=== PATIENT | male | born 1935 | race Caucasian/White ===

== ENCOUNTER → 2016-07-06 | Outpatient (CLI) | payer OTHER, MEDICARE | LOC: MW.CHNEURO 08:00 | CPT/HCPCS: 99215 ==

== ENCOUNTER 2016-07-27 13:07 | Observation (INO) | payer MEDICARE, OTHER ==
--- NOTE | 2016-07-27 13:31 | EDM.PDOC ---
ED HPI GENERAL MEDICAL PROBLEM - General Chief Complaint: Headache Stated Complaint: HAVING A STROKE Time Seen by Provider: 07/27/16 13:29 Source of Information: Reports: Patient History Limitations: Reports: No limitations - History of Present Illness INITIAL COMMENTS - FREE TEXT/NARRATIVE: History of present illness: [81-year-old male presenting with complaints of period of slurring speech, and major headache. is present and indicates patient has had 2 TIAs in the past year and patient was presenting exactly as he was with these other episodes.] Review of systems: As per history of present illness and below otherwise all systems reviewed and negative. Past medical history: As per history of present illness and as reviewed below otherwise noncontributory. Surgical history: As per history of present illness and as reviewed below otherwise noncontributory. Social history: No reported history of drug or alcohol abuse. Family history: As per history of present illness and as reviewed below otherwise noncontributory. Physical exam: HEENT: Atraumatic, normocephalic, pupils reactive, negative for conjunctival pallor or scleral icterus, mucous membranes moist, throat clear, neck supple, nontender, trachea midline. Lungs: Clear to auscultation, breath sounds equal bilaterally, chest nontender. Heart: S1S2, regular, negative for clicks, rubs, or JVD. Abdomen: Soft, nondistended, nontender. Negative for masses or hepatosplenomegaly. Negative for costovertebral tenderness. Pelvis: Stable nontender. Genitourinary: Deferred. Rectal: Deferred. Extremities: Atraumatic, negative for cords or calf pain. Neurovascular unremarkable. Neuro: Awake, alert, oriented. Cranial nerves II through XII unremarkable. Cerebellum unremarkable. Motor and sensory unremarkable throughout. Exam nonfocal. At this juncture patient is without significant deficits indicates that he is presenting at baseline. Patient is still complaining of headache and will be evaluated for same Diagnostics: [EKG,CBC, CMP, troponin, chest x-ray, CT of head] Therapeutics: [] Impression: [TIA] Plan: [Admit for observation and workup to Dr. Bell and Dr. Robert] Definitive disposition and diagnosis as appropriate pending reevaluation and review of above. Frontal Headache Pain Score (Numeric/FACES): 7 - Related Data Allergies Allergy/AdvReac Type Severity Reaction Status Date / Time No Known Allergies Allergy Verified 07/27/16 13:39 Home Meds: Home Meds Dabigatran Etexilate Mesylate [Pradaxa] 150 mg PO BID 12/01/15 [History] Metoprolol Succinate [Toprol XL] 25 mg PO DAILY 12/01/15 [History] Prednisone [IJD: Prednisone] 5 mg PO DAILY 12/01/15 [History] atorvaSTATin [Lipitor] 40 mg PO BEDTIME 12/01/15 [History] Alendronate [Fosamax] 70 mg PO Q7D@0600 06/15/16 [History] Finasteride [Proscar] 5 mg PO DAILY 06/15/16 [History] Lisinopril 10 mg PO DAILY 06/15/16 [History] Tamsulosin [Flomax] 0.4 mg PO PCBREAKFAST 06/15/16 [History] Aspirin 81 mg PO DAILY #30 tab 06/16/16 [Rx] Past Medical History HEENT History: Reports: None Cardiovascular History: Reports: CAD, Hypertension Respiratory History: Reports: None Gastrointestinal History: Reports: None Genitourinary History: Reports: None Musculoskeletal History: Reports: None Neurological History: Reports: None Psychiatric History: Reports: None Endocrine/Metabolic History: Reports: None Hematologic History: Reports: None Immunologic History: Reports: None Oncologic (Cancer) History: Reports: None Dermatologic History: Reports: None - Past Surgical History Cardiovascular Surgical History: Reports: Carotid endarterectomy, Coronary artery bypass, Valve replacement Social & Family History - Family History Family Medical History: Noncontributory HEENT: Reports: None Cardiac: Reports: Afib, High cholesterol, Hypertension Respiratory: Reports: None GI: Reports: None : Reports: None OBGYN: Reports: None Musculoskeletal: Reports: Arthritis, Osteoarthritis, Osteoporosis Neurological: Reports: None Psychiatric: Reports: None Endocrine/Metabolic: Reports: None Hematologic: Reports: None Immunologic: Reports: None Dermatologic: Reports: None - Tobacco Use Smoking Status *Q: Never Smoker Years of Tobacco use: 30 Packs/Tins Daily: 1 Used Tobacco, but Quit: Yes Month Tobacco Last Used: MAY Second Hand Smoke Exposure: No - Caffeine Use Caffeine Use: Reports: Coffee - Alcohol Use Days Per Week of Alcohol Use: 7 Number of Drinks Per Day: 2 Total Drinks Per Week: 14 - Recreational Drug Use Recreational Drug Use: No ED ROS GENERAL - Review of Systems Review Of Systems: See Below (The history of present illness) ED EXAM, GENERAL - Physical Exam Exam: See Below (The history of present illness) Course - Vital Signs Last Recorded V/S: Last Vital Signs Temp 36.6 C 07/27/16 13:14 Pulse 70 07/27/16 14:37 Resp 18 07/27/16 14:37 BP 174/85 H 07/27/16 14:37 Pulse Ox 98 07/27/16 14:37 - Orders/Labs/Meds Orders: Active Orders 24 hr Category Date Time Status Patient Status [ADT] Stat ADT 07/27/16 14:48 Ordered EKG 12 Lead [EKG Documentation Completion] [RC] STAT Care 07/27/16 13:15 Active COMPREHENSIVE METABOLIC PN,CMP [CHEM] Stat Lab 07/27/16 13:53 Received UA W/MICROSCOPIC [URIN] Stat Lab 07/27/16 14:30 Received Labs: Laboratory Tests 07/27/16 07/27/16 Range/Units 13:53 13:53 WBC 10.15 (4.0-11.0) K/uL RBC 4.56 (4.50-5.90) M/uL Hgb 14.9 (13.0-17.0) g/dL Hct 44.2 (38.0-50.0) % MCV 96.9 (80.0-98.0) fL MCH 32.7 H (27.0-32.0) pg MCHC 33.7 (31.0-37.0) g/dL RDW Std Deviation 50.3 (28.0-62.0) fl RDW Coeff of Ryan 14 (11.0-15.0) % Plt Count 215 (150-400) K/uL MPV 10.00 (7.40-12.00) fL Neut % (Auto) 76.5 (48.0-80.0) % Lymph % (Auto) 13.5 L (16.0-40.0) % [place] % (Auto) 9.1 (0.0-15.0) % Eos % (Auto) 0.5 (0.0-7.0) % Baso % (Auto) 0.4 (0.0-1.5) % Neut # (Auto) 7.8 H (1.4-5.7) K/uL Lymph # (Auto) 1.4 (0.6-2.4) K/uL [place] # (Auto) 0.9 H (0.0-0.8) K/uL Eos # (Auto) 0.1 (0.0-0.7) K/uL Baso # (Auto) 0.0 (0.0-0.1) K/uL Nucleated RBC % 0.0 /100WBC Nucleated RBCs # 0 K/uL Troponin I < 0.10 (0.0-0.29) NG/ML Departure - Departure Time of Disposition: 14:50 Disposition: Admitted As Inpatient 67 Condition: good Clinical Impression: TIA (transient ischemic attack) Qualifiers: Transient cerebral ischemia type: unspecified Qualified Code(s): G45.9 - Transient cerebral ischemic attack, unspecified Forms: ED Department Discharge - My Orders Last 24 Hours: My Active Orders 07/27/16 13:15 EKG 12 Lead [EKG Documentation Completion] [RC] STAT 07/27/16 13:53 COMPREHENSIVE METABOLIC PN,CMP [CHEM] Stat 07/27/16 14:30 UA W/MICROSCOPIC [URIN] Stat 07/27/16 14:48 Patient Status [ADT] Stat - Assessment/Plan Last 24 Hours: My Active Orders 07/27/16 13:15 EKG 12 Lead [EKG Documentation Completion] [RC] STAT 07/27/16 13:53 COMPREHENSIVE METABOLIC PN,CMP [CHEM] Stat 07/27/16 14:30 UA W/MICROSCOPIC [URIN] Stat 07/27/16 14:48 Patient Status [ADT] Stat
--- NOTE | 2016-07-27 14:25 | CR ---
EXAMINATION: Portable chest radiograph. HISTORY: Syncope. Comparison: 06/15/2016. FINDINGS: The trachea is midline. The cardiomediastinal silhouette is within normal limits. No pulmonary infil trates, effusions or pneumothorax. There is a left-sided pacemaker. Median sternotomy wires are note d. Chronic interstitial prominence and mild hyperinflation. Osseous structures appear unremarkable. IMPRESSION: Chronic interstitial prominence and hyperinflation without acute cardiopulmonary finding.
--- NOTE | 2016-07-27 14:28 | CT ---
EXAMINATION: Non contrast CT head. Coronal and sagittal reformats. HISTORY: Pain FINDINGS: No evidence of intra or extra axial hemorrhage, mass, midline shift, hydrocephalus or edema. Modera te generalized atrophy. Periventricular and subcortical white matter hypodensities are noted. No hypoattenuation changes in the major vascular territories to suggest acute infarct. No abnormal intracranial calcifications are detected. No evidence of substantial vascular calcifications. Para nasal sinuses and mastoid air cells are well aerated without substantial findings. Pituitary fossa appears unremarkable. The calvarium is intact. No evidence of skull fracture. Advan fermin degenerative changes noted within the temporomandibular joints, right greater than left. IMPRESSION: 1. No acute intracranial findings. 2. Moderate generalized atrophy and small vessel ischemic changes.
[2016-07-27 14:48] LABS: CHLORIDE,CL 106 mmol/L (98-110); SODIUM,NA 140 mmol/L (136-146)
[2016-07-27] MEDS ORDERED: Acetaminophen/HYDROcodone 325-10 MG Tab PO ONE (15:34)
[2016-07-27] MEDS ORDERED: Acetaminophen 325 MG Tab PO PRN (15:45)
[2016-07-27] MEDS ORDERED: Ondansetron 4 MG Tab.DIS PO PRN (15:45)
--- NOTE | 2016-07-27 16:32 | PCM.HP ---
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 Patient presented to the ED with his with complaints of a period of slurring speech, headache and confusion. indicated that patient had 2 TIAs in the past year and was having similarly symptoms as his previous episodes. reports no facial drooping or weakness. He has a baseline ataxia. Patient denies any chest pain or palpitations prior to or after the event. He does remember the episode. His speech returned to normal in approximately 10 minutes. In ED, CXR revealed chronic interstitial prominence and hyperinflation without acute cardiopulmonary findings. CT of the head revealed no acute intracranial findings with moderate generalized atrophy and small vessel ischemic changes. EKG showed no acute ischemic changes. CBC, CMP, UA and Troponin were unremarkable. Patient admitted to observation for Altered mental status vs TIA and placed on telemetry. On previous admission on 06/15/16 he was noted to have left facial droop and left sided weakness. During that admission a Echocardiogram showed: 1. left ventricular ejection fraction by visual estimation is 55%. 2. mild septal left ventricular hypertrophy. 3. there is mild aortic valve sclerosis without stenosis. 4. the mitral valve is normal functioning biprosthetic valve. 5. trace aortic valve regurgitation. 6. mild to moderate tricuspid valve regurgitation. 7. the right ventricular systolic pressure is normal at 33.5 mm Hg Carotid Duplex ultrasound was also preformed during and showed moderate soft and hard plaque noted throughout the carotid arteries bilaterally, however no elevated velocities noted to suggest greater than 50% stenosis. In addition, neurology was consulted and recommendations were to continue his Pradaxa, restart ASA 81 mg, continue his lipitor 40 mg. He has been compliant with these instructions. MRI was not performed secondary to pacemaker. Frontal Headache Pain Score (Numeric/FACES): 7 - Related Data Allergies/Adverse Reactions: Allergies Allergy/AdvReac Type Severity Reaction Status Date / Time No Known Allergies Allergy Verified 07/27/16 13:39 Home Medications: Home Meds Dabigatran Etexilate Mesylate [Pradaxa] 150 mg PO BID 12/01/15 [History] Metoprolol Succinate [Toprol XL] 25 mg PO DAILY 12/01/15 [History] Prednisone [IJD: Prednisone] 5 mg PO DAILY 12/01/15 [History] atorvaSTATin [Lipitor] 40 mg PO BEDTIME 12/01/15 [History] Finasteride [Proscar] 5 mg PO DAILY 06/15/16 [History] Lisinopril 10 mg PO DAILY 06/15/16 [History] Tamsulosin [Flomax] 0.4 mg PO PCBREAKFAST 06/15/16 [History] Aspirin 81 mg PO DAILY #30 tab 06/16/16 [Rx] Alendronate [Fosamax] 70 mg PO ASDIRECTED 07/27/16 [History] Hydrocodone/Acetaminophen [Hydrocodon-Acetaminoph 7.5-300] 7.5 - 200 mg PO DAILY PRN 07/27/16 [History] Past Medical History HEENT History: Reports: None Cardiovascular History: Reports: CAD, Hypertension Respiratory History: Reports: None Gastrointestinal History: Reports: None Genitourinary History: Reports: None Musculoskeletal History: Reports: None Neurological History: Reports: None Psychiatric History: Reports: None Endocrine/Metabolic History: Reports: None Hematologic History: Reports: None Immunologic History: Reports: None Oncologic (Cancer) History: Reports: None Dermatologic History: Reports: None - Past Surgical History Cardiovascular Surgical History: Reports: Carotid endarterectomy, Coronary artery bypass, Valve replacement Social & Family History - Family History Family Medical History: Noncontributory HEENT: Reports: None Cardiac: Reports: Afib, High cholesterol, Hypertension Respiratory: Reports: None GI: Reports: None : Reports: None OBGYN: Reports: None Musculoskeletal: Reports: Arthritis, Osteoarthritis, Osteoporosis Neurological: Reports: None Psychiatric: Reports: None Endocrine/Metabolic: Reports: None Hematologic: Reports: None Immunologic: Reports: None Dermatologic: Reports: None - Tobacco Use Smoking Status *Q: Never Smoker Years of Tobacco use: 30 Packs/Tins Daily: 1 Used Tobacco, but Quit: Yes Month Tobacco Last Used: MAY Second Hand Smoke Exposure: No - Caffeine Use Caffeine Use: Reports: Coffee Caffeine Use Comment: 1 drink/day - Alcohol Use Days Per Week of Alcohol Use: 7 Number of Drinks Per Day: 2 Total Drinks Per Week: 14 - Recreational Drug Use Recreational Drug Use: No H&P Review of Systems - Review of Systems: Review Of Systems: See Below General: Denies: fever, chills, weakness, fatigue HEENT: Denies: dysphasia, hearing changes, sore throat, visual changes Pulmonary: Reports: Shortness of Breath, Cough. Denies: Wheezing, Hemoptysis Cardiovascular: Denies: chest pain, palpitations, edema Gastrointestinal: Denies: Abdominal pain, Black stool, Bloody stool, Nausea, Vomiting Genitourinary: Reports: frequency. Denies: dysuria, burning, pain, hematuria Musculoskeletal: Denies: neck pain, leg pain Skin: Denies: cyanosis Psychiatric: Denies: confusion Neurological: Reports: Headache. Denies: Confusion Hematologic/Lymphatic: Reports: easy bleeding, easy bruising Exam - Exam Exam: See Below - Vital Signs Vital Signs: Last Vital Signs Temp 37.7 C 07/27/16 16:10 Pulse 72 07/27/16 16:10 Resp 18 07/27/16 16:10 BP 197/87 H 07/27/16 16:10 Pulse Ox 97 07/27/16 16:10 Weight: 81.647 kg - Exam Quality Assessment: DVT prophylaxis General: alert, oriented, cooperative HEENT: Conjunctiva clear, EACs clear, EOMI, Hearing intact, Mucosa moist & pink , Nares patent, Normal nasal septum, Posterior pharynx clear, PERRLA Neck: supple, trachea midline, 2 Lungs: Clear to auscultation, Normal respiratory effort, Crackles (bibasilar) Cardiovascular: regular rate, regular rhythm, normal S1, normal S2, systolic murmur Abdomen: normal bowel sounds, soft. No: guarding, rigidity, rebound, tenderness Back Exam: normal inspection. No: CVA tenderness (L), CVA tenderness (R) Extremities: normal inspection, normal pulses. No: calf tenderness, edema Peripheral Pulses: 2+: radial (L), radial (R), posterior tibial (L), posterior tibial (R), dorsalis pedis (L), dorsalis pedis (R) Skin: warm, dry, intact Neurological: cranial nerves intact, strength equal bilateral, normal speech, normal tone, sensation intact, other (ataxia). No: focal deficit Neuro Extensive - Mental Status: alert, oriented x3, normal mood/affect, normal cognition, memory loss-recent events Neuro Extensive - Motor, Sensory, Reflexes: CN II-XII intact, normal gait, normal reflexes, abnormal Romberg Psychiatric: alert, normal affect, normal mood - Patient Data Lab Results last 24 hrs: Laboratory Results - last 24 hr 07/27/16 07/27/16 07/27/16 Range/Units 13:53 13:53 13:53 WBC 10.15 (4.0-11.0) K/uL RBC 4.56 (4.50-5.90) M/uL Hgb 14.9 (13.0-17.0) g/dL Hct 44.2 (38.0-50.0) % MCV 96.9 (80.0-98.0) fL MCH 32.7 H (27.0-32.0) pg MCHC 33.7 (31.0-37.0) g/dL RDW Std Deviation 50.3 (28.0-62.0) fl RDW Coeff of Ryan 14 (11.0-15.0) % Plt Count 215 (150-400) K/uL MPV 10.00 (7.40-12.00) fL Neut % (Auto) 76.5 (48.0-80.0) % Lymph % (Auto) 13.5 L (16.0-40.0) % [place] % (Auto) 9.1 (0.0-15.0) % Eos % (Auto) 0.5 (0.0-7.0) % Baso % (Auto) 0.4 (0.0-1.5) % Neut # (Auto) 7.8 H (1.4-5.7) K/uL Lymph # (Auto) 1.4 (0.6-2.4) K/uL Fisher # (Auto) 0.9 H (0.0-0.8) K/uL Eos # (Auto) 0.1 (0.0-0.7) K/uL Baso # (Auto) 0.0 (0.0-0.1) K/uL Nucleated RBC % 0.0 /100WBC Nucleated RBCs # 0 K/uL Sodium 140 (136-146) mmol/L Potassium 4.0 (3.5-5.1) mmol/L Chloride 106 (98-110) mmol/L Carbon Dioxide 21 (21-31) mmol/L BUN 12 (6.0-23.0) mg/dL Creatinine 0.8 (0.6-1.5) mg/dL Est Cr Clr Drug Dosing TNP Estimated GFR (MDRD) > 60.0 ml/min Glucose 102 (60-110) mg/dL Calcium 9.0 (8.8-10.8) mg/dL Total Bilirubin 1.2 (0.1-1.5) mg/dL AST 21 (5-40) IU/L ALT 19 (8-54) IU/L Alkaline Phosphatase 48 (40-150) Troponin I < 0.10 (0.0-0.29) NG/ML Total Protein 7.5 (6.0-8.0) g/dL Albumin 3.9 (3.4-4.8) g/dL Globulin 3.6 H (2.0-3.5) g/dL Albumin/Globulin Ratio 1.1 L (1.3-2.8) Urine Color Urine Appearance Urine pH (5.0-8.0) Ur Specific [place] (1.001-1.035) Urine Protein (NEGATIVE) mg/dL Urine Glucose (UA) (NEGATIVE) mg/dL Urine Ketones (NEGATIVE) mg/dL Urine Occult Blood (NEGATIVE) Urine Nitrite (NEGATIVE) Urine Bilirubin (NEGATIVE) Urine Urobilinogen (<2.0) EU/dL Ur Leukocyte Esterase (NEGATIVE) Urine RBC (0-2/HPF) Urine WBC (0-5/HPF) Ur Epithelial Cells (NONE-FEW) Amorphous Sediment (NEGATIVE) Urine Bacteria (NEGATIVE) 07/27/16 Range/Units 14:30 WBC (4.0-11.0) K/uL RBC (4.50-5.90) M/uL Hgb (13.0-17.0) g/dL Hct (38.0-50.0) % MCV (80.0-98.0) fL MCH (27.0-32.0) pg MCHC (31.0-37.0) g/dL RDW Std Deviation (28.0-62.0) fl RDW Coeff of Ryan (11.0-15.0) % Plt Count (150-400) K/uL MPV (7.40-12.00) fL Neut % (Auto) (48.0-80.0) % Lymph % (Auto) (16.0-40.0) % Fisher % (Auto) (0.0-15.0) % Eos % (Auto) (0.0-7.0) % Baso % (Auto) (0.0-1.5) % Neut # (Auto) (1.4-5.7) K/uL Lymph # (Auto) (0.6-2.4) K/uL Fisher # (Auto) (0.0-0.8) K/uL Eos # (Auto) (0.0-0.7) K/uL Baso # (Auto) (0.0-0.1) K/uL Nucleated RBC % /100WBC Nucleated RBCs # K/uL Sodium (136-146) mmol/L Potassium (3.5-5.1) mmol/L Chloride (98-110) mmol/L Carbon Dioxide (21-31) mmol/L BUN (6.0-23.0) mg/dL Creatinine (0.6-1.5) mg/dL Est Cr Clr Drug Dosing Estimated GFR (MDRD) ml/min Glucose (60-110) mg/dL Calcium (8.8-10.8) mg/dL Total Bilirubin (0.1-1.5) mg/dL AST (5-40) IU/L ALT (8-54) IU/L Alkaline Phosphatase (40-150) Troponin I (0.0-0.29) NG/ML Total Protein (6.0-8.0) g/dL Albumin (3.4-4.8) g/dL Globulin (2.0-3.5) g/dL Albumin/Globulin Ratio (1.3-2.8) Urine Color YELLOW Urine Appearance CLEAR Urine pH 7.5 (5.0-8.0) Ur Specific [place] 1.015 (1.001-1.035) Urine Protein NEGATIVE (NEGATIVE) mg/dL Urine Glucose (UA) NEGATIVE (NEGATIVE) mg/dL Urine Ketones NEGATIVE (NEGATIVE) mg/dL Urine Occult Blood NEGATIVE (NEGATIVE) Urine Nitrite NEGATIVE (NEGATIVE) Urine Bilirubin NEGATIVE (NEGATIVE) Urine Urobilinogen 2.0 H (<2.0) EU/dL Ur Leukocyte Esterase NEGATIVE (NEGATIVE) Urine RBC 0-2 (0-2/HPF) Urine WBC 0-2 (0-5/HPF) Ur Epithelial Cells RARE (NONE-FEW) Amorphous Sediment LIGHT (NEGATIVE) Urine Bacteria FEW (NEGATIVE) Result Diagrams: 07/27/16 13:53 07/27/16 13:53 *Q Meaningful Use (ADM) - VTE *Q VTE Criteria *Q: - Stroke *Q Stroke Criteria *Q: - AMI *Q AMI Criteria *Q: - Problem List (1) HTN (hypertension) SNOMED Code(s): 66754606 ICD Code: I10 - ESSENTIAL (PRIMARY) HYPERTENSION Status: Chronic Priority : Medium Current Visit: Yes Qualifiers: Hypertension type: essential hypertension Qualified Code(s): I10 - Essential (primary) hypertension (2) CAD (coronary artery disease) SNOMED Code(s): 97657111 ICD Code: I25.10 - ATHSCL HEART DISEASE OF [place] CORONARY ARTERY W/O ANG PCTRS Status: Chronic Priority: Medium Current Visit: Yes Qualifiers: Coronary Disease-Associated Artery/Lesion type: unspecified vessel or lesion type [place] vs. transplanted heart: [place] heart Associated angina: without angina Qualified Code(s): I25.10 - Atherosclerotic heart disease of [place] coronary artery without angina pectoris (3) Altered mental status SNOMED Code(s): 045357420 ICD Code: R41.82 - ALTERED MENTAL STATUS, UNSPECIFIED Status: Resolved Priority: High Current Visit: Yes Qualifiers: Altered mental status type: transient alteration of awareness Qualified Code(s): R40.4 - Transient alteration of awareness (4) TIA (transient ischemic attack) SNOMED Code(s): 739638306, 181962422 ICD Code: G45.9 - TRANSIENT CEREBRAL ISCHEMIC ATTACK, UNSPECIFIED Status: Acute Priority: High Current Visit: Yes Qualifiers: Transient cerebral ischemia type: unspecified Qualified Code(s): G45.9 - Transient cerebral ischemic attack, unspecified Problem List Initiated/Reviewed/Updated: Yes Orders Last 24hrs: Active Orders 24 hr Category Date Time Status Patient Status [ADT] Routine ADT 07/27/16 15:45 Active Patient Status [ADT] Stat ADT 07/27/16 14:48 Active Antiembolic Devices [RC] PER UNIT ROUTINE Care 07/27/16 15:47 Active EKG 12 Lead [EKG Documentation Completion] [RC] STAT Care 07/27/16 13:15 Active Oxygen Therapy [RC] PRN Care 07/27/16 15:45 Active Telemetry Monitoring [Cardiac Monitoring] [RC] . Care 07/27/16 16:06 Ordered DIRECTED Up With Assistance [RC] ASDIRECTED Care 07/27/16 15:45 Active VTE/DVT Education [RC] PER UNIT ROUTINE Care 07/27/16 15:45 Active Vital Signs [RC] Q4H Care 07/27/16 15:45 Active Heart Healthy Diet [DIET] Diet 07/27/16 Dinner Active BASIC METABOLIC PANEL,BMP [CHEM] DAILY Lab 07/28/16 15:45 Ordered BASIC METABOLIC PANEL,BMP [CHEM] DAILY Lab 07/29/16 15:45 Ordered BASIC METABOLIC PANEL,BMP [CHEM] DAILY Lab 07/30/16 15:45 Ordered CBC WITH AUTO DIFF [HEME] DAILY Lab 07/28/16 05:00 Ordered CBC WITH AUTO DIFF [HEME] DAILY Lab 07/29/16 05:00 Ordered CBC WITH AUTO DIFF [HEME] DAILY Lab 07/30/16 05:00 Ordered MAGNESIUM [CHEM] Routine Lab 07/28/16 05:00 Ordered PHOSPHORUS [CHEM] DAILY Lab 07/28/16 05:00 Ordered Acetaminophen [Tylenol] Med 07/27/16 15:45 Active 650 mg PO Q4H PRN Ondansetron [Zofran ODT] Med 07/27/16 15:45 Active 4 mg PO Q4H PRN Sequential Compression Device [OM.PC] Per Unit Routine Oth 07/27/16 15:46 Ordered Resuscitation Status Routine Resus Stat 07/27/16 15:45 Ordered Medication Orders Acetaminophen (Tylenol) 650 mg PO Q4H PRN PRN Reason: Pain (Mild 1-3)/fever Ondansetron HCl (Zofran Odt) 4 mg PO Q4H PRN PRN Reason: nausea, able to take PO Assessment/Plan Comment:: 81 yo male admitted 07/27/16 for TIA with pmh of TIA, A-fib with pacer, 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 TIA: No focal deficits on exam and no slurring of speech. He is on a lipid lower medication, ASA and Pradaxa which will be continued. Previous studies including CT head, Carotid US, and Echocardiogram on 06/16/16 did not reveal any new finding. Secondary to pacer patient cannot have MRI at this facility. I did talk with Dr. Jewell, neurologist who saw the patient during his last admission. She indicated that he currently is on maximal medical therapy at this time. We will watch patient overnight on telemetry to rule out cardiac etiology of symptoms. No signs of ischemia on ECG and troponin was negative. No reported chest pain but some shortness of breath. All labs thus far unremarkable for infection. A-fib with pacer/porcine valve replacement: Rate controlled, on telemetry will monitor. Continue Pradaxa and ASA Htn: Stable cont. home BP meds. Hyperlipidemia: Cont. home meds. VTE: SCD, On Pradaxa and 81 mg ASA Dispo: Tomorrow pending.
[2016-07-27] MEDS ORDERED: hydrALAZINE 20 MG/ML SDV IVPUSH ONE (18:24)
[2016-07-27] MEDS: Lisinopril 10 MG Tab PO SCH (18:47)
[2016-07-27] MEDS: Metoprolol Succinate 25 MG Tab.ER PO SCH (18:48)
[2016-07-27] MEDS ORDERED: atorvaSTATin 40 MG Tab PO SCH (21:00)
[2016-07-28 05:35] LABS: CHLORIDE,CL 108 mmol/L (98-110); SODIUM,NA 139 mmol/L (136-146)
[2016-07-28 08:05] VITALS: BP 147/72
[2016-07-28] MEDS: Lisinopril 10 MG Tab PO SCH (08:54)
[2016-07-28] MEDS: Metoprolol Succinate 25 MG Tab.ER PO SCH (08:55)
[2016-07-28] MEDS ORDERED: Aspirin 81 MG Tab.Chew PO SCH (09:00)
--- NOTE | 2016-07-28 10:34 | PCM.DCSUM1 ---
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 Brief History: Patient presented to the ED with his with complaints of a period of slurring speech, headache and confusion. indicated that patient had 2 TIAs in the past year and was having similarly symptoms as his previous episodes. reported no facial drooping or weakness. He has a baseline ataxia. Patient denied any chest pain or palpitations prior to or after the event. He did remember the episode. His speech returned to normal in approximately 10 minutes - Discharge Data Discharge Date: 07/28/16 Discharge Disposition: Home, Self-Care 01 Condition: Good - Discharge Diagnosis/Problem(s) (1) HTN (hypertension) SNOMED Code(s): 35844339 ICD Code: I10 - ESSENTIAL (PRIMARY) HYPERTENSION Status: Chronic Priority : Medium Current Visit: Yes Qualifiers: Hypertension type: essential hypertension Qualified Code(s): I10 - Essential (primary) hypertension (2) CAD (coronary artery disease) SNOMED Code(s): 28527804 ICD Code: I25.10 - ATHSCL HEART DISEASE OF [place] CORONARY ARTERY W/O ANG PCTRS Status: Chronic Priority: Medium Current Visit: Yes Qualifiers: Coronary Disease-Associated Artery/Lesion type: unspecified vessel or lesion type [place] vs. transplanted heart: [place] heart Associated angina: without angina Qualified Code(s): I25.10 - Atherosclerotic heart disease of [place] coronary artery without angina pectoris (3) Altered mental status SNOMED Code(s): 388739019 ICD Code: R41.82 - ALTERED MENTAL STATUS, UNSPECIFIED Status: Resolved Priority: High Current Visit: Yes Qualifiers: Altered mental status type: transient alteration of awareness Qualified Code(s): R40.4 - Transient alteration of awareness (4) TIA (transient ischemic attack) SNOMED Code(s): 598782762, 948381549 ICD Code: G45.9 - TRANSIENT CEREBRAL ISCHEMIC ATTACK, UNSPECIFIED Status: Acute Priority: High Current Visit: Yes Qualifiers: Transient cerebral ischemia type: unspecified Qualified Code(s): G45.9 - Transient cerebral ischemic attack, unspecified - Patient Summary/Data Hospital Course: In ED, CXR revealed chronic interstitial prominence and hyperinflation without acute cardiopulmonary findings. CT of the head revealed no acute intracranial findings with moderate generalized atrophy and small vessel ischemic changes. EKG showed no acute ischemic changes. CBC, CMP, UA and Troponin were unremarkable. Patient was admitted to observation for Altered mental status vs TIA and placed on telemetry. On previous admission on 06/15/16 he was noted to have left facial droop and left sided weakness. During that admission a Echocardiogram showed: 1. left ventricular ejection fraction by visual estimation is 55%. 2. mild septal left ventricular hypertrophy. 3. there is mild aortic valve sclerosis without stenosis. 4. the mitral valve is normal functioning biprosthetic valve. 5. trace aortic valve regurgitation. 6. mild to moderate tricuspid valve regurgitation. 7. the right ventricular systolic pressure is normal at 33.5 mm Hg Carotid Duplex ultrasound was also preformed during that admission and showed moderate soft and hard plaque noted throughout the carotid arteries bilaterally , however no elevated velocities noted to suggest greater than 50% stenosis. In addition, neurology was consulted and recommendations were to continue his Pradaxa, restart ASA 81 mg, continue his lipitor 40 mg. He and his reported he had been compliant with these instructions. MRI was not performed secondary to pacemaker. - Patient Instructions Diet: Heart Healthy Diet Activity: As Tolerated Driving: Do Not Drive Showering/Bathing: May Shower Notify Provider of: Fever, Increased Pain, Nausea and/or Vomiting Other/Special Instructions: Follow-up with Dr. Rodriguez and Dr. Jewell. Take home medication as prescribed. Return to ED if any new or worsening symptoms. - Discharge Plan Home Medications: Home Meds Dabigatran Etexilate Mesylate [Pradaxa] 150 mg PO BID 12/01/15 [History] Metoprolol Succinate [Toprol XL] 25 mg PO DAILY 12/01/15 [History] Prednisone [IJD: Prednisone] 5 mg PO DAILY 12/01/15 [History] atorvaSTATin [Lipitor] 40 mg PO BEDTIME 12/01/15 [History] Finasteride [Proscar] 5 mg PO DAILY 06/15/16 [History] Lisinopril 10 mg PO DAILY 06/15/16 [History] Tamsulosin [Flomax] 0.4 mg PO PCBREAKFAST 06/15/16 [History] Aspirin 81 mg PO DAILY #30 tab 06/16/16 [Rx] Alendronate [Fosamax] 70 mg PO ASDIRECTED 07/27/16 [History] Hydrocodone/Acetaminophen [Hydrocodon-Acetaminoph 7.5-300] 7.5 - 200 mg PO DAILY PRN 07/27/16 [History] Forms: ED Department Discharge Referrals: Yevgeniy Murguia MD [Physician] - 08/04/16 10:45 am - Discharge Summary/Plan Comment DC Time >30 min.: Yes Discharge Summary/Plan Comment: 81 yo male admitted to observation 07/27/16 for altered mental status/TIA with history of TIA, a-fib with pacer, carotid endarterectomy, 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 Patient presented to the ED with his with complaints of a period of slurring speech, headache and confusion. indicated that patient had 2 TIAs in the past year and was having similarly symptoms as his previous episodes. reported no facial drooping or weakness. He has a baseline ataxia. Patient denied any chest pain or palpitations prior to or after the event. He did remember the episode. His speech returned to normal in approximately 10 minutes. In ED, CXR revealed chronic interstitial prominence and hyperinflation without acute cardiopulmonary findings. CT of the head revealed no acute intracranial findings with moderate generalized atrophy and small vessel ischemic changes. EKG showed no acute ischemic changes. CBC, CMP, UA and Troponin were unremarkable. Patient was admitted to observation for Altered mental status vs TIA and placed on telemetry. On previous admission on 06/15/16 he was noted to have left facial droop and left sided weakness. During that admission a Echocardiogram showed: 1. left ventricular ejection fraction by visual estimation is 55%. 2. mild septal left ventricular hypertrophy. 3. there is mild aortic valve sclerosis without stenosis. 4. the mitral valve is normal functioning biprosthetic valve. 5. trace aortic valve regurgitation. 6. mild to moderate tricuspid valve regurgitation. 7. the right ventricular systolic pressure is normal at 33.5 mm Hg Carotid Duplex ultrasound was also preformed during that admission and showed moderate soft and hard plaque noted throughout the carotid arteries bilaterally , however no elevated velocities noted to suggest greater than 50% stenosis. In addition, neurology was consulted and recommendations were to continue his Pradaxa, restart ASA 81 mg, continue his lipitor 40 mg. He and his reported he had been compliant with these instructions. MRI was not performed secondary to pacemaker. Patient did well during his stay and had no further episodes. Dr. Jewell, neurologist, was called and stated that he is currently on maximal medical therapy. Telemetry overnight showed stable pacer/rate controlled a-flutter without signifcant events. He was discharged in good condition home with follow -up scheduled with Dr. Jewell as well as Dr. Rodriguez, PCP. Both providers were called and informed of his status. He was instructed to take his current home medications as prescribed and retrun to ED if he had new or worsening symptoms. - General Info Date of Service: 07/28/16 Admission Dx/Problem (Free Text: Admission Diagnosis/Problem Admission Diagnosis/Problem TIA, Transient ischemic attack Functional Status: Reports: pain controlled, tolerating diet - Review of Systems General: Reports: No Symptoms HEENT: Denies: dysphasia, headaches Pulmonary: Denies: shortness of breath, pleuritic chest pain, wheezing Cardiovascular: Denies: Chest Pain, Edema Gastrointestinal: Denies: Abdominal pain, Constipation Genitourinary: Denies: dysuria, hematuria Musculoskeletal: Denies: neck pain, leg pain Skin: Denies: cyanosis Neurological: Denies: Confusion, Dizziness, Headache - Patient Data Vitals - Most Recent: Last Vital Signs Temp 36.6 C 07/28/16 08:00 Pulse 70 07/28/16 08:55 Resp 16 07/28/16 08:00 BP 147/72 H 07/28/16 08:55 Pulse Ox 97 07/28/16 08:00 Weight - Most Recent: 81.647 kg I&O - Last 24 hours: Intake & Output 07/27/16 07/28/16 07/28/16 22:59 06:59 14:59 Intake Total 300 Output Total 350 Balance -50 Lab Results - Last 24 hrs: Laboratory Results - last 24 hr 07/28/16 07/28/16 07/28/16 Range/Units 04:30 04:30 04:30 WBC 9.00 (4.0-11.0) K/uL RBC 4.54 (4.50-5.90) M/uL Hgb 14.8 (13.0-17.0) g/dL Hct 44.2 (38.0-50.0) % MCV 97.4 (80.0-98.0) fL MCH 32.6 H (27.0-32.0) pg MCHC 33.5 (31.0-37.0) g/dL RDW Std Deviation 50.4 (28.0-62.0) fl RDW Coeff of Ryan 14 (11.0-15.0) % Plt Count 231 (150-400) K/uL MPV 10.30 (7.40-12.00) fL Neut % (Auto) 67.9 (48.0-80.0) % Lymph % (Auto) 19.4 (16.0-40.0) % [place] % (Auto) 11.3 (0.0-15.0) % Eos % (Auto) 0.8 (0.0-7.0) % Baso % (Auto) 0.6 (0.0-1.5) % Neut # (Auto) 6.1 H (1.4-5.7) K/uL Lymph # (Auto) 1.8 (0.6-2.4) K/uL [place] # (Auto) 1.0 H (0.0-0.8) K/uL Eos # (Auto) 0.1 (0.0-0.7) K/uL Baso # (Auto) 0.1 (0.0-0.1) K/uL Nucleated RBC % 0.0 /100WBC Nucleated RBCs # 0 K/uL Sodium 139 (136-146) mmol/L Potassium 4.3 (3.5-5.1) mmol/L Chloride 108 (98-110) mmol/L Carbon Dioxide 20 L (21-31) mmol/L BUN 13 (6.0-23.0) mg/dL Creatinine 0.8 (0.6-1.5) mg/dL Est Cr Clr Drug Dosing 78.44 mL/min Estimated GFR (MDRD) > 60.0 ml/min Glucose 105 (60-110) mg/dL Calcium 9.0 (8.8-10.8) mg/dL Phosphorus 3.2 (2.4-4.7) mg/dL Magnesium 1.8 (1.5-2.3) mEq/L Med Orders - Current: Current Medications Acetaminophen (Tylenol) 650 mg PO Q4H PRN PRN Reason: Pain (Mild 1-3)/fever Aspirin (Aspirin) 81 mg PO DAILY [facility] Last Admin: 07/28/16 08:54 Dose: 81 mg Atorvastatin Calcium (Lipitor) 40 mg PO BEDTIME [facility] Last Admin: 07/27/16 21:19 Dose: 40 mg Dabigatran (Pradaxa) 150 mg PO BID [facility] Last Admin: 07/28/16 08:54 Dose: 150 mg Lisinopril (Prinivil) 10 mg PO DAILY [facility] Last Admin: 07/28/16 08:54 Dose: 10 mg Metoprolol Succinate (Toprol Xl) 25 mg PO DAILY [facility] Last Admin: 07/28/16 08:55 Dose: 25 mg Ondansetron HCl (Zofran Odt) 4 mg PO Q4H PRN PRN Reason: nausea, able to take PO Discontinued Medications Hydrocodone Bitart/Acetaminophen ([place] 325-10 Mg) 1 tab PO ONETIME ONE Stop: 07/27/16 15:35 Last Admin: 07/27/16 15:43 Dose: 1 tab Hydralazine HCl (Apresoline) 10 mg IVPUSH ONETIME ONE Stop: 07/27/16 18:25 Last Admin: 07/27/16 18:47 Dose: Not Given - Exam Quality Assessment: Reports: DVT prophylaxis General: Reports: alert, oriented, cooperative, no acute distress HEENT: Reports: Pupils equal, Pupils reactive, EOMI, Mucous membr. moist/pink Neck: Reports: supple, trachea midline Lungs: Reports: Clear to auscultation, Normal respiratory effort Cardiovascular: Reports: Regular Rate, Regular Rhythm Abdomen: Reports: bowel sounds present, soft, no tenderness, no distension Back Exam: Reports: normal inspection Extremities: Reports: no edema, normal pulses, no tenderness/swelling, no calf tenderness Skin: Reports: warm, dry, intact Neurological: Reports: no new focal deficit, other (gait ataxic) Psy/Mental Status: Reports: alert, normal affect, normal mood *Q Meaningful Use (DIS) - VTE *Q VTE Criteria *Q: - Stroke *Q Stroke Criteria *Q: - AMI *Q AMI Criteria *Q:
== END 2016-07-28 12:00 | disposition home or self-care (01) ==
LOC: MW.ED 13:07 → MW.MS 14:48
PROVIDERS: ADMIT Family Medicine; ATTEND Family Medicine
DX: I10 Essential (primary) hypertension (principal); I25.10 Atherosclerotic heart disease of native coronary artery without angina pectoris; R40.4 Transient alteration of awareness; G45.9 Transient cerebral ischemic attack, unspecified; Z79.82 Long term (current) use of aspirin; Z79.899 Other long term (current) drug therapy; Z95.1 Presence of aortocoronary bypass graft; Z95.2 Presence of prosthetic heart valve; Z98.890 Other specified postprocedural states; E78.5 Hyperlipidemia, unspecified; N40.0 Benign prostatic hyperplasia without lower urinary tract symptoms
CPT/HCPCS: 36415; 70450; 71010; 80048; 80053; 81001; 83735; 84100; 84484; 85025; 93005; 99285; A9270; G0378; 99284

== ENCOUNTER 2016-11-21 03:45 | Emergency (ER) | payer MEDICARE, OTHER ==
[2016-11-21] MEDS ORDERED: Aspirin 81 MG Tab.Chew PO ONE (03:56)
[2016-11-21] MEDS ORDERED: Sodium Chloride 0.9% 1,000 ML IV SCH (04:00)
--- NOTE | 2016-11-21 04:08 | EDM.PDOC ---
ED HPI GENERAL MEDICAL PROBLEM - General Chief Complaint: Neurological Problem Stated Complaint: SEIZURES Time Seen by Provider: 11/21/16 04:03 Source of Information: Reports: Patient - History of Present Illness INITIAL COMMENTS - FREE TEXT/NARRATIVE: HISTORY AND PHYSICAL: History of present illness: []Patient presents via ambulance as his noticed he was having seizure-like activity during his sleep, he arrives somewhat post- ictal seeming however he is complaining of chest pain he describes as pressure rated 6 out of 10 nonradiating to arm neck or jaw is been present for greater than 30 minutes on initial EKG does have significant ST depression V1 2 and 3 repeat EKG is similar. He has recently seen Dr. Fleming at [facility] in mind that she has artificial valve and pacemaker placement No fever nausea vomiting chills sweats no shortness of breath or diaphoresis Review of systems: As per history of present illness and below otherwise all systems reviewed and negative. Past medical history: As per history of present illness and as reviewed below otherwise noncontributory. Surgical history: As per history of present illness and as reviewed below otherwise noncontributory. Social history: No reported history of drug or alcohol abuse. Family history: As per history of present illness and as reviewed below otherwise noncontributory. Physical exam: HEENT: Atraumatic, normocephalic, pupils reactive, negative for conjunctival pallor or scleral icterus, mucous membranes moist, throat clear, neck supple, nontender, trachea midline. Lungs: Clear to auscultation, breath sounds equal bilaterally, chest nontender. Heart: S1S2, regular, negative for clicks, rubs, or JVD. Abdomen: Soft, nondistended, nontender. Negative for masses or hepatosplenomegaly. Negative for costovertebral tenderness. Pelvis: Stable nontender. Genitourinary: Deferred. Rectal: Deferred. Extremities: Atraumatic, negative for cords or calf pain. Neurovascular unremarkable. Neuro: Awake, alert, oriented. Cranial nerves II through XII unremarkable. Cerebellum unremarkable. Motor and sensory unremarkable throughout. Exam nonfocal. Diagnostics: []CBC CMP and cardiac enzymes a medium UA EKG Chest 1 view Therapeutics: []Normal saline 1 25 mL per hour Aspirin 324 mg chewable Morphine 2 mg IV Nitroglycerin 0.4 sublingual every 53 Heparin 5000 unit bolus and 12 units per kilogram drip Did discuss patient with Dr. Merrick BUITRAGO Dasha transfers arranged prior to lab returning outside of EKG and symptomology Impression: Acute coronary syndrome []Seizure like activity by history Definitive disposition and diagnosis as appropriate pending reevaluation and review of above. - Related Data Allergies Allergy/AdvReac Type Severity Reaction Status Date / Time No Known Allergies Allergy Verified 07/27/16 13:39 Home Meds: Home Meds Dabigatran Etexilate Mesylate [Pradaxa] 150 mg PO BID 12/01/15 [History] Metoprolol Succinate [Toprol XL] 25 mg PO DAILY 12/01/15 [History] Prednisone [IJD: Prednisone] 5 mg PO DAILY 12/01/15 [History] atorvaSTATin [Lipitor] 40 mg PO BEDTIME 12/01/15 [History] Lisinopril 10 mg PO DAILY 06/15/16 [History] Alendronate [Fosamax] 70 mg PO ASDIRECTED 07/27/16 [History] Hydrocodone/Acetaminophen [Hydrocodon-Acetaminoph 7.5-300] 7.5 - 200 mg PO DAILY PRN 07/27/16 [History] Past Medical History HEENT History: Reports: None Cardiovascular History: Reports: CAD, Hypertension Respiratory History: Reports: None Gastrointestinal History: Reports: None Genitourinary History: Reports: None Musculoskeletal History: Reports: None Neurological History: Reports: None Psychiatric History: Reports: None Endocrine/Metabolic History: Reports: None Hematologic History: Reports: None Immunologic History: Reports: None Oncologic (Cancer) History: Reports: None Dermatologic History: Reports: None - Infectious Disease History Infectious Disease History: Reports: Mumps - Past Surgical History Cardiovascular Surgical History: Reports: Carotid Endarterectomy, Coronary Artery Bypass, Valve Replacement Social & Family History - Family History Family Medical History: Noncontributory HEENT: Reports: None Cardiac: Reports: Afib, High Cholesterol, Hypertension Respiratory: Reports: None GI: Reports: None : Reports: None OBGYN: Reports: None Musculoskeletal: Reports: Arthritis, Osteoarthritis, Osteoporosis Neurological: Reports: None Psychiatric: Reports: None Endocrine/Metabolic: Reports: None Hematologic: Reports: None Immunologic: Reports: None Dermatologic: Reports: None - Tobacco Use Smoking Status *Q: Never Smoker Years of Tobacco use: 30 Packs/Tins Daily: 1 Used Tobacco, but Quit: Yes Month Tobacco Last Used: MAY Second Hand Smoke Exposure: No - Caffeine Use Caffeine Use: Reports: Coffee Caffeine Use Comment: 1 drink/day - Alcohol Use Days Per Week of Alcohol Use: 7 Number of Drinks Per Day: 2 Total Drinks Per Week: 14 - Recreational Drug Use Recreational Drug Use: No ED ROS GENERAL - Review of Systems Review Of Systems: ROS reveals no pertinent complaints other than HPI. ED EXAM, GENERAL - Physical Exam Exam: See Below Course - Vital Signs Last Recorded V/S: Last Vital Signs Temp 36.6 C 11/21/16 03:55 Pulse 104 H 11/21/16 03:55 Resp 26 H 11/21/16 03:55 BP 140/73 11/21/16 03:55 Pulse Ox 89 L 11/21/16 03:55 - Orders/Labs/Meds Orders: Active Orders 24 hr Category Date Time Status EKG 12 Lead [EKG Documentation Completion] [RC] STAT Care 11/21/16 04:13 Active EKG Documentation Completion [RC] STAT Care 11/21/16 03:58 Active Chest 1V Frontal [CR] Stat Exams 11/21/16 03:58 Taken CKMB [CHEM] Stat Lab 11/21/16 04:00 Received COMPREHENSIVE METABOLIC PN,CMP [CHEM] Stat Lab 11/21/16 04:00 Received CREATINE KINASE,CK [CHEM] Stat Lab 11/21/16 04:00 Received MAGNESIUM [CHEM] Stat Lab 11/21/16 04:00 Received PROLACTIN [CHEM] Stat Lab 11/21/16 04:00 Received Nitroglycerin [Nitrostat] Med 11/21/16 04:27 Active 0.4 mg SL Q5M PRN Sodium Chloride 0.9% [Normal Saline] 1,000 ml Med 11/21/16 04:00 Active IV STAT Medication Orders Sodium Chloride (Normal Saline) 1,000 mls @ 125 mls/hr IV STAT MARCELINO Last Admin: 11/21/16 04:15 Dose: 125 mls/hr Nitroglycerin (Nitrostat) 0.4 mg SL Q5M PRN PRN Reason: Chest Pain Stop: 11/21/16 04:38 Labs: Laboratory Tests 11/21/16 11/21/16 Range/Units 04:00 04:00 WBC 10.61 (4.0-11.0) K/uL RBC 4.34 L (4.50-5.90) M/uL Hgb 14.6 (13.0-17.0) g/dL Hct 41.6 (38.0-50.0) % MCV 95.9 (80.0-98.0) fL MCH 33.6 H (27.0-32.0) pg MCHC 35.1 (31.0-37.0) g/dL RDW Std Deviation 48.4 (28.0-62.0) fl RDW Coeff of [place] 14 (11.0-15.0) % Plt Count 216 (150-400) K/uL MPV 9.80 (7.40-12.00) fL Add Manual Diff YES Neutrophils % (Manual) 80 (48.0-80.0) % Band Neutrophils % 3 % Lymphocytes % (Manual) 13 L (16.0-40.0) % Monocytes % (Manual) 4 (0.0-15.0) % Nucleated RBC % 0.0 /100WBC Absolute Seg Neuts 8.5 Band Neutrophils # 0.3 Lymphocytes # (Manual) 1.4 Monocytes # (Manual) 0.4 Nucleated RBCs # 0 K/uL Troponin I < 0.10 (0.0-0.29) NG/ML Meds: Medications Generic Name Dose Route Start Last Admin Trade Name Freq PRN Reason Stop Dose Admin Sodium Chloride 1,000 mls @ 125 mls/hr 11/21/16 04:00 11/21/16 04:15 Normal Saline IV 125 mls/hr STAT MARCELINO Administration Nitroglycerin 0.4 mg 11/21/16 04:27 Nitrostat SL 11/21/16 04:38 Q5M PRN Chest Pain Discontinued Medications Generic Name Dose Route Start Last Admin Trade Name Freq PRN Reason Stop Dose Admin Aspirin 324 mg 11/21/16 03:56 11/21/16 04:14 Aspirin PO 11/21/16 03:57 324 mg ONETIME ONE Administration Heparin Sodium (Porcine) 5,000 units 11/21/16 04:12 11/21/16 04:22 Heparin Sodium IVPUSH 11/21/16 04:13 5,000 units ONETIME ONE Administration Morphine Sulfate 2 mg 11/21/16 04:12 11/21/16 04:17 Morphine IV 11/21/16 04:13 2 mg ONETIME ONE Administration Departure - Departure Time of Disposition: 04:31 Disposition: DC/Tfer to Other 70 Condition: Poor Clinical Impression: Acute coronary syndrome, Seizure-like activity - Discharge Information Forms: ED Department Discharge - My Orders Last 24 Hours: My Active Orders 11/21/16 03:58 EKG Documentation Completion [RC] STAT Chest 1V Frontal [CR] Stat 11/21/16 04:00 CKMB [CHEM] Stat COMPREHENSIVE METABOLIC PN,CMP [CHEM] Stat CREATINE KINASE,CK [CHEM] Stat MAGNESIUM [CHEM] Stat PROLACTIN [CHEM] Stat Sodium Chloride 0.9% [Normal Saline] 1,000 ml IV STAT 11/21/16 04:13 EKG 12 Lead [EKG Documentation Completion] [RC] STAT 11/21/16 04:27 Nitroglycerin [Nitrostat] 0.4 mg SL Q5M PRN - Assessment/Plan Last 24 Hours: My Active Orders 11/21/16 03:58 EKG Documentation Completion [RC] STAT Chest 1V Frontal [CR] Stat 11/21/16 04:00 CKMB [CHEM] Stat COMPREHENSIVE METABOLIC PN,CMP [CHEM] Stat CREATINE KINASE,CK [CHEM] Stat MAGNESIUM [CHEM] Stat PROLACTIN [CHEM] Stat Sodium Chloride 0.9% [Normal Saline] 1,000 ml IV STAT 11/21/16 04:13 EKG 12 Lead [EKG Documentation Completion] [RC] STAT 11/21/16 04:27 Nitroglycerin [Nitrostat] 0.4 mg SL Q5M PRN
[2016-11-21] MEDS ORDERED: Morphine 10 MG/ML Syringe IV ONE (04:12)
[2016-11-21] MEDS ORDERED: Heparin Sodium 5,000 Units/ML Vial IVPUSH ONE (04:12)
[2016-11-21] MEDS ORDERED: Heparin Sod,Pork In 0.45% Nacl 25,000 UNIT/500 ML IV.SOLN IV ONE (04:27)
[2016-11-21] MEDS ORDERED: Heparin Sod,Pork In 0.45% Nacl 25,000 UNIT/500 ML IV.SOLN IV SCH (04:30)
[2016-11-21] MEDS: Nitroglycerin 0.4 MG Tab.SL SL PRN ×3 (04:32→04:41)
[2016-11-21 04:34] LABS: CHLORIDE,CL 104 mmol/L (98-110); SODIUM,NA 137 mmol/L (136-146)
[2016-11-21 04:49] VITALS: BP 108/69
--- NOTE | 2016-11-23 12:42 | CR ---
EXAM DATE: 11/21/16 PATIENT'S AGE: 81 Patient: CATHY LIU Facility: [place], [place] Site . Site : [id number] Study: XRay Chest [id number] 4:24:03 AM Ordering Physician: Tim Cordon Final Report: INDICATION: pain, sob TECHNIQUE: Chest 1 view COMPARISON: July 27, 2016 FINDINGS: Cardiovascular and mediastinum: Stable cardiac silhouette. Stable 2 lead ICD. Stable sternotomy changes. Atherosclerotic disease. Mediastinum is within normal limits. Lungs and pleural space: Hyperinflation and scarring throughout both lungs. Obstructive lung disease. Biapical pleural thickening. [place] along the lung apices. No sign of pleural effusion. No pneumothorax. Bones and soft tissues: Degenerative changes. IMPRESSION: No acute cardiopulmonary disease. Dictated by Zack Turk MD @ 11/21/2016 4:29:14 AM Dictated by: Zack Turk MD @ 11/21/2016 04:29:23 (Electronic Signature) Report Signed by Proxy. [facility]
== END 2016-11-21 04:55 | disposition other institution (70) ==
LOC: MW.ED 03:45
DX: I24.9 Acute ischemic heart disease, unspecified (principal); R29.818 Other symptoms and signs involving the nervous system; I10 Essential (primary) hypertension; I25.10 Atherosclerotic heart disease of native coronary artery without angina pectoris; Z79.899 Other long term (current) drug therapy; Z95.2 Presence of prosthetic heart valve; Z95.1 Presence of aortocoronary bypass graft
CPT/HCPCS: 36415; 71010; 80053; 82550; 82553; 83735; 84146; 84484; 85025; 93005; 96361; 96365; 96374; 96375; 99285; A9270; J1644; J2270; J7040

== ENCOUNTER 2017-05-09 08:58 | Observation (INO) | payer MEDICARE, OTHER ==
[2017-05-09] MEDS ORDERED: Sodium Chloride 0.9% 2.5 ML Syringe FLUSH PRN (09:01)
[2017-05-09] MEDS ORDERED: Sodium Chloride 0.9% 10 ML Syringe FLUSH PRN (09:01)
[2017-05-09 09:51] LABS: CHLORIDE,CL 103 mmol/L (98-110); SODIUM,NA 139 mmol/L (136-146)
--- NOTE | 2017-05-09 11:20 | PCM.HP ---
H&P History of Present Illness - General Date of Service: 05/09/17 Admit Problem/Dx: Admission Diagnosis/Problem Admission Diagnosis/Problem Confusion Source of Information: Patient, Family History Limitations: Reports: No Limitations - History of Present Illness Initial Comments - Free Text/Narative: 81-year-old male presenting to emergency department with for chief complaint of altered mental status starting at 0700 this morning with past medical history of TIA, B12 deficiency, A. 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 provides majority the history secondary to patient's somewhat altered mental status. She states that at 7:00 this morning she woke to find her shivering and stating that he was freezing. She also states that he did have somewhat of a blank look on her face. She tried to warm him up with blankets as well as heater and began asking questions and found that he was not aware of the date or that his birthday is tomorrow. She denies any facial drooping, weakness, or visual changes. She has experienced this with him before and he does have a history of TIA so she brought him to emergency room for evaluation. She states that they were in the emergency room approximate 6 months ago for a similar episode at which time they were transfered to [place] and he was found to have a B12 deficiency. He has been taking B12 injections last injection on the second or third of this month. Since he started injections she states that he's been doing very well. On day before admission she did note he was outside working and came in somewhat short of breath. He has had no associated chest pain, palpitations, syncopal episodes, or noticeable new focal neurologic deficits. He has had somewhat decreased appetite over the last 2 days. He does have some pain with urination but denies hematuria. He did get a flu vaccination this year. In the emergency department CT head was negative. CBC, CMP, TSH, and urinalysis was all within normal limits. Patient was somewhat tachycardic at 108 with a blood pressure 130/82 but was saturating 97% on room air. Patient did have a similar episode where he was admitted to this hospital in July 2016. He did have a neurologic examination at that time by Dr. Jewell and was told to continue on his pradaxa, 81 mg aspirin, and Lipitor. Patient will be admitted for observation for altered mental status. - Related Data Allergies/Adverse Reactions: Allergies Allergy/AdvReac Type Severity Reaction Status Date / Time No Known Allergies Allergy Verified 05/09/17 09:24 Home Medications: Home Meds Dabigatran Etexilate Mesylate [Pradaxa] 150 mg PO BID 12/01/15 [History] Metoprolol Succinate [Toprol XL] 25 mg PO DAILY 12/01/15 [History] Prednisone [IJD: Prednisone] 5 mg PO DAILY 12/01/15 [History] atorvaSTATin [Lipitor] 40 mg PO BEDTIME 12/01/15 [History] Lisinopril 10 mg PO DAILY 06/15/16 [History] Alendronate [Fosamax] 70 mg PO ASDIRECTED 07/27/16 [History] Hydrocodone/Acetaminophen [Hydrocodon-Acetaminoph 7.5-300] 7.5 - 200 mg PO DAILY PRN 07/27/16 [History] Aspirin/Calcium Carbonate/Mag [Aspirin Buffered 325 mg Tab] 325 mg PO DAILY [History] Past Medical History HEENT History: Reports: None Cardiovascular History: Reports: CAD, Hypertension Respiratory History: Reports: None Gastrointestinal History: Reports: None Genitourinary History: Reports: None Musculoskeletal History: Reports: None Neurological History: Reports: CVA, TIA Psychiatric History: Reports: None Endocrine/Metabolic History: Reports: None Hematologic History: Reports: None Immunologic History: Reports: None Oncologic (Cancer) History: Reports: None Dermatologic History: Reports: Melanoma Other Dermatologic History: has radiation treatment for cancer. Melanoma to top of head. - Infectious Disease History Infectious Disease History: Reports: Mumps - Past Surgical History Cardiovascular Surgical History: Reports: Carotid Endarterectomy, Coronary Artery Bypass, Valve Replacement, Other (See Below) Other Cardiovascular Surgeries/Procedures: pacemaker and pig valve Social & Family History - Family History Family Medical History: Noncontributory HEENT: Reports: None Cardiac: Reports: Afib, High Cholesterol, Hypertension Respiratory: Reports: None GI: Reports: None : Reports: None OBGYN: Reports: None Musculoskeletal: Reports: Arthritis, Osteoarthritis, Osteoporosis Neurological: Reports: None Psychiatric: Reports: None Endocrine/Metabolic: Reports: None Hematologic: Reports: None Immunologic: Reports: None Dermatologic: Reports: None - Tobacco Use Smoking Status *Q: Never Smoker Years of Tobacco use: 30 Packs/Tins Daily: 1 Used Tobacco, but Quit: Yes Month Tobacco Last Used: May Hand Smoke Exposure: No - Caffeine Use Caffeine Use: Reports: Coffee Caffeine Use Comment: 1 drink/day - Alcohol Use Days Per Week of Alcohol Use: 7 Number of Drinks Per Day: 3 Total Drinks Per Week: 21 - Recreational Drug Use Recreational Drug Use: No H&P Review of Systems - Review of Systems: Review Of Systems: See Below General: Reports: Chills. Denies: Fever, Malaise, Weakness HEENT: Denies: Headaches, Sinus Congestion, Sore Throat Pulmonary: Reports: Shortness of Breath. Denies: Pleuritic Chest Pain, Cough, Sputum Cardiovascular: Denies: Chest Pain, Palpitations, Edema Gastrointestinal: Denies: Abdominal Pain, Black Stool, Bloody Stool, Diarrhea, Nausea, Vomiting Genitourinary: Reports: Dysuria. Denies: Hematuria Musculoskeletal: Denies: Neck Pain, Leg Pain Skin: Denies: Cyanosis Psychiatric: Reports: Confusion Neurological: Reports: Confusion. Denies: Dizziness, Headache, Numbness, Paresthesia, Seizure, Syncope, Trouble Speaking, Difficulty Walking, Change in Speech Hematologic/Lymphatic: Denies: Anemia Exam - Exam Exam: See Below - Vital Signs Vital Signs: Last Vital Signs Temp 99.7 F 05/09/17 08:58 Pulse 108 H 05/09/17 09:07 Resp 18 05/09/17 09:07 BP 138/82 05/09/17 09:07 Pulse Ox 97 05/09/17 09:07 - Exam Quality Assessment: DVT Prophylaxis General: Alert, Cooperative, Other (Disorientated to time) HEENT: Conjunctiva Clear, EACs Clear, EOMI, Hearing Intact, Mucosa Moist & [place] , Nares Patent, Normal Nasal Septum, Posterior Pharynx Clear, PERRLA Neck: Supple, Trachea Midline, 2 Lungs: Clear to Auscultation, Normal Respiratory Effort Cardiovascular: Regular Rate, Irregular Rhythm GI/Abdominal Exam: Normal Bowel Sounds, Soft, Non-Tender, No Organomegaly, No Distention Back Exam: Normal Inspection Extremities: Normal Inspection, Non-Tender, No Pedal Edema, Normal Capillary Refill Peripheral Pulses: 2+: Radial (L), Radial (R), Posterior Tibial (L), Posterior Tibial (R), Dorsalis Pedis (L), Dorsalis Pedis (R) Skin: Warm, Dry, Intact Neurological: Cranial Nerves Intact Neuro Extensive - Mental Status: Alert, Oriented x3, Normal Mood/Affect, Normal Cognition Neuro Extensive - Motor, Sensory, Reflexes: CN II-XII Intact Psychiatric: Alert, Normal Affect, Normal Mood - Patient Data Lab Results Last 24 hrs: Laboratory Results - last 24 hr 05/09/17 05/09/17 05/09/17 Range/Units 09:18 09:18 09:18 WBC 8.96 (4.0-11.0) K/uL RBC 4.63 (4.50-5.90) M/uL Hgb 15.6 (13.0-17.0) g/dL Hct 45.0 (38.0-50.0) % MCV 97.2 (80.0-98.0) fL MCH 33.7 H (27.0-32.0) pg MCHC 34.7 (31.0-37.0) g/dL RDW Std Deviation 50.1 (28.0-62.0) fl RDW Coeff of Ryan 14 (11.0-15.0) % Plt Count 230 (150-400) K/uL MPV 9.70 (7.40-12.00) fL Neut % (Auto) 80.0 (48.0-80.0) % Lymph % (Auto) 12.7 L (16.0-40.0) % [place] % (Auto) 7.0 (0.0-15.0) % Eos % (Auto) 0.1 (0.0-7.0) % Baso % (Auto) 0.2 (0.0-1.5) % Neut # (Auto) 7.2 H (1.4-5.7) K/uL Lymph # (Auto) 1.1 (0.6-2.4) K/uL [place] # (Auto) 0.6 (0.0-0.8) K/uL Eos # (Auto) 0.0 (0.0-0.7) K/uL Baso # (Auto) 0.0 (0.0-0.1) K/uL Nucleated RBC % 0.0 /100WBC Nucleated RBCs # 0 K/uL INR 1.09 (0.86-1.11) APTT 30.9 (18.6-31.3) SEC Sodium 139 (136-146) mmol/L Potassium 4.1 (3.5-5.1) mmol/L Chloride 103 (98-110) mmol/L Carbon Dioxide 24 (21-31) mmol/L BUN 10 (6.0-23.0) mg/dL Creatinine 0.8 (0.6-1.5) mg/dL Est Cr Clr Drug Dosing TNP Estimated GFR (MDRD) > 60.0 ml/min Glucose 106 (60-110) mg/dL Calcium 9.1 (8.8-10.8) mg/dL Total Bilirubin 0.9 (0.1-1.5) mg/dL AST 19 (5-40) IU/L ALT 18 (8-54) IU/L Alkaline Phosphatase 56 (40-150) Troponin I < 0.10 (0.0-0.29) NG/ML Total Protein 7.1 (6.0-8.0) g/dL Albumin 3.7 (3.4-4.8) g/dL Globulin 3.4 (2.0-3.5) g/dL Albumin/Globulin Ratio 1.1 L (1.3-2.8) TSH 3rd Generation 0.85 (0.47-5.0) uIU/mL Urine Color Urine Appearance Urine pH (5.0-8.0) Ur Specific [place] (1.001-1.035) Urine Protein (NEGATIVE) mg/dL Urine Glucose (UA) (NEGATIVE) mg/dL Urine Ketones (NEGATIVE) mg/dL Urine Occult Blood (NEGATIVE) Urine Nitrite (NEGATIVE) Urine Bilirubin (NEGATIVE) Urine Urobilinogen (<2.0) EU/dL Ur Leukocyte Esterase (NEGATIVE) Urine RBC (0-2/HPF) Urine WBC (0-5/HPF) Ur Epithelial Cells (NONE-FEW) Urine Bacteria (NEGATIVE) 05/09/17 Range/Units 09:34 WBC (4.0-11.0) K/uL RBC (4.50-5.90) M/uL Hgb (13.0-17.0) g/dL Hct (38.0-50.0) % MCV (80.0-98.0) fL MCH (27.0-32.0) pg MCHC (31.0-37.0) g/dL RDW Std Deviation (28.0-62.0) fl RDW Coeff of Ryan (11.0-15.0) % Plt Count (150-400) K/uL MPV (7.40-12.00) fL Neut % (Auto) (48.0-80.0) % Lymph % (Auto) (16.0-40.0) % [place] % (Auto) (0.0-15.0) % Eos % (Auto) (0.0-7.0) % Baso % (Auto) (0.0-1.5) % Neut # (Auto) (1.4-5.7) K/uL Lymph # (Auto) (0.6-2.4) K/uL [place] # (Auto) (0.0-0.8) K/uL Eos # (Auto) (0.0-0.7) K/uL Baso # (Auto) (0.0-0.1) K/uL Nucleated RBC % /100WBC Nucleated RBCs # K/uL INR (0.86-1.11) APTT (18.6-31.3) SEC Sodium (136-146) mmol/L Potassium (3.5-5.1) mmol/L Chloride (98-110) mmol/L Carbon Dioxide (21-31) mmol/L BUN (6.0-23.0) mg/dL Creatinine (0.6-1.5) mg/dL Est Cr Clr Drug Dosing Estimated GFR (MDRD) ml/min Glucose (60-110) mg/dL Calcium (8.8-10.8) mg/dL Total Bilirubin (0.1-1.5) mg/dL AST (5-40) IU/L ALT (8-54) IU/L Alkaline Phosphatase (40-150) Troponin I (0.0-0.29) NG/ML Total Protein (6.0-8.0) g/dL Albumin (3.4-4.8) g/dL Globulin (2.0-3.5) g/dL Albumin/Globulin Ratio (1.3-2.8) TSH 3rd Generation (0.47-5.0) uIU/mL Urine Color YELLOW Urine Appearance SLT CLOUDY Urine pH 8.0 (5.0-8.0) Ur Specific [place] 1.015 (1.001-1.035) Urine Protein NEGATIVE (NEGATIVE) mg/dL Urine Glucose (UA) NEGATIVE (NEGATIVE) mg/dL Urine Ketones NEGATIVE (NEGATIVE) mg/dL Urine Occult Blood NEGATIVE (NEGATIVE) Urine Nitrite NEGATIVE (NEGATIVE) Urine Bilirubin NEGATIVE (NEGATIVE) Urine Urobilinogen 0.2 (<2.0) EU/dL Ur Leukocyte Esterase NEGATIVE (NEGATIVE) Urine RBC 0-1 (0-2/HPF) Urine WBC 0-1 (0-5/HPF) Ur Epithelial Cells RARE (NONE-FEW) Urine Bacteria RARE (NEGATIVE) Result Diagrams: 05/09/17 09:18 05/09/17 09:18 *Q Meaningful Use (ADM) - VTE *Q VTE Criteria *Q: - Stroke *Q Stroke Criteria *Q: - AMI *Q AMI Criteria *Q: - Problem List (1) A-fib SNOMED Code(s): 57122523 ICD Code: I48.91 - UNSPECIFIED ATRIAL FIBRILLATION Status: Chronic Priority: Medium Current Visit: Yes Qualifiers: Atrial fibrillation type: chronic Qualified Code(s): I48.2 - Chronic atrial fibrillation (2) B12 deficiency SNOMED Code(s): 534414064 ICD Code: E53.8 - DEFICIENCY OF OTHER SPECIFIED B GROUP VITAMINS Status: Chronic Priority: High Current Visit: Yes (3) History of TIA (transient ischemic attack) SNOMED Code(s): 247736872 ICD Code: Z86.73 - PRSNL HX OF TIA (TIA), AND CEREB INFRC W/O RESID DEFICITS Status: Resolved Priority: High Current Visit: Yes (4) CAD (coronary artery disease) SNOMED Code(s): 58037699 ICD Code: I25.10 - ATHSCL HEART DISEASE OF [place] CORONARY ARTERY W/O ANG PCTRS Status: Chronic Priority: Medium Current Visit: Yes Qualifiers: Coronary Disease-Associated Artery/Lesion type: unspecified vessel or lesion type [place] vs. transplanted heart: [place] heart Associated angina: without angina Qualified Code(s): I25.10 - Atherosclerotic heart disease of [place] coronary artery without angina pectoris (5) HTN (hypertension) SNOMED Code(s): 51967082 ICD Code: I10 - ESSENTIAL (PRIMARY) HYPERTENSION Status: Chronic Priority : Medium Current Visit: Yes Qualifiers: Hypertension type: essential hypertension Qualified Code(s): I10 - Essential (primary) hypertension (6) Altered mental status SNOMED Code(s): 516661207 ICD Code: R41.82 - ALTERED MENTAL STATUS, UNSPECIFIED Status: Acute Priority: High Current Visit: Yes Qualifiers: Altered mental status type: disorientation Qualified Code(s): R41.0 - Disorientation, unspecified Problem List Initiated/Reviewed/Updated: Yes Orders Last 24hrs: Active Orders 24 hr Category Date Time Status Admission Status [Patient Status] [ADT] Stat ADT 05/09/17 11:08 Active Assess Neurological Status [RC] ASDIRECTED Care 05/09/17 09:01 Active Bedrest [RC] ASDIRECTED Care 05/09/17 09:01 Active Blood Glucose Check, Bedside [RC] STAT Care 05/09/17 09:01 Active Cardiac Monitoring [RC] . DIRECTED Care 05/09/17 09:01 Active EKG Documentation Completion [RC] STAT Care 05/09/17 09:01 Active Height and Weight [RC] UPON Care 05/09/17 09:01 Active Initiate Acute Stroke Protocol [RC] STAT Care 05/09/17 09:01 Active NIH Stroke Scale [RC] ASDIRECTED Care 05/09/17 09:01 Active Nursing Bedside Swallow Screen [RC] ASDIRECTED Care 05/09/17 09:01 Active Oxygen Therapy [RC] ASDIRECTED Care 05/09/17 09:01 Active Stroke Education, General [RC] Click to Edit Care 05/09/17 09:01 Active Vital Signs [RC] Q15M Care 05/09/17 09:01 Active Head wo Cont [CT] Stat Exams 05/09/17 09:01 Taken Sodium Chloride 0.9% [Saline Flush] Med 05/09/17 09:01 Active 10 ml FLUSH ASDIRECTED PRN Sodium Chloride 0.9% [Saline Flush] Med 05/09/17 09:01 Active 2.5 ml FLUSH ASDIRECTED PRN Peripheral IV Insertion Adult [OM.PC] Stat Oth 05/09/17 09:01 Ordered Peripheral IV Insertion Adult [OM.PC] Stat Oth 05/09/17 09:01 Ordered Medication Orders Sodium Chloride (Saline Flush) 10 ml FLUSH ASDIRECTED PRN PRN Reason: Keep Vein Open Sodium Chloride (Saline Flush) 2.5 ml FLUSH ASDIRECTED PRN PRN Reason: Keep Vein Open Assessment/Plan Comment:: 81-year-old male admitted 05/09/17 for altered mental status pmh of TIA, B12 deficiency, A. 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 Altered mental Status: Has improved since admission as per . Does have history of TIA. CT neg. Cont home Pradaxa, aspirin and statin. Hx of B12 deficiency and patient may not have been administering his injections correctly. Will get B12 level. We'll do TIA workup including MRI with and without contrast, MRA head and neck, fasting lipids, telemetry, and echocardiogram. Consider Neuro consult tomorrow. Patient was somewhat having chills he did receive his flu vaccination but we will check for influenza as well as chest x-ray for possible pneumonia. No leukocytosis or fever noted in emergency department. B12 deficiency: Discovered in [place] approximately 6 months ago. He has been given himself B12 injections last on the second or third of this month. We will get B12 level today. A. fib with pacer: Currently controlled will monitor on telemetry Hypertension: Currently controlled will continue home medications. Hyperlipidemia: We'll continue home statin as well as get fasting lipids. VTE proph: On Pradaxa and aspirin, SCD Dispo: 1-2 days.
[2017-05-09] MEDS ORDERED: Temazepam 15 MG Cap PO PRN (12:46)
[2017-05-09] MEDS ORDERED: Acetaminophen 325 MG Tab PO PRN (12:46)
[2017-05-09] MEDS ORDERED: Ondansetron 4 MG Tab.DIS PO PRN (12:46)
[2017-05-09] MEDS ORDERED: Acetaminophen/HYDROcodone 325-7.5 MG Tab PO PRN (12:52)
[2017-05-09] MEDS: Levofloxacin/Dextrose 5%-Water 750 MG in Premix Bag 1 BAG IV SCH (17:33)
--- NOTE | 2017-05-09 18:02 | PCM.SN ---
- Free Text/Narrative Note: Troponin neg x2. CXR shows no acute [id number] process. Patient spike a temp so blood cultures were obtained and he was started on Levaquin.
[2017-05-09] MEDS: Metoprolol Succinate 25 MG Tab.ER PO SCH (18:34)
[2017-05-09] MEDS: Lisinopril 10 MG Tab PO SCH (18:34)
[2017-05-09] MEDS: atorvaSTATin 40 MG Tab PO SCH (21:50)
[2017-05-10 05:47] LABS: CHLORIDE,CL 104 mmol/L (98-110); SODIUM,NA 135 mmol/L (136-146)
[2017-05-10] MEDS ORDERED: Magnesium Sulfate/Water 4 GM in Premix Bag 1 BAG IV ONE (08:34)
[2017-05-10] MEDS ORDERED: Lisinopril 10 MG Tab PO SCH (09:00)
[2017-05-10] MEDS ORDERED: Metoprolol Succinate 25 MG Tab.ER PO SCH (09:00)
[2017-05-10] MEDS: Metoprolol Succinate 25 MG Tab.ER PO SCH (09:31)
[2017-05-10] MEDS: Aspirin 325 MG Tab.EC PO SCH (09:31)
[2017-05-10] MEDS: Lisinopril 10 MG Tab PO SCH (10:37)
--- NOTE | 2017-05-10 11:28 | CT ---
EXAM DATE: 05/09/17 PATIENT'S AGE: 81 Patient: CATHY LIU Facility: [facility], [place], [place] : 1935 Study: CT Head STROKE PROTOCOL -05/09/2017 9:08:20 AM Ordering Physician: KSENIA Final Report: Indication: Weakness. Comparison: 07/27/2016. Technique: Axial CT of the head without contrast. Findings: Moderate generalized volume loss. Patchy low-attenuation change within the white matter consistent with chronic small vascular changes. Although coronary infarcts of the right caudate lobe and left basal ganglia. No acute intracranial hemorrhage, acute infarct, mass effect, or fracture. No midline shift. Compensatory mild dilatation of the ventricular system. Tiny calcifications within the sulci of the right parietal lobe may be vascular in etiology. Normal calvarium and skull base. Visualized paranasal sinuses and mastoid air cells are clear. Visualized orbits are unremarkable. Impression: 1. No interval change 2. No acute intracranial abnormality. 3. Stable moderate generalized volume loss. Chronic deep white matter small vessel ischemic changes Please note that all CT scans at this facility use dose modulation, iterative reconstruction, and/or weight-based dosing when appropriate to reduce radiation dose to as low as reasonably achievable. Dictated by Seun Samuels MD @ May 09 2017 9:19AM (Electronic Signature) Report Signed by Proxy. [facility] MEDICAL CENTERJaylen
--- NOTE | 2017-05-10 12:33 | PCM.PN ---
- General Info Date of Service: 05/10/17 Admission Dx/Problem (Free Text): Admission Diagnosis/Problem Admission Diagnosis/Problem Confusion Subjective Update: Feeling better this morning. reports a little confusion still, but much better. Patient wants to go home, but would like PT consult. He denies chest pain or SOB. No lightheadedness or dizziness. Functional Status: Reports: Pain Controlled, Tolerating Diet, Ambulating, Urinating - Review of Systems HEENT: Reports: No Symptoms. Denies: Glasses, Headaches, Sore Throat, Rhinitis Pulmonary: Reports: No Symptoms. Denies: Shortness of Breath Cardiovascular: Reports: No Symptoms. Denies: Chest Pain, Palpitations Gastrointestinal: Reports: No Symptoms. Denies: Abdominal Pain, Diarrhea, Nausea, Vomiting Genitourinary: Reports: No Symptoms. Denies: Dysuria, Frequency, Burning Musculoskeletal: Reports: No Symptoms Skin: Reports: No Symptoms. Denies: Cyanosis Neurological: Reports: Confusion (but much improved per report) Psychiatric: Reports: No Symptoms - Patient Data Vitals - Most Recent: Last Vital Signs Temp 97.4 F 05/10/17 11:48 Pulse 85 05/10/17 11:48 Resp 22 H 05/10/17 11:48 BP 95/54 L 05/10/17 11:48 Pulse Ox 96 05/10/17 11:48 Weight - Most Recent: 74.389 kg I&O - Last 24 Hours: Intake & Output 05/09/17 05/10/17 05/10/17 22:59 06:59 14:59 Intake Total 250 100 Output Total 300 650 Balance -50 -550 Lab Results Last 24 Hours: Laboratory Results - last 24 hr 05/09/17 05/09/17 05/10/17 Range/Units 14:30 19:51 04:35 WBC 8.20 (4.0-11.0) K/uL RBC 4.31 L (4.50-5.90) M/uL Hgb 14.4 (13.0-17.0) g/dL Hct 41.9 (38.0-50.0) % MCV 97.2 (80.0-98.0) fL MCH 33.4 H (27.0-32.0) pg MCHC 34.4 (31.0-37.0) g/dL RDW Std Deviation 49.7 (28.0-62.0) fl RDW Coeff of Ryan 14 (11.0-15.0) % Plt Count 229 (150-400) K/uL MPV 10.20 (7.40-12.00) fL Neut % (Auto) 74.4 (48.0-80.0) % Lymph % (Auto) 13.8 L (16.0-40.0) % [place] % (Auto) 11.5 (0.0-15.0) % Eos % (Auto) 0.1 (0.0-7.0) % Baso % (Auto) 0.2 (0.0-1.5) % Neut # (Auto) 6.1 H (1.4-5.7) K/uL Lymph # (Auto) 1.1 (0.6-2.4) K/uL [place] # (Auto) 0.9 H (0.0-0.8) K/uL Eos # (Auto) 0.0 (0.0-0.7) K/uL Baso # (Auto) 0.0 (0.0-0.1) K/uL Nucleated RBC % 0.0 /100WBC Nucleated RBCs # 0 K/uL Sodium (136-146) mmol/L Potassium (3.5-5.1) mmol/L Chloride (98-110) mmol/L Carbon Dioxide (21-31) mmol/L BUN (6.0-23.0) mg/dL Creatinine (0.6-1.5) mg/dL Est Cr Clr Drug Dosing mL/min Estimated GFR (MDRD) ml/min Glucose (60-110) mg/dL Calcium (8.8-10.8) mg/dL Phosphorus (2.4-4.7) mg/dL Magnesium (1.5-2.3) mEq/L Troponin I 0.22 0.24 (0.0-0.29) NG/ML 05/10/17 Range/Units 04:35 WBC (4.0-11.0) K/uL RBC (4.50-5.90) M/uL Hgb (13.0-17.0) g/dL Hct (38.0-50.0) % MCV (80.0-98.0) fL MCH (27.0-32.0) pg MCHC (31.0-37.0) g/dL RDW Std Deviation (28.0-62.0) fl RDW Coeff of Ryan (11.0-15.0) % Plt Count (150-400) K/uL MPV (7.40-12.00) fL Neut % (Auto) (48.0-80.0) % Lymph % (Auto) (16.0-40.0) % [place] % (Auto) (0.0-15.0) % Eos % (Auto) (0.0-7.0) % Baso % (Auto) (0.0-1.5) % Neut # (Auto) (1.4-5.7) K/uL Lymph # (Auto) (0.6-2.4) K/uL [place] # (Auto) (0.0-0.8) K/uL Eos # (Auto) (0.0-0.7) K/uL Baso # (Auto) (0.0-0.1) K/uL Nucleated RBC % /100WBC Nucleated RBCs # K/uL Sodium 135 L (136-146) mmol/L Potassium 3.9 (3.5-5.1) mmol/L Chloride 104 (98-110) mmol/L Carbon Dioxide 21 (21-31) mmol/L BUN 12 (6.0-23.0) mg/dL Creatinine 0.7 (0.6-1.5) mg/dL Est Cr Clr Drug Dosing 87.08 mL/min Estimated GFR (MDRD) > 60.0 ml/min Glucose 109 (60-110) mg/dL Calcium 9.3 (8.8-10.8) mg/dL Phosphorus 2.9 (2.4-4.7) mg/dL Magnesium 1.3 L (1.5-2.3) mEq/L Troponin I (0.0-0.29) NG/ML Rodrigo Results Last 24 Hours: Microbiology 05/09/17 14:15 Influenza Type A Antigen Screen - Final Nasopharyngeal Swab - Nare, Right NEGATIVE INFLUENZA A VIRUS AG Influenza Type B Antigen Screen - Final NEGATIVE INFLUENZA B VIRUS AG Med Orders - Current: Current Medications Acetaminophen (Tylenol) 650 mg PO Q4H PRN PRN Reason: Pain (Mild 1-3)/fever Hydrocodone Bitart/Acetaminophen ([place] 325-7.5 Mg) 1 tab PO DAILY PRN PRN Reason: Pain Alendronate Sodium (Fosamax) 70 mg PO Q7D@0630 [facility] Aspirin (Ecotrin) 325 mg PO DAILY [facility] Last Admin: 05/10/17 09:31 Dose: 325 mg Atorvastatin Calcium (Lipitor) 40 mg PO BEDTIME [facility] Last Admin: 05/09/17 21:50 Dose: 40 mg Dabigatran (Pradaxa) 150 mg PO BID [facility] Last Admin: 05/10/17 09:32 Dose: 150 mg Levofloxacin/Dextrose 750 mg/ (Premix) 150 mls @ 100 mls/hr IV Q24H [facility] Last Admin: 05/09/17 17:33 Dose: 100 mls/hr Metoprolol Succinate (Toprol Xl) 25 mg PO DAILY [facility] Last Admin: 05/10/17 09:31 Dose: 25 mg Ondansetron HCl (Zofran Odt) 4 mg PO Q4H PRN PRN Reason: nausea, able to take PO Sodium Chloride (Saline Flush) 10 ml FLUSH ASDIRECTED PRN PRN Reason: Keep Vein Open Sodium Chloride (Saline Flush) 2.5 ml FLUSH ASDIRECTED PRN PRN Reason: Keep Vein Open Temazepam (Restoril) 15 mg PO BEDTIME PRN PRN Reason: Sleep Discontinued Medications Magnesium Sulfate 4 gm/ Premix 100 mls @ 50 mls/hr IV ONETIME ONE Stop: 05/10/17 10:33 Last Admin: 05/10/17 09:27 Dose: 50 mls/hr Lisinopril (Prinivil) 10 mg PO DAILY [facility] Lisinopril (Prinivil) 10 mg PO DAILY [facility] Last Admin: 05/10/17 10:37 Dose: Not Given Metoprolol Succinate (Toprol Xl) 25 mg PO DAILY [facility] - Exam General: Alert, Cooperative, No Acute Distress, Other (Content, sitting on edge of bed, asking to be discharged home.). No: Oriented (can not remember date, unless he reviews calendar. ) Neck: Supple Lungs: Clear to Auscultation, Normal Respiratory Effort Cardiovascular: Regular Rate, Regular Rhythm GI/Abdominal Exam: Normal Bowel Sounds, Soft, Non-Tender, No Organomegaly, No Distention, No Abnormal Bruit, No Mass, Pelvis Stable Back Exam: Normal Inspection, Full Range of Motion Extremities: Normal Inspection, Normal Range of Motion, Non-Tender, No Pedal Edema, Normal Capillary Refill Neurological: No New Focal Deficit Psy/Mental Status: Alert, Normal Affect, Normal Mood - Problem List & Annotations (1) A-fib SNOMED Code(s): 23330986 Code(s): I48.91 - UNSPECIFIED ATRIAL FIBRILLATION Status: Chronic Priority: Medium Current Visit: Yes Qualifiers: Atrial fibrillation type: chronic Qualified Code(s): I48.2 - Chronic atrial fibrillation (2) B12 deficiency SNOMED Code(s): 125772621 Code(s): E53.8 - DEFICIENCY OF OTHER SPECIFIED B GROUP VITAMINS Status: Chronic Priority: High Current Visit: Yes (3) CAD (coronary artery disease) SNOMED Code(s): 15416184 Code(s): I25.10 - ATHSCL HEART DISEASE OF [place] CORONARY ARTERY W/O ANG PCTRS Status: Chronic Priority: Medium Current Visit: Yes Qualifiers: Coronary Disease-Associated Artery/Lesion type: unspecified vessel or lesion type [place] vs. transplanted heart: [place] heart Associated angina: without angina Qualified Code(s): I25.10 - Atherosclerotic heart disease of [place] coronary artery without angina pectoris (4) HTN (hypertension) SNOMED Code(s): 34720144 Code(s): I10 - ESSENTIAL (PRIMARY) HYPERTENSION Status: Chronic Priority : Medium Current Visit: Yes Qualifiers: Hypertension type: essential hypertension Qualified Code(s): I10 - Essential (primary) hypertension - Problem List Review Problem List Initiated/Reviewed/Updated: Yes - My Orders Last 24 Hours: My Active Orders 05/10/17 11:13 Consult to Physical Therapy [PT Evaluation and Treatment] [CONS] Routine - Plan Plan:: 81-year-old male admitted 05/09/17 for altered mental status pmh of TIA, B12 deficiency, A. 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 1. Altered mental Status: Continues to improve per . Does have history of TIA. ECHO pending as well as carotid U/S. Continue Pradaxa, aspirin and statin. B12 level WNL, 472. 2. B12 deficiency: Level WNL, 472. Continue home injections. 3. A. fib with pacer: Controlled, continue Metoprolol. Continue Pradaxa and ASA. 4. Hypertension: slightly low, but asymptomatic. Hold Lisinopril for now and monitor. 5. Hyperlipidemia: Stable, continue home statin. Total 292, LDL 165, HDL 57, Triglycerides 101. 6. Febrile: 100.8 temp overnight. BC obtained. Will await for this. Treating with Levaquin. UA and CXR negative. VTE prophylaxis: Continue Pradaxa. Dispo: likely discharge in the morning.
--- NOTE | 2017-05-10 13:42 | CR ---
EXAM DATE: 05/09/17 PATIENT'S AGE: 81 Patient: CATHY LIU Facility: [place], [place] Site . Site : [id number] Study: XRay Chest [id number]/[id number] 1:34:56 PM Ordering Physician: Ray Pimentel Final Report: INDICATION: Shortness of breath. TECHNIQUE: Two-view chest. COMPARISON: Portable chest November 21, 2016. FINDINGS: Sternotomy. Mediastinal clips. Left-sided pacemaker with its lead tips in the right atrium and ventricle. Clear lungs except for minor biapical fibrosis and pleural thickening. Two surgical clips are projected over the low right neck. IMPRESSION: No acute cardiopulmonary process identified. No significant change other than technique. Dictated by Prem Clark MD @ 05/09/2017 1:42:13 PM Dictated by: Prem Clark MD @ 05/09/2017 13:42:20 (Electronic Signature) Report Signed by Proxy. TEX
[2017-05-10] MEDS: Levofloxacin/Dextrose 5%-Water 750 MG in Premix Bag 1 BAG IV SCH (15:47)
--- NOTE | 2017-05-10 16:12 | US ---
EXAMINATION: Carotid US with robin scale and duplex imaging. HISTORY: TIA FINDINGS: Ultrasound examination of bilateral cervical carotid arteries was performed using robin scale and dupl ex imaging. Scattered atheromatous changes are noted within the carotid arteries bilaterally. Anteg rade flow noted within the vertebrals. These are the peak velocities in cm per second (systole), right and left respectively, by a comma: CCA (common carotid artery) - 78, 76 ICA (internal carotid artery) - 81, 89 ECA (External carotid artery) - 154, 220 ICA/CCA systolic ratio Right - 1.1 Left - 1.2 IMPRESSION: Scattered atheromatous changes noted within the carotid arteries bilaterally most prominent within th e bulbs. There is however no significantly elevated velocities to suggest greater than 50% stenosis w ithin the internal carotid arteries.
[2017-05-10] MEDS: atorvaSTATin 40 MG Tab PO SCH (21:50)
[2017-05-11 05:55] LABS: CHLORIDE,CL 103 mmol/L (98-110); SODIUM,NA 137 mmol/L (136-146)
[2017-05-11] MEDS: Metoprolol Succinate 25 MG Tab.ER PO SCH (08:32)
[2017-05-11] MEDS: Aspirin 325 MG Tab.EC PO SCH (08:32)
[2017-05-11] MEDS ORDERED: Donepezil 5 MG Tab PO ONE (10:01)
--- NOTE | 2017-05-11 11:26 | PCM.DCSUM1 ---
Discharge Summary - Hospital Course Brief History: 81-year-old male presenting to emergency department with for chief complaint of altered mental status starting at 0700 this morning with past medical history of TIA, B12 deficiency, A. 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 provides majority the history secondary to patient's somewhat altered mental status. She states that at 7:00 this morning she woke to find her shivering and stating that he was freezing. She also states that he did have somewhat of a blank look on her face. She tried to warm him up with blankets as well as heater and began asking questions and found that he was not aware of the date or that his birthday is tomorrow. She denies any facial drooping, weakness, or visual changes. She has experienced this with him before and he does have a history of TIA so she brought him to emergency room for evaluation. She states that they were in the emergency room approximate 6 months ago for a similar episode at which time they were transfered to [place] and he was found to have a B12 deficiency. He has been taking B12 injections last injection on the second or third of this month. Since he started injections she states that he's been doing very well. On day before admission she did note he was outside working and came in somewhat short of breath. He has had no associated chest pain, palpitations, syncopal episodes , or noticeable new focal neurologic deficits. He has had somewhat decreased appetite over the last 2 days. He does have some pain with urination but denies hematuria. He did get a flu vaccination this year. In the emergency department CT head was negative. CBC, CMP, TSH, and urinalysis was all within normal limits. Patient was somewhat tachycardic at 108 with a blood pressure 130/82 but was saturating 97% on room air. Patient did have a similar episode where he was admitted to this hospital in July 2016. He did have a neurologic examination at that time by Dr. Jewell and was told to continue on his pradaxa, 81 mg aspirin, and Lipitor. Patient will be admitted for observation for altered mental status. - Discharge Data Discharge Date: 05/11/17 Discharge Disposition: Home, Self-Care 01 Condition: Good - Discharge Diagnosis/Problem(s) (1) A-fib SNOMED Code(s): 40852042 ICD Code: I48.91 - UNSPECIFIED ATRIAL FIBRILLATION Status: Chronic Priority: Medium Qualifiers: Atrial fibrillation type: chronic Qualified Code(s): I48.2 - Chronic atrial fibrillation (2) B12 deficiency SNOMED Code(s): 358850167 ICD Code: E53.8 - DEFICIENCY OF OTHER SPECIFIED B GROUP VITAMINS Status: Chronic Priority: High (3) CAD (coronary artery disease) SNOMED Code(s): 92825188 ICD Code: I25.10 - ATHSCL HEART DISEASE OF [place] CORONARY ARTERY W/O ANG PCTRS Status: Chronic Priority: Medium Qualifiers: Coronary Disease-Associated Artery/Lesion type: unspecified vessel or lesion type [place] vs. transplanted heart: [place] heart Associated angina: without angina Qualified Code(s): I25.10 - Atherosclerotic heart disease of [place] coronary artery without angina pectoris (4) HTN (hypertension) SNOMED Code(s): 92378090 ICD Code: I10 - ESSENTIAL (PRIMARY) HYPERTENSION Status: Chronic Priority : Medium Qualifiers: Hypertension type: essential hypertension Qualified Code(s): I10 - Essential (primary) hypertension - Patient Summary/Data Consults: Consultations 05/10/17 11:13 Consult to Physical Therapy [PT Evaluation and Treatment] [CONS] Routine - Patient Instructions Diet: Heart Healthy Diet Activity: As Tolerated, Rest and Relax Today Driving: Do Not Drive Showering/Bathing: May Shower Notify Provider of: Fever, Increased Pain, Swelling and Redness, Drainage, Nausea and/or Vomiting - Discharge Plan Prescriptions/Med Rec: Donepezil [Aricept] 5 mg PO BEDTIME #30 tablet Home Medications: Home Meds Dabigatran Etexilate Mesylate [Pradaxa] 1 tab PO BID 12/01/15 [History] Metoprolol Succinate [Toprol XL] 25 mg PO DAILY 12/01/15 [History] atorvaSTATin [Lipitor] 40 mg PO BEDTIME 12/01/15 [History] Lisinopril 10 mg PO DAILY 06/15/16 [History] Aspirin 325 mg PO DAILY 05/11/17 [History] Cyanocobalamin (Vitamin B-12) [Cyanocobalamin Injection] 1,000 mcg IJ ASDIRECTED 05/11/17 [History] Donepezil [Aricept] 5 mg PO BEDTIME #30 tablet 05/11/17 [Rx] levETIRAcetam [Keppra] 500 mg PO BID 05/11/17 [History] predniSONE [Prednisone] 1 tab PO DAILY 05/11/17 [History] Patient Handouts: Confusion, Donepezil tablets Referrals: [facility] [Outside] Yevgeniy Murguia MD [Primary Care Provider] - 05/19/17 11:45 am - Discharge Summary/Plan Comment DC Time >30 min.: No Discharge Summary/Plan Comment: Discharge Diagnoses: AMS- slow improvement Cognitive Decline Afib [place] B12 deficiency CAD Hx TIA HTN Hyperlipidemia Del was admitted and monitor for suspected TIA. AMS cleared mostly yesterday, but reports some confusion still there but it was better. He continued to deny any chest pain, palpitations, or SOB. No headache or neck pain. He was requesting discharge home. ECHO completed which revealed LV EF 60-65%, normal LV systolic function, mild concentric LVH, and no regional wall abnormalities. Carotid U/S revealed scattered athermatous changes noted with in the carotid arteries bilaterally most prominent in bulbs, no significant elevated velocities to suggest greater than 50% stenosis with the internal carotids. We contnued him on Atorvastatin and ASA daily. He and report they felt his statin was stopped and is not sure he has been taking this. He was encouraged to continue taking his Atorvastatin due to LDL of 165. He is to monitor his diet and continue home medications. Today some AMS has return which may be due to being in unfamiliar places, with the start of possible dementia. reports he has left in his car and has gotten lost driving around town. We will start low dose Aricept 5 mg daily and have PCP monitor. B12 was checked and noted to be 475, WNL. He is to continue monthly injections. His reports 6 months ago he was admitted in [place] for similar symptoms and found to have a deficiency in B12. He improved for approximately 3-4 months and she has since seen another decline the last 1-2 months. I believe this acute worsening in mental status is from delirium from being in the hospital and this will likely resolve further once he is in a familiar environment. BC returned normal , there was slight elevation in temp, 100.8. BC were drawn and Levaquin started. This will not be continued and may have contributed to confusion slightly as well. he is to return to clinic in 1 week to follow up with Dr. Murguia for further management. He is to return to ED or clinic if concerns should arise. - General Info Date of Service: 05/11/17 Admission Dx/Problem (Free Text: Admission Diagnosis/Problem Admission Diagnosis/Problem Confusion Subjective Update: Patient is more alert this morning. Dressed and lying in bed. He denies any pain. No SOB. Hoping to be discharged home today. at bedside. Functional Status: Reports: Pain Controlled - Review of Systems General: Reports: No Symptoms. Denies: Fever, Fatigue, Malaise Pulmonary: Reports: No Symptoms. Denies: Shortness of Breath Cardiovascular: Reports: No Symptoms. Denies: Chest Pain, Palpitations, Dyspnea on Exertion, Orthopnea Gastrointestinal: Reports: No Symptoms. Denies: Abdominal Pain, Nausea, Vomiting Genitourinary: Reports: No Symptoms. Denies: Dysuria, Frequency, Burning Neurological: Reports: Confusion (unsure on date and thinks he is in a hotel.) - Patient Data Vitals - Most Recent: Last Vital Signs Temp 98.6 F 05/11/17 08:00 Pulse 94 05/11/17 08:32 Resp 16 05/11/17 08:00 BP 118/84 05/11/17 08:32 Pulse Ox 96 05/11/17 08:00 Weight - Most Recent: 74.389 kg I&O - Last 24 hours: Intake & Output 05/10/17 05/11/17 05/11/17 22:59 06:59 14:59 Intake Total 450 320 Output Total 600 515 Balance -150 -195 Lab Results - Last 24 hrs: Laboratory Results - last 24 hr 05/11/17 05/11/17 Range/Units 05:29 05:29 WBC 10.59 (4.0-11.0) K/uL RBC 4.56 (4.50-5.90) M/uL Hgb 15.2 (13.0-17.0) g/dL Hct 44.7 (38.0-50.0) % MCV 98.0 (80.0-98.0) fL MCH 33.3 H (27.0-32.0) pg MCHC 34.0 (31.0-37.0) g/dL RDW Std Deviation 49.6 (28.0-62.0) fl RDW Coeff of [place] 14 (11.0-15.0) % Plt Count 243 (150-400) K/uL MPV 9.80 (7.40-12.00) fL Neut % (Auto) 74.4 (48.0-80.0) % Lymph % (Auto) 13.1 L (16.0-40.0) % [place] % (Auto) 11.6 (0.0-15.0) % Eos % (Auto) 0.7 (0.0-7.0) % Baso % (Auto) 0.2 (0.0-1.5) % Neut # (Auto) 7.9 H (1.4-5.7) K/uL Lymph # (Auto) 1.4 (0.6-2.4) K/uL [place] # (Auto) 1.2 H (0.0-0.8) K/uL Eos # (Auto) 0.1 (0.0-0.7) K/uL Baso # (Auto) 0.0 (0.0-0.1) K/uL Nucleated RBC % 0.0 /100WBC Nucleated RBCs # 0 K/uL Sodium 137 (136-146) mmol/L Potassium 3.8 (3.5-5.1) mmol/L Chloride 103 (98-110) mmol/L Carbon Dioxide 21 (21-31) mmol/L BUN 19 (6.0-23.0) mg/dL Creatinine 0.9 (0.6-1.5) mg/dL Est Cr Clr Drug Dosing 67.73 mL/min Estimated GFR (MDRD) > 60.0 ml/min Glucose 122 H (60-110) mg/dL Calcium 8.9 (8.8-10.8) mg/dL Magnesium 1.8 (1.5-2.3) mEq/L JADEN Results - Last 24 hrs: Microbiology 05/09/17 17:09 Aerobic Blood Culture - Preliminary Blood NO GROWTH AFTER 1 DAY Anaerobic Blood Culture - Preliminary NO GROWTH AFTER 1 DAY 05/09/17 17:01 Aerobic Blood Culture - Preliminary Blood NO GROWTH AFTER 1 DAY Anaerobic Blood Culture - Preliminary NO GROWTH AFTER 1 DAY Med Orders - Current: Current Medications Acetaminophen (Tylenol) 650 mg PO Q4H PRN PRN Reason: Pain (Mild 1-3)/fever Hydrocodone Bitart/Acetaminophen ([place] 325-7.5 Mg) 1 tab PO DAILY PRN PRN Reason: Pain Alendronate Sodium (Fosamax) 70 mg PO Q7D@0630 [facility] Aspirin (Ecotrin) 325 mg PO DAILY [facility] Last Admin: 05/11/17 08:32 Dose: 325 mg Atorvastatin Calcium (Lipitor) 40 mg PO BEDTIME [facility] Last Admin: 05/10/17 21:50 Dose: 40 mg Dabigatran (Pradaxa) 150 mg PO BID [facility] Last Admin: 05/11/17 08:32 Dose: 150 mg Levofloxacin/Dextrose 750 mg/ (Premix) 150 mls @ 100 mls/hr IV Q24H [facility] Last Admin: 05/10/17 15:47 Dose: 100 mls/hr Metoprolol Succinate (Toprol Xl) 25 mg PO DAILY [facility] Last Admin: 05/11/17 08:32 Dose: 25 mg Ondansetron HCl (Zofran Odt) 4 mg PO Q4H PRN PRN Reason: nausea, able to take PO Sodium Chloride (Saline Flush) 10 ml FLUSH ASDIRECTED PRN PRN Reason: Keep Vein Open Sodium Chloride (Saline Flush) 2.5 ml FLUSH ASDIRECTED PRN PRN Reason: Keep Vein Open Temazepam (Restoril) 15 mg PO BEDTIME PRN PRN Reason: Sleep Discontinued Medications Donepezil HCl (Aricept) 5 mg PO ONETIME ONE Stop: 05/11/17 10:02 Last Admin: 05/11/17 10:12 Dose: 5 mg Magnesium Sulfate 4 gm/ Premix 100 mls @ 50 mls/hr IV ONETIME ONE Stop: 05/10/17 10:33 Last Admin: 05/10/17 09:27 Dose: 50 mls/hr Lisinopril (Prinivil) 10 mg PO DAILY [facility] Lisinopril (Prinivil) 10 mg PO DAILY [facility] Last Admin: 05/10/17 10:37 Dose: Not Given Metoprolol Succinate (Toprol Xl) 25 mg PO DAILY [facility] - Exam General: Reports: Alert, Cooperative, No Acute Distress. Denies: Oriented Lungs: Reports: Clear to Auscultation, Normal Respiratory Effort Cardiovascular: Reports: Regular Rate, Regular Rhythm GI/Abdominal Exam: Normal Bowel Sounds, Soft, Non-Tender, No Organomegaly, No Distention, No Abnormal Bruit, No Mass, Pelvis Stable Back Exam: Reports: Normal Inspection, Full Range of Motion Skin: Reports: Warm, Dry, Intact Neurological: Reports: Normal Speech, Strength Equal Bilateral, Other (not oriented to place. ) Psy/Mental Status: Reports: Alert, Normal Affect, Normal Mood *Q Meaningful Use (DIS) - VTE *Q VTE Criteria *Q: - Stroke *Q Stroke Criteria *Q: - AMI *Q AMI Criteria *Q:
[2017-05-11 12:19] VITALS: BP 152/74
--- NOTE | 2017-05-11 14:11 | EDM.PDOC ---
ED HPI GENERAL MEDICAL PROBLEM - General Chief Complaint: Neuro Symptoms/Deficits Stated Complaint: ALTERED MENTAL STATUS Time Seen by Provider: 05/09/17 09:36 Source of Information: Reports: Patient, Family History Limitations: Reports: No Limitations - History of Present Illness INITIAL COMMENTS - FREE TEXT/NARRATIVE: Patient usually gets up around 4 or 5 in the morning and this morning slept until 7 AM. When he awoke he complained of severe chills and his noted that he was confused not knowing the date or where he worked. This has happened before and was diagnosed with low B12 and a TIA. Patient complains of mild headache any weakness, numbness or tingling. Patient's glucose was 115 prior to arrival. Patient has a history of skin cancer on his scalp and has received radiation for this. Review of systems: As per history of present illness and below otherwise all systems reviewed and negative. Past medical history: As per history of present illness and as reviewed below otherwise noncontributory. Surgical history: As per history of present illness and as reviewed below otherwise noncontributory. Social history: No reported history of drug or alcohol abuse. Family history: As per history of present illness and as reviewed below otherwise noncontributory. Physical exam: General: Well developed, well nourished in NAD HEENT: Atraumatic, normocephalic, pupils reactive, negative for conjunctival pallor or scleral icterus, mucous membranes moist, throat clear, neck supple, nontender, trachea midline. Lungs: Clear to auscultation, breath sounds equal bilaterally, chest nontender. Heart: S1S2, regular, negative for clicks, rubs, or JVD. Abdomen: Soft, nondistended, nontender. Negative for masses or hepatosplenomegaly. Negative for costovertebral tenderness. Pelvis: Stable nontender. Genitourinary: Deferred. Rectal: Deferred. Extremities: Atraumatic, negative for cords or calf pain. Neurovascular unremarkable. Neuro: Awake, alert, states it's 1984. Cranial nerves II through XII unremarkable. Cerebellum unremarkable. Motor and sensory unremarkable throughout. Exam nonfocal. Diagnostics: []Labs normal and x-ray showing atelectasis Therapeutics: []DuoNeb and Solu-Medrol given Impression: []COPD exacerbation Plan: []Follow-up PMD prednisone taper Treatments GASTROENTEROLOGY MANAGER: Reports: IV/IO, Other (see below) Other Treatments GASTROENTEROLOGY MANAGER: Blood Sugar - 115 - Related Data Allergies Allergy/AdvReac Type Severity Reaction Status Date / Time No Known Allergies Allergy Verified 05/09/17 09:24 Home Meds: Home Meds Dabigatran Etexilate Mesylate [Pradaxa] 1 tab PO BID 12/01/15 [History] Metoprolol Succinate [Toprol XL] 25 mg PO DAILY 12/01/15 [History] atorvaSTATin [Lipitor] 40 mg PO BEDTIME 12/01/15 [History] Lisinopril 10 mg PO DAILY 06/15/16 [History] Aspirin 325 mg PO DAILY 05/11/17 [History] Cyanocobalamin (Vitamin B-12) [Cyanocobalamin Injection] 1,000 mcg IJ ASDIRECTED 05/11/17 [History] Donepezil [Aricept] 5 mg PO BEDTIME #30 tablet 05/11/17 [Rx] levETIRAcetam [Keppra] 500 mg PO BID 05/11/17 [History] predniSONE [Prednisone] 1 tab PO DAILY 05/11/17 [History] Past Medical History HEENT History: Reports: None Cardiovascular History: Reports: CAD, Hypertension Respiratory History: Reports: None Gastrointestinal History: Reports: None Genitourinary History: Reports: None Musculoskeletal History: Reports: None Neurological History: Reports: CVA, TIA Psychiatric History: Reports: None Endocrine/Metabolic History: Reports: None Hematologic History: Reports: None Immunologic History: Reports: None Oncologic (Cancer) History: Reports: None Other Oncologic History: skin cancer on top of head and face Dermatologic History: Reports: Melanoma Other Dermatologic History: has radiation treatment for cancer. Melanoma to top of head. - Infectious Disease History Infectious Disease History: Reports: Mumps - Past Surgical History Cardiovascular Surgical History: Reports: Carotid Endarterectomy, Coronary Artery Bypass, Valve Replacement, Other (See Below) Other Cardiovascular Surgeries/Procedures: pacemaker and pig valve Social & Family History - Family History Family Medical History: Noncontributory HEENT: Reports: None Cardiac: Reports: Afib, High Cholesterol, Hypertension Respiratory: Reports: None GI: Reports: None : Reports: None OBGYN: Reports: None Musculoskeletal: Reports: Arthritis, Osteoarthritis, Osteoporosis Neurological: Reports: None Psychiatric: Reports: None Endocrine/Metabolic: Reports: None Hematologic: Reports: None Immunologic: Reports: None Dermatologic: Reports: None - Tobacco Use Smoking Status *Q: Never Smoker Years of Tobacco use: 30 Packs/Tins Daily: 1 Used Tobacco, but Quit: Yes Month Tobacco Last Used: MAY Second Hand Smoke Exposure: No - Caffeine Use Caffeine Use: Reports: Coffee Caffeine Use Comment: 1 drink/day - Alcohol Use Days Per Week of Alcohol Use: 7 Number of Drinks Per Day: 3 Total Drinks Per Week: 21 Date of Last Drink: 05/08/17 Time of Last Drink: 19:00 - Recreational Drug Use Recreational Drug Use: No Course - Vital Signs Last Recorded V/S: Last Vital Signs Temp 97.9 F 05/11/17 12:00 Pulse 73 05/11/17 12:00 Resp 18 05/11/17 12:00 BP 152/74 H 05/11/17 12:00 Pulse Ox 95 05/11/17 12:00 - Orders/Labs/Meds Labs: Laboratory Tests 05/09/17 05/09/17 05/09/17 Range/Units 09:18 09:18 09:18 WBC 8.96 (4.0-11.0) K/uL RBC 4.63 (4.50-5.90) M/uL Hgb 15.6 (13.0-17.0) g/dL Hct 45.0 (38.0-50.0) % MCV 97.2 (80.0-98.0) fL MCH 33.7 H (27.0-32.0) pg MCHC 34.7 (31.0-37.0) g/dL RDW Std Deviation 50.1 (28.0-62.0) fl RDW Coeff of Ryan 14 (11.0-15.0) % Plt Count 230 (150-400) K/uL MPV 9.70 (7.40-12.00) fL Neut % (Auto) 80.0 (48.0-80.0) % Lymph % (Auto) 12.7 L (16.0-40.0) % [place] % (Auto) 7.0 (0.0-15.0) % Eos % (Auto) 0.1 (0.0-7.0) % Baso % (Auto) 0.2 (0.0-1.5) % Neut # (Auto) 7.2 H (1.4-5.7) K/uL Lymph # (Auto) 1.1 (0.6-2.4) K/uL [place] # (Auto) 0.6 (0.0-0.8) K/uL Eos # (Auto) 0.0 (0.0-0.7) K/uL Baso # (Auto) 0.0 (0.0-0.1) K/uL Nucleated RBC % 0.0 /100WBC Nucleated RBCs # 0 K/uL INR 1.09 (0.86-1.11) APTT 30.9 (18.6-31.3) SEC Sodium 139 (136-146) mmol/L Potassium 4.1 (3.5-5.1) mmol/L Chloride 103 (98-110) mmol/L Carbon Dioxide 24 (21-31) mmol/L BUN 10 (6.0-23.0) mg/dL Creatinine 0.8 (0.6-1.5) mg/dL Est Cr Clr Drug Dosing TNP Estimated GFR (MDRD) > 60.0 ml/min Glucose 106 (60-110) mg/dL Calcium 9.1 (8.8-10.8) mg/dL Total Bilirubin 0.9 (0.1-1.5) mg/dL AST 19 (5-40) IU/L ALT 18 (8-54) IU/L Alkaline Phosphatase 56 (40-150) Troponin I < 0.10 (0.0-0.29) NG/ML Total Protein 7.1 (6.0-8.0) g/dL Albumin 3.7 (3.4-4.8) g/dL Globulin 3.4 (2.0-3.5) g/dL Albumin/Globulin Ratio 1.1 L (1.3-2.8) Triglycerides (10-190) mg/dL Cholesterol (131-240) mg/dL LDL Cholesterol, Calc (60-180) mg/dL VLDL Cholesterol (5-55) mg/dL HDL Cholesterol (40-80) mg/dL Cholesterol/HDL Ratio (3.3-6.0) Vitamin B12 (200-1100) PG/ML TSH 3rd Generation 0.85 (0.47-5.0) uIU/mL Urine Color Urine Appearance Urine pH (5.0-8.0) Ur Specific [place] (1.001-1.035) Urine Protein (NEGATIVE) mg/dL Urine Glucose (UA) (NEGATIVE) mg/dL Urine Ketones (NEGATIVE) mg/dL Urine Occult Blood (NEGATIVE) Urine Nitrite (NEGATIVE) Urine Bilirubin (NEGATIVE) Urine Urobilinogen (<2.0) EU/dL Ur Leukocyte Esterase (NEGATIVE) Urine RBC (0-2/HPF) Urine WBC (0-5/HPF) Ur Epithelial Cells (NONE-FEW) Urine Bacteria (NEGATIVE) 05/09/17 05/09/17 Range/Units 09:18 09:34 WBC (4.0-11.0) K/uL RBC (4.50-5.90) M/uL Hgb (13.0-17.0) g/dL Hct (38.0-50.0) % MCV (80.0-98.0) fL MCH (27.0-32.0) pg MCHC (31.0-37.0) g/dL RDW Std Deviation (28.0-62.0) fl RDW Coeff of [place] (11.0-15.0) % Plt Count (150-400) K/uL MPV (7.40-12.00) fL Neut % (Auto) (48.0-80.0) % Lymph % (Auto) (16.0-40.0) % [place] % (Auto) (0.0-15.0) % Eos % (Auto) (0.0-7.0) % Baso % (Auto) (0.0-1.5) % Neut # (Auto) (1.4-5.7) K/uL Lymph # (Auto) (0.6-2.4) K/uL [place] # (Auto) (0.0-0.8) K/uL Eos # (Auto) (0.0-0.7) K/uL Baso # (Auto) (0.0-0.1) K/uL Nucleated RBC % /100WBC Nucleated RBCs # K/uL INR (0.86-1.11) APTT (18.6-31.3) SEC Sodium (136-146) mmol/L Potassium (3.5-5.1) mmol/L Chloride (98-110) mmol/L Carbon Dioxide (21-31) mmol/L BUN (6.0-23.0) mg/dL Creatinine (0.6-1.5) mg/dL Est Cr Clr Drug Dosing Estimated GFR (MDRD) ml/min Glucose (60-110) mg/dL Calcium (8.8-10.8) mg/dL Total Bilirubin (0.1-1.5) mg/dL AST (5-40) IU/L ALT (8-54) IU/L Alkaline Phosphatase (40-150) Troponin I (0.0-0.29) NG/ML Total Protein (6.0-8.0) g/dL Albumin (3.4-4.8) g/dL Globulin (2.0-3.5) g/dL Albumin/Globulin Ratio (1.3-2.8) Triglycerides 101 (10-190) mg/dL Cholesterol 242 H (131-240) mg/dL LDL Cholesterol, Calc 165 (60-180) mg/dL VLDL Cholesterol 20 (5-55) mg/dL HDL Cholesterol 57 (40-80) mg/dL Cholesterol/HDL Ratio 4.2 (3.3-6.0) Vitamin B12 472 (200-1100) PG/ML TSH 3rd Generation (0.47-5.0) uIU/mL Urine Color YELLOW Urine Appearance SLT CLOUDY Urine pH 8.0 (5.0-8.0) Ur Specific [place] 1.015 (1.001-1.035) Urine Protein NEGATIVE (NEGATIVE) mg/dL Urine Glucose (UA) NEGATIVE (NEGATIVE) mg/dL Urine Ketones NEGATIVE (NEGATIVE) mg/dL Urine Occult Blood NEGATIVE (NEGATIVE) Urine Nitrite NEGATIVE (NEGATIVE) Urine Bilirubin NEGATIVE (NEGATIVE) Urine Urobilinogen 0.2 (<2.0) EU/dL Ur Leukocyte Esterase NEGATIVE (NEGATIVE) Urine RBC 0-1 (0-2/HPF) Urine WBC 0-1 (0-5/HPF) Ur Epithelial Cells RARE (NONE-FEW) Urine Bacteria RARE (NEGATIVE) Meds: Medications Discontinued Medications Generic Name Dose Route Start Last Admin Trade Name Freq PRN Reason Stop Dose Admin Acetaminophen 650 mg 05/09/17 12:46 Tylenol PO Q4H PRN Pain (Mild 1-3)/fever Hydrocodone Bitart/Acetaminophen 1 tab 05/09/17 12:52 [place] 325-7.5 Mg PO DAILY PRN Pain Alendronate Sodium 70 mg 05/16/17 06:30 Fosamax PO Q7D@0630 [facility] Aspirin 325 mg 05/10/17 09:00 05/11/17 08:32 Ecotrin PO 325 mg DAILY [facility] Administration Atorvastatin Calcium 40 mg 05/09/17 21:00 05/10/17 21:50 Lipitor PO 40 mg BEDTIME [facility] Administration Dabigatran 150 mg 05/09/17 21:00 05/11/17 08:32 Pradaxa PO 150 mg BID [facility] Administration Donepezil HCl 5 mg 05/11/17 10:01 05/11/17 10:12 Aricept PO 05/11/17 10:02 5 mg ONETIME ONE Administration Levofloxacin/Dextrose 750 mg/ 150 mls @ 100 mls/hr 05/09/17 16:15 05/10/17 15 :47 Premix IV 100 mls/hr Q24H [facility] Administration Magnesium Sulfate 4 gm/ Premix 100 mls @ 50 mls/hr 05/10/17 08:34 05/10/17 09 :27 IV 05/10/17 10:33 50 mls/hr ONETIME ONE Administration Lisinopril 10 mg 05/10/17 09:00 Prinivil PO DAILY [facility] Lisinopril 10 mg 05/09/17 18:00 05/10/17 10:37 Prinivil PO Not Given DAILY [facility] Metoprolol Succinate 25 mg 05/10/17 09:00 Toprol Xl PO DAILY [facility] Metoprolol Succinate 25 mg 05/09/17 18:01 05/11/17 08:32 Toprol Xl PO 25 mg DAILY [facility] Administration Ondansetron HCl 4 mg 05/09/17 12:46 Zofran Odt PO Q4H PRN nausea, able to take PO Sodium Chloride 10 ml 05/09/17 09:01 Saline Flush FLUSH ASDIRECTED PRN Keep Vein Open Sodium Chloride 2.5 ml 05/09/17 09:01 Saline Flush FLUSH ASDIRECTED PRN Keep Vein Open Temazepam 15 mg 05/09/17 12:46 Restoril PO BEDTIME PRN Sleep Departure - Departure Disposition: Refer to Observation - Discharge Information
--- NOTE | 2017-05-11 14:18 | EDM.PDOC ---
ED HPI GENERAL MEDICAL PROBLEM - General Chief Complaint: Neuro Symptoms/Deficits Stated Complaint: ALTERED MENTAL STATUS Time Seen by Provider: 05/09/17 09:36 Source of Information: Reports: Patient, Family History Limitations: Reports: No Limitations - History of Present Illness INITIAL COMMENTS - FREE TEXT/NARRATIVE: History of present illness: []Patient usually gets up around 4 or 5 in the morning and this morning slept until 7 AM. When he awoke he complained of severe chills and his noted that he was confused not knowing the date or where he worked. This has happened before and was diagnosed with low B12 and a TIA. Patient complains of mild headache any weakness, numbness or tingling. Patient's glucose was 115 prior to arrival. Patient has a history of skin cancer on his scalp and has received radiation for this. Review of systems: As per history of present illness and below otherwise all systems reviewed and negative. Past medical history: As per history of present illness and as reviewed below otherwise noncontributory. Surgical history: As per history of present illness and as reviewed below otherwise noncontributory. Social history: No reported history of drug or alcohol abuse. Family history: As per history of present illness and as reviewed below otherwise noncontributory. Physical exam: General: Well developed, well nourished in NAD HEENT: Atraumatic, normocephalic, pupils reactive, negative for conjunctival pallor or scleral icterus, mucous membranes moist, throat clear, neck supple, nontender, trachea midline. Lungs: Clear to auscultation, breath sounds equal bilaterally, chest nontender. Heart: S1S2, regular, negative for clicks, rubs, or JVD. Abdomen: Soft, nondistended, nontender. Negative for masses or hepatosplenomegaly. Negative for costovertebral tenderness. Pelvis: Stable nontender. Genitourinary: Deferred. Rectal: Deferred. Extremities: Atraumatic, negative for cords or calf pain. Neurovascular unremarkable. Neuro: Awake, alert, disoriented patient since 1983. Cranial nerves II through XII unremarkable. Cerebellum unremarkable. Motor and sensory unremarkable throughout. Exam nonfocal. Diagnostics: []CT, EKG and labs normal Therapeutics: []Patient was given an aspirin Impression: []TIA Plan: []Admit to the hospitalist Definitive disposition and diagnosis as appropriate pending reevaluation and review of above. Treatments APPLICATION SECURITY SPECIALIST: Reports: IV/IO, Other (see below) Other Treatments APPLICATION SECURITY SPECIALIST: Blood Sugar - 115 - Related Data Allergies Allergy/AdvReac Type Severity Reaction Status Date / Time No Known Allergies Allergy Verified 05/09/17 09:24 Home Meds: Home Meds Dabigatran Etexilate Mesylate [Pradaxa] 1 tab PO BID 12/01/15 [History] Metoprolol Succinate [Toprol XL] 25 mg PO DAILY 12/01/15 [History] atorvaSTATin [Lipitor] 40 mg PO BEDTIME 12/01/15 [History] Lisinopril 10 mg PO DAILY 06/15/16 [History] Aspirin 325 mg PO DAILY 05/11/17 [History] Cyanocobalamin (Vitamin B-12) [Cyanocobalamin Injection] 1,000 mcg IJ ASDIRECTED 05/11/17 [History] Donepezil [Aricept] 5 mg PO BEDTIME #30 tablet 05/11/17 [Rx] levETIRAcetam [Keppra] 500 mg PO BID 05/11/17 [History] predniSONE [Prednisone] 1 tab PO DAILY 05/11/17 [History] Past Medical History HEENT History: Reports: None Cardiovascular History: Reports: CAD, Hypertension Respiratory History: Reports: None Gastrointestinal History: Reports: None Genitourinary History: Reports: None Musculoskeletal History: Reports: None Neurological History: Reports: CVA, TIA Psychiatric History: Reports: None Endocrine/Metabolic History: Reports: None Hematologic History: Reports: None Immunologic History: Reports: None Oncologic (Cancer) History: Reports: None Other Oncologic History: skin cancer on top of head and face Dermatologic History: Reports: Melanoma Other Dermatologic History: has radiation treatment for cancer. Melanoma to top of head. - Infectious Disease History Infectious Disease History: Reports: Mumps - Past Surgical History Cardiovascular Surgical History: Reports: Carotid Endarterectomy, Coronary Artery Bypass, Valve Replacement, Other (See Below) Other Cardiovascular Surgeries/Procedures: pacemaker and pig valve Social & Family History - Family History Family Medical History: Noncontributory HEENT: Reports: None Cardiac: Reports: Afib, High Cholesterol, Hypertension Respiratory: Reports: None GI: Reports: None : Reports: None OBGYN: Reports: None Musculoskeletal: Reports: Arthritis, Osteoarthritis, Osteoporosis Neurological: Reports: None Psychiatric: Reports: None Endocrine/Metabolic: Reports: None Hematologic: Reports: None Immunologic: Reports: None Dermatologic: Reports: None - Tobacco Use Smoking Status *Q: Never Smoker Years of Tobacco use: 30 Packs/Tins Daily: 1 Used Tobacco, but Quit: Yes Month Tobacco Last Used: MAY Second Hand Smoke Exposure: No - Caffeine Use Caffeine Use: Reports: Coffee Caffeine Use Comment: 1 drink/day - Alcohol Use Days Per Week of Alcohol Use: 7 Number of Drinks Per Day: 3 Total Drinks Per Week: 21 Date of Last Drink: 05/08/17 Time of Last Drink: 19:00 - Recreational Drug Use Recreational Drug Use: No ED ROS GENERAL - Review of Systems Review Of Systems: See Below (See history of present illness) ED EXAM, NEURO - Physical Exam Exam: See Below (See history of present illness) Course - Vital Signs Last Recorded V/S: Last Vital Signs Temp 97.9 F 05/11/17 12:00 Pulse 73 05/11/17 12:00 Resp 18 05/11/17 12:00 BP 152/74 H 05/11/17 12:00 Pulse Ox 95 05/11/17 12:00 - Orders/Labs/Meds Labs: Laboratory Tests 05/09/17 05/09/17 05/09/17 Range/Units 09:18 09:18 09:18 WBC 8.96 (4.0-11.0) K/uL RBC 4.63 (4.50-5.90) M/uL Hgb 15.6 (13.0-17.0) g/dL Hct 45.0 (38.0-50.0) % MCV 97.2 (80.0-98.0) fL MCH 33.7 H (27.0-32.0) pg MCHC 34.7 (31.0-37.0) g/dL RDW Std Deviation 50.1 (28.0-62.0) fl RDW Coeff of Ryan 14 (11.0-15.0) % Plt Count 230 (150-400) K/uL MPV 9.70 (7.40-12.00) fL Neut % (Auto) 80.0 (48.0-80.0) % Lymph % (Auto) 12.7 L (16.0-40.0) % [place] % (Auto) 7.0 (0.0-15.0) % Eos % (Auto) 0.1 (0.0-7.0) % Baso % (Auto) 0.2 (0.0-1.5) % Neut # (Auto) 7.2 H (1.4-5.7) K/uL Lymph # (Auto) 1.1 (0.6-2.4) K/uL [place] # (Auto) 0.6 (0.0-0.8) K/uL Eos # (Auto) 0.0 (0.0-0.7) K/uL Baso # (Auto) 0.0 (0.0-0.1) K/uL Nucleated RBC % 0.0 /100WBC Nucleated RBCs # 0 K/uL INR 1.09 (0.86-1.11) APTT 30.9 (18.6-31.3) SEC Sodium 139 (136-146) mmol/L Potassium 4.1 (3.5-5.1) mmol/L Chloride 103 (98-110) mmol/L Carbon Dioxide 24 (21-31) mmol/L BUN 10 (6.0-23.0) mg/dL Creatinine 0.8 (0.6-1.5) mg/dL Est Cr Clr Drug Dosing TNP Estimated GFR (MDRD) > 60.0 ml/min Glucose 106 (60-110) mg/dL Calcium 9.1 (8.8-10.8) mg/dL Total Bilirubin 0.9 (0.1-1.5) mg/dL AST 19 (5-40) IU/L ALT 18 (8-54) IU/L Alkaline Phosphatase 56 (40-150) Troponin I < 0.10 (0.0-0.29) NG/ML Total Protein 7.1 (6.0-8.0) g/dL Albumin 3.7 (3.4-4.8) g/dL Globulin 3.4 (2.0-3.5) g/dL Albumin/Globulin Ratio 1.1 L (1.3-2.8) Triglycerides (10-190) mg/dL Cholesterol (131-240) mg/dL LDL Cholesterol, Calc (60-180) mg/dL VLDL Cholesterol (5-55) mg/dL HDL Cholesterol (40-80) mg/dL Cholesterol/HDL Ratio (3.3-6.0) Vitamin B12 (200-1100) PG/ML TSH 3rd Generation 0.85 (0.47-5.0) uIU/mL Urine Color Urine Appearance Urine pH (5.0-8.0) Ur Specific [place] (1.001-1.035) Urine Protein (NEGATIVE) mg/dL Urine Glucose (UA) (NEGATIVE) mg/dL Urine Ketones (NEGATIVE) mg/dL Urine Occult Blood (NEGATIVE) Urine Nitrite (NEGATIVE) Urine Bilirubin (NEGATIVE) Urine Urobilinogen (<2.0) EU/dL Ur Leukocyte Esterase (NEGATIVE) Urine RBC (0-2/HPF) Urine WBC (0-5/HPF) Ur Epithelial Cells (NONE-FEW) Urine Bacteria (NEGATIVE) 05/09/17 05/09/17 Range/Units 09:18 09:34 WBC (4.0-11.0) K/uL RBC (4.50-5.90) M/uL Hgb (13.0-17.0) g/dL Hct (38.0-50.0) % MCV (80.0-98.0) fL MCH (27.0-32.0) pg MCHC (31.0-37.0) g/dL RDW Std Deviation (28.0-62.0) fl RDW Coeff of Ryan (11.0-15.0) % Plt Count (150-400) K/uL MPV (7.40-12.00) fL Neut % (Auto) (48.0-80.0) % Lymph % (Auto) (16.0-40.0) % [place] % (Auto) (0.0-15.0) % Eos % (Auto) (0.0-7.0) % Baso % (Auto) (0.0-1.5) % Neut # (Auto) (1.4-5.7) K/uL Lymph # (Auto) (0.6-2.4) K/uL [place] # (Auto) (0.0-0.8) K/uL Eos # (Auto) (0.0-0.7) K/uL Baso # (Auto) (0.0-0.1) K/uL Nucleated RBC % /100WBC Nucleated RBCs # K/uL INR (0.86-1.11) APTT (18.6-31.3) SEC Sodium (136-146) mmol/L Potassium (3.5-5.1) mmol/L Chloride (98-110) mmol/L Carbon Dioxide (21-31) mmol/L BUN (6.0-23.0) mg/dL Creatinine (0.6-1.5) mg/dL Est Cr Clr Drug Dosing Estimated GFR (MDRD) ml/min Glucose (60-110) mg/dL Calcium (8.8-10.8) mg/dL Total Bilirubin (0.1-1.5) mg/dL AST (5-40) IU/L ALT (8-54) IU/L Alkaline Phosphatase (40-150) Troponin I (0.0-0.29) NG/ML Total Protein (6.0-8.0) g/dL Albumin (3.4-4.8) g/dL Globulin (2.0-3.5) g/dL Albumin/Globulin Ratio (1.3-2.8) Triglycerides 101 (10-190) mg/dL Cholesterol 242 H (131-240) mg/dL LDL Cholesterol, Calc 165 (60-180) mg/dL VLDL Cholesterol 20 (5-55) mg/dL HDL Cholesterol 57 (40-80) mg/dL Cholesterol/HDL Ratio 4.2 (3.3-6.0) Vitamin B12 472 (200-1100) PG/ML TSH 3rd Generation (0.47-5.0) uIU/mL Urine Color YELLOW Urine Appearance SLT CLOUDY Urine pH 8.0 (5.0-8.0) Ur Specific [place] 1.015 (1.001-1.035) Urine Protein NEGATIVE (NEGATIVE) mg/dL Urine Glucose (UA) NEGATIVE (NEGATIVE) mg/dL Urine Ketones NEGATIVE (NEGATIVE) mg/dL Urine Occult Blood NEGATIVE (NEGATIVE) Urine Nitrite NEGATIVE (NEGATIVE) Urine Bilirubin NEGATIVE (NEGATIVE) Urine Urobilinogen 0.2 (<2.0) EU/dL Ur Leukocyte Esterase NEGATIVE (NEGATIVE) Urine RBC 0-1 (0-2/HPF) Urine WBC 0-1 (0-5/HPF) Ur Epithelial Cells RARE (NONE-FEW) Urine Bacteria RARE (NEGATIVE) Meds: Medications Discontinued Medications Generic Name Dose Route Start Last Admin Trade Name Freq PRN Reason Stop Dose Admin Acetaminophen 650 mg 05/09/17 12:46 Tylenol PO Q4H PRN Pain (Mild 1-3)/fever Hydrocodone Bitart/Acetaminophen 1 tab 05/09/17 12:52 [place] 325-7.5 Mg PO DAILY PRN Pain Alendronate Sodium 70 mg 05/16/17 06:30 Fosamax PO Q7D@0630 [facility] Aspirin 325 mg 05/10/17 09:00 05/11/17 08:32 Ecotrin PO 325 mg DAILY [facility] Administration Atorvastatin Calcium 40 mg 05/09/17 21:00 05/10/17 21:50 Lipitor PO 40 mg BEDTIME [facility] Administration Dabigatran 150 mg 05/09/17 21:00 05/11/17 08:32 Pradaxa PO 150 mg BID [facility] Administration Donepezil HCl 5 mg 05/11/17 10:01 05/11/17 10:12 Aricept PO 05/11/17 10:02 5 mg ONETIME ONE Administration Levofloxacin/Dextrose 750 mg/ 150 mls @ 100 mls/hr 05/09/17 16:15 05/10/17 15 :47 Premix IV 100 mls/hr Q24H [facility] Administration Magnesium Sulfate 4 gm/ Premix 100 mls @ 50 mls/hr 05/10/17 08:34 05/10/17 09 :27 IV 05/10/17 10:33 50 mls/hr ONETIME ONE Administration Lisinopril 10 mg 05/10/17 09:00 Prinivil PO DAILY [facility] Lisinopril 10 mg 05/09/17 18:00 05/10/17 10:37 Prinivil PO Not Given DAILY [facility] Metoprolol Succinate 25 mg 05/10/17 09:00 Toprol Xl PO DAILY [facility] Metoprolol Succinate 25 mg 05/09/17 18:01 05/11/17 08:32 Toprol Xl PO 25 mg DAILY [facility] Administration Ondansetron HCl 4 mg 05/09/17 12:46 Zofran Odt PO Q4H PRN nausea, able to take PO Sodium Chloride 10 ml 05/09/17 09:01 Saline Flush FLUSH ASDIRECTED PRN Keep Vein Open Sodium Chloride 2.5 ml 05/09/17 09:01 Saline Flush FLUSH ASDIRECTED PRN Keep Vein Open Temazepam 15 mg 05/09/17 12:46 Restoril PO BEDTIME PRN Sleep Departure - Departure Time of Disposition: 11:55 Disposition: Refer to Observation Condition: Good Clinical Impression: TIA (transient ischemic attack) Qualifiers: Transient cerebral ischemia type: unspecified Qualified Code(s): G45.9 - Transient cerebral ischemic attack, unspecified - Discharge Information
--- NOTE | 2017-05-12 14:24 | ECHO ---
EXAM DATE: 05/09/17 PATIENT'S AGE: 81 The echocardiogram report can be seen in this patient's EMR (Electronic Medical Record) in the Reports section. The report has also been scanned into PACs. [place]
[2017-05-16] MEDS ORDERED: Alendronate 70 MG Tab PO SCH (06:30)
== END 2017-05-11 12:10 | disposition home or self-care (01) ==
LOC: MW.ED 08:58 → MW.MS 11:08
PROVIDERS: ADMIT Family Medicine; ATTEND Family Medicine
DX: R41.0 Disorientation, unspecified (principal); I48.2 Chronic atrial fibrillation; I10 Essential (primary) hypertension; E78.5 Hyperlipidemia, unspecified; E53.8 Deficiency of other specified B group vitamins; I25.10 Atherosclerotic heart disease of native coronary artery without angina pectoris; R41.81 Age-related cognitive decline; Z86.73 Personal history of transient ischemic attack (TIA), and cerebral infarction without residual deficits; Z85.820 Personal history of malignant melanoma of skin; Z92.3 Personal history of irradiation; Z79.01 Long term (current) use of anticoagulants; Z79.82 Long term (current) use of aspirin; Z79.52 Long term (current) use of systemic steroids; Z79.899 Other long term (current) drug therapy; Z95.0 Presence of cardiac pacemaker; Z95.3 Presence of xenogenic heart valve; Z95.1 Presence of aortocoronary bypass graft; Z98.890 Other specified postprocedural states
CPT/HCPCS: 36415; 70450; 71046; 80048; 80053; 80061; 81001; 82607; 83735; 84100; 84443; 84484; 85025; 85610; 85730; 87040; 87804; 93005; 93306; 93880; 96365; 96366; 96367; 97161; 99285; A9270; G0378; J1956; J3475; 99284

== ENCOUNTER 2017-09-25 23:08 | Emergency (ER) | payer MEDICARE, OTHER ==
[2017-09-25] MEDS ORDERED: Diphtheria,Pertussis(Acell),Tetanus Vaccine 0.5 ML Syringe IM ONE (23:26)
--- NOTE | 2017-09-25 23:26 | EDM.PDOC ---
ED HPI GENERAL MEDICAL PROBLEM - General Chief Complaint: Skin Complaint Stated Complaint: LACERATION RT WRIST/FINGER RT HAND Time Seen by Provider: 09/25/17 23:24 Source of Information: Reports: Patient - History of Present Illness INITIAL COMMENTS - FREE TEXT/NARRATIVE: HISTORY AND PHYSICAL: History of present illness: [Patient presents with a fall in his home tonight He tripped exiting the kitchen going to the living room struck his left ribs on a chair, he has skin tears involving his left hand dorsum of the second digit across the proximal phalanx not full-thickness, as well as a skin tear on his left wrist he denies head injury or loss of consciousness Denies fever nausea vomiting diarrhea constipation chest pain shortness breath headache dizziness or palpitation no bowel or urine symptoms ] A shunt admits to drinking 4-5 beers tonight Review of systems: As per history of present illness and below otherwise all systems reviewed and negative. Past medical history: As per history of present illness and as reviewed below otherwise noncontributory. Surgical history: As per history of present illness and as reviewed below otherwise noncontributory. Social history: No reported history of drug or alcohol abuse. Family history: As per history of present illness and as reviewed below otherwise noncontributory. Physical exam: HEENT: Atraumatic, normocephalic, pupils reactive, negative for conjunctival pallor or scleral icterus, mucous membranes moist, throat clear, neck supple, nontender, trachea midline. Lungs: Clear to auscultation, breath sounds equal bilaterally, chest nontender. Heart: S1S2, regular, negative for clicks, rubs, or JVD. Abdomen: Soft, nondistended, nontender. Negative for masses or hepatosplenomegaly. Negative for costovertebral tenderness. Pelvis: Stable nontender. Genitourinary: Deferred. Rectal: Deferred. Extremities: Atraumatic, negative for cords or calf pain. Neurovascular unremarkable. Neuro: Awake, alert, oriented. Cranial nerves II through XII unremarkable. Cerebellum unremarkable. Motor and sensory unremarkable throughout. Exam nonfocal. Diagnostics: CBC, INR Head CT no contrast Cervical spine no contrast Chest 1 view with ribs on left 1 view pelvis ] Therapeutics: Patient and his decline tetanus update today stating he is up-to-date within the last 3 years Wound dressings ] Impression: Multiple skin tears/ abrasions ]-right upper extremity T3 compression fracture-no pain associated Chest wall contusion Definitive disposition and diagnosis as appropriate pending reevaluation and review of above. Left Pain Score (Numeric/FACES): 5 - Related Data Allergies Allergy/AdvReac Type Severity Reaction Status Date / Time No Known Allergies Allergy Verified 09/25/17 23:24 Home Meds: Home Meds Dabigatran Etexilate Mesylate [Pradaxa] 1 tab PO BID 12/01/15 [History] Metoprolol Succinate [Toprol XL] 25 mg PO DAILY 12/01/15 [History] atorvaSTATin [Lipitor] 40 mg PO BEDTIME 12/01/15 [History] Lisinopril 12.5 mg PO DAILY 06/15/16 [History] Aspirin 325 mg PO DAILY 05/11/17 [History] Cyanocobalamin (Vitamin B-12) [Cyanocobalamin Injection] 1,000 mcg IJ ASDIRECTED 05/11/17 [History] Donepezil [Aricept] 5 mg PO BEDTIME #30 tablet 05/11/17 [Rx] levETIRAcetam [Keppra] 500 mg PO BID 05/11/17 [History] predniSONE [Prednisone] 5 mg PO DAILY 05/11/17 [History] Past Medical History HEENT History: Reports: None Cardiovascular History: Reports: CAD, Hypertension Respiratory History: Reports: None Gastrointestinal History: Reports: None Genitourinary History: Reports: None Musculoskeletal History: Reports: None Neurological History: Reports: CVA, TIA Psychiatric History: Reports: None Endocrine/Metabolic History: Reports: None Hematologic History: Reports: None Immunologic History: Reports: None Oncologic (Cancer) History: Reports: None Other Oncologic History: skin cancer on top of head and face Dermatologic History: Reports: Melanoma Other Dermatologic History: has radiation treatment for cancer. Melanoma to top of head. - Infectious Disease History Infectious Disease History: Reports: Mumps - Past Surgical History Cardiovascular Surgical History: Reports: Carotid Endarterectomy, Coronary Artery Bypass, Valve Replacement, Other (See Below) Other Cardiovascular Surgeries/Procedures: pacemaker and pig valve Social & Family History - Family History Family Medical History: Noncontributory HEENT: Reports: None Cardiac: Reports: Afib, High Cholesterol, Hypertension Respiratory: Reports: None GI: Reports: None : Reports: None OBGYN: Reports: None Musculoskeletal: Reports: Arthritis, Osteoarthritis, Osteoporosis Neurological: Reports: None Psychiatric: Reports: None Endocrine/Metabolic: Reports: None Hematologic: Reports: None Immunologic: Reports: None Dermatologic: Reports: None - Caffeine Use Caffeine Use: Reports: Coffee Caffeine Use Comment: 1 drink/day ED ROS GENERAL - Review of Systems Review Of Systems: See Below ED EXAM, SKIN/RASH Exam: See Below Course - Vital Signs Last Recorded V/S: Last Vital Signs Temp 97 F 09/25/17 23:14 Pulse 89 09/25/17 23:14 Resp 18 09/25/17 23:14 BP 114/72 09/25/17 23:14 Pulse Ox 97 09/25/17 23:14 - Orders/Labs/Meds Orders: Active Orders 24 hr Category Date Time Status Vaccines to be Administered [RC] PER UNIT ROUTINE Care 09/25/17 23:26 Active Cervical Spine wo Cont [CT] Stat Exams 09/25/17 23:24 Taken Head wo Cont [CT] Stat Exams 09/25/17 23:24 Taken Pelvis 1V or 2V [CR] Stat Exams 09/25/17 23:23 Taken Ribs 2V w Chest Lt [CR] Stat Exams 09/25/17 23:24 Taken Labs: Laboratory Tests 09/25/17 09/25/17 Range/Units 00:17 00:17 WBC 7.07 (4.0-11.0) K/uL RBC 4.07 L (4.50-5.90) M/uL Hgb 13.5 (13.0-17.0) g/dL Hct 39.3 (38.0-50.0) % MCV 96.6 (80.0-98.0) fL MCH 33.2 H (27.0-32.0) pg MCHC 34.4 (31.0-37.0) g/dL RDW Std Deviation 44.8 (28.0-62.0) fl RDW Coeff of Ryan 13 (11.0-15.0) % Plt Count 226 (150-400) K/uL MPV 9.20 (7.40-12.00) fL Neut % (Auto) 71.0 (48.0-80.0) % Lymph % (Auto) 18.1 (16.0-40.0) % Phillips % (Auto) 9.6 (0.0-15.0) % Eos % (Auto) 1.0 (0.0-7.0) % Baso % (Auto) 0.3 (0.0-1.5) % Neut # (Auto) 5.0 (1.4-5.7) K/uL Lymph # (Auto) 1.3 (0.6-2.4) K/uL Phillips # (Auto) 0.7 (0.0-0.8) K/uL Eos # (Auto) 0.1 (0.0-0.7) K/uL Baso # (Auto) 0.0 (0.0-0.1) K/uL INR 1.59 Meds: Medications Discontinued Medications Generic Name Dose Route Start Last Admin Trade Name Freq PRN Reason Stop Dose Admin Bacitracin 1 dose 09/26/17 00:06 09/26/17 00:16 Bacitracin Oint 1 Gm TOP 09/26/17 00:07 1 dose ONETIME ONE Administration Diphtheria/Tetanus/Acell Pertussis 0.5 ml 09/25/17 23:26 09/25/17 23:34 Adacel IM 09/25/17 23:27 Not Given .ONCE ONE Departure - Departure Time of Disposition: 01:19 Disposition: Home, Self-Care 01 Condition: Good Clinical Impression: Skin tear of hand without complication, Compression fracture of body of thoracic vertebra, Contusion - Discharge Information Referrals: PCP,None [Primary Care Provider] - Forms: ED Department Discharge Additional Instructions: The following information is given to patients seen in the emergency department who are being discharged to home. This information is to outline your options for follow-up care. We provide all patients seen in our emergency department with a follow-up referral. The need for follow-up, as well as the timing and circumstances, are variable depending upon the specifics of your emergency department visit. If you don't have a primary care physician on staff, we will provide you with a referral. We always advise you to contact your personal physician following an emergency department visit to inform them of the circumstance of the visit and for follow-up with them and/or the need for any referrals to a consulting specialist. The emergency department will also refer you to a specialist when appropriate. This referral assures that you have the opportunity for follow-up care with a specialist. All of these measure are taken in an effort to provide you with optimal care, which includes your follow-up. Under all circumstances we always encourage you to contact your private physician who remains a resource for coordinating your care. When calling for follow-up care, please make the office aware that this follow-up is from your recent emergency room visit. If for any reason you are refused follow-up, please contact the [facility] emergency department at and asked to speak to the emergency department charge nurse. - My Orders Last 24 Hours: My Active Orders 09/25/17 23:23 Pelvis 1V or 2V [CR] Stat 09/25/17 23:24 Cervical Spine wo Cont [CT] Stat Head wo Cont [CT] Stat Ribs 2V w Chest Lt [CR] Stat 09/25/17 23:26 Vaccines to be Administered [RC] PER UNIT ROUTINE - Assessment/Plan Last 24 Hours: My Active Orders 09/25/17 23:23 Pelvis 1V or 2V [CR] Stat 09/25/17 23:24 Cervical Spine wo Cont [CT] Stat Head wo Cont [CT] Stat Ribs 2V w Chest Lt [CR] Stat 09/25/17 23:26 Vaccines to be Administered [RC] PER UNIT ROUTINE
[2017-09-26] MEDS ORDERED: Bacitracin Oint 1 GM U/D Packet TOP ONE (00:06)
[2017-09-26 01:46] VITALS: BP 114/74
--- NOTE | 2017-09-28 10:16 | CT ---
EXAM DATE: 09/25/17 PATIENT'S AGE: 82 Patient: CATHY LIU Facility: [place], [place] Site . Site : 1935 Study: CT Spine Cervical [id number]/26/2018 11:46:55 PM Ordering Physician: Doctor Cramer Final Report: HISTORY: Fall today. Patient denies neck pain. Left-sided rib pain. TECHNIQUE: The cervical spine was scanned in the axial plane without IV contrast. Reconstructed bone windows were obtained as well as sagittal and coronal reconstructions. FINDINGS: The prevertebral soft tissues are normal. There is calcification seen within the carotid bulbs. Surgical clips are seen in the right carotid bulb. Thyroid is homogeneous. There is loss of lordosis within the cervical spine. Degenerative changes seen between the and 2 ring the C1 and the dens. There is facet arthropathy throughout the cervical spine. Degenerative changes are also present. There is decrease of the left C3-4 neural foramen, right C4-5 neural foramen, left C5-6 neural foramen and bilateral C6-7 neural foramen. No acute fracture is identified within the cervical spine. No traumatic subluxation. There is a moderate T3 compression fracture lines identified on axial image 212 through the inferior endplate. Question trace retropulsion of the posterior inferior endplate. IMPRESSION: 1. Degenerative changes within the cervical spine. 2. Loss of lordosis within the cervical spine this may be result of muscle spasm versus positioning. 3. Moderate T3 compression fracture with acute fracture lines through the inferior endplate. There may be trace retropulsion of the inferior end plate. 4. No acute fracture or traumatic subluxation within the cervical spine. Dictated by Vanessa Lewis MD @ 09/26/2017 12:43:24 AM Please note that all CT scans at this facility use dose modulation, iterative reconstruction, and/or weight-based dosing when appropriate to reduce radiation dose to as low as reasonably achievable. Dictated by: Vanessa Lewis MD @ 09/26/2017 00:43:35 (Electronic Signature) Report Signed by Proxy. [facility]OSPITALJaylen
--- NOTE | 2017-09-28 10:17 | CT ---
EXAM DATE: 09/25/17 PATIENT'S AGE: 82 Patient: CATHY LIU Facility: [place], [place] Site . Site : 1935 Study: CT Head [id number]/26/2018 11:47:18 PM Ordering Physician: Doctor Cramer Final Report: HISTORY: Fall. TECHNIQUE: The head was scanned in the axial plane at 3 mm intervals without IV contrast. Reconstructed bone windows were obtained as well as sagittal and coronal reconstructions. COMPARISON: 09 May 2017. FINDINGS: The visualized paranasal sinuses and mastoid air cells are well aerated. The calvarium is intact. Calcification is seen within the carotid siphons. Globes and orbital contents are symmetric. The ventricles and sulci are enlarged. Stable lacunar infarct in the right caudate head. Patchy periventricular and subcortical white matter hypodensity is present. Stable tiny foci of calcification most likely vascular are seen within the right parietal sulci. No intra-axial mass, edema or midline shift is identified. No extra-axial fluid collections are seen. Juarez white differentiation is preserved. IMPRESSION: 1. Atrophy. 2. Periventricular and subcortical white matter hypodensity most consistent small vessel ischemic change. Stable lacunar infarct in the right caudate head. 3. No acute intracranial pathology or bleed. Dictated by Vanessa Lewis MD @ 09/26/2017 12:37:35 AM Please note that all CT scans at this facility use dose modulation, iterative reconstruction, and/or weight-based dosing when appropriate to reduce radiation dose to as low as reasonably achievable. Dictated by: Vanessa Lewis MD @ 09/26/2017 00:37:39 (Electronic Signature) Report Signed by Proxy. [facility]
--- NOTE | 2017-09-28 10:18 | CR ---
EXAM DATE: 09/25/17 PATIENT'S AGE: 82 Patient: CATHY LIU Facility: [place], [place] Site . Site : 1935 Study: XRay Pelvis [id number]/27/2018 12:05:32 AM Ordering Physician: Doctor Cramer Final Report: FINDINGS: Fall AP pelvis Findings: Normal anatomic alignment. No acute fractures seen. No dislocation. Vascular calcifications. IMPRESSION: 1. No acute fractures or dislocations. Dictated by Esha Slater MD @ Sep 26 2017 1:10AM (Electronic Signature) Report Signed by Proxy. TEX
--- NOTE | 2017-09-28 10:19 | CR ---
EXAM DATE: 09/25/17 PATIENT'S AGE: 82 Patient: CATHY LIU Facility: [place], [place] Site . Site : 1935 Study: XRay Chest RIBS [id number]/27/2018 12:06:11 AM Ordering Physician: Doctor Cramer Final Report: Fall PA chest oblique views of the left ribs. COMPARISON: Chest x-ray 11/21/2016 Findings: Stable enlarged cardiac silhouette. Median sternotomy. Left cardiac pacer. Biapical pleural thickening. No acute airspace or interstitial process. No pneumothorax. No evidence for left rib fracture. Dictated by Esha Slater MD @ Sep 26 2017 1:12AM (Electronic Signature) Report Signed by Proxy. TEX
== END 2017-09-26 01:40 | disposition home or self-care (01) ==
LOC: MW.ED 23:08
DX: S22.039A Unspecified fracture of third thoracic vertebra, initial encounter for closed fracture (principal); S61.411A Laceration without foreign body of right hand, initial encounter; S61.512A Laceration without foreign body of left wrist, initial encounter; S20.212A Contusion of left front wall of thorax, initial encounter; I10 Essential (primary) hypertension; I25.10 Atherosclerotic heart disease of native coronary artery without angina pectoris; Z79.899 Other long term (current) drug therapy; Z79.82 Long term (current) use of aspirin; W22.8XXA Striking against or struck by other objects, initial encounter; Y92.000 Kitchen of unspecified non-institutional (private) residence as the place of occurrence of the external cause
CPT/HCPCS: 36415; 70450; 70450-26; 71101-26-LT; 71101-LT; 72125; 72125-26; 72170; 72170-26; 85025; 85610; 99284-25

== ENCOUNTER 2018-05-06 08:30 | Observation (INO) | payer MEDICARE, OTHER ==
[2018-05-06] MEDS ORDERED: Sodium Chloride 0.9% 10 ML Syringe FLUSH PRN (08:44)
[2018-05-06] MEDS ORDERED: Sodium Chloride 0.9% 2.5 ML Syringe FLUSH PRN (08:44)
--- NOTE | 2018-05-06 08:51 | EDM.PDOC ---
ED HPI GENERAL MEDICAL PROBLEM - General Stated Complaint: CONFUSION Time Seen by Provider: 05/06/18 08:43 - History of Present Illness INITIAL COMMENTS - FREE TEXT/NARRATIVE: HISTORY AND PHYSICAL: History of present illness: The patient is an 82-year-old male who follows at [facility] with Dr. Murguia and has a history of hypertension coronary artery disease chronic A. fib with TIAs rheumatoid arthritis who is here for waking this morning about 7 AM and noted to be confused. According to the family he had a normal day yesterday without any systemic complaints other than a slight cough which they were not concerned about. He went to sleep and normally wakes up very early about 4 to 4:30 in the morning and he did not do that. The says that he woke up late at 7 AM and he was walking around looking somewhat lost and when she asked him if something was wrong he said that he felt confused and he did not know where he was. The significant other says this is not typical for him but he has had TIAs in the past with this presentation so she brought him here. The patient was ambulatory at home and his speech was not slurred and he did not complain of any weakness in any of his extremities nor did he complain of any headache chest pain neck or back pain. Similar as true here in the ED and he has no complaints of pain including chest pain abdominal pain shortness of breath nausea and he has had no vomiting or diarrhea. He has no extremity pain and no weakness tingling or numbness. He knows his significant other's name and he knows where he is at but he says he is not sure why he is here. He complains of lightheadedness only but he did not pass out or blackout. He is having no trouble swallowing or speaking. He is cooperative and interactive He currently takes pradaxa and a beta grayson for his chronic A. fib. Patient was last admitted here the beginning of March for headache and confusion which was thought to be another TIA. The patient denies tobacco and drug use but says he drinks alcohol every day on a regular basis. The family and the patient denies any recent trauma or falls Review of systems: As per history of present illness and below otherwise all systems reviewed and negative. Past medical history: As per history of present illness and as reviewed below otherwise noncontributory. Surgical history: As per history of present illness and as reviewed below otherwise noncontributory. Social history: No reported history of drug or alcohol abuse. Family history: As per history of present illness and as reviewed below otherwise noncontributory. Physical exam: General: Well-developed well-nourished man who is mildly overweight and nontoxic. He speaking clearly without slurred speech and is cooperative and follows directions well. Vital signs are noted by me." On Questioning by nursing the patient his name but not his age and he did not know why he was here but readily told me his significant other's name. HEENT: Atraumatic, normocephalic, pupils reactive, negative for conjunctival pallor or scleral icterus, mucous membranes moist, throat clear, neck supple, nontender, trachea midline. There is no cervical adenopathy or nuchal rigidity. The patient does have skin changes on his face consistent with his admission of daily alcohol use, telangiectasias Lungs: Clear to auscultation, breath sounds equal bilaterally, chest nontender. Heart: S1S2, regular rate but irregularly irregular rhythm consistent with his A. fib, no overt murmurs are appreciated. There is a pacemaker appreciated in the left upper chest wall Abdomen: Soft, nondistended, nontender. Negative for masses or hepatosplenomegaly. Negative for costovertebral tenderness. Pelvis: Stable nontender. Genitourinary: Deferred. Rectal: Deferred. Extremities: Atraumatic, negative for cords or calf pain. Neurovascular unremarkable. No pedal edema or leg asymmetry and full range of motion without defects or deficits Neuro: Awake, alert, oriented. Cranial nerves II through XII unremarkable. Cerebellum unremarkable. Motor and sensory unremarkable throughout. Exam nonfocal. The patient's speech is intact and he is moving all extremities with good strength 5/5 throughout and dorsi and plantar flexion is intact inclusive of the great toe. [employer] strength is 5/5. Sensation is grossly intact Diagnostics: EKG chest x-ray CT scan of the head CBC CMP TSH troponin INR alcohol level UA Therapeutics: IV O2 monitor aspirin a CT of the head is negative Because the patient awoke with the symptoms in the last normal time is unknown he is not a candidate for TPA. His NIHSS = 2 as he did not know the year and his age. The patient is now feeling less confused and his age and can answer questions more appropriately. His significant other at bedside also agrees that he is much improved and is more at his baseline. I discussed with them the testing results and need for observation and will contact our hospitalist [phone]: The case was discussed with our hospitalist Dr. Thomas who accepts the patient for observation admission Impression: Confusion with history of TIAs and chronic A. fib Definitive disposition and diagnosis as appropriate pending reevaluation and review of above. - Related Data Allergies Allergy/AdvReac Type Severity Reaction Status Date / Time No Known Allergies Allergy Verified 05/06/18 09:15 Home Meds: Home Meds Dabigatran Etexilate Mesylate [Pradaxa] 150 mg PO BID 12/01/15 [History] Metoprolol Succinate [Toprol XL] 25 mg PO DAILY 12/01/15 [History] Aspirin 325 mg PO DAILY 05/11/17 [History] Cyanocobalamin (Vitamin B-12) [Cyanocobalamin Injection] 1,000 mcg IJ ASDIRECTED 05/11/17 [History] levETIRAcetam [Keppra] 500 mg PO BID 05/11/17 [History] predniSONE [Prednisone] 5 mg PO DAILY 05/11/17 [History] atorvaSTATin [Lipitor] 40 mg PO DAILY 05/06/18 [History] Past Medical History HEENT History: Reports: None Cardiovascular History: Reports: CAD, Hypertension Respiratory History: Reports: None Gastrointestinal History: Reports: None Genitourinary History: Reports: None Musculoskeletal History: Reports: None Neurological History: Reports: CVA, TIA Psychiatric History: Reports: None Endocrine/Metabolic History: Reports: None Hematologic History: Reports: None Immunologic History: Reports: None Oncologic (Cancer) History: Reports: None Other Oncologic History: skin cancer on top of head and face Dermatologic History: Reports: Melanoma Other Dermatologic History: has radiation treatment for cancer. Melanoma to top of head. - Infectious Disease History Infectious Disease History: Reports: Mumps - Past Surgical History Cardiovascular Surgical History: Reports: Carotid Endarterectomy, Coronary Artery Bypass, Valve Replacement, Other (See Below) Other Cardiovascular Surgeries/Procedures: pacemaker and pig valve Social & Family History - Family History Family Medical History: Noncontributory HEENT: Reports: None Cardiac: Reports: Afib, High Cholesterol, Hypertension Respiratory: Reports: None GI: Reports: None : Reports: None OBGYN: Reports: None Musculoskeletal: Reports: Arthritis, Osteoarthritis, Osteoporosis Neurological: Reports: None Psychiatric: Reports: None Endocrine/Metabolic: Reports: None Hematologic: Reports: None Immunologic: Reports: None Dermatologic: Reports: None Oncologic: Reports: None - Caffeine Use Caffeine Use: Reports: Coffee Other Caffeine Use: Cup a day Caffeine Use Comment: 1 drink/day ED ROS GENERAL - Review of Systems Review Of Systems: ROS reveals no pertinent complaints other than HPI. ED EXAM, GENERAL - Physical Exam Exam: See Below (see dictation) Course - Vital Signs Last Recorded V/S: Last Vital Signs Temp 36.9 C 05/06/18 08:30 Pulse 79 05/06/18 10:07 Resp 16 05/06/18 10:07 BP 170/94 H 05/06/18 10:07 Pulse Ox 97 05/06/18 10:07 - Orders/Labs/Meds Orders: Active Orders 24 hr Category Date Time Status Blood Glucose Check, Bedside [RC] ONETIME Care 05/06/18 08:44 Active Cardiac Monitoring [RC] . DIRECTED Care 05/06/18 08:44 Active EKG Documentation Completion [RC] STAT Care 05/06/18 08:44 Active Oxygen Therapy, ED [RC] ASDIRECTED Care 05/06/18 08:44 Active Pulse Oximetry [RC] ASDIRECTED Care 05/06/18 08:44 Active Sodium Chloride 0.9% [Saline Flush] Med 05/06/18 08:44 Active 10 ml FLUSH ASDIRECTED PRN Sodium Chloride 0.9% [Saline Flush] Med 05/06/18 08:44 Active 2.5 ml FLUSH ASDIRECTED PRN Saline Lock Insert [OM.PC] Stat Oth 05/06/18 08:44 Ordered Medication Orders Sodium Chloride (Saline Flush) 10 ml FLUSH ASDIRECTED PRN PRN Reason: Keep Vein Open Sodium Chloride (Saline Flush) 2.5 ml FLUSH ASDIRECTED PRN PRN Reason: Keep Vein Open Labs: Laboratory Tests 05/06/18 05/06/18 05/06/18 Range/Units 08:35 08:35 08:35 WBC 7.92 (4.0-11.0) K/uL RBC 4.50 (4.50-5.90) M/uL Hgb 14.8 (13.0-17.0) g/dL Hct 43.6 (38.0-50.0) % MCV 96.9 (80.0-98.0) fL MCH 32.9 H (27.0-32.0) pg MCHC 33.9 (31.0-37.0) g/dL RDW Std Deviation 48.8 (28.0-62.0) fl RDW Coeff of Ryan 14 (11.0-15.0) % Plt Count 215 (150-400) K/uL MPV 10.10 (7.40-12.00) fL Neut % (Auto) 74.5 (48.0-80.0) % Lymph % (Auto) 16.5 (16.0-40.0) % Bingham % (Auto) 6.9 (0.0-15.0) % Eos % (Auto) 1.6 (0.0-7.0) % Baso % (Auto) 0.5 (0.0-1.5) % Neut # (Auto) 5.9 H (1.4-5.7) K/uL Lymph # (Auto) 1.3 (0.6-2.4) K/uL Bingham # (Auto) 0.6 (0.0-0.8) K/uL Eos # (Auto) 0.1 (0.0-0.7) K/uL Baso # (Auto) 0.0 (0.0-0.1) K/uL Nucleated RBC % 0.0 /100WBC Nucleated RBCs # 0 K/uL INR 1.07 Sodium 144 (136-148) mmol/L Potassium 3.6 (3.5-5.1) mmol/L Chloride 108 H (98-107) mmol/L Carbon Dioxide 22.0 (21.0-32.0) mmol/L BUN 8 (7.0-18.0) mg/dL Creatinine 0.8 (0.8-1.3) mg/dL Est Cr Clr Drug Dosing 73.24 mL/min Estimated GFR (MDRD) > 60.0 ml/min Glucose 89 (74-106) mg/dL Calcium 8.7 (8.5-10.1) mg/dL Total Bilirubin 0.6 (0.2-1.0) mg/dL AST 47 H (15-37) IU/L ALT 44 (14-63) IU/L Alkaline Phosphatase 73 (46-116) U/L Troponin I < 0.050 (0.000-0.056) ng/mL Total Protein 7.5 (6.4-8.2) g/dL Albumin 3.4 (3.4-5.0) g/dL Globulin 4.1 H (2.6-4.0) g/dL Albumin/Globulin Ratio 0.8 L (0.9-1.6) TSH 3rd Generation 2.57 (0.36-3.74) uIU/mL Urine Color Urine Appearance Urine pH (5.0-8.0) Ur Specific Hamel (1.001-1.035) Urine Protein (NEGATIVE) mg/dL Urine Glucose (UA) (NEGATIVE) mg/dL Urine Ketones (NEGATIVE) mg/dL Urine Occult Blood (NEGATIVE) Urine Nitrite (NEGATIVE) Urine Bilirubin (NEGATIVE) Urine Urobilinogen (<2.0) EU/dL Ur Leukocyte Esterase (NEGATIVE) Urine RBC (0-2/HPF) Urine WBC (0-5/HPF) Ur Epithelial Cells (NONE-FEW) Urine Bacteria (NEGATIVE) Ethyl Alcohol 22 mg/dL 05/06/18 Range/Units 09:45 WBC (4.0-11.0) K/uL RBC (4.50-5.90) M/uL Hgb (13.0-17.0) g/dL Hct (38.0-50.0) % MCV (80.0-98.0) fL MCH (27.0-32.0) pg MCHC (31.0-37.0) g/dL RDW Std Deviation (28.0-62.0) fl RDW Coeff of Ryan (11.0-15.0) % Plt Count (150-400) K/uL MPV (7.40-12.00) fL Neut % (Auto) (48.0-80.0) % Lymph % (Auto) (16.0-40.0) % Bingham % (Auto) (0.0-15.0) % Eos % (Auto) (0.0-7.0) % Baso % (Auto) (0.0-1.5) % Neut # (Auto) (1.4-5.7) K/uL Lymph # (Auto) (0.6-2.4) K/uL Bingham # (Auto) (0.0-0.8) K/uL Eos # (Auto) (0.0-0.7) K/uL Baso # (Auto) (0.0-0.1) K/uL Nucleated RBC % /100WBC Nucleated RBCs # K/uL INR Sodium (136-148) mmol/L Potassium (3.5-5.1) mmol/L Chloride (98-107) mmol/L Carbon Dioxide (21.0-32.0) mmol/L BUN (7.0-18.0) mg/dL Creatinine (0.8-1.3) mg/dL Est Cr Clr Drug Dosing mL/min Estimated GFR (MDRD) ml/min Glucose (74-106) mg/dL Calcium (8.5-10.1) mg/dL Total Bilirubin (0.2-1.0) mg/dL AST (15-37) IU/L ALT (14-63) IU/L Alkaline Phosphatase (46-116) U/L Troponin I (0.000-0.056) ng/mL Total Protein (6.4-8.2) g/dL Albumin (3.4-5.0) g/dL Globulin (2.6-4.0) g/dL Albumin/Globulin Ratio (0.9-1.6) TSH 3rd Generation (0.36-3.74) uIU/mL Urine Color YELLOW Urine Appearance CLEAR Urine pH 6.0 (5.0-8.0) Ur Specific Hamel 1.025 (1.001-1.035) Urine Protein NEGATIVE (NEGATIVE) mg/dL Urine Glucose (UA) NEGATIVE (NEGATIVE) mg/dL Urine Ketones NEGATIVE (NEGATIVE) mg/dL Urine Occult Blood NEGATIVE (NEGATIVE) Urine Nitrite NEGATIVE (NEGATIVE) Urine Bilirubin NEGATIVE (NEGATIVE) Urine Urobilinogen 0.2 (<2.0) EU/dL Ur Leukocyte Esterase NEGATIVE (NEGATIVE) Urine RBC 0-2 (0-2/HPF) Urine WBC 1-3 (0-5/HPF) Ur Epithelial Cells FEW (NONE-FEW) Urine Bacteria FEW (NEGATIVE) Ethyl Alcohol mg/dL Meds: Medications Generic Name Dose Route Start Last Admin Trade Name Freq PRN Reason Stop Dose Admin Sodium Chloride 10 ml 05/06/18 08:44 Saline Flush FLUSH ASDIRECTED PRN Keep Vein Open Sodium Chloride 2.5 ml 05/06/18 08:44 Saline Flush FLUSH ASDIRECTED PRN Keep Vein Open Discontinued Medications Generic Name Dose Route Start Last Admin Trade Name Clemencia PRN Reason Stop Dose Admin Aspirin 325 mg 05/06/18 09:22 05/06/18 10:08 Aspirin PO 05/06/18 09:23 325 mg ONETIME ONE Administration Departure - Departure Time of Disposition: 10:22 Disposition: Refer to Observation Condition: Good Clinical Impression: Confusion TIA (transient ischemic attack) Qualifiers: Transient cerebral ischemia type: unspecified Qualified Code(s): G45.9 - Transient cerebral ischemic attack, unspecified - Discharge Information Referrals: PCP,Unknown [Primary Care Provider] - - My Orders Last 24 Hours: My Active Orders 05/06/18 08:44 Blood Glucose Check, Bedside [RC] ONETIME Cardiac Monitoring [RC] . DIRECTED EKG Documentation Completion [RC] STAT Oxygen Therapy, ED [RC] ASDIRECTED Pulse Oximetry [RC] ASDIRECTED Sodium Chloride 0.9% [Saline Flush] 10 ml FLUSH ASDIRECTED PRN Sodium Chloride 0.9% [Saline Flush] 2.5 ml FLUSH ASDIRECTED PRN Saline Lock Insert [OM.PC] Stat - Assessment/Plan Last 24 Hours: My Active Orders 05/06/18 08:44 Blood Glucose Check, Bedside [RC] ONETIME Cardiac Monitoring [RC] . DIRECTED EKG Documentation Completion [RC] STAT Oxygen Therapy, ED [RC] ASDIRECTED Pulse Oximetry [RC] ASDIRECTED Sodium Chloride 0.9% [Saline Flush] 10 ml FLUSH ASDIRECTED PRN Sodium Chloride 0.9% [Saline Flush] 2.5 ml FLUSH ASDIRECTED PRN Saline Lock Insert [OM.PC] Stat
--- NOTE | 2018-05-06 09:10 | CR ---
EXAMINATION: Portable chest radiograph. HISTORY: Shortness of breath. COMPARISON: 03/07/2018. FINDINGS: The trachea is midline. The cardiomediastinal silhouette is within normal limits. No pulmonary infiltrates, effusions or pneumothorax. Mild chronic interstitial prominence. There is a left-sided pacemaker. Osseous structures appear unremarkable. Median sternotomy wires are noted. IMPRESSION: No acute cardiopulmonary process.
--- NOTE | 2018-05-06 09:15 | CT ---
EXAMINATION: Non contrast CT head. Coronal and sagittal reformats. HISTORY: Pain Comparison: 03/07/2018. FINDINGS: No evidence of intra or extra axial hemorrhage, mass, midline shift, hydrocephalus or edema. Moderate generalized atrophy. Periventricular and subcortical white matter hypodensities are noted. Tiny lacunar infarct in the right basal ganglia. No hypoattenuation changes in the major vascular territories to suggest acute infarct. No abnormal intracranial calcifications are detected. Mild vascular calcifications noted. Paranasal sinuses and mastoid air cells are well aerated without substantial findings. Orbits and globes are symmetric. Pituitary fossa appears unremarkable. Calvarium is intact. No evidence of skull fracture. IMPRESSION: 1. No acute intracranial findings. 2. Generalized atrophy and small vessel ischemic changes. Above findings were called to ER at 9:13 AM.
[2018-05-06] MEDS ORDERED: Aspirin 325 MG Tab PO ONE (09:22)
[2018-05-06 09:45] LABS: CHLORIDE,CL 108 mmol/L (98-107); SODIUM,NA 144 mmol/L (136-148)
[2018-05-06] MEDS ORDERED: Ondansetron 4 MG Tab.DIS PO PRN (11:00)
[2018-05-06] MEDS ORDERED: Acetaminophen 325 MG Tab PO PRN (11:00)
--- NOTE | 2018-05-06 11:12 | PCM.HP ---
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 She reports he woke up late this morning and when he did he was very confused. He did not know where he was and it was difficult to get him dressed. By the time he arrived to the ED, he was improved and knew where he was. Denies remembering anything from this morning. He reports he does drink alcohol daily, wouldn't state amount, but significant other Shelia, reports " alot". He denies headache, blurred vision, chest pain or SOB. No other focal neurologic deficits. He denies abdominal pain or urinary concerns. No black or bloody BMs. He doesn't smoke any longer and no recreational drug use. In the ED labwork WNL. EKG Afib, rate controlled. He was given ASA in the ED. Head CT obtained, which revealed atrophy and mild small vessel ischemic disease with noted old tiy lacunar infarct in R basal ganglia. CXR negative. He will be admitted observation for possible TIA. PCP, Dr Yevgeniy Murguia. - Related Data Allergies/Adverse Reactions: Allergies Allergy/AdvReac Type Severity Reaction Status Date / Time No Known Allergies Allergy Verified 05/06/18 09:15 Home Medications: Home Meds Dabigatran Etexilate Mesylate [Pradaxa] 150 mg PO BID 12/01/15 [History] Metoprolol Succinate [Toprol XL] 25 mg PO DAILY 12/01/15 [History] Aspirin 325 mg PO DAILY 05/11/17 [History] Cyanocobalamin (Vitamin B-12) [Cyanocobalamin Injection] 1,000 mcg IJ ASDIRECTED 05/11/17 [History] levETIRAcetam [Keppra] 500 mg PO BID 05/11/17 [History] predniSONE [Prednisone] 5 mg PO DAILY 05/11/17 [History] atorvaSTATin [Lipitor] 40 mg PO DAILY 05/06/18 [History] Past Medical History HEENT History: Reports: None Cardiovascular History: Reports: Afib, CAD, Heart Valve Replacement (mitral valve, porcine), Hypertension, Pacemaker Respiratory History: Reports: None Gastrointestinal History: Reports: None. Denies: GERD, GI Bleed Genitourinary History: Reports: BPH. Denies: Chronic Renal Insuffiency Musculoskeletal History: Reports: Other (See Below) (polymyalgia rheumatica) Neurological History: Reports: CVA, TIA Psychiatric History: Reports: Addiction (daily alcohol use) Endocrine/Metabolic History: Reports: None. Denies: Diabetes, Type II, Obesity/ BMI 30+ Hematologic History: Reports: None Immunologic History: Reports: None Oncologic (Cancer) History: Reports: None Other Oncologic History: skin cancer on top of head and face Dermatologic History: Reports: Melanoma Other Dermatologic History: has radiation treatment for cancer. Melanoma to top of head. - Infectious Disease History Infectious Disease History: Reports: Mumps - Past Surgical History Cardiovascular Surgical History: Reports: Carotid Endarterectomy, Coronary Artery Bypass, Valve Replacement, Other (See Below) Other Cardiovascular Surgeries/Procedures: pacemaker and porcine mitral valve Social & Family History - Family History Family Medical History: Noncontributory HEENT: Reports: None Cardiac: Reports: Afib, High Cholesterol, Hypertension Respiratory: Reports: None GI: Reports: None : Reports: None OBGYN: Reports: None Musculoskeletal: Reports: Arthritis, Osteoarthritis, Osteoporosis Neurological: Reports: None Psychiatric: Reports: None Endocrine/Metabolic: Reports: None Hematologic: Reports: None Immunologic: Reports: None Dermatologic: Reports: None Oncologic: Reports: None - Tobacco Use Smoking Status *Q: Former Smoker - Caffeine Use Caffeine Use: Reports: Coffee Other Caffeine Use: Cup a day Caffeine Use Comment: 1 drink/day - Alcohol Use Alcohol Use History: Yes Days Per Week of Alcohol Use: 7 Number of Drinks Per Day: 6 Total Drinks Per Week: 42 Alcohol Use Frequency: Daily - Recreational Drug Use Recreational Drug Use: No - Living Situation & Occupation Living situation: Reports: with Significant Other Occupation: Employed H&P Review of Systems - Review of Systems: Review Of Systems: See Below General: Reports: No Symptoms. Denies: Fever, Chills, Malaise, Weakness HEENT: Reports: No Symptoms. Denies: Headaches, Sinus Congestion, Visual Changes Pulmonary: Reports: No Symptoms. Denies: Shortness of Breath, Wheezing, Cough, Sputum Cardiovascular: Reports: No Symptoms. Denies: Chest Pain, Edema, Lightheadedness, Syncope Gastrointestinal: Reports: No Symptoms. Denies: Abdominal Pain, Black Stool, Bloody Stool, Nausea, Vomiting Genitourinary: Reports: No Symptoms. Denies: Dysuria, Frequency, Burning, Pain Musculoskeletal: Reports: No Symptoms. Denies: Neck Pain Skin: Reports: No Symptoms Psychiatric: Reports: Confusion Neurological: Reports: Confusion, Gait Disturbance (unsteady gait initially this morning per significant other). Denies: Trouble Speaking Hematologic/Lymphatic: Reports: No Symptoms Immunologic: Reports: No Symptoms Exam - Exam Exam: See Below - Vital Signs Vital Signs: Last Vital Signs Temp 98.4 F 05/06/18 08:30 Pulse 79 05/06/18 10:07 Resp 16 05/06/18 10:07 BP 170/94 H 05/06/18 10:07 Pulse Ox 97 05/06/18 10:07 Weight: 71.5 kg - Exam General: Alert, Oriented, Cooperative HEENT: Conjunctiva Clear, Posterior Pharynx Clear, Other (rosacea to nose, roderick red appearance to face) Neck: Supple, Trachea Midline. No: Carotid Bruit Lungs: Clear to Auscultation, Normal Respiratory Effort Cardiovascular: Regular Rate, Irregular Rhythm GI/Abdominal Exam: Normal Bowel Sounds, Soft, Non-Tender, No Organomegaly Back Exam: Normal Inspection, Full Range of Motion Extremities: Normal Inspection, Normal Range of Motion, Non-Tender, No Pedal Edema Neurological: Cranial Nerves Intact Neuro Extensive - Mental Status: Alert, Oriented x3, Normal Mood/Affect, Normal Cognition, Memory Intact Neuro Extensive - Motor, Sensory, Reflexes: CN II-XII Intact, Normal Gait, Normal Reflexes. No: Tongue Deviation (L), Facial Palsy (R), Hemeplagia (R), Hemeplagia (L), Pronator Drift (R), Pronator Drift (L), Abnormal Sensation Psychiatric: Alert, Normal Affect, Normal Mood - Patient Data Lab Results Last 24 hrs: Laboratory Results - last 24 hr 01/08/1905/06/18 05/06/18 Range/Units 08:35 08:35 08:35 WBC 7.92 (4.0-11.0) K/uL RBC 4.50 (4.50-5.90) M/uL Hgb 14.8 (13.0-17.0) g/dL Hct 43.6 (38.0-50.0) % MCV 96.9 (80.0-98.0) fL MCH 32.9 H (27.0-32.0) pg MCHC 33.9 (31.0-37.0) g/dL RDW Std Deviation 48.8 (28.0-62.0) fl RDW Coeff of Ryan 14 (11.0-15.0) % Plt Count 215 (150-400) K/uL MPV 10.10 (7.40-12.00) fL Neut % (Auto) 74.5 (48.0-80.0) % Lymph % (Auto) 16.5 (16.0-40.0) % [place]rell % (Auto) 6.9 (0.0-15.0) % Eos % (Auto) 1.6 (0.0-7.0) % Baso % (Auto) 0.5 (0.0-1.5) % Neut # (Auto) 5.9 H (1.4-5.7) K/uL Lymph # (Auto) 1.3 (0.6-2.4) K/uL [place] # (Auto) 0.6 (0.0-0.8) K/uL Eos # (Auto) 0.1 (0.0-0.7) K/uL Baso # (Auto) 0.0 (0.0-0.1) K/uL Nucleated RBC % 0.0 /100WBC Nucleated RBCs # 0 K/uL INR 1.07 Sodium 144 (136-148) mmol/L Potassium 3.6 (3.5-5.1) mmol/L Chloride 108 H (98-107) mmol/L Carbon Dioxide 22.0 (21.0-32.0) mmol/L BUN 8 (7.0-18.0) mg/dL Creatinine 0.8 (0.8-1.3) mg/dL Est Cr Clr Drug Dosing 73.24 mL/min Estimated GFR (MDRD) > 60.0 ml/min Glucose 89 (74-106) mg/dL Calcium 8.7 (8.5-10.1) mg/dL Total Bilirubin 0.6 (0.2-1.0) mg/dL AST 47 H (15-37) IU/L ALT 44 (14-63) IU/L Alkaline Phosphatase 73 (46-116) U/L Troponin I < 0.050 (0.000-0.056) ng/mL Total Protein 7.5 (6.4-8.2) g/dL Albumin 3.4 (3.4-5.0) g/dL Globulin 4.1 H (2.6-4.0) g/dL Albumin/Globulin Ratio 0.8 L (0.9-1.6) TSH 3rd Generation 2.57 (0.36-3.74) uIU/mL Urine Color Urine Appearance Urine pH (5.0-8.0) Ur Specific [place] (1.001-1.035) Urine Protein (NEGATIVE) mg/dL Urine Glucose (UA) (NEGATIVE) mg/dL Urine Ketones (NEGATIVE) mg/dL Urine Occult Blood (NEGATIVE) Urine Nitrite (NEGATIVE) Urine Bilirubin (NEGATIVE) Urine Urobilinogen (<2.0) EU/dL Ur Leukocyte Esterase (NEGATIVE) Urine RBC (0-2/HPF) Urine WBC (0-5/HPF) Ur Epithelial Cells (NONE-FEW) Urine Bacteria (NEGATIVE) Ethyl Alcohol 22 mg/dL 05/06/18 Range/Units 09:45 WBC (4.0-11.0) K/uL RBC (4.50-5.90) M/uL Hgb (13.0-17.0) g/dL Hct (38.0-50.0) % MCV (80.0-98.0) fL MCH (27.0-32.0) pg MCHC (31.0-37.0) g/dL RDW Std Deviation (28.0-62.0) fl RDW Coeff of Ryan (11.0-15.0) % Plt Count (150-400) K/uL MPV (7.40-12.00) fL Neut % (Auto) (48.0-80.0) % Lymph % (Auto) (16.0-40.0) % [place]rell % (Auto) (0.0-15.0) % Eos % (Auto) (0.0-7.0) % Baso % (Auto) (0.0-1.5) % Neut # (Auto) (1.4-5.7) K/uL Lymph # (Auto) (0.6-2.4) K/uL [place] # (Auto) (0.0-0.8) K/uL Eos # (Auto) (0.0-0.7) K/uL Baso # (Auto) (0.0-0.1) K/uL Nucleated RBC % /100WBC Nucleated RBCs # K/uL INR Sodium (136-148) mmol/L Potassium (3.5-5.1) mmol/L Chloride (98-107) mmol/L Carbon Dioxide (21.0-32.0) mmol/L BUN (7.0-18.0) mg/dL Creatinine (0.8-1.3) mg/dL Est Cr Clr Drug Dosing mL/min Estimated GFR (MDRD) ml/min Glucose (74-106) mg/dL Calcium (8.5-10.1) mg/dL Total Bilirubin (0.2-1.0) mg/dL AST (15-37) IU/L ALT (14-63) IU/L Alkaline Phosphatase (46-116) U/L Troponin I (0.000-0.056) ng/mL Total Protein (6.4-8.2) g/dL Albumin (3.4-5.0) g/dL Globulin (2.6-4.0) g/dL Albumin/Globulin Ratio (0.9-1.6) TSH 3rd Generation (0.36-3.74) uIU/mL Urine Color YELLOW Urine Appearance CLEAR Urine pH 6.0 (5.0-8.0) Ur Specific [place] 1.025 (1.001-1.035) Urine Protein NEGATIVE (NEGATIVE) mg/dL Urine Glucose (UA) NEGATIVE (NEGATIVE) mg/dL Urine Ketones NEGATIVE (NEGATIVE) mg/dL Urine Occult Blood NEGATIVE (NEGATIVE) Urine Nitrite NEGATIVE (NEGATIVE) Urine Bilirubin NEGATIVE (NEGATIVE) Urine Urobilinogen 0.2 (<2.0) EU/dL Ur Leukocyte Esterase NEGATIVE (NEGATIVE) Urine RBC 0-2 (0-2/HPF) Urine WBC 1-3 (0-5/HPF) Ur Epithelial Cells FEW (NONE-FEW) Urine Bacteria FEW (NEGATIVE) Ethyl Alcohol mg/dL Result Diagrams: 05/06/18 08:35 05/06/18 08:35 EKG INTERPRETATION EKG Date: 05/06/18 Rhythm: A-Fib Rate (Beats/Min): 76 *Q Meaningful Use (ADM) - VTE Risk Assess *Q Each Risk Factor Represents 1 Point: None Total Score 1 Point Risk Factors: 0 Each Risk Factor Represents 2 Points: None Total Score 2 Point Risk Factors: 0 Each Risk Factor Represents 3 Points: Age 75 Years or Greater Total Score 3 Point Risk Factors: 3 Each Risk Factor Represents 5 Points: None Total Score 5 Point Risk Factors: 0 Venous Thromboembolism Risk Factor Score *Q: 3 - Problem List (1) Confusion SNOMED Code(s): 659897010 ICD Code: R41.0 - DISORIENTATION, UNSPECIFIED Status: Acute Current Visit : Yes (2) TIA (transient ischemic attack) SNOMED Code(s): 434880586 ICD Code: G45.9 - TRANSIENT CEREBRAL ISCHEMIC ATTACK, UNSPECIFIED Status: Suspected Priority: High Current Visit: Yes Qualifiers: Transient cerebral ischemia type: unspecified Qualified Code(s): G45.9 - Transient cerebral ischemic attack, unspecified (3) Mild cognitive impairment SNOMED Code(s): 851418048 ICD Code: G31.84 - MILD COGNITIVE IMPAIRMENT, SO STATED Status: Suspected Current Visit: Yes (4) Unsteady gait SNOMED Code(s): 216001126, 300437809 ICD Code: R26.81 - UNSTEADINESS ON FEET Status: Acute Current Visit: Yes (5) Alcohol abuse SNOMED Code(s): 35743842 ICD Code: F10.10 - ALCOHOL ABUSE, UNCOMPLICATED Status: Chronic Current Visit: Yes (6) BPH (benign prostatic hyperplasia) SNOMED Code(s): 681344265 ICD Code: N40.0 - BENIGN PROSTATIC HYPERPLASIA WITHOUT LOWER URINRY TRACT SYMP Status: Chronic Current Visit: Yes (7) HTN (hypertension) SNOMED Code(s): 28735608 ICD Code: I10 - ESSENTIAL (PRIMARY) HYPERTENSION Status: Chronic Priority : Medium Current Visit: No Qualifiers: Hypertension type: essential hypertension Qualified Code(s): I10 - Essential (primary) hypertension (8) CAD (coronary artery disease) SNOMED Code(s): 36296877 ICD Code: I25.10 - ATHSCL HEART DISEASE OF [place] CORONARY ARTERY W/O ANG PCTRS Status: Chronic Priority: Medium Current Visit: No Qualifiers: Coronary Disease-Associated Artery/Lesion type: unspecified vessel or lesion type [place] vs. transplanted heart: [place] heart Associated angina: without angina Qualified Code(s): I25.10 - Atherosclerotic heart disease of [place] coronary artery without angina pectoris (9) A-fib SNOMED Code(s): 09600207 ICD Code: I48.91 - UNSPECIFIED ATRIAL FIBRILLATION Status: Chronic Priority: Medium Current Visit: No Qualifiers: Atrial fibrillation type: chronic Qualified Code(s): I48.2 - Chronic atrial fibrillation (10) B12 deficiency SNOMED Code(s): 619193805 ICD Code: E53.8 - DEFICIENCY OF OTHER SPECIFIED B GROUP VITAMINS Status: Chronic Priority: High Current Visit: No (11) PVD (peripheral vascular disease) SNOMED Code(s): 180030082 ICD Code: I73.9 - PERIPHERAL VASCULAR DISEASE, UNSPECIFIED Status: Chronic Current Visit: Yes (12) Carotid stenosis Status: Chronic Current Visit: Yes Qualifiers: Laterality: unspecified laterality Qualified Code(s): I65.29 - Occlusion and stenosis of unspecified carotid artery (13) History of CVA (cerebrovascular accident) SNOMED Code(s): 101820570 ICD Code: Z86.73 - PRSNL HX OF TIA (TIA), AND CEREB INFRC W/O RESID DEFICITS Status: Chronic Current Visit: Yes (14) History of mitral valve replacement with porcine valve SNOMED Code(s): 612638563, 80539110, 709690813, 7836849563100 ICD Code: Z95.3 - PRESENCE OF XENOGENIC HEART VALVE Status: Chronic Current Visit: Yes (15) Pacemaker SNOMED Code(s): 167606891 ICD Code: Z95.0 - PRESENCE OF CARDIAC PACEMAKER Status: Chronic Current Visit: Yes Problem List Initiated/Reviewed/Updated: Yes Orders Last 24hrs: Active Orders 24 hr Category Date Time Status Patient Status [ADT] Stat ADT 05/06/18 10:23 Active Blood Glucose Check, Bedside [RC] ONETIME Care 05/06/18 08:44 Active Cardiac Monitoring [RC] . DIRECTED Care 05/06/18 08:44 Active EKG Documentation Completion [RC] STAT Care 05/06/18 08:44 Active Intake and Output [RC] QSHIFT Care 05/06/18 11:00 Ordered Oxygen Therapy [RC] PRN Care 05/06/18 11:00 Ordered Oxygen Therapy, ED [RC] ASDIRECTED Care 05/06/18 08:44 Active Pulse Oximetry [RC] ASDIRECTED Care 05/06/18 08:44 Active Up With Assistance [RC] ASDIRECTED Care 05/06/18 11:00 Ordered VTE/DVT Education [RC] PER UNIT ROUTINE Care 05/06/18 11:00 Ordered Vital Signs [RC] Q4H Care 05/06/18 11:00 Ordered Heart Healthy Diet [DIET] Diet 05/06/18 Lunch Ordered Acetaminophen [Tylenol] Med 05/06/18 11:00 Ordered 650 mg PO Q4H PRN Aspirin Med 05/07/18 09:00 Ordered 325 mg PO DAILY Dabigatran [Pradaxa] Med 05/06/18 21:00 Ordered 150 mg PO BID Metoprolol Succinate [Toprol XL] Med 05/07/18 09:00 Ordered 25 mg PO DAILY Ondansetron [Zofran ODT] Med 05/06/18 11:00 Ordered 4 mg PO Q4H PRN Sodium Chloride 0.9% [Saline Flush] Med 05/06/18 08:44 Active 10 ml FLUSH ASDIRECTED PRN Sodium Chloride 0.9% [Saline Flush] Med 05/06/18 08:44 Active 2.5 ml FLUSH ASDIRECTED PRN atorvaSTATin [Lipitor] Med 05/06/18 21:00 Ordered 40 mg PO BEDTIME levETIRAcetam [Keppra] Med 05/06/18 21:00 Ordered 500 mg PO BID predniSONE Med 05/07/18 09:00 Ordered 5 mg PO DAILY Saline Lock Insert [OM.PC] Stat Oth 05/06/18 08:44 Ordered Sequential Compression Device [OM.PC] Per Unit Routine Oth 05/06/18 11:00 Ordered Resuscitation Status Routine Resus Stat 05/06/18 11:00 Ordered Medication Orders Acetaminophen (Tylenol) 650 mg PO Q4H PRN PRN Reason: Pain (Mild 1-3)/fever Aspirin (Aspirin) 325 mg PO DAILY MARCELINO Atorvastatin Calcium (Lipitor) 40 mg PO BEDTIME MARCELINO Dabigatran (Pradaxa) 150 mg PO BID [facility] Levetiracetam (Keppra) 500 mg PO BID [facility] Metoprolol Succinate (Toprol Xl) 25 mg PO DAILY [facility] Ondansetron HCl (Zofran Odt) 4 mg PO Q4H PRN PRN Reason: nausea, able to take PO Prednisone (Prednisone) 5 mg PO DAILY [facility] Sodium Chloride (Saline Flush) 10 ml FLUSH ASDIRECTED PRN PRN Reason: Keep Vein Open Sodium Chloride (Saline Flush) 2.5 ml FLUSH ASDIRECTED PRN PRN Reason: Keep Vein Open Assessment/Plan Comment:: This 82 year old male admitted with confusion, possible TIA 1. Confusion: Has since cleared. Del is now alert and oriented x 3. This may be related to possible TIA or it also could be due to chronic alcohol abuse in addition to beginning of mild cognitive impairment. Significant other reports these are happening more and more. Unable to obtain MRI due to pacemaker in place. Will monitor on telemetry and obtain neuro checks. Will evaluate carotid stenosis with US. Continue with ASA and statin. Monitor BP. 2. Alcohol abuse: Place on CIWAA, supplement with Folate and Thiamine. Encouraged cutting down and the best would be sobriety. Will start on Protonix due to alcohol abuse, anticoagulant therapy and daily prednisone use. 3. HTN: Continue Metoprolol 4. Afib: Stable, rate controlled. Continue Pradaxa and Metoprolol. VTE prophylaxis: Pradaxa, continue Dispo: 1 day <Prem Thomas - Last Filed: 05/06/18 13:20> H&P History of Present Illness - General Admit Problem/Dx: Admission Diagnosis/Problem Admission Diagnosis/Problem Confusion I have seen and examined patient independently of Kristan Nolan CNP. I have discussed the case with her. I agree with the assessment and plan of care with this patient. Please orders. Exam - Vital Signs Vital Signs: Last Vital Signs Temp 36.9 C 05/06/18 08:30 Pulse 86 05/06/18 12:48 Resp 16 05/06/18 10:52 BP 172/103 H 05/06/18 12:48 Pulse Ox 96 05/06/18 10:52 - Patient Data Lab Results Last 24 hrs: Laboratory Results - last 24 hr 05/06/18 05/06/18 05/06/18 Range/Units 08:35 08:35 08:35 WBC 7.92 (4.0-11.0) K/uL RBC 4.50 (4.50-5.90) M/uL Hgb 14.8 (13.0-17.0) g/dL Hct 43.6 (38.0-50.0) % MCV 96.9 (80.0-98.0) fL MCH 32.9 H (27.0-32.0) pg MCHC 33.9 (31.0-37.0) g/dL RDW Std Deviation 48.8 (28.0-62.0) fl RDW Coeff of Ryan 14 (11.0-15.0) % Plt Count 215 (150-400) K/uL MPV 10.10 (7.40-12.00) fL Neut % (Auto) 74.5 (48.0-80.0) % Lymph % (Auto) 16.5 (16.0-40.0) % [place] % (Auto) 6.9 (0.0-15.0) % Eos % (Auto) 1.6 (0.0-7.0) % Baso % (Auto) 0.5 (0.0-1.5) % Neut # (Auto) 5.9 H (1.4-5.7) K/uL Lymph # (Auto) 1.3 (0.6-2.4) K/uL [place] # (Auto) 0.6 (0.0-0.8) K/uL Eos # (Auto) 0.1 (0.0-0.7) K/uL Baso # (Auto) 0.0 (0.0-0.1) K/uL Nucleated RBC % 0.0 /100WBC Nucleated RBCs # 0 K/uL INR 1.07 Sodium 144 (136-148) mmol/L Potassium 3.6 (3.5-5.1) mmol/L Chloride 108 H (98-107) mmol/L Carbon Dioxide 22.0 (21.0-32.0) mmol/L BUN 8 (7.0-18.0) mg/dL Creatinine 0.8 (0.8-1.3) mg/dL Est Cr Clr Drug Dosing 73.24 mL/min Estimated GFR (MDRD) > 60.0 ml/min Glucose 89 (74-106) mg/dL Calcium 8.7 (8.5-10.1) mg/dL Total Bilirubin 0.6 (0.2-1.0) mg/dL AST 47 H (15-37) IU/L ALT 44 (14-63) IU/L Alkaline Phosphatase 73 (46-116) U/L Troponin I < 0.050 (0.000-0.056) ng/mL Total Protein 7.5 (6.4-8.2) g/dL Albumin 3.4 (3.4-5.0) g/dL Globulin 4.1 H (2.6-4.0) g/dL Albumin/Globulin Ratio 0.8 L (0.9-1.6) TSH 3rd Generation 2.57 (0.36-3.74) uIU/mL Urine Color Urine Appearance Urine pH (5.0-8.0) Ur Specific [place] (1.001-1.035) Urine Protein (NEGATIVE) mg/dL Urine Glucose (UA) (NEGATIVE) mg/dL Urine Ketones (NEGATIVE) mg/dL Urine Occult Blood (NEGATIVE) Urine Nitrite (NEGATIVE) Urine Bilirubin (NEGATIVE) Urine Urobilinogen (<2.0) EU/dL Ur Leukocyte Esterase (NEGATIVE) Urine RBC (0-2/HPF) Urine WBC (0-5/HPF) Ur Epithelial Cells (NONE-FEW) Urine Bacteria (NEGATIVE) Ethyl Alcohol 22 mg/dL 05/06/18 Range/Units 09:45 WBC (4.0-11.0) K/uL RBC (4.50-5.90) M/uL Hgb (13.0-17.0) g/dL Hct (38.0-50.0) % MCV (80.0-98.0) fL MCH (27.0-32.0) pg MCHC (31.0-37.0) g/dL RDW Std Deviation (28.0-62.0) fl RDW Coeff of [place] (11.0-15.0) % Plt Count (150-400) K/uL MPV (7.40-12.00) fL Neut % (Auto) (48.0-80.0) % Lymph % (Auto) (16.0-40.0) % [place] % (Auto) (0.0-15.0) % Eos % (Auto) (0.0-7.0) % Baso % (Auto) (0.0-1.5) % Neut # (Auto) (1.4-5.7) K/uL Lymph # (Auto) (0.6-2.4) K/uL [place] # (Auto) (0.0-0.8) K/uL Eos # (Auto) (0.0-0.7) K/uL Baso # (Auto) (0.0-0.1) K/uL Nucleated RBC % /100WBC Nucleated RBCs # K/uL INR Sodium (136-148) mmol/L Potassium (3.5-5.1) mmol/L Chloride (98-107) mmol/L Carbon Dioxide (21.0-32.0) mmol/L BUN (7.0-18.0) mg/dL Creatinine (0.8-1.3) mg/dL Est Cr Clr Drug Dosing mL/min Estimated GFR (MDRD) ml/min Glucose (74-106) mg/dL Calcium (8.5-10.1) mg/dL Total Bilirubin (0.2-1.0) mg/dL AST (15-37) IU/L ALT (14-63) IU/L Alkaline Phosphatase (46-116) U/L Troponin I (0.000-0.056) ng/mL Total Protein (6.4-8.2) g/dL Albumin (3.4-5.0) g/dL Globulin (2.6-4.0) g/dL Albumin/Globulin Ratio (0.9-1.6) TSH 3rd Generation (0.36-3.74) uIU/mL Urine Color YELLOW Urine Appearance CLEAR Urine pH 6.0 (5.0-8.0) Ur Specific [place] 1.025 (1.001-1.035) Urine Protein NEGATIVE (NEGATIVE) mg/dL Urine Glucose (UA) NEGATIVE (NEGATIVE) mg/dL Urine Ketones NEGATIVE (NEGATIVE) mg/dL Urine Occult Blood NEGATIVE (NEGATIVE) Urine Nitrite NEGATIVE (NEGATIVE) Urine Bilirubin NEGATIVE (NEGATIVE) Urine Urobilinogen 0.2 (<2.0) EU/dL Ur Leukocyte Esterase NEGATIVE (NEGATIVE) Urine RBC 0-2 (0-2/HPF) Urine WBC 1-3 (0-5/HPF) Ur Epithelial Cells FEW (NONE-FEW) Urine Bacteria FEW (NEGATIVE) Ethyl Alcohol mg/dL Result Diagrams: 05/06/18 08:35 05/06/18 08:35 Orders Last 24hrs: Active Orders 24 hr Category Date Time Status Patient Status [ADT] Stat ADT 05/06/18 10:23 Active Blood Glucose Check, Bedside [RC] ONETIME Care 05/06/18 08:44 Active CIWAA Assessment [RC] Q4H Care 05/06/18 12:48 Active Cardiac Monitoring [RC] . DIRECTED Care 05/06/18 08:44 Active EKG Documentation Completion [RC] STAT Care 05/06/18 08:44 Active Intake and Output [RC] QSHIFT Care 05/06/18 11:00 Active Oxygen Therapy [RC] PRN Care 05/06/18 11:00 Active Oxygen Therapy, ED [RC] ASDIRECTED Care 05/06/18 08:44 Active Pulse Oximetry [RC] ASDIRECTED Care 05/06/18 08:44 Active Up With Assistance [RC] ASDIRECTED Care 05/06/18 11:00 Active VTE/DVT Education [RC] PER UNIT ROUTINE Care 05/06/18 11:00 Active Vital Signs [RC] Q4H Care 05/06/18 11:00 Active Heart Healthy Diet [DIET] Diet 05/06/18 Lunch Active CV Carotid Duplex Comp [US] Routine Exams 05/06/18 11:27 Taken Acetaminophen [Tylenol] Med 05/06/18 11:00 Active 650 mg PO Q4H PRN Aspirin Med 05/07/18 09:00 Active 325 mg PO DAILY Dabigatran [Pradaxa] Med 05/06/18 21:00 Active 150 mg PO BID Folic Acid Med 05/06/18 11:30 Active 1 mg PO DAILY Metoprolol Succinate [Toprol XL] Med 05/07/18 09:00 Active 25 mg PO DAILY Ondansetron [Zofran ODT] Med 05/06/18 11:00 Active 4 mg PO Q4H PRN Pantoprazole [ProTONIX] Med 05/06/18 11:27 Active 40 mg PO ACBREAKFAST Sodium Chloride 0.9% [Saline Flush] Med 05/06/18 08:44 Active 10 ml FLUSH ASDIRECTED PRN Sodium Chloride 0.9% [Saline Flush] Med 05/06/18 08:44 Active 2.5 ml FLUSH ASDIRECTED PRN Thiamine [Vitamin B-1] Med 05/06/18 21:00 Active 100 mg PO BEDTIME atorvaSTATin [Lipitor] Med 05/06/18 21:00 Active 40 mg PO BEDTIME levETIRAcetam [Keppra] Med 05/06/18 21:00 Active 500 mg PO BID predniSONE Med 05/07/18 09:00 Active 5 mg PO DAILY Saline Lock Insert [OM.PC] Stat Oth 05/06/18 08:44 Ordered Sequential Compression Device [OM.PC] Per Unit Routine Oth 05/06/18 11:00 Ordered Resuscitation Status Routine Resus Stat 05/06/18 11:00 Ordered Medication Orders Acetaminophen (Tylenol) 650 mg PO Q4H PRN PRN Reason: Pain (Mild 1-3)/fever Aspirin (Aspirin) 325 mg PO DAILY [facility] Atorvastatin Calcium (Lipitor) 40 mg PO BEDTIME [facility] Dabigatran (Pradaxa) 150 mg PO BID [facility] Folic Acid (Folic Acid) 1 mg PO DAILY [facility] Last Admin: 05/06/18 12:17 Dose: 1 mg Levetiracetam (Keppra) 500 mg PO BID [facility] Metoprolol Succinate (Toprol Xl) 25 mg PO DAILY [facility] Ondansetron HCl (Zofran Odt) 4 mg PO Q4H PRN PRN Reason: nausea, able to take PO Pantoprazole Sodium (Protonix) 40 mg PO ACBREAKFAST [facility] Last Admin: 05/06/18 12:17 Dose: 40 mg Prednisone (Prednisone) 5 mg PO DAILY [facility] Sodium Chloride (Saline Flush) 10 ml FLUSH ASDIRECTED PRN PRN Reason: Keep Vein Open Sodium Chloride (Saline Flush) 2.5 ml FLUSH ASDIRECTED PRN PRN Reason: Keep Vein Open Thiamine HCl (Vitamin B-1) 100 mg PO BEDTIME [facility]
[2018-05-06] MEDS: Folic Acid 1 MG Tab PO SCH (12:17)
[2018-05-06] MEDS: Pantoprazole 40 MG Tab.CR PO SCH (12:17)
[2018-05-06] MEDS ORDERED: Metoprolol Tartrate 25 MG Tab PO ONE (12:39)
--- NOTE | 2018-05-06 13:42 | US ---
EXAMINATION: Carotid US with robin scale and duplex imaging. HISTORY: Confusion, comparison 05/10/2017 FINDINGS: Ultrasound examination of bilateral cervical carotid arteries was performed using robin scale and duplex imaging. Mild scattered atheromatous changes noted within the carotid arteries bilaterally.. ]. Flow noted within the vertebrals. These are the peak velocities in cm per second (systole), right and left respectively, by a comma: CCA (common carotid artery) - 107, 57 ICA (internal carotid artery) - 52, 99 ECA (External carotid artery) - 117, 44 ICA/CCA systolic ratio Right - 0.7 Left - 1.7 IMPRESSION: Scattered atheromatous changes within the carotid arteries without significantly elevated velocities or stenosis on grayscale imaging.
[2018-05-06] MEDS ORDERED: Enalaprilat 1.25 MG/ML SDV IVPUSH PRN (14:15)
[2018-05-06] MEDS: predniSONE 5 MG Tab PO SCH (17:07)
[2018-05-06] MEDS: levETIRAcetam 500 MG Tab PO SCH (17:08)
[2018-05-06] MEDS ORDERED: Thiamine 100 MG Tab PO SCH (21:00)
[2018-05-06] MEDS ORDERED: atorvaSTATin 40 MG Tab PO SCH (21:00)
[2018-05-06] MEDS ORDERED: levETIRAcetam 500 MG Tab PO SCH (21:00)
[2018-05-07 06:34] LABS: CHLORIDE,CL 106 mmol/L (98-107); SODIUM,NA 140 mmol/L (136-148)
[2018-05-07] MEDS: Pantoprazole 40 MG Tab.CR PO SCH (06:38)
[2018-05-07 07:44] VITALS: BP 155/72
[2018-05-07] MEDS ORDERED: Metoprolol Succinate 25 MG Tab.ER PO SCH (09:00)
[2018-05-07] MEDS ORDERED: Aspirin 325 MG Tab.EC PO SCH (09:00)
[2018-05-07] MEDS: levETIRAcetam 500 MG Tab PO SCH (09:48)
[2018-05-07] MEDS: predniSONE 5 MG Tab PO SCH (09:49)
[2018-05-07] MEDS: Folic Acid 1 MG Tab PO SCH (09:49)
--- NOTE | 2018-05-07 09:49 | PCM.DCSUM1 ---
Discharge Summary - Hospital Course HPI Initial Comments: Admitted primarily out of concern for confusion. Diagnosis: Stroke: No - Discharge Data Discharge Date: 05/07/18 Discharge Disposition: Home, Self-Care 01 Condition: Stable - Discharge Diagnosis/Problem(s) (1) Confusion SNOMED Code(s): 154462146 ICD Code: R41.0 - DISORIENTATION, UNSPECIFIED Status: Resolved Priority: High (2) TIA (transient ischemic attack) SNOMED Code(s): 000184489 ICD Code: G45.9 - TRANSIENT CEREBRAL ISCHEMIC ATTACK, UNSPECIFIED Status: Suspected Priority: High Qualifiers: Transient cerebral ischemia type: other Qualified Code(s): G45.8 - Other transient cerebral ischemic attacks and related syndromes (3) Unsteady gait SNOMED Code(s): 223372661, 231116360 ICD Code: R26.81 - UNSTEADINESS ON FEET Status: Chronic Priority: High (4) Alcohol abuse SNOMED Code(s): 21629472 ICD Code: F10.10 - ALCOHOL ABUSE, UNCOMPLICATED Status: Chronic Priority : High (5) Mild cognitive impairment SNOMED Code(s): 595070005 ICD Code: G31.84 - MILD COGNITIVE IMPAIRMENT, SO STATED Status: Chronic Priority: High - Patient Summary/Data Hospital Course: The patient is an 82-year-old gentleman who had been admitted to hospitalization on May 06, 2018 at a concern for confusion. The patient's noted that the patient when he woke up had been more confused and was not sure where he was and turned around and went back to bed. She reported that this was very unusual. The patient has a history of chronic atrial fibrillation , carotid artery stenosis, hypertension and biologic mitral valve replacement. The patient had been on Pradaxa. During hospitalization it was noted by discussing the case with his common-law that he had been drinking heavily. She doesn't know how much. After fluid resuscitation the patient had improved rapidly. His confusion had resolved. The patient also had been placed on thiamine 100 mg by mouth daily and folate 1 mg by mouth daily. The patient also had been previously on Pradaxa and he reported that filling this at his pharmacy would've caused him an extra $400 a month and that the pharmacy had recommended that he change to Eliquis. The patient had been given a prescription for this of 5 mg twice a day. The patient had continued to improve through the short course of hospitalization. The patient's confusion had completely resolved. A head CT scan obtained on May 06, 2018 did not show any signs of acute intracranial findings but was noted to have generalized atrophy and small vessel ischemic changes. Carotid ultrasound did show scattered atheromatous changes within the carotid arteries without significant stenosis. The patient has been recommended to continue with his diet as tolerated. He is also have activity as tolerated. The patient is hemodynamically stable and he is discharged from hospitalization with the recommendations listed above. - Patient Instructions Diet: Heart Healthy Diet Activity: As Tolerated Notify Provider of: Fever, Increased Pain - Discharge Plan *PRESCRIPTION DRUG MONITORING PROGRAM REVIEWED*: No *COPY OF PRESCRIPTION DRUG MONITORING REPORT IN PATIENT ROSA: No Prescriptions/Med Rec: Apixaban [Eliquis] 5 mg PO BID #60 tablet Home Medications: Home Meds Metoprolol Succinate [Toprol XL] 25 mg PO DAILY 12/01/15 [History] Aspirin 325 mg PO DAILY 05/11/17 [History] Cyanocobalamin (Vitamin B-12) [Cyanocobalamin Injection] 1,000 mcg IJ ASDIRECTED 05/11/17 [History] levETIRAcetam [Keppra] 750 mg PO BID 05/11/17 [History] predniSONE [Prednisone] 5 mg PO DAILY 05/11/17 [History] atorvaSTATin [Lipitor] 40 mg PO BEDTIME 05/06/18 [History] Apixaban [Eliquis] 5 mg PO BID #60 tablet 05/07/18 [Rx] levETIRAcetam [Keppra] 750 mg PO BID tablet 05/07/18 [Rx] Oxygen Therapy Mode: Room Air Patient Handouts: What You Need to Know About Alcohol Abuse and Dependence, Adult, Apixaban oral tablets - Discharge Summary/Plan Comment DC Time >30 min.: Yes - General Info Admission Dx/Problem (Free Text: Admission Diagnosis/Problem Admission Diagnosis/Problem Confusion, alcohol usage Functional Status: Reports: Pain Controlled - Review of Systems General: Reports: No Symptoms HEENT: Reports: No Symptoms Pulmonary: Reports: No Symptoms Cardiovascular: Reports: No Symptoms Gastrointestinal: Reports: No Symptoms Genitourinary: Reports: No Symptoms Musculoskeletal: Reports: No Symptoms Skin: Reports: No Symptoms Neurological: Reports: No Symptoms Psychiatric: Reports: No Symptoms - Patient Data Vitals - Most Recent: Last Vital Signs Temp 36.4 C 05/07/18 07:43 Pulse 71 05/07/18 07:43 Resp 16 05/07/18 07:43 BP 155/72 H 05/07/18 07:43 Pulse Ox 94 L 05/07/18 07:43 Weight - Most Recent: 75.886 kg I&O - Last 24 hours: Intake & Output 05/06/18 05/07/18 05/07/18 22:59 06:59 14:59 Intake Total 200 275 Output Total 100 450 Balance 100 -175 Lab Results - Last 24 hrs: Laboratory Results - last 24 hr 05/06/18 05/06/18 05/07/18 Range/Units 08:35 09:45 05:40 WBC 9.22 (4.0-11.0) K/uL RBC 4.29 L (4.50-5.90) M/uL Hgb 14.1 (13.0-17.0) g/dL Hct 41.4 (38.0-50.0) % MCV 96.5 (80.0-98.0) fL MCH 32.9 H (27.0-32.0) pg MCHC 34.1 (31.0-37.0) g/dL RDW Std Deviation 49.7 (28.0-62.0) fl RDW Coeff of Ryan 14 (11.0-15.0) % Plt Count 209 (150-400) K/uL MPV 10.20 (7.40-12.00) fL Neut % (Auto) 73.7 (48.0-80.0) % Lymph % (Auto) 14.5 L (16.0-40.0) % [place] % (Auto) 11.2 (0.0-15.0) % Eos % (Auto) 0.4 (0.0-7.0) % Baso % (Auto) 0.2 (0.0-1.5) % Neut # (Auto) 6.8 H (1.4-5.7) K/uL Lymph # (Auto) 1.3 (0.6-2.4) K/uL [place] # (Auto) 1.0 H (0.0-0.8) K/uL Eos # (Auto) 0.0 (0.0-0.7) K/uL Baso # (Auto) 0.0 (0.0-0.1) K/uL Nucleated RBC % 0.0 /100WBC Nucleated RBCs # 0 K/uL Sodium 144 (136-148) mmol/L Potassium 3.6 (3.5-5.1) mmol/L Chloride 108 H (98-107) mmol/L Carbon Dioxide 22.0 (21.0-32.0) mmol/L BUN 8 (7.0-18.0) mg/dL Creatinine 0.8 (0.8-1.3) mg/dL Est Cr Clr Drug Dosing 73.24 mL/min Estimated GFR (MDRD) > 60.0 ml/min Glucose 89 (74-106) mg/dL Calcium 8.7 (8.5-10.1) mg/dL Phosphorus (2.6-4.7) mg/dL Magnesium (1.8-2.4) mg/dL Total Bilirubin 0.6 (0.2-1.0) mg/dL AST 47 H (15-37) IU/L ALT 44 (14-63) IU/L Alkaline Phosphatase 73 (46-116) U/L Troponin I < 0.050 (0.000-0.056) ng/mL Total Protein 7.5 (6.4-8.2) g/dL Albumin 3.4 (3.4-5.0) g/dL Globulin 4.1 H (2.6-4.0) g/dL Albumin/Globulin Ratio 0.8 L (0.9-1.6) TSH 3rd Generation 2.57 (0.36-3.74) uIU/mL Urine Color YELLOW Urine Appearance CLEAR Urine pH 6.0 (5.0-8.0) Ur Specific [place] 1.025 (1.001-1.035) Urine Protein NEGATIVE (NEGATIVE) mg/dL Urine Glucose (UA) NEGATIVE (NEGATIVE) mg/dL Urine Ketones NEGATIVE (NEGATIVE) mg/dL Urine Occult Blood NEGATIVE (NEGATIVE) Urine Nitrite NEGATIVE (NEGATIVE) Urine Bilirubin NEGATIVE (NEGATIVE) Urine Urobilinogen 0.2 (<2.0) EU/dL Ur Leukocyte Esterase NEGATIVE (NEGATIVE) Urine RBC 0-2 (0-2/HPF) Urine WBC 1-3 (0-5/HPF) Ur Epithelial Cells FEW (NONE-FEW) Urine Bacteria FEW (NEGATIVE) Ethyl Alcohol 22 mg/dL 05/07/18 Range/Units 05:40 WBC (4.0-11.0) K/uL RBC (4.50-5.90) M/uL Hgb (13.0-17.0) g/dL Hct (38.0-50.0) % MCV (80.0-98.0) fL MCH (27.0-32.0) pg MCHC (31.0-37.0) g/dL RDW Std Deviation (28.0-62.0) fl RDW Coeff of [place] (11.0-15.0) % Plt Count (150-400) K/uL MPV (7.40-12.00) fL Neut % (Auto) (48.0-80.0) % Lymph % (Auto) (16.0-40.0) % [place] % (Auto) (0.0-15.0) % Eos % (Auto) (0.0-7.0) % Baso % (Auto) (0.0-1.5) % Neut # (Auto) (1.4-5.7) K/uL Lymph # (Auto) (0.6-2.4) K/uL [place] # (Auto) (0.0-0.8) K/uL Eos # (Auto) (0.0-0.7) K/uL Baso # (Auto) (0.0-0.1) K/uL Nucleated RBC % /100WBC Nucleated RBCs # K/uL Sodium 140 (136-148) mmol/L Potassium 4.1 (3.5-5.1) mmol/L Chloride 106 (98-107) mmol/L Carbon Dioxide 23.4 (21.0-32.0) mmol/L BUN 9 (7.0-18.0) mg/dL Creatinine 0.8 (0.8-1.3) mg/dL Est Cr Clr Drug Dosing 77.13 mL/min Estimated GFR (MDRD) > 60.0 ml/min Glucose 100 (74-106) mg/dL Calcium 8.9 (8.5-10.1) mg/dL Phosphorus 3.0 (2.6-4.7) mg/dL Magnesium 1.8 (1.8-2.4) mg/dL Total Bilirubin 1.5 H (0.2-1.0) mg/dL AST 26 (15-37) IU/L ALT 39 (14-63) IU/L Alkaline Phosphatase 65 (46-116) U/L Troponin I (0.000-0.056) ng/mL Total Protein 7.0 (6.4-8.2) g/dL Albumin 3.2 L (3.4-5.0) g/dL Globulin 3.8 (2.6-4.0) g/dL Albumin/Globulin Ratio 0.8 L (0.9-1.6) TSH 3rd Generation (0.36-3.74) uIU/mL Urine Color Urine Appearance Urine pH (5.0-8.0) Ur Specific [place] (1.001-1.035) Urine Protein (NEGATIVE) mg/dL Urine Glucose (UA) (NEGATIVE) mg/dL Urine Ketones (NEGATIVE) mg/dL Urine Occult Blood (NEGATIVE) Urine Nitrite (NEGATIVE) Urine Bilirubin (NEGATIVE) Urine Urobilinogen (<2.0) EU/dL Ur Leukocyte Esterase (NEGATIVE) Urine RBC (0-2/HPF) Urine WBC (0-5/HPF) Ur Epithelial Cells (NONE-FEW) Urine Bacteria (NEGATIVE) Ethyl Alcohol mg/dL Med Orders - Current: Current Medications Acetaminophen (Tylenol) 650 mg PO Q4H PRN PRN Reason: Pain (Mild 1-3)/fever Last Admin: 05/06/18 13:39 Dose: 650 mg Aspirin (Ecotrin) 325 mg PO DAILY [facility] Atorvastatin Calcium (Lipitor) 40 mg PO BEDTIME [facility] Last Admin: 05/06/18 22:06 Dose: 40 mg Dabigatran (Pradaxa) 150 mg PO BID [facility] Last Admin: 05/06/18 17:08 Dose: 150 mg Enalaprilat (Vasotec Iv) 1.25 mg IVPUSH Q6H PRN PRN Reason: Hypertension Last Admin: 05/06/18 14:27 Dose: 1.25 mg Folic Acid (Folic Acid) 1 mg PO DAILY [facility] Last Admin: 05/06/18 12:17 Dose: 1 mg Levetiracetam (Keppra) 750 mg PO BID [facility] Last Admin: 05/06/18 17:08 Dose: 750 mg Metoprolol Succinate (Toprol Xl) 25 mg PO DAILY [facility] Ondansetron HCl (Zofran Odt) 4 mg PO Q4H PRN PRN Reason: nausea, able to take PO Pantoprazole Sodium (Protonix) 40 mg PO ACBREAKFAST [facility] Last Admin: 05/07/18 06:38 Dose: 40 mg Prednisone (Prednisone) 5 mg PO DAILY [facility] Last Admin: 05/06/18 17:07 Dose: 5 mg Sodium Chloride (Saline Flush) 10 ml FLUSH ASDIRECTED PRN PRN Reason: Keep Vein Open Sodium Chloride (Saline Flush) 2.5 ml FLUSH ASDIRECTED PRN PRN Reason: Keep Vein Open Thiamine HCl (Vitamin B-1) 100 mg PO BEDTIME [facility] Last Admin: 05/06/18 22:05 Dose: 100 mg Discontinued Medications Aspirin (Aspirin) 325 mg PO ONETIME ONE Stop: 05/06/18 09:23 Last Admin: 05/06/18 10:08 Dose: 325 mg Levetiracetam (Keppra) 500 mg PO BID [facility] Metoprolol Tartrate (Lopressor) 25 mg PO ONETIME ONE Stop: 05/06/18 12:40 Last Admin: 05/06/18 12:48 Dose: 25 mg - Exam Quality Assessment: Denies: Supplemental Oxygen General: Reports: Alert, Oriented, Cooperative, No Acute Distress HEENT: Reports: Pupils Equal, Pupils Reactive, EOMI, Mucous Membr. Moist/[place] Neck: Reports: Supple, Trachea Midline Lungs: Reports: Clear to Auscultation, Normal Respiratory Effort Cardiovascular: Reports: Regular Rate, Irregular Rhythm GI/Abdominal Exam: Normal Bowel Sounds, Soft, Non-Tender, No Distention (Male) Exam: Deferred Back Exam: Reports: Normal Inspection, Full Range of Motion Extremities: Normal Inspection, No Pedal Edema Skin: Reports: Warm, Dry, Intact Neurological: Reports: No New Focal Deficit Psy/Mental Status: Reports: Alert, Normal Affect, Normal Mood
== END 2018-05-07 10:40 | disposition home or self-care (01) ==
LOC: MW.ED 08:30 → MW.MS 13:28
PROVIDERS: ADMIT Internal Medicine; ATTEND Internal Medicine
DX: G45.8 Other transient cerebral ischemic attacks and related syndromes (principal); I48.2 Chronic atrial fibrillation; F10.10 Alcohol abuse, uncomplicated; I10 Essential (primary) hypertension; G31.84 Mild cognitive impairment of uncertain or unknown etiology; G45.9 Transient cerebral ischemic attack, unspecified; N40.0 Benign prostatic hyperplasia without lower urinary tract symptoms; I25.10 Atherosclerotic heart disease of native coronary artery without angina pectoris; E53.8 Deficiency of other specified B group vitamins; I73.9 Peripheral vascular disease, unspecified; Z86.73 Personal history of transient ischemic attack (TIA), and cerebral infarction without residual deficits; Z87.891 Personal history of nicotine dependence; Z79.01 Long term (current) use of anticoagulants; Z95.3 Presence of xenogenic heart valve; Z95.0 Presence of cardiac pacemaker
CPT/HCPCS: 36415; 70450; 71045; 80053; 81001; 83735; 84100; 84443; 84484; 85025; 85610; 93005; 93880; 99285; A9270; G0480; 96374; G0378

== ENCOUNTER 2018-08-14 08:15 | Observation (INO) | payer MEDICARE, OTHER ==
--- NOTE | 2018-08-14 08:27 | EDM.PDOC ---
ED HPI GENERAL MEDICAL PROBLEM - General Chief Complaint: Neurological Problem Stated Complaint: STROKE CODE Time Seen by Provider: 08/14/18 08:25 Source of Information: Reports: Patient - History of Present Illness INITIAL COMMENTS - FREE TEXT/NARRATIVE: HISTORY AND PHYSICAL: History of present illness: [With history of TIA/intermittent delirium / confusion presents as such, symptoms began last night or during the night he awoke with symptoms of confusion/delirium He is alert and oriented to person and placee but julio cesar time, and has difficulty with recalling names of spouse and childrenn, home address etc, this is typical of his previous TIA symptoms and generally lasts 1-2 days with resolution per son-in-law No fever nausea vomiting chills sweats no chest pain shortness breath headache dizziness or palpitation no bowel or urine symptoms Review of systems: As per history of present illness and below otherwise all systems reviewed and negative. Past medical history: As per history of present illness and as reviewed below otherwise noncontributory. Surgical history: As per history of present illness and as reviewed below otherwise noncontributory. Social history: No reported history of drug or alcohol abuse. Family history: As per history of present illness and as reviewed below otherwise noncontributory. Physical exam: HEENT: Atraumatic, normocephalic, pupils reactive, negative for conjunctival pallor or scleral icterus, mucous membranes moist, throat clear, neck supple, nontender, trachea midline. Lungs: Clear to auscultation, breath sounds equal bilaterally, chest nontender. Heart: S1S2, regular, negative for clicks, rubs, or JVD. Abdomen: Soft, nondistended, nontender. Negative for masses or hepatosplenomegaly. Negative for costovertebral tenderness. Pelvis: Stable nontender. Genitourinary: Deferred. Rectal: Deferred. Extremities: Atraumatic, negative for cords or calf pain. Neurovascular unremarkable. Neuro: Awake, alert, oriented. Cranial nerves II through XII unremarkable. Cerebellum unremarkable. Motor and sensory unremarkable throughout. Exam nonfocal. Diagnostics: [CBC CMP UA INR alcohol drug screen troponin CPK EKG Chest [address] no contrast] Therapeutics: [] Impression: h/o tia [Confusion Definitive disposition and diagnosis as appropriate pending reevaluation and review of above. - Related Data Allergies Allergy/AdvReac Type Severity Reaction Status Date / Time No Known Allergies Allergy Verified 08/14/18 08:51 Home Meds: Home Meds Metoprolol Succinate [Toprol XL] 1 tab PO DAILY 12/01/15 [History] Cyanocobalamin (Vitamin B-12) [Cyanocobalamin Injection] 1 ml IM ASDIRECTED 01/18 [History] predniSONE [Prednisone] 1 tab PO DAILY 05/11/17 [History] atorvaSTATin [Lipitor] 1 tab PO BEDTIME 05/06/18 [History] Dabigatran [Pradaxa] 1 cap PO BID 08/14/18 [History] levETIRAcetam [Keppra] 1 tab PO BID 08/14/18 [History] Past Medical History HEENT History: Reports: Cataract, Impaired Vision Cardiovascular History: Reports: Afib, CAD, Heart Valve Replacement, Hypertension, Pacemaker Respiratory History: Reports: None Gastrointestinal History: Reports: Chronic Constipation Genitourinary History: Reports: BPH Musculoskeletal History: Reports: Fracture Neurological History: Reports: CVA, TIA Psychiatric History: Reports: Addiction Other Psychiatric History: Alcohol abuse Endocrine/Metabolic History: Reports: None Hematologic History: Reports: Blood Transfusion(s) Immunologic History: Reports: None Oncologic (Cancer) History: Reports: None Other Oncologic History: skin cancer on top of head and face Dermatologic History: Reports: Melanoma Other Dermatologic History: has radiation treatment for cancer. Melanoma to top of head. - Infectious Disease History Infectious Disease History: Reports: Chicken Pox, Measles, Mumps - Past Surgical History HEENT Surgical History: Reports: Cataract Surgery Cardiovascular Surgical History: Reports: Carotid Endarterectomy, Coronary Artery Bypass, Valve Replacement, Other (See Below) Other Cardiovascular Surgeries/Procedures: pacemaker and porcine mitral valve Social & Family History - Family History Family Medical History: Noncontributory HEENT: Reports: None Cardiac: Reports: Afib, High Cholesterol, Hypertension Respiratory: Reports: None GI: Reports: None : Reports: None OBGYN: Reports: None Musculoskeletal: Reports: Arthritis, Osteoarthritis, Osteoporosis Neurological: Reports: None Psychiatric: Reports: None Endocrine/Metabolic: Reports: None Hematologic: Reports: None Immunologic: Reports: None Dermatologic: Reports: None Oncologic: Reports: None - Caffeine Use Caffeine Use: Reports: Coffee, Soda Other Caffeine Use: Cup a day Caffeine Use Comment: 1 drink/day - Living Situation & Occupation Living situation: Reports: with Significant Other Occupation: Employed ED ROS GENERAL - Review of Systems Review Of Systems: See Below ED EXAM, GENERAL - Physical Exam Exam: See Below Course - Vital Signs Last Recorded V/S: Last Vital Signs Temp 99.4 F 08/14/18 08:15 Pulse 99 08/14/18 10:15 Resp 18 08/14/18 10:15 BP 188/96 H 08/14/18 10:15 Pulse Ox 95 08/14/18 10:15 - Orders/Labs/Meds Orders: Active Orders 24 hr Category Date Time Status EKG Documentation Completion [RC] STAT Care 08/14/18 08:24 Active LEVETIRACETAM, S [REF] Stat Lab 08/14/18 08:28 Ordered Labs: Laboratory Tests 08/14/18 08/14/18 08/14/18 Range/Units 08:18 08:18 08:18 WBC 8.06 (4.0-11.0) K/uL RBC 4.52 (4.50-5.90) M/uL Hgb 14.7 (13.0-17.0) g/dL Hct 43.3 (38.0-50.0) % MCV 95.8 (80.0-98.0) fL MCH 32.5 H (27.0-32.0) pg MCHC 33.9 (31.0-37.0) g/dL RDW Std Deviation 50.0 (28.0-62.0) fl RDW Coeff of Ryan 14 (11.0-15.0) % Plt Count 183 (150-400) K/uL MPV 10.10 (7.40-12.00) fL Neut % (Auto) 74.2 (48.0-80.0) % Lymph % (Auto) 16.3 (16.0-40.0) % [place] % (Auto) 8.7 (0.0-15.0) % Eos % (Auto) 0.6 (0.0-7.0) % Baso % (Auto) 0.2 (0.0-1.5) % Neut # (Auto) 6.0 H (1.4-5.7) K/uL Lymph # (Auto) 1.3 (0.6-2.4) K/uL [place] # (Auto) 0.7 (0.0-0.8) K/uL Eos # (Auto) 0.1 (0.0-0.7) K/uL Baso # (Auto) 0.0 (0.0-0.1) K/uL Nucleated RBC % 0.0 /100WBC Nucleated RBCs # 0 K/uL INR 1.05 Sodium 142 (136-148) mmol/L Potassium 4.5 (3.5-5.1) mmol/L Chloride 107 (98-107) mmol/L Carbon Dioxide 25.6 (21.0-32.0) mmol/L BUN 11 (7.0-18.0) mg/dL Creatinine 0.6 L (0.8-1.3) mg/dL Est Cr Clr Drug Dosing 96.40 mL/min Estimated GFR (MDRD) > 60.0 ml/min Glucose 106 (74-106) mg/dL Calcium 8.5 (8.5-10.1) mg/dL Total Bilirubin 0.8 (0.2-1.0) mg/dL AST 101 H (15-37) IU/L ALT 79 H (14-63) IU/L Alkaline Phosphatase 74 (46-116) U/L Creatine Kinase 78 (26-308) U/L Troponin I < 0.050 (0.000-0.056) ng/mL Total Protein 7.1 (6.4-8.2) g/dL Albumin 3.4 (3.4-5.0) g/dL Globulin 3.7 (2.6-4.0) g/dL Albumin/Globulin Ratio 0.9 (0.9-1.6) Urine Color Urine Appearance Urine pH (5.0-8.0) Ur Specific [place] (1.001-1.035) Urine Protein (NEGATIVE) mg/dL Urine Glucose (UA) (NEGATIVE) mg/dL Urine Ketones (NEGATIVE) mg/dL Urine Occult Blood (NEGATIVE) Urine Nitrite (NEGATIVE) Urine Bilirubin (NEGATIVE) Urine Urobilinogen (<2.0) EU/dL Ur Leukocyte Esterase (NEGATIVE) Urine Opiates Screen (NEGATIVE) Ur Oxycodone Screen (NEGATIVE) Urine Methadone Screen (NEGATIVE) Ur Barbiturates Screen (NEGATIVE) Ur Phencyclidine Scrn (NEGATIVE) Ur Amphetamine Screen (NEGATIVE) U Methamphetamines Scrn (NEGATIVE) U Benzodiazepines Scrn (NEGATIVE) U Cocaine Metab Screen (NEGATIVE) U Marijuana (THC) Screen (NEGATIVE) Ethyl Alcohol <3 mg/dL 08/14/18 08/14/18 Range/Units 10:25 10:54 WBC (4.0-11.0) K/uL RBC (4.50-5.90) M/uL Hgb (13.0-17.0) g/dL Hct (38.0-50.0) % MCV (80.0-98.0) fL MCH (27.0-32.0) pg MCHC (31.0-37.0) g/dL RDW Std Deviation (28.0-62.0) fl RDW Coeff of [place] (11.0-15.0) % Plt Count (150-400) K/uL MPV (7.40-12.00) fL Neut % (Auto) (48.0-80.0) % Lymph % (Auto) (16.0-40.0) % [place] % (Auto) (0.0-15.0) % Eos % (Auto) (0.0-7.0) % Baso % (Auto) (0.0-1.5) % Neut # (Auto) (1.4-5.7) K/uL Lymph # (Auto) (0.6-2.4) K/uL [place] # (Auto) (0.0-0.8) K/uL Eos # (Auto) (0.0-0.7) K/uL Baso # (Auto) (0.0-0.1) K/uL Nucleated RBC % /100WBC Nucleated RBCs # K/uL INR Sodium (136-148) mmol/L Potassium (3.5-5.1) mmol/L Chloride (98-107) mmol/L Carbon Dioxide (21.0-32.0) mmol/L BUN (7.0-18.0) mg/dL Creatinine (0.8-1.3) mg/dL Est Cr Clr Drug Dosing mL/min Estimated GFR (MDRD) ml/min Glucose (74-106) mg/dL Calcium (8.5-10.1) mg/dL Total Bilirubin (0.2-1.0) mg/dL AST (15-37) IU/L ALT (14-63) IU/L Alkaline Phosphatase (46-116) U/L Creatine Kinase (26-308) U/L Troponin I (0.000-0.056) ng/mL Total Protein (6.4-8.2) g/dL Albumin (3.4-5.0) g/dL Globulin (2.6-4.0) g/dL Albumin/Globulin Ratio (0.9-1.6) Urine Color YELLOW Urine Appearance CLEAR Urine pH 7.5 (5.0-8.0) Ur Specific [place] 1.015 (1.001-1.035) Urine Protein NEGATIVE (NEGATIVE) mg/dL Urine Glucose (UA) NEGATIVE (NEGATIVE) mg/dL Urine Ketones NEGATIVE (NEGATIVE) mg/dL Urine Occult Blood NEGATIVE (NEGATIVE) Urine Nitrite NEGATIVE (NEGATIVE) Urine Bilirubin NEGATIVE (NEGATIVE) Urine Urobilinogen 0.2 (<2.0) EU/dL Ur Leukocyte Esterase NEGATIVE (NEGATIVE) Urine Opiates Screen NEGATIVE (NEGATIVE) Ur Oxycodone Screen NEGATIVE (NEGATIVE) Urine Methadone Screen NEGATIVE (NEGATIVE) Ur Barbiturates Screen NEGATIVE (NEGATIVE) Ur Phencyclidine Scrn NEGATIVE (NEGATIVE) Ur Amphetamine Screen NEGATIVE (NEGATIVE) U Methamphetamines Scrn NEGATIVE (NEGATIVE) U Benzodiazepines Scrn NEGATIVE (NEGATIVE) U Cocaine Metab Screen NEGATIVE (NEGATIVE) U Marijuana (THC) Screen NEGATIVE (NEGATIVE) Ethyl Alcohol mg/dL Meds: Medications Discontinued Medications Generic Name Dose Route Start Last Admin Trade Name Freq PRN Reason Stop Dose Admin Ondansetron HCl 8 mg 08/14/18 11:14 08/14/18 11:31 Zofran IVPUSH 08/14/18 11:15 8 mg ONETIME ONE Administration Departure - Departure Time of Disposition: 11:52 Disposition: Refer to Observation Condition: Fair Clinical Impression: Confusion, History of TIA (transient ischemic attack) - Discharge Information Referrals: PCP,Unknown [Primary Care Provider] - Forms: ED Department Discharge - My Orders Last 24 Hours: My Active Orders 08/14/18 08:24 EKG Documentation Completion [RC] STAT 08/14/18 08:28 LEVETIRACETAM, S [REF] Stat - Assessment/Plan Last 24 Hours: My Active Orders 08/14/18 08:24 EKG Documentation Completion [RC] STAT 08/14/18 08:28 LEVETIRACETAM, S [REF] Stat
[2018-08-14 08:52] LABS: CHLORIDE,CL 107 mmol/L (98-107); SODIUM,NA 142 mmol/L (136-148)
--- NOTE | 2018-08-14 08:54 | CT ---
INDICATION: Pain. Stroke code. TECHNIQUE: Noncontrast CT images were obtained through the brain. COMPARISON: None. FINDINGS: Prominence of the ventricles and sulci compatible with mild to moderate diffuse cerebral volume loss. No mass effect or midline shift. Patchy hypoattenuation in the supratentorial white matter is nonspecific, though favored to represent sequelae of moderate chronic microvascular ischemic changes. Chronic lacunar infarction in the head of the right caudate nucleus. Atherosclerotic calcifications in the internal carotid and left vertebral arteries. Incidentally noted partially empty sella. Thinning of the ocular lenses. The calvarium is intact. Mild mucosal thickening in the ethmoid air cells. The mastoid air cells are clear. IMPRESSION: 1. No acute intracranial hemorrhage or mass effect. 2. Moderate chronic microvascular ischemic changes with superimposed chronic lacunar infarction in the head of the right caudate nucleus. 3. [id number] diffuse cerebral volume loss. Please note that all CT scans at this facility use dose modulation, iterative reconstruction, and/or weight-based dosing when appropriate to reduce radiation dose to as low as reasonably achievable. Dictated by Shaji Eubanks MD @ Aug 14 2018 8:39AM Signed by Dr. Shaji Eubanks @ Aug 14 2018 8:52AM
--- NOTE | 2018-08-14 09:33 | CR ---
INDICATION: Pain. Stroke code. FINDINGS: A single portable chest x-ray shows median sternotomy changes. Left-sided pacemaker. Mildly enlarged cardiac silhouette. The lungs show minimal left basilar atelectasis. Sharp pleural margins. No pneumothorax. IMPRESSION: Minimal left basilar atelectasis. No other focal pulmonary opacities. Dictated by Sean Slater MD @ 08/14/2018 9:31:01 AM Dictated by: Sean Slater MD @ 08/14/2018 09:31:12 (Electronically Signed)
[2018-08-14] MEDS ORDERED: Ondansetron 4 MG/2 ML SDV IVPUSH ONE (11:14)
[2018-08-14] MEDS ORDERED: Acetaminophen 325 MG Tab PO PRN (12:17)
--- NOTE | 2018-08-14 12:23 | PCM.HP ---
H&P History of Present Illness - General Date of Service: 08/14/18 Admit Problem/Dx: Admission Diagnosis/Problem Admission Diagnosis/Problem Confusion Source of Information: Patient, Old Records History Limitations: Reports: Altered Mental Status - History of Present Illness Initial Comments - Free Text/Narative: The patient is an 83-year-old gentleman who had presented to the emergency department primarily with a chief complaint of others saying he was confused. There was a concern with regards to transient ischemic attack. The patient was here in May 2018 with similar symptoms. The patient is awake and alert. He is confused and he is able to only supply limited information with regards to his history. Onset of Symptoms: Reports: Unknown/Unsure Duration of Symptoms: Reports: Day(s): Location: Reports: Generalized Quality: Reports: Same as Previous Episode Severity: Moderate Improves with: Reports: None Worsens with: Reports: None Associated Symptoms: Reports: Confusion - Related Data Allergies/Adverse Reactions: Allergies Allergy/AdvReac Type Severity Reaction Status Date / Time No Known Allergies Allergy Verified 08/14/18 08:51 Home Medications: Home Meds Metoprolol Succinate [Toprol XL] 1 tab PO DAILY 12/01/15 [History] Cyanocobalamin (Vitamin B-12) [Cyanocobalamin Injection] 1 ml IM ASDIRECTED 01/18 [History] predniSONE [Prednisone] 1 tab PO DAILY 05/11/17 [History] atorvaSTATin [Lipitor] 1 tab PO BEDTIME 05/06/18 [History] Dabigatran [Pradaxa] 1 cap PO BID 08/14/18 [History] levETIRAcetam [Keppra] 1 tab PO BID 08/14/18 [History] Past Medical History HEENT History: Reports: Cataract, Impaired Vision Cardiovascular History: Reports: Afib, CAD, Heart Valve Replacement, Hypertension, Pacemaker Respiratory History: Reports: None Gastrointestinal History: Reports: Chronic Constipation Genitourinary History: Reports: BPH Musculoskeletal History: Reports: Fracture Neurological History: Reports: CVA, TIA Psychiatric History: Reports: Addiction Other Psychiatric History: Alcohol abuse Endocrine/Metabolic History: Reports: None Hematologic History: Reports: Blood Transfusion(s) Immunologic History: Reports: None Oncologic (Cancer) History: Reports: None Other Oncologic History: skin cancer on top of head and face Dermatologic History: Reports: Melanoma Other Dermatologic History: has radiation treatment for cancer. Melanoma to top of head. - Infectious Disease History Infectious Disease History: Reports: Chicken Pox, Measles, Mumps - Past Surgical History HEENT Surgical History: Reports: Cataract Surgery Cardiovascular Surgical History: Reports: Carotid Endarterectomy, Coronary Artery Bypass, Valve Replacement, Other (See Below) Other Cardiovascular Surgeries/Procedures: pacemaker and porcine mitral valve Social & Family History - Family History Family Medical History: Noncontributory HEENT: Reports: None Cardiac: Reports: Afib, High Cholesterol, Hypertension Respiratory: Reports: None GI: Reports: None : Reports: None OBGYN: Reports: None Musculoskeletal: Reports: Arthritis, Osteoarthritis, Osteoporosis Neurological: Reports: None Psychiatric: Reports: None Endocrine/Metabolic: Reports: None Hematologic: Reports: None Immunologic: Reports: None Dermatologic: Reports: None Oncologic: Reports: None - Tobacco Use Smoking Status *Q: Never Smoker - Caffeine Use Caffeine Use: Reports: Coffee, Soda Other Caffeine Use: Cup a day Caffeine Use Comment: 1 drink/day - Recreational Drug Use Recreational Drug Use: No - Living Situation & Occupation Living situation: Reports: with Significant Other Occupation: Employed H&P Review of Systems - Review of Systems: Review Of Systems: See Below General: Reports: No Symptoms HEENT: Reports: No Symptoms Pulmonary: Reports: No Symptoms Cardiovascular: Reports: No Symptoms Gastrointestinal: Reports: No Symptoms Genitourinary: Reports: No Symptoms Musculoskeletal: Reports: No Symptoms Skin: Reports: No Symptoms Psychiatric: Reports: No Symptoms Neurological: Reports: No Symptoms Hematologic/Lymphatic: Reports: No Symptoms Immunologic: Reports: No Symptoms Review of Systems Comment:: Review of systems suspect Exam - Exam Exam: See Below - Vital Signs Vital Signs: Last Vital Signs Temp 37.4 C 08/14/18 08:15 Pulse 99 08/14/18 10:15 Resp 18 08/14/18 10:15 BP 188/96 H 08/14/18 10:15 Pulse Ox 95 08/14/18 10:15 Weight: 71.8 kg - Exam Quality Assessment: Supplemental Oxygen General: Alert, Cooperative, Mild Distress. No: Oriented HEENT: Conjunctiva Clear, EACs Clear, EOMI, PERRLA (Constricted). No: Mucosa Moist & [place] (Try) Neck: Supple, Trachea Midline Lungs: Clear to Auscultation, Normal Respiratory Effort Cardiovascular: Regular Rate, Regular Rhythm, Systolic Murmur (3/6 systolic murmur) GI/Abdominal Exam: Normal Bowel Sounds, Soft, No Distention (Male) Exam: Deferred Rectal (Males) Exam: Deferred Back Exam: Normal Inspection (Kyphosis), Full Range of Motion (Age-related changes) Extremities: Normal Inspection, No Pedal Edema Skin: Warm, Dry, Intact Neurological: Cranial Nerves Intact Neuro Extensive - Mental Status: Alert. No: Oriented x3, Normal Mood/Affect Psychiatric: Alert. No: Normal Affect, Normal Mood - Patient Data Lab Results Last 24 hrs: Laboratory Results - last 24 hr 08/14/18 08/14/18 08/14/18 Range/Units 08:18 08:18 08:18 WBC 8.06 (4.0-11.0) K/uL RBC 4.52 (4.50-5.90) M/uL Hgb 14.7 (13.0-17.0) g/dL Hct 43.3 (38.0-50.0) % MCV 95.8 (80.0-98.0) fL MCH 32.5 H (27.0-32.0) pg MCHC 33.9 (31.0-37.0) g/dL RDW Std Deviation 50.0 (28.0-62.0) fl RDW Coeff of [place] 14 (11.0-15.0) % Plt Count 183 (150-400) K/uL MPV 10.10 (7.40-12.00) fL Neut % (Auto) 74.2 (48.0-80.0) % Lymph % (Auto) 16.3 (16.0-40.0) % [place] % (Auto) 8.7 (0.0-15.0) % Eos % (Auto) 0.6 (0.0-7.0) % Baso % (Auto) 0.2 (0.0-1.5) % Neut # (Auto) 6.0 H (1.4-5.7) K/uL Lymph # (Auto) 1.3 (0.6-2.4) K/uL [place] # (Auto) 0.7 (0.0-0.8) K/uL Eos # (Auto) 0.1 (0.0-0.7) K/uL Baso # (Auto) 0.0 (0.0-0.1) K/uL Nucleated RBC % 0.0 /100WBC Nucleated RBCs # 0 K/uL INR 1.05 Sodium 142 (136-148) mmol/L Potassium 4.5 (3.5-5.1) mmol/L Chloride 107 (98-107) mmol/L Carbon Dioxide 25.6 (21.0-32.0) mmol/L BUN 11 (7.0-18.0) mg/dL Creatinine 0.6 L (0.8-1.3) mg/dL Est Cr Clr Drug Dosing 96.40 mL/min Estimated GFR (MDRD) > 60.0 ml/min Glucose 106 (74-106) mg/dL Calcium 8.5 (8.5-10.1) mg/dL Total Bilirubin 0.8 (0.2-1.0) mg/dL AST 101 H (15-37) IU/L ALT 79 H (14-63) IU/L Alkaline Phosphatase 74 (46-116) U/L Creatine Kinase 78 (26-308) U/L Troponin I < 0.050 (0.000-0.056) ng/mL Total Protein 7.1 (6.4-8.2) g/dL Albumin 3.4 (3.4-5.0) g/dL Globulin 3.7 (2.6-4.0) g/dL Albumin/Globulin Ratio 0.9 (0.9-1.6) Urine Color Urine Appearance Urine pH (5.0-8.0) Ur Specific [place] (1.001-1.035) Urine Protein (NEGATIVE) mg/dL Urine Glucose (UA) (NEGATIVE) mg/dL Urine Ketones (NEGATIVE) mg/dL Urine Occult Blood (NEGATIVE) Urine Nitrite (NEGATIVE) Urine Bilirubin (NEGATIVE) Urine Urobilinogen (<2.0) EU/dL Ur Leukocyte Esterase (NEGATIVE) Urine Opiates Screen (NEGATIVE) Ur Oxycodone Screen (NEGATIVE) Urine Methadone Screen (NEGATIVE) Ur Barbiturates Screen (NEGATIVE) Ur Phencyclidine Scrn (NEGATIVE) Ur Amphetamine Screen (NEGATIVE) U Methamphetamines Scrn (NEGATIVE) U Benzodiazepines Scrn (NEGATIVE) U Cocaine Metab Screen (NEGATIVE) U Marijuana (THC) Screen (NEGATIVE) Ethyl Alcohol <3 mg/dL 08/14/18 08/14/18 Range/Units 10:25 10:54 WBC (4.0-11.0) K/uL RBC (4.50-5.90) M/uL Hgb (13.0-17.0) g/dL Hct (38.0-50.0) % MCV (80.0-98.0) fL MCH (27.0-32.0) pg MCHC (31.0-37.0) g/dL RDW Std Deviation (28.0-62.0) fl RDW Coeff of [place] (11.0-15.0) % Plt Count (150-400) K/uL MPV (7.40-12.00) fL Neut % (Auto) (48.0-80.0) % Lymph % (Auto) (16.0-40.0) % [place] % (Auto) (0.0-15.0) % Eos % (Auto) (0.0-7.0) % Baso % (Auto) (0.0-1.5) % Neut # (Auto) (1.4-5.7) K/uL Lymph # (Auto) (0.6-2.4) K/uL [place] # (Auto) (0.0-0.8) K/uL Eos # (Auto) (0.0-0.7) K/uL Baso # (Auto) (0.0-0.1) K/uL Nucleated RBC % /100WBC Nucleated RBCs # K/uL INR Sodium (136-148) mmol/L Potassium (3.5-5.1) mmol/L Chloride (98-107) mmol/L Carbon Dioxide (21.0-32.0) mmol/L BUN (7.0-18.0) mg/dL Creatinine (0.8-1.3) mg/dL Est Cr Clr Drug Dosing mL/min Estimated GFR (MDRD) ml/min Glucose (74-106) mg/dL Calcium (8.5-10.1) mg/dL Total Bilirubin (0.2-1.0) mg/dL AST (15-37) IU/L ALT (14-63) IU/L Alkaline Phosphatase (46-116) U/L Creatine Kinase (26-308) U/L Troponin I (0.000-0.056) ng/mL Total Protein (6.4-8.2) g/dL Albumin (3.4-5.0) g/dL Globulin (2.6-4.0) g/dL Albumin/Globulin Ratio (0.9-1.6) Urine Color YELLOW Urine Appearance CLEAR Urine pH 7.5 (5.0-8.0) Ur Specific [place] 1.015 (1.001-1.035) Urine Protein NEGATIVE (NEGATIVE) mg/dL Urine Glucose (UA) NEGATIVE (NEGATIVE) mg/dL Urine Ketones NEGATIVE (NEGATIVE) mg/dL Urine Occult Blood NEGATIVE (NEGATIVE) Urine Nitrite NEGATIVE (NEGATIVE) Urine Bilirubin NEGATIVE (NEGATIVE) Urine Urobilinogen 0.2 (<2.0) EU/dL Ur Leukocyte Esterase NEGATIVE (NEGATIVE) Urine Opiates Screen NEGATIVE (NEGATIVE) Ur Oxycodone Screen NEGATIVE (NEGATIVE) Urine Methadone Screen NEGATIVE (NEGATIVE) Ur Barbiturates Screen NEGATIVE (NEGATIVE) Ur Phencyclidine Scrn NEGATIVE (NEGATIVE) Ur Amphetamine Screen NEGATIVE (NEGATIVE) U Methamphetamines Scrn NEGATIVE (NEGATIVE) U Benzodiazepines Scrn NEGATIVE (NEGATIVE) U Cocaine Metab Screen NEGATIVE (NEGATIVE) U Marijuana (THC) Screen NEGATIVE (NEGATIVE) Ethyl Alcohol mg/dL Result Diagrams: 08/14/18 08:18 08/14/18 08:18 *Q Meaningful Use (ADM) - VTE *Q VTE Mechanical Contraindications *Q: At Risk for Falls VTE Pharmacological Contraindications *Q: Risk of Bleeding - Problem List (1) TIA (transient ischemic attack) SNOMED Code(s): 879910296 ICD Code: G45.9 - TRANSIENT CEREBRAL ISCHEMIC ATTACK, UNSPECIFIED Status: Suspected Priority: High Current Visit: Yes Qualifiers: Transient cerebral ischemia type: unspecified Qualified Code(s): G45.9 - Transient cerebral ischemic attack, unspecified (2) HTN (hypertension) SNOMED Code(s): 32540043 ICD Code: I10 - ESSENTIAL (PRIMARY) HYPERTENSION Status: Chronic Priority : High Current Visit: No Qualifiers: Hypertension type: essential hypertension Qualified Code(s): I10 - Essential (primary) hypertension (3) CAD (coronary artery disease) SNOMED Code(s): 63490564 ICD Code: I25.10 - ATHSCL HEART DISEASE OF [place] CORONARY ARTERY W/O ANG PCTRS Status: Chronic Priority: High Current Visit: No Qualifiers: Coronary Disease-Associated Artery/Lesion type: unspecified vessel or lesion type [place] vs. transplanted heart: [place] heart Associated angina: without angina Qualified Code(s): I25.10 - Atherosclerotic heart disease of [place] coronary artery without angina pectoris (4) Muscle weakness SNOMED Code(s): 72648059 ICD Code: M62.81 - MUSCLE WEAKNESS (GENERALIZED) Status: Chronic Priority : High Current Visit: No (5) Pacemaker SNOMED Code(s): 489774793 ICD Code: Z95.0 - PRESENCE OF CARDIAC PACEMAKER Status: Chronic Priority : Medium Current Visit: No Problem List Initiated/Reviewed/Updated: Yes Orders Last 24hrs: Active Orders 24 hr Category Date Time Status Admission Status [Patient Status] [ADT] Stat ADT 08/14/18 11:53 Active EKG Documentation Completion [RC] STAT Care 08/14/18 08:24 Active Oxygen Therapy [RC] PRN Care 08/14/18 12:16 Active Oxygen Therapy [RC] PRN Care 08/14/18 12:17 Active VTE/DVT Education [RC] PER UNIT ROUTINE Care 08/14/18 12:16 Active Vital Signs [RC] Q4H Care 08/14/18 12:16 Active Vital Signs [RC] Q4H Care 08/14/18 12:17 Active OT Evaluation and Treatment [CONS] Routine Cons 08/14/18 12:17 Active PT Evaluation and Treatment [CONS] Routine Cons 08/14/18 12:17 Active Full Liquid Diet [DIET] Diet 08/14/18 Dinner Active CBC WITH AUTO DIFF [HEME] AM Lab 08/15/18 05:11 Ordered COMPREHENSIVE METABOLIC PN,CMP [CHEM] AM Lab 08/15/18 05:11 Ordered LEVETIRACETAM, S [REF] Stat Lab 08/14/18 08:28 Ordered Acetaminophen [Tylenol] Med 08/14/18 12:17 Active 650 mg PO Q4H PRN Dabigatran [Pradaxa] Med 08/14/18 21:00 Ordered DOSE mg PO BID Metoprolol Succinate [Toprol XL] Med 08/15/18 09:00 Active 25 mg PO DAILY Sodium Chloride 0.9% [Normal Saline] 1,000 ml Med 08/14/18 12:30 Active IV ASDIRECTED levETIRAcetam [Keppra] Med 08/14/18 21:00 Active 500 mg PO BID predniSONE Med 08/15/18 09:00 Active 5 mg PO DAILY VTE Mechanical Contraindications [AST] Per Unit Routine Oth 08/14/18 12:17 Ordered VTE Pharmacological Contraindications [AST] Per Unit Oth 08/14/18 12:17 Ordered Routine Resuscitation Status Routine Resus Stat 08/14/18 12:16 Ordered Medication Orders Acetaminophen (Tylenol) 650 mg PO Q4H PRN PRN Reason: Pain (Mild 1-3)/fever Dabigatran (Pradaxa) mg PO BID MARCELINO Sodium Chloride (Normal Saline) 1,000 mls @ 75 mls/hr IV ASDIRECTED MARCELINO Levetiracetam (Keppra) 500 mg PO BID MARCELINO Metoprolol Succinate (Toprol Xl) 25 mg PO DAILY MARCELINO Prednisone (Prednisone) 5 mg PO DAILY MARCELINO Assessment/Plan Comment:: The patient is an 83-year-old gentleman who will be admitted to observation secondary to likely TIA. He has had some confusion as well as continued weakness. It has been reported that the patient does have confusion as a result of TIA symptoms. An MRI/MRA has been ordered for the morning. The patient does not require DVT prophylaxis as he is currently anticoagulated on Pradaxa and distal be continued. PT OT has also been ordered for the patient. He'll be continued on a full liquid diet. I've also ordered the patient had vital signs every 4 hours. The patient will also have his medication for his hypertension adjusted as necessary. The patient also be kept on telemetry due to his coronary artery disease and pacemaker. Patient has been encouraged to ambulate. He'll be reevaluated for possible discharge in 1-2 days. The patient for right now is a full code and will discuss this with family members with regards to his resuscitation status.
[2018-08-14] MEDS: Sodium Chloride 0.9% 1,000 ML IV SCH (13:28)
[2018-08-14] MEDS: levETIRAcetam 500 MG Tab PO SCH (20:29)
[2018-08-15] MEDS: Sodium Chloride 0.9% 1,000 ML IV SCH (03:49)
[2018-08-15 07:14] LABS: CHLORIDE,CL 107 mmol/L (98-107); SODIUM,NA 140 mmol/L (136-148)
--- NOTE | 2018-08-15 08:39 | PCM.DCSUM1 ---
Discharge Summary - Hospital Course HPI Initial Comments: The patient had been admitted secondary to confusion which was similar to TIA in the past. Diagnosis: Stroke: No - Discharge Data Discharge Date: 08/15/18 Discharge Disposition: Home, Self-Care 01 Condition: Fair - Discharge Diagnosis/Problem(s) (1) TIA (transient ischemic attack) SNOMED Code(s): 776776041 ICD Code: G45.9 - TRANSIENT CEREBRAL ISCHEMIC ATTACK, UNSPECIFIED Status: Suspected Priority: High Current Visit: Yes Qualifiers: Transient cerebral ischemia type: unspecified Qualified Code(s): G45.9 - Transient cerebral ischemic attack, unspecified (2) HTN (hypertension) SNOMED Code(s): 27407149 ICD Code: I10 - ESSENTIAL (PRIMARY) HYPERTENSION Status: Chronic Priority : High Current Visit: No Qualifiers: Hypertension type: essential hypertension Qualified Code(s): I10 - Essential (primary) hypertension (3) CAD (coronary artery disease) SNOMED Code(s): 82067002 ICD Code: I25.10 - ATHSCL HEART DISEASE OF [place] CORONARY ARTERY W/O ANG PCTRS Status: Chronic Priority: High Current Visit: No Qualifiers: Coronary Disease-Associated Artery/Lesion type: unspecified vessel or lesion type Elem vs. transplanted heart: [place] heart Associated angina: without angina Qualified Code(s): I25.10 - Atherosclerotic heart disease of [place] coronary artery without angina pectoris (4) Muscle weakness SNOMED Code(s): 57553578 ICD Code: M62.81 - MUSCLE WEAKNESS (GENERALIZED) Status: Chronic Priority : High Current Visit: No (5) Pacemaker SNOMED Code(s): 575991589 ICD Code: Z95.0 - PRESENCE OF CARDIAC PACEMAKER Status: Chronic Priority : Medium Current Visit: No (6) A-fib SNOMED Code(s): 70898067 ICD Code: I48.91 - UNSPECIFIED ATRIAL FIBRILLATION Status: Chronic Priority: Medium Current Visit: No Qualifiers: Atrial fibrillation type: chronic Qualified Code(s): I48.2 - Chronic atrial fibrillation - Patient Summary/Data Consults: Consultations 08/14/18 12:17 OT Evaluation and Treatment [CONS] Routine PT Evaluation and Treatment [CONS] Routine Hospital Course: The patient is an 83-year-old gentleman who presented to the emergency department with a complaint from family members saying that he was confused. The patient had been admitted previously in May for similar symptoms and it was thought that this was secondary to TIA. It's reported that the patient has similar pressures with recurrent TIAs. Initially the patient had presented is confused with markedly decreased short-term memory while in the emergency department. A CT scan was obtained on August 14, 2018 which did not show any acute intracranial hemorrhage or mass effect. 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 He also had mild to moderate diffusion volume loss. The patient had continued to improve so the short course of hospitalization. An MRI was not obtainable secondary to the patient's pacemaker. The patient's sensorium had cleared. He is able to tolerate diet without difficulty. The patient was ambulating. The patient will continue to have activity as tolerated. The patient is also recommended follow-up with his primary care physician. The patient this time is been hemodynamically stable and he is discharged from acute hospitalization with the recommendations above. - Patient Instructions Diet: Heart Healthy Diet Activity: As Tolerated - Discharge Plan *PRESCRIPTION DRUG MONITORING PROGRAM REVIEWED*: No *COPY OF PRESCRIPTION DRUG MONITORING REPORT IN PATIENT ROSA: No Home Medications: Home Meds Metoprolol Succinate [Toprol XL] 1 tab PO DAILY 12/01/15 [History] Cyanocobalamin (Vitamin B-12) [Cyanocobalamin Injection] 1 ml IM ASDIRECTED 01/18 [History] predniSONE [Prednisone] 1 tab PO DAILY 05/11/17 [History] atorvaSTATin [Lipitor] 1 tab PO BEDTIME 05/06/18 [History] Dabigatran [Pradaxa] 1 cap PO BID 08/14/18 [History] levETIRAcetam [Keppra] 1 tab PO BID 08/14/18 [History] Oxygen Therapy Mode: Room Air Patient Handouts: Confusion, Transient Ischemic Attack, [id number] Referrals: [facility] [Outside] Brandy Jewell MD [Physician] - 08/18/18 1:00 pm Yevgeniy Murguia MD [Physician] - 08/30/18 12:30 pm - Discharge Summary/Plan Comment DC Time >30 min.: Yes - General Info Date of Service: 08/15/18 Admission Dx/Problem (Free Text: Admission Diagnosis/Problem Admission Diagnosis/Problem Confusion, TIA symptoms Subjective Update: Doing better, tolerating diet. Functional Status: Reports: Pain Controlled - Review of Systems General: Reports: No Symptoms HEENT: Reports: No Symptoms Pulmonary: Reports: No Symptoms Cardiovascular: Reports: No Symptoms Gastrointestinal: Reports: No Symptoms Genitourinary: Reports: No Symptoms Musculoskeletal: Reports: No Symptoms Skin: Reports: No Symptoms Neurological: Reports: No Symptoms Psychiatric: Reports: No Symptoms - Patient Data Vitals - Most Recent: Last Vital Signs Temp 36.9 C 08/15/18 04:00 Pulse 92 08/15/18 04:00 Resp 18 08/15/18 04:00 BP 135/74 08/15/18 04:00 Pulse Ox 94 L 08/15/18 04:00 Weight - Most Recent: 71.8 kg I&O - Last 24 hours: Intake & Output 08/14/18 08/15/18 08/15/18 22:59 06:59 14:59 Intake Total 300 1786 Output Total 200 505 Balance 100 1281 Lab Results - Last 24 hrs: Laboratory Results - last 24 hr 08/14/18 08/14/18 08/14/18 Range/Units 08:18 08:18 08:18 WBC 8.06 (4.0-11.0) K/uL RBC 4.52 (4.50-5.90) M/uL Hgb 14.7 (13.0-17.0) g/dL Hct 43.3 (38.0-50.0) % MCV 95.8 (80.0-98.0) fL MCH 32.5 H (27.0-32.0) pg MCHC 33.9 (31.0-37.0) g/dL RDW Std Deviation 50.0 (28.0-62.0) fl RDW Coeff of [place] 14 (11.0-15.0) % Plt Count 183 (150-400) K/uL MPV 10.10 (7.40-12.00) fL Neut % (Auto) 74.2 (48.0-80.0) % Lymph % (Auto) 16.3 (16.0-40.0) % [place] % (Auto) 8.7 (0.0-15.0) % Eos % (Auto) 0.6 (0.0-7.0) % Baso % (Auto) 0.2 (0.0-1.5) % Neut # (Auto) 6.0 H (1.4-5.7) K/uL Lymph # (Auto) 1.3 (0.6-2.4) K/uL [place] # (Auto) 0.7 (0.0-0.8) K/uL Eos # (Auto) 0.1 (0.0-0.7) K/uL Baso # (Auto) 0.0 (0.0-0.1) K/uL Nucleated RBC % 0.0 /100WBC Nucleated RBCs # 0 K/uL INR 1.05 Sodium 142 (136-148) mmol/L Potassium 4.5 (3.5-5.1) mmol/L Chloride 107 (98-107) mmol/L Carbon Dioxide 25.6 (21.0-32.0) mmol/L BUN 11 (7.0-18.0) mg/dL Creatinine 0.6 L (0.8-1.3) mg/dL Est Cr Clr Drug Dosing 96.40 mL/min Estimated GFR (MDRD) > 60.0 ml/min Glucose 106 (74-106) mg/dL Calcium 8.5 (8.5-10.1) mg/dL Total Bilirubin 0.8 (0.2-1.0) mg/dL AST 101 H (15-37) IU/L ALT 79 H (14-63) IU/L Alkaline Phosphatase 74 (46-116) U/L Creatine Kinase 78 (26-308) U/L Troponin I < 0.050 (0.000-0.056) ng/mL Total Protein 7.1 (6.4-8.2) g/dL Albumin 3.4 (3.4-5.0) g/dL Globulin 3.7 (2.6-4.0) g/dL Albumin/Globulin Ratio 0.9 (0.9-1.6) Urine Color Urine Appearance Urine pH (5.0-8.0) Ur Specific [place] (1.001-1.035) Urine Protein (NEGATIVE) mg/dL Urine Glucose (UA) (NEGATIVE) mg/dL Urine Ketones (NEGATIVE) mg/dL Urine Occult Blood (NEGATIVE) Urine Nitrite (NEGATIVE) Urine Bilirubin (NEGATIVE) Urine Urobilinogen (<2.0) EU/dL Ur Leukocyte Esterase (NEGATIVE) Urine Opiates Screen (NEGATIVE) Ur Oxycodone Screen (NEGATIVE) Urine Methadone Screen (NEGATIVE) Ur Barbiturates Screen (NEGATIVE) Ur Phencyclidine Scrn (NEGATIVE) Ur Amphetamine Screen (NEGATIVE) U Methamphetamines Scrn (NEGATIVE) U Benzodiazepines Scrn (NEGATIVE) U Cocaine Metab Screen (NEGATIVE) U Marijuana (THC) Screen (NEGATIVE) Ethyl Alcohol <3 mg/dL 08/14/18 08/14/18 08/15/18 Range/Units 10:25 10:54 06:24 WBC 8.03 (4.0-11.0) K/uL RBC 4.19 L (4.50-5.90) M/uL Hgb 13.5 (13.0-17.0) g/dL Hct 39.7 (38.0-50.0) % MCV 94.7 (80.0-98.0) fL MCH 32.2 H (27.0-32.0) pg MCHC 34.0 (31.0-37.0) g/dL RDW Std Deviation 50.1 (28.0-62.0) fl RDW Coeff of [place] 14 (11.0-15.0) % Plt Count 170 (150-400) K/uL MPV 9.90 (7.40-12.00) fL Neut % (Auto) 69.7 (48.0-80.0) % Lymph % (Auto) 17.4 (16.0-40.0) % [place] % (Auto) 11.8 (0.0-15.0) % Eos % (Auto) 0.9 (0.0-7.0) % Baso % (Auto) 0.2 (0.0-1.5) % Neut # (Auto) 5.6 (1.4-5.7) K/uL Lymph # (Auto) 1.4 (0.6-2.4) K/uL [place] # (Auto) 1.0 H (0.0-0.8) K/uL Eos # (Auto) 0.1 (0.0-0.7) K/uL Baso # (Auto) 0.0 (0.0-0.1) K/uL Nucleated RBC % 0.0 /100WBC Nucleated RBCs # 0 K/uL INR Sodium (136-148) mmol/L Potassium (3.5-5.1) mmol/L Chloride (98-107) mmol/L Carbon Dioxide (21.0-32.0) mmol/L BUN (7.0-18.0) mg/dL Creatinine (0.8-1.3) mg/dL Est Cr Clr Drug Dosing mL/min Estimated GFR (MDRD) ml/min Glucose (74-106) mg/dL Calcium (8.5-10.1) mg/dL Total Bilirubin (0.2-1.0) mg/dL AST (15-37) IU/L ALT (14-63) IU/L Alkaline Phosphatase (46-116) U/L Creatine Kinase (26-308) U/L Troponin I (0.000-0.056) ng/mL Total Protein (6.4-8.2) g/dL Albumin (3.4-5.0) g/dL Globulin (2.6-4.0) g/dL Albumin/Globulin Ratio (0.9-1.6) Urine Color YELLOW Urine Appearance CLEAR Urine pH 7.5 (5.0-8.0) Ur Specific [place] 1.015 (1.001-1.035) Urine Protein NEGATIVE (NEGATIVE) mg/dL Urine Glucose (UA) NEGATIVE (NEGATIVE) mg/dL Urine Ketones NEGATIVE (NEGATIVE) mg/dL Urine Occult Blood NEGATIVE (NEGATIVE) Urine Nitrite NEGATIVE (NEGATIVE) Urine Bilirubin NEGATIVE (NEGATIVE) Urine Urobilinogen 0.2 (<2.0) EU/dL Ur Leukocyte Esterase NEGATIVE (NEGATIVE) Urine Opiates Screen NEGATIVE (NEGATIVE) Ur Oxycodone Screen NEGATIVE (NEGATIVE) Urine Methadone Screen NEGATIVE (NEGATIVE) Ur Barbiturates Screen NEGATIVE (NEGATIVE) Ur Phencyclidine Scrn NEGATIVE (NEGATIVE) Ur Amphetamine Screen NEGATIVE (NEGATIVE) U Methamphetamines Scrn NEGATIVE (NEGATIVE) U Benzodiazepines Scrn NEGATIVE (NEGATIVE) U Cocaine Metab Screen NEGATIVE (NEGATIVE) U Marijuana (THC) Screen NEGATIVE (NEGATIVE) Ethyl Alcohol mg/dL 08/15/18 Range/Units 06:24 WBC (4.0-11.0) K/uL RBC (4.50-5.90) M/uL Hgb (13.0-17.0) g/dL Hct (38.0-50.0) % MCV (80.0-98.0) fL MCH (27.0-32.0) pg MCHC (31.0-37.0) g/dL RDW Std Deviation (28.0-62.0) fl RDW Coeff of [place] (11.0-15.0) % Plt Count (150-400) K/uL MPV (7.40-12.00) fL Neut % (Auto) (48.0-80.0) % Lymph % (Auto) (16.0-40.0) % [place] % (Auto) (0.0-15.0) % Eos % (Auto) (0.0-7.0) % Baso % (Auto) (0.0-1.5) % Neut # (Auto) (1.4-5.7) K/uL Lymph # (Auto) (0.6-2.4) K/uL [place] # (Auto) (0.0-0.8) K/uL Eos # (Auto) (0.0-0.7) K/uL Baso # (Auto) (0.0-0.1) K/uL Nucleated RBC % /100WBC Nucleated RBCs # K/uL INR Sodium 140 (136-148) mmol/L Potassium 3.7 (3.5-5.1) mmol/L Chloride 107 (98-107) mmol/L Carbon Dioxide 22.1 (21.0-32.0) mmol/L BUN 11 (7.0-18.0) mg/dL Creatinine 0.8 (0.8-1.3) mg/dL Est Cr Clr Drug Dosing 72.30 mL/min Estimated GFR (MDRD) > 60.0 ml/min Glucose 110 H (74-106) mg/dL Calcium 8.3 L (8.5-10.1) mg/dL Total Bilirubin 1.5 H (0.2-1.0) mg/dL AST 34 (15-37) IU/L ALT 50 (14-63) IU/L Alkaline Phosphatase 54 (46-116) U/L Creatine Kinase (26-308) U/L Troponin I (0.000-0.056) ng/mL Total Protein 6.5 (6.4-8.2) g/dL Albumin 3.2 L (3.4-5.0) g/dL Globulin 3.3 (2.6-4.0) g/dL Albumin/Globulin Ratio 1.0 (0.9-1.6) Urine Color Urine Appearance Urine pH (5.0-8.0) Ur Specific [place] (1.001-1.035) Urine Protein (NEGATIVE) mg/dL Urine Glucose (UA) (NEGATIVE) mg/dL Urine Ketones (NEGATIVE) mg/dL Urine Occult Blood (NEGATIVE) Urine Nitrite (NEGATIVE) Urine Bilirubin (NEGATIVE) Urine Urobilinogen (<2.0) EU/dL Ur Leukocyte Esterase (NEGATIVE) Urine Opiates Screen (NEGATIVE) Ur Oxycodone Screen (NEGATIVE) Urine Methadone Screen (NEGATIVE) Ur Barbiturates Screen (NEGATIVE) Ur Phencyclidine Scrn (NEGATIVE) Ur Amphetamine Screen (NEGATIVE) U Methamphetamines Scrn (NEGATIVE) U Benzodiazepines Scrn (NEGATIVE) U Cocaine Metab Screen (NEGATIVE) U Marijuana (THC) Screen (NEGATIVE) Ethyl Alcohol mg/dL Med Orders - Current: Current Medications Acetaminophen (Tylenol) 650 mg PO Q4H PRN PRN Reason: Pain (Mild 1-3)/fever Dabigatran (Pradaxa) 150 mg PO BID [facility] Last Admin: 08/14/18 20:29 Dose: 150 mg Sodium Chloride (Normal Saline) 1,000 mls @ 75 mls/hr IV ASDIRECTED [facility] Last Admin: 08/15/18 03:49 Dose: 75 mls/hr Levetiracetam (Keppra) 500 mg PO BID [facility] Last Admin: 08/14/18 20:29 Dose: 500 mg Metoprolol Succinate (Toprol Xl) 25 mg PO DAILY [facility] Prednisone (Prednisone) 5 mg PO DAILY [facility] Discontinued Medications Ondansetron HCl (Zofran) 8 mg IVPUSH ONETIME ONE Stop: 08/14/18 11:15 Last Admin: 08/14/18 11:31 Dose: 8 mg - Exam Quality Assessment: Denies: Supplemental Oxygen General: Reports: Alert, Oriented, Cooperative, No Acute Distress HEENT: Reports: Pupils Equal, Pupils Reactive, EOMI, Mucous Membr. Moist/[place] Neck: Reports: Supple, Trachea Midline, No Thyromegaly Lungs: Reports: Clear to Auscultation, Normal Respiratory Effort Cardiovascular: Reports: Regular Rate, Irregular Rhythm, Murmurs GI/Abdominal Exam: Normal Bowel Sounds, Soft, Non-Tender, No Distention (Male) Exam: Deferred Rectal (Males) Exam: Deferred Back Exam: Reports: Normal Inspection, Full Range of Motion Extremities: Normal Inspection, No Pedal Edema Skin: Reports: Warm, Dry, Intact Neurological: Reports: No New Focal Deficit Psy/Mental Status: Reports: Alert, Normal Affect, Normal Mood *Q Meaningful Use (DIS) - VTE *Q VTE Mechanical Contraindications *Q: At Risk for Falls VTE Pharmacological Contraindications *Q: Risk of Bleeding
[2018-08-15] MEDS ORDERED: Metoprolol Succinate 25 MG Tab.ER PO SCH (09:00)
[2018-08-15] MEDS ORDERED: predniSONE 5 MG Tab PO SCH (09:00)
[2018-08-15 09:13] VITALS: BP 119/68
[2018-08-15] MEDS: levETIRAcetam 500 MG Tab PO SCH (09:16)
== END 2018-08-15 11:05 | disposition home or self-care (01) ==
LOC: MW.ED 08:15 → MW.MS 12:00
PROVIDERS: ADMIT Internal Medicine; ATTEND Internal Medicine
DX: G45.9 Transient cerebral ischemic attack, unspecified (principal); I10 Essential (primary) hypertension; I25.10 Atherosclerotic heart disease of native coronary artery without angina pectoris; I48.2 Chronic atrial fibrillation; E78.00 Pure hypercholesterolemia, unspecified; Z95.0 Presence of cardiac pacemaker; Z79.52 Long term (current) use of systemic steroids; Z79.899 Other long term (current) drug therapy
CPT/HCPCS: 36415; 70450; 71045; 80053; 80177; 80305; 81003; 82550; 84484; 85025; 85610; 93005; 96361; 96374; 97161; 99285; A9270; G0378; G0480; J2405; J7040; J7512; 99284

== ENCOUNTER 2018-08-17 18:09 | Emergency (ER) | payer MEDICARE, OTHER ==
[2018-08-17] MEDS ORDERED: Sodium Chloride 0.9% 2.5 ML Syringe FLUSH PRN (18:15)
[2018-08-17] MEDS ORDERED: Sodium Chloride 0.9% 10 ML Syringe FLUSH PRN (18:15)
--- NOTE | 2018-08-17 18:24 | EDM.PDOC ---
ED HPI GENERAL MEDICAL PROBLEM - General Chief Complaint: Abdominal Pain Stated Complaint: PAIN IN ABDOMEN Time Seen by Provider: 08/17/18 18:22 Source of Information: Reports: Patient History Limitations: Reports: No Limitations - History of Present Illness INITIAL COMMENTS - FREE TEXT/NARRATIVE: HISTORY AND PHYSICAL: History of present illness: Patient is an 83-year-old male who presents to the emergency room today with complaints of low abdominal pain. He states he has not had a bowel movement in 5 -6 days. States he feels a lot of pressure to his low abdomen area. He denies any testicular pain, swelling or erythema. States he is able to void per usual. Patient denies any fever, chills, headache, change in vision, syncope or near syncope. Denies any chest pain, back pain, shortness of breath or cough. Denies any nausea, vomiting or dysuria. Has not noted any blood in urine or stool. Patient has been eating and drinking appropriately. Patient has a medical history of chronic atrial fibrillation, coronary artery stenosis, PVD, hypertension, mitral valve replacement, polymyalgia, pacemaker and TIAs. Review of systems: As per history of present illness and below otherwise all systems reviewed and negative. Past medical history: As per history of present illness and as reviewed below otherwise noncontributory. Surgical history: As per history of present illness and as reviewed below otherwise noncontributory. Social history: See social history for further information Family history: As per history of present illness and as reviewed below otherwise noncontributory. Physical exam: General: Well-developed and well-nourished 83-year-old male. Alert and oriented. Nontoxic appearing and in no acute distress. HEENT: Atraumatic, normocephalic, pupils equal and reactive bilaterally, negative for conjunctival pallor or scleral icterus, mucous membranes moist, TMs normal bilaterally, throat clear, neck supple, nontender, trachea midline. No drooling or trismus noted. No meningeal signs. No hot potato voice noted. Lungs: Clear to auscultation, breath sounds equal bilaterally, chest nontender. Heart: S1S2, regular rate and rhythm without overt murmur Abdomen: Semifirm, obese, nondistended, mild tenderness low mid abdomen. Negative for masses or hepatosplenomegaly. Negative for costovertebral tenderness. Pelvis: Stable nontender. Genitourinary: Deferred. Rectal: Deferred. Skin: Intact, warm, dry. No lesions or rashes noted. Extremities: Atraumatic, moves all extremities per self with difficulty or deficits, negative for cords or calf pain. Neurovascular unremarkable. Neuro: Awake, alert, oriented. Cranial nerves II through XII unremarkable. Cerebellum unremarkable. Motor and sensory unremarkable throughout. Exam nonfocal. Notes: Patient was admitted on 08/14/18 for altered mental status, TIA. After his CT scan, patient had a large bowel movement and states his abdominal pain feels improved. Lab work is unremarkable. CT scan shows Diffuse colitis, most severely involving the descending colon and sigmoid, and probable mild terminal ileitis. No evidence of perforation or abscess. Discussed with Dr Cohen, will treat with Cipro and Flagyl. Supportive care measures were reviewed and discussed. Voices understanding and is agreeable to plan of care. Denies any further questions or concerns at this time. Diagnostics: CBC, CMP, UA, CT abdomen and pelvis Therapeutics: IV fluids Prescription: None Impression: Abdominal pain Colitis Plan: 1. Increase your oral fluids. Take antibiotics as directed. 2. You may take Colace and/or MiraLAX to your regimen for bowel management. 3. Follow-up with your primary care provider as we discussed. Return to the ED as needed and as discussed. Definitive disposition and diagnosis as appropriate pending reevaluation and review of above. Lower Abdomen Pain Score (Numeric/FACES): 9 - Related Data Allergies Allergy/AdvReac Type Severity Reaction Status Date / Time No Known Allergies Allergy Verified 08/17/18 18:16 Home Meds: Home Meds Metoprolol Succinate [Toprol XL] 1 tab PO DAILY 12/01/15 [History] Cyanocobalamin (Vitamin B-12) [Cyanocobalamin Injection] 1 ml IM ASDIRECTED 01/18 [History] predniSONE [Prednisone] 1 tab PO DAILY 05/11/17 [History] atorvaSTATin [Lipitor] 1 tab PO BEDTIME 05/06/18 [History] levETIRAcetam [Keppra] 1 tab PO BID 08/14/18 [History] Apixaban [Eliquis] 2.5 mg PO DAILY 08/17/18 [History] Ciprofloxacin HCl [Cipro] 500 mg PO BID 7 Days #14 tablet 08/17/18 [Rx] metroNIDAZOLE [Flagyl] 500 mg PO Q12H 7 Days #14 tab 08/17/18 [Rx] Past Medical History - Past Health History Medical/Surgical History: Denies Medical/Surgical History HEENT History: Reports: Cataract, Impaired Vision Cardiovascular History: Reports: Afib, CAD, Heart Valve Replacement, Hypertension, Pacemaker Respiratory History: Reports: None Gastrointestinal History: Reports: Chronic Constipation Genitourinary History: Reports: BPH Musculoskeletal History: Reports: Fracture Neurological History: Reports: CVA, TIA Psychiatric History: Reports: Addiction Other Psychiatric History: Alcohol abuse Endocrine/Metabolic History: Reports: None Hematologic History: Reports: Blood Transfusion(s) Immunologic History: Reports: None Oncologic (Cancer) History: Reports: None Other Oncologic History: skin cancer on top of head and face Dermatologic History: Reports: Melanoma Other Dermatologic History: has radiation treatment for cancer. Melanoma to top of head. - Infectious Disease History Infectious Disease History: Reports: Chicken Pox, Measles, Mumps - Past Surgical History HEENT Surgical History: Reports: Cataract Surgery Cardiovascular Surgical History: Reports: Carotid Endarterectomy, Coronary Artery Bypass, Valve Replacement, Other (See Below) Other Cardiovascular Surgeries/Procedures: pacemaker and porcine mitral valve Social & Family History - Family History Family Medical History: Noncontributory HEENT: Reports: None Cardiac: Reports: Afib, High Cholesterol, Hypertension Respiratory: Reports: None GI: Reports: None : Reports: None OBGYN: Reports: None Musculoskeletal: Reports: Arthritis, Osteoarthritis, Osteoporosis Neurological: Reports: None Psychiatric: Reports: None Endocrine/Metabolic: Reports: None Hematologic: Reports: None Immunologic: Reports: None Dermatologic: Reports: None Oncologic: Reports: None - Caffeine Use Caffeine Use: Reports: Coffee, Soda Other Caffeine Use: Cup a day Caffeine Use Comment: 1 drink/day - Living Situation & Occupation Living situation: Reports: with Significant Other Occupation: Employed ED ROS GENERAL - Review of Systems Review Of Systems: ROS reveals no pertinent complaints other than HPI. ED EXAM, RENAL/ - Physical Exam Exam: See Below (See dictation) Course - Vital Signs Last Recorded V/S: Last Vital Signs Temp 97.6 F 08/17/18 18:18 Pulse 83 08/17/18 19:20 Resp 18 08/17/18 19:20 BP 178/99 H 08/17/18 20:14 Pulse Ox 97 08/17/18 19:20 - Orders/Labs/Meds Orders: Active Orders 24 hr Category Date Time Status Communication Order [RC] STAT Care 08/17/18 19:22 Active UA RFX JADEN AND CULT IF INDIC [URIN] Stat Lab 08/17/18 18:15 Ordered Ciprofloxacin [Ciprofloxacin HCl] Med 08/17/18 20:39 Once 500 mg PO ONETIME ONE Sodium Chloride 0.9% [Normal Saline] 1,000 ml Med 08/17/18 19:22 Active IV STAT Sodium Chloride 0.9% [Saline Flush] Med 08/17/18 18:15 Active 10 ml FLUSH ASDIRECTED PRN Sodium Chloride 0.9% [Saline Flush] Med 08/17/18 18:15 Active 2.5 ml FLUSH ASDIRECTED PRN metroNIDAZOLE Med 08/17/18 20:39 Once 500 mg PO ONETIME ONE Saline Lock Insert [OM.PC] Stat Oth 08/17/18 18:15 Ordered Medication Orders Sodium Chloride (Normal Saline) 1,000 mls @ 125 mls/hr IV STAT ONE Stop: 08/18/18 03:21 Last Admin: 08/17/18 20:14 Dose: 125 mls/hr Sodium Chloride (Saline Flush) 10 ml FLUSH ASDIRECTED PRN PRN Reason: Keep Vein Open Sodium Chloride (Saline Flush) 2.5 ml FLUSH ASDIRECTED PRN PRN Reason: Keep Vein Open Labs: Laboratory Tests 08/17/18 08/17/18 Range/Units 18:49 18:49 WBC 8.92 (4.0-11.0) K/uL RBC 4.47 L (4.50-5.90) M/uL Hgb 14.6 (13.0-17.0) g/dL Hct 42.8 (38.0-50.0) % MCV 95.7 (80.0-98.0) fL MCH 32.7 H (27.0-32.0) pg MCHC 34.1 (31.0-37.0) g/dL RDW Std Deviation 47.2 (28.0-62.0) fl RDW Coeff of Ryan 14 (11.0-15.0) % Plt Count 201 (150-400) K/uL MPV 9.90 (7.40-12.00) fL Neut % (Auto) 78.1 (48.0-80.0) % Lymph % (Auto) 11.5 L (16.0-40.0) % Richardson % (Auto) 9.2 (0.0-15.0) % Eos % (Auto) 1.0 (0.0-7.0) % Baso % (Auto) 0.2 (0.0-1.5) % Neut # (Auto) 7.0 H (1.4-5.7) K/uL Lymph # (Auto) 1.0 (0.6-2.4) K/uL Richardson # (Auto) 0.8 (0.0-0.8) K/uL Eos # (Auto) 0.1 (0.0-0.7) K/uL Baso # (Auto) 0.0 (0.0-0.1) K/uL Sodium 145 (136-148) mmol/L Potassium 4.6 (3.5-5.1) mmol/L Chloride 108 H (98-107) mmol/L Carbon Dioxide 27.0 (21.0-32.0) mmol/L BUN 15 (7.0-18.0) mg/dL Creatinine 0.8 (0.8-1.3) mg/dL Est Cr Clr Drug Dosing 75.82 mL/min Estimated GFR (MDRD) > 60.0 ml/min Glucose 124 H (74-106) mg/dL Calcium 9.5 (8.5-10.1) mg/dL Total Bilirubin 1.0 (0.2-1.0) mg/dL AST 24 (15-37) IU/L ALT 43 (14-63) IU/L Alkaline Phosphatase 57 (46-116) U/L Total Protein 7.5 (6.4-8.2) g/dL Albumin 3.5 (3.4-5.0) g/dL Globulin 4.0 (2.6-4.0) g/dL Albumin/Globulin Ratio 0.9 (0.9-1.6) Meds: Medications Generic Name Dose Route Start Last Admin Trade Name Freq PRN Reason Stop Dose Admin Sodium Chloride 1,000 mls @ 125 mls/hr 08/17/18 19:22 08/17/18 20:14 Normal Saline IV 08/18/18 03:21 125 mls/hr STAT ONE Administration Sodium Chloride 10 ml 08/17/18 18:15 Saline Flush FLUSH ASDIRECTED PRN Keep Vein Open Sodium Chloride 2.5 ml 08/17/18 18:15 Saline Flush FLUSH ASDIRECTED PRN Keep Vein Open Discontinued Medications Generic Name Dose Route Start Last Admin Trade Name Manishq PRN Reason Stop Dose Admin Iopamidol 100 ml 08/17/18 20:00 08/17/18 20:00 Isovue Multipack-370 (76%) IVPUSH 08/17/18 20:01 100 ml ONETIME ONE Administration Departure - Departure Time of Disposition: 20:23 Disposition: Home, Self-Care 01 Clinical Impression: Colitis Abdominal pain Qualifiers: Abdominal location: lower abdomen, unspecified Qualified Code(s): R10.30 - Lower abdominal pain, unspecified - Discharge Information Prescriptions: Ciprofloxacin HCl [Cipro] 500 mg PO BID 7 Days #14 tablet metroNIDAZOLE [Flagyl] 500 mg PO Q12H 7 Days #14 tab Instructions: Abdominal Pain, Adult Referrals: PCP,None [Primary Care Provider] - Forms: ED Department Discharge Additional Instructions: The following information is given to patients seen in the emergency department who are being discharged to home. This information is to outline your options for follow-up care. We provide all patients seen in our emergency department with a follow-up referral. The need for follow-up, as well as the timing and circumstances, are variable depending upon the specifics of your emergency department visit. If you don't have a primary care physician on staff, we will provide you with a referral. We always advise you to contact your personal physician following an emergency department visit to inform them of the circumstance of the visit and for follow-up with them and/or the need for any referrals to a consulting specialist. The emergency department will also refer you to a specialist when appropriate. This referral assures that you have the opportunity for follow-up care with a specialist. All of these measure are taken in an effort to provide you with optimal care, which includes your follow-up. Under all circumstances we always encourage you to contact your private physician who remains a resource for coordinating your care. When calling for follow-up care, please make the office aware that this follow-up is from your recent emergency room visit. If for any reason you are refused follow-up, please contact the [facility] Emergency Department at and asked to speak to the emergency department charge nurse. [facility] [address] [place] [address] [facility] [address] [place] [id number] 1. Increase your oral fluids. Take antibiotics as directed. 2. You may take Colace and/or MiraLAX to your regimen for bowel management. 3. Follow-up with your primary care provider as we discussed. Return to the ED as needed and as discussed. - My Orders Last 24 Hours: My Active Orders 08/17/18 18:15 UA RFX JADEN AND CULT IF INDIC [URIN] Stat Sodium Chloride 0.9% [Saline Flush] 10 ml FLUSH ASDIRECTED PRN Sodium Chloride 0.9% [Saline Flush] 2.5 ml FLUSH ASDIRECTED PRN Saline Lock Insert [OM.PC] Stat 08/17/18 19:22 Communication Order [RC] STAT Sodium Chloride 0.9% [Normal Saline] 1,000 ml IV STAT 08/17/18 20:39 Ciprofloxacin [Ciprofloxacin HCl] 500 mg PO ONETIME ONE metroNIDAZOLE 500 mg PO ONETIME ONE - Assessment/Plan Last 24 Hours: My Active Orders 08/17/18 18:15 UA RFX JADEN AND CULT IF INDIC [URIN] Stat Sodium Chloride 0.9% [Saline Flush] 10 ml FLUSH ASDIRECTED PRN Sodium Chloride 0.9% [Saline Flush] 2.5 ml FLUSH ASDIRECTED PRN Saline Lock Insert [OM.PC] Stat 08/17/18 19:22 Communication Order [RC] STAT Sodium Chloride 0.9% [Normal Saline] 1,000 ml IV STAT 08/17/18 20:39 Ciprofloxacin [Ciprofloxacin HCl] 500 mg PO ONETIME ONE metroNIDAZOLE 500 mg PO ONETIME ONE
[2018-08-17 19:16] LABS: CHLORIDE,CL 108 mmol/L (98-107); SODIUM,NA 145 mmol/L (136-148)
[2018-08-17] MEDS ORDERED: Sodium Chloride 0.9% 1,000 ML IV ONE (19:22)
[2018-08-17] MEDS ORDERED: Iopamidol 755 MG/ML 500 ML Multipack Bottle IVPUSH ONE (20:00)
--- NOTE | 2018-08-17 20:26 | CT ---
INDICATION: Lower abdominal pain for [address] ABDOMEN AND PELVIS WITH CONTRAST TECHNIQUE: Multidetector CT imaging was performed through the abdomen and pelvis following intravenous contrast administration using 100 mL Isovue 370. Coronal and sagittal reconstructions were generated. COMPARISON: None. FINDINGS: The exam is mildly limited by motion. Lower chest: Mild to moderate bibasilar lung atelectasis and/or fibrosis. Trace bilateral pleural effusions. Cardiac pacemaker. Liver: Within normal limits. Gallbladder and bile ducts: No gallbladder wall thickening or calcified gallstones. No biliary dilation identified. Pancreas: Unremarkable. Spleen: Normal. Adrenals: No nodules or masses. Kidneys, ureters, and urinary bladder: Small bilateral renal cysts. No hydronephrosis. Mild diffuse wall thickening and trabeculation of the urinary bladder. Gastrointestinal tract: Small hiatal hernia. No bowel obstruction. Diffuse wall thickening of the colon, most marked involving the descending colon and sigmoid, with pericolonic fat stranding, consistent with colitis. Probable mild wall thickening of the terminal ileum also noted. No appendicitis. Multiple colon diverticula. Vascular structures: Normal caliber abdominal aorta. [id number] aortoiliac atherosclerotic calcifications. Peritoneum: No free air, abscess, or significant free fluid. Lymph nodes: No pathologically enlarged nodes identified. Reproductive organs: Moderate prostatomegaly. Bones: Spinal degenerative changes. Incidental intramuscular lipoma lateral to the right hip. IMPRESSION: 1. Diffuse colitis, most severely involving the descending colon and sigmoid, and probable mild terminal ileitis. No evidence of perforation or abscess. 2. Multiple nonacute additional findings as detailed above. LUCIANO YEUNG MD [employer] [facility] Dictated by Sushil Yeung MD @ 08/17/2018 8:18:25 PM Dictated by: Sushil Yeung MD @ 08/17/2018 20:24:57 (Electronically Signed)
[2018-08-17] MEDS ORDERED: metroNIDAZOLE 250 MG Tab PO ONE (20:39)
[2018-08-17] MEDS ORDERED: Ciprofloxacin 500 MG Tab PO ONE (20:39)
[2018-08-17 21:01] VITALS: BP 182/85
== END 2018-08-17 21:01 | disposition home or self-care (01) ==
LOC: MW.ED 18:09
DX: K52.9 Noninfective gastroenteritis and colitis, unspecified (principal); I48.91 Unspecified atrial fibrillation; I10 Essential (primary) hypertension; Z95.0 Presence of cardiac pacemaker; Z79.899 Other long term (current) drug therapy; Z95.4 Presence of other heart-valve replacement; Z79.01 Long term (current) use of anticoagulants
CPT/HCPCS: 36415; 74177; 80053; 85025; 96360; 99284; A9270; J7040; Q9967; 99283

== ENCOUNTER 2018-10-13 10:32 | Emergency (ER) | payer MEDICARE, OTHER ==
[2018-10-13 10:45] VITALS: BP 171/89
[2018-10-13] MEDS ORDERED: Bacitracin Oint 1 GM U/D Packet TOP ONE (10:59)
--- NOTE | 2018-10-13 10:59 | EDM.PDOC ---
ED HPI GENERAL MEDICAL PROBLEM - General Chief Complaint: Laceration Stated Complaint: LACERATION ON FOOT Time Seen by Provider: 10/13/18 10:40 Source of Information: Reports: Patient History Limitations: Reports: No Limitations - History of Present Illness INITIAL COMMENTS - FREE TEXT/NARRATIVE: HISTORY AND PHYSICAL: History of present illness: Patient is an 83-year-old male presents to the ED today with concern of a left ankle laceration that occurred when he was walking outside with his . Patient states there was a step up bleeding into a door in his left foot had gotten caught on the step and the door came in on his left ankle. Patient states he did fall forward onto his knees and his elbows but is not having any pain or discomfort. Patient states his only concern today is a laceration on his left ankle. Patient denies hitting his head or losing consciousness. Patient denies feeling dizzy or lightheaded prior to the fall. Patient is on a daily aspirin and a daily blood thinner. Patient states he has recently had a tetanus vaccine. Patient denies fever, chills, chest pain, shortness of breath, or cough. Denies headache, neck stiff ness, change in vision, syncope, or near syncope. Denies nausea, vomiting, abdominal pain, diarrhea, constipation, or dysuria. Has not noted any blood in urine or stool. Patient has been eating and drinking appropriately. Review of systems: As per history of present illness and below otherwise all systems reviewed and negative. Past medical history: As per history of present illness and as reviewed below otherwise noncontributory. Surgical history: As per history of present illness and as reviewed below otherwise noncontributory. Social history: See social history for further information Family history: As per history of present illness and as reviewed below otherwise noncontributory. Physical exam: General: Patient is alert, oriented, and in no acute distress. Patient sitting comfortably on exam table. HEENT: Atraumatic, normocephalic, pupils equal and reactive bilaterally, negative for conjunctival pallor or scleral icterus, mucous membranes moist, TMs normal bilaterally, throat clear, neck supple, nontender, trachea midline. No drooling or trismus noted. No meningeal signs. No hot potato voice noted. Lungs: Clear to auscultation, breath sounds equal bilaterally, chest nontender. Heart: S1S2, regular rate and rhythm without overt murmur Abdomen: Soft, nondistended, nontender. Negative for masses or hepatosplenomegaly. Negative for costovertebral tenderness. Pelvis: Stable nontender. Genitourinary: Deferred. Rectal: Deferred. Skin: Intact, warm, dry. No lesions or rashes noted. Extremities: negative for cords or calf pain. Neurovascular unremarkable. There is a 5-6cm laceration, into the subcutaneous tissue, over the medial malleolus of the left ankle without bleeding. DP/PT intact. cap refill <2 seconds. Neuro: Awake, alert, oriented. Cranial nerves II through XII unremarkable. Cerebellum unremarkable. Motor and sensory unremarkable throughout. Exam nonfocal. Notes: Trauma alert was called upon arrival to the ED. Dr. Nevarez directly involved in patient care. Voices understanding and is agreeable to plan of care. Denies any further questions or concerns at this time. Diagnostics: CBC, CMP, troponin, UA, EKG, left ankle x-ray, chest x-ray one view, pelvic and x-ray Therapeutics: Lidocaine, sutures, bacitracin, pressure dressing Prescription: None Impression: Ankle laceration Plan: 1. Keep the area clean and dry. Continue to monitor for signs of infection as discussed. Sutures to be removed in 7-10 days. 2. Tylenol and/or ibuprofen as directed and as needed for pain management and discomfort. 3. Please follow-up with your primary care provider as discussed. Return to the ED as needed and as discussed. Definitive disposition and diagnosis as appropriate pending reevaluation and review of above. - Related Data Allergies Allergy/AdvReac Type Severity Reaction Status Date / Time No Known Allergies Allergy Verified 08/17/18 18:16 Home Meds: Home Meds Metoprolol Succinate [Toprol XL] 1 tab PO DAILY 12/01/15 [History] Cyanocobalamin (Vitamin B-12) [Cyanocobalamin Injection] 1 ml IM ASDIRECTED 01/18 [History] predniSONE [Prednisone] 1 tab PO DAILY 05/11/17 [History] atorvaSTATin [Lipitor] 1 tab PO BEDTIME 05/06/18 [History] levETIRAcetam [Keppra] 1 tab PO BID 08/14/18 [History] Aspirin 325 mg PO DAILY 10/13/18 [History] Dabigatran Etexilate Mesylate [Pradaxa] 75 mg PO DAILY 10/13/18 [History] Lisinopril 20 mg PO DAILY 10/13/18 [History] Past Medical History - Past Health History Medical/Surgical History: Denies Medical/Surgical History HEENT History: Reports: Cataract, Impaired Vision Cardiovascular History: Reports: Afib, CAD, Heart Valve Replacement, Hypertension, Pacemaker Respiratory History: Reports: None Gastrointestinal History: Reports: Chronic Constipation Genitourinary History: Reports: BPH Musculoskeletal History: Reports: Fracture Neurological History: Reports: CVA, TIA Psychiatric History: Reports: Addiction Other Psychiatric History: Alcohol abuse Endocrine/Metabolic History: Reports: None Hematologic History: Reports: Blood Transfusion(s) Immunologic History: Reports: None Oncologic (Cancer) History: Reports: None Other Oncologic History: skin cancer on top of head and face Dermatologic History: Reports: Melanoma Other Dermatologic History: has radiation treatment for cancer. Melanoma to top of head. - Infectious Disease History Infectious Disease History: Reports: Chicken Pox, Measles, Mumps - Past Surgical History HEENT Surgical History: Reports: Cataract Surgery Cardiovascular Surgical History: Reports: Carotid Endarterectomy, Coronary Artery Bypass, Valve Replacement, Other (See Below) Other Cardiovascular Surgeries/Procedures: pacemaker and porcine mitral valve Social & Family History - Family History Family Medical History: Noncontributory HEENT: Reports: None Cardiac: Reports: Afib, High Cholesterol, Hypertension Respiratory: Reports: None GI: Reports: None : Reports: None OBGYN: Reports: None Musculoskeletal: Reports: Arthritis, Osteoarthritis, Osteoporosis Neurological: Reports: None Psychiatric: Reports: None Endocrine/Metabolic: Reports: None Hematologic: Reports: None Immunologic: Reports: None Dermatologic: Reports: None Oncologic: Reports: None - Tobacco Use Smoking Status *Q: Never Smoker - Caffeine Use Caffeine Use: Reports: Coffee, Soda Other Caffeine Use: Cup a day Caffeine Use Comment: 1 drink/day - Recreational Drug Use Recreational Drug Use: No - Living Situation & Occupation Living situation: Reports: with Significant Other Occupation: Employed ED ROS GENERAL - Review of Systems Review Of Systems: ROS reveals no pertinent complaints other than HPI. ED EXAM, SKIN/RASH Exam: See Below (See dictation) ED SKIN PROCEDURES - Laceration/Wound Repair Left Medial Ankle Lac/Wound length In cm: 6 Appearance: Subcutaneous, Muscle, Irregular, Clean Distal NVT: Neuro & Vascular Intact, No Tendon Injury Anesthetic Type: Local Local Anesthesia - Lidocaine (Xylocaine): 1% Plain Local Anesthetic Volume: Other (10cc) Skin Prep: Chlorhexidine (Hibiciens) Saline Irrigation (cc's): 30 Exploration/Debridement/Repair: Wound Explored, Explored to Base, No Foreign Material Found Closed with: Sutures Suture Size: 4-0 # of Sutures: 16 Suture Type: Silk, Interrupted Drain Placement: No Sterile Dressing Applied: Nurse (pressure dressing) Tetanus Status Addressed: Yes (up to date) Complications: No Course - Vital Signs Last Recorded V/S: Last Vital Signs Temp 35.5 C 10/13/18 10:40 Pulse 74 10/13/18 10:40 Resp 18 10/13/18 10:40 BP 171/89 H 10/13/18 10:40 Pulse Ox 99 10/13/18 10:40 - Orders/Labs/Meds Orders: Active Orders 24 hr Category Date Time Status Admission Status [Patient Status] [ADT] Stat ADT 10/13/18 12:04 Active EKG Documentation Completion [RC] STAT Care 10/13/18 10:52 Active Labs: Laboratory Tests 10/13/18 10/13/18 10/13/18 Range/Units 11:06 11:06 11:34 WBC 8.06 (4.0-11.0) K/uL RBC 4.22 L (4.50-5.90) M/uL Hgb 13.6 (13.0-17.0) g/dL Hct 41.2 (38.0-50.0) % MCV 97.6 (80.0-98.0) fL MCH 32.2 H (27.0-32.0) pg MCHC 33.0 (31.0-37.0) g/dL RDW Std Deviation 52.4 (28.0-62.0) fl RDW Coeff of Ryan 15 (11.0-15.0) % Plt Count 188 (150-400) K/uL MPV 10.00 (7.40-12.00) fL Neut % (Auto) 63.9 (48.0-80.0) % Lymph % (Auto) 24.6 (16.0-40.0) % [place] % (Auto) 9.3 (0.0-15.0) % Eos % (Auto) 2.0 (0.0-7.0) % Baso % (Auto) 0.2 (0.0-1.5) % Neut # (Auto) 5.2 (1.4-5.7) K/uL Lymph # (Auto) 2.0 (0.6-2.4) K/uL [place] # (Auto) 0.8 (0.0-0.8) K/uL Eos # (Auto) 0.2 (0.0-0.7) K/uL Baso # (Auto) 0.0 (0.0-0.1) K/uL Nucleated RBC % 0.0 /100WBC Nucleated RBCs # 0 K/uL Sodium 141 (136-148) mmol/L Potassium 4.6 (3.5-5.1) mmol/L Chloride 107 (98-107) mmol/L Carbon Dioxide 26.9 (21.0-32.0) mmol/L BUN 9 (7.0-18.0) mg/dL Creatinine 0.8 (0.8-1.3) mg/dL Est Cr Clr Drug Dosing 75.82 mL/min Estimated GFR (MDRD) > 60.0 ml/min Glucose 102 (74-106) mg/dL Calcium 8.8 (8.5-10.1) mg/dL Total Bilirubin 0.9 (0.2-1.0) mg/dL AST 18 (15-37) IU/L ALT 23 (14-63) IU/L Alkaline Phosphatase 52 (46-116) U/L Troponin I < 0.050 (0.000-0.056) ng/mL Total Protein 7.0 (6.4-8.2) g/dL Albumin 3.6 (3.4-5.0) g/dL Globulin 3.4 (2.6-4.0) g/dL Albumin/Globulin Ratio 1.1 (0.9-1.6) Urine Color YELLOW Urine Appearance CLEAR Urine pH 6.0 (5.0-8.0) Ur Specific [place] <= 1.005 (1.001-1.035) Urine Protein NEGATIVE (NEGATIVE) mg/dL Urine Glucose (UA) NEGATIVE (NEGATIVE) mg/dL Urine Ketones NEGATIVE (NEGATIVE) mg/dL Urine Occult Blood NEGATIVE (NEGATIVE) Urine Nitrite NEGATIVE (NEGATIVE) Urine Bilirubin NEGATIVE (NEGATIVE) Urine Urobilinogen 0.2 (<2.0) EU/dL Ur Leukocyte Esterase NEGATIVE (NEGATIVE) Meds: Medications Discontinued Medications Generic Name Dose Route Start Last Admin Trade Name Clemencia PRN Reason Stop Dose Admin Bacitracin 1 dose 10/13/18 10:59 10/13/18 11:58 Bacitracin Oint 1 Gm TOP 10/13/18 11:00 1 dose ONETIME ONE Administration Lidocaine HCl 5 ml 10/13/18 10:59 10/13/18 11:58 Xylocaine-Mpf 1% INJECT 10/13/18 11:00 5 ml ONETIME ONE Administration Lidocaine HCl 5 ml 10/13/18 11:29 10/13/18 11:58 Xylocaine-Mpf 1% INJECT 10/13/18 11:30 5 ml ONETIME ONE Administration Departure - Departure Time of Disposition: 12:47 Disposition: Home, Self-Care 01 Clinical Impression: Laceration of ankle Qualifiers: Encounter type: initial encounter Laterality: left Qualified Code(s): S91.012A - Laceration without foreign body, left ankle, initial encounter - Discharge Information Instructions: Laceration Care, Adult, [id number] Referrals: Yevgeniy Murguia MD [Primary Care Provider] - Forms: ED Department Discharge Additional Instructions: The following information is given to patients seen in the emergency department who are being discharged to home. This information is to outline your options for follow-up care. We provide all patients seen in our emergency department with a follow-up referral. The need for follow-up, as well as the timing and circumstances, are variable depending upon the specifics of your emergency department visit. If you don't have a primary care physician on staff, we will provide you with a referral. We always advise you to contact your personal physician following an emergency department visit to inform them of the circumstance of the visit and for follow-up with them and/or the need for any referrals to a consulting specialist. The emergency department will also refer you to a specialist when appropriate. This referral assures that you have the opportunity for follow-up care with a specialist. All of these measure are taken in an effort to provide you with optimal care, which includes your follow-up. Under all circumstances we always encourage you to contact your private physician who remains a resource for coordinating your care. When calling for follow-up care, please make the office aware that this follow-up is from your recent emergency room visit. If for any reason you are refused follow-up, please contact the [facility] Emergency Department at and asked to speak to the emergency department charge nurse. [facility] [address] [place] [address] [facility] [address] [place] [id number] 1. Keep the area clean and dry. Continue to monitor for signs of infection as discussed. Sutures to be removed in 7-10 days. 2. Tylenol and/or ibuprofen as directed and as needed for pain management and discomfort. 3. Please follow-up with your primary care provider as discussed. Return to the ED as needed and as discussed. - My Orders Last 24 Hours: My Active Orders 10/13/18 10:52 EKG Documentation Completion [RC] STAT 10/13/18 12:04 Admission Status [Patient Status] [ADT] Stat - Assessment/Plan Last 24 Hours: My Active Orders 10/13/18 10:52 EKG Documentation Completion [RC] STAT 10/13/18 12:04 Admission Status [Patient Status] [ADT] Stat
[2018-10-13 11:44] LABS: CHLORIDE,CL 107 mmol/L (98-107); SODIUM,NA 141 mmol/L (136-148)
--- NOTE | 2018-10-13 12:14 | CR ---
EXAMINATION: Left ankle HISTORY: Pain COMPARISON: None TECHNIQUE: 3 views FINDINGS/IMPRESSION: There is likely a soft tissue laceration with adjacent edema overlying the medial malleolus. The visualized underlying osseous structures appear intact however osteopenic. No fracture or acute osseous abnormality.
--- NOTE | 2018-10-13 12:16 | CR ---
EXAMINATION: Portable chest radiograph. HISTORY: Fall. Comparison: 08/14/2018, 05/06/2018. FINDINGS: The trachea is midline. The cardiomediastinal silhouette is within normal limits. No pulmonary infiltrates, effusions or pneumothorax. Left-sided pacemaker is noted. Mild left basilar atelectasis. Vague nodular density projecting over the left apex. Median sternotomy wires are noted. Osseous structures appear osteopenic. IMPRESSION: 1. Mild left basal atelectasis. 2. Vague nodular density projecting over the left apex, not significantly changed from prior radiographs however follow-up with a CT may be beneficial.
--- NOTE | 2018-10-13 12:20 | CR ---
EXAMINATION: Pelvis HISTORY: Pain COMPARISON: CT dated 08/17/2018 TECHNIQUE: AP view FINDINGS: There is no acute osseous abnormality, dislocation, or fracture. Bone mineralization appears normal. Mild joint space narrowing within the hips bilaterally with early osteophyte formation. SI joints are symmetric. The iliopectineal and ilioinguinal lines are intact. Mild vascular calcifications. IMPRESSION: Mild degenerative changes within the hips without acute osseous abnormality identified.
== END 2018-10-13 13:33 | disposition home or self-care (01) ==
LOC: MW.ED 10:32
DX: S91.012A Laceration without foreign body, left ankle, initial encounter (principal); I10 Essential (primary) hypertension; I25.10 Atherosclerotic heart disease of native coronary artery without angina pectoris; I48.91 Unspecified atrial fibrillation; Z79.899 Other long term (current) drug therapy; Z86.73 Personal history of transient ischemic attack (TIA), and cerebral infarction without residual deficits; W22.8XXA Striking against or struck by other objects, initial encounter; W19.XXXA Unspecified fall, initial encounter
CPT/HCPCS: 12002; 36415; 71045; 72170; 73610; 80053; 81003; 84484; 85025; 99283; J2001

== ENCOUNTER 2018-10-16 08:20 | Emergency (ER) | payer MEDICARE, OTHER ==
[2018-10-16 08:39] VITALS: BP 124/56
[2018-10-16] MEDS ORDERED: Bacitracin Oint 1 GM U/D Packet TOP ONE (08:45)
--- NOTE | 2018-10-16 08:55 | EDM.PDOC ---
ED HPI GENERAL MEDICAL PROBLEM - General Chief Complaint: Lower Extremity Injury/Pain Stated Complaint: PAIN ON LT ANKLE Time Seen by Provider: 10/16/18 08:37 - History of Present Illness INITIAL COMMENTS - FREE TEXT/NARRATIVE: HISTORY AND PHYSICAL: History of present illness: Patient is a 83-year-old male presents with concern of recent left ankle injury which he sustained a laceration this was sutured x-ray was obtained he returns now with small oozing from the wound no other complaints. Review of systems: As per history of present illness and below otherwise all systems reviewed and negative. Past medical history: As per history of present illness and as reviewed below otherwise noncontributory. Surgical history: As per history of present illness and as reviewed below otherwise noncontributory. Social history: No reported history of drug or alcohol abuse. Family history: As per history of present illness and as reviewed below otherwise noncontributory. Physical exam: HEENT: Atraumatic, normocephalic, pupils reactive, negative for conjunctival pallor or scleral icterus, mucous membranes moist, throat clear, neck supple, nontender, trachea midline. Lungs: Clear to auscultation, breath sounds equal bilaterally, chest nontender. Heart: S1S2, regular, negative for clicks, rubs, or JVD. Abdomen: Soft, nondistended, nontender. Negative for masses or hepatosplenomegaly. Negative for costovertebral tenderness. Pelvis: Stable nontender. Genitourinary: Deferred. Rectal: Deferred. Extremities: Sutures in place at left ankle no active bleeding no evidence of superinfection moderate swelling noted neurovascular exam unremarkable Neuro: Awake, alert, oriented. Cranial nerves II through XII unremarkable. Cerebellum unremarkable. Motor and sensory unremarkable throughout. Exam nonfocal. Diagnostics: None Therapeutics: Dressing change Impression: #1 wound check history of ankle injury with laceration Definitive disposition and diagnosis as appropriate pending reevaluation and review of above. Left Ankle Pain Score (Numeric/FACES): 8 - Related Data Allergies Allergy/AdvReac Type Severity Reaction Status Date / Time No Known Allergies Allergy Verified 10/16/18 08:33 Home Meds: Home Meds Metoprolol Succinate [Toprol XL] 1 tab PO DAILY 12/01/15 [History] Cyanocobalamin (Vitamin B-12) [Cyanocobalamin Injection] 1 ml IM ASDIRECTED 01/18 [History] predniSONE [Prednisone] 1 tab PO DAILY 05/11/17 [History] atorvaSTATin [Lipitor] 1 tab PO BEDTIME 05/06/18 [History] levETIRAcetam [Keppra] 1 tab PO BID 08/14/18 [History] Aspirin 325 mg PO DAILY 10/13/18 [History] Dabigatran Etexilate Mesylate [Pradaxa] 75 mg PO DAILY 10/13/18 [History] Lisinopril 20 mg PO DAILY 10/13/18 [History] Past Medical History - Past Health History Medical/Surgical History: Denies Medical/Surgical History HEENT History: Reports: Cataract, Impaired Vision Cardiovascular History: Reports: Afib, CAD, Heart Valve Replacement, Hypertension, Pacemaker Respiratory History: Reports: None Gastrointestinal History: Reports: Chronic Constipation Genitourinary History: Reports: BPH Musculoskeletal History: Reports: Fracture Neurological History: Reports: CVA, TIA Psychiatric History: Reports: Addiction Other Psychiatric History: Alcohol abuse Endocrine/Metabolic History: Reports: None Hematologic History: Reports: Blood Transfusion(s) Immunologic History: Reports: None Oncologic (Cancer) History: Reports: None Other Oncologic History: skin cancer on top of head and face Dermatologic History: Reports: Melanoma Other Dermatologic History: has radiation treatment for cancer. Melanoma to top of head. - Infectious Disease History Infectious Disease History: Reports: Chicken Pox, Measles, Mumps - Past Surgical History HEENT Surgical History: Reports: Cataract Surgery Cardiovascular Surgical History: Reports: Carotid Endarterectomy, Coronary Artery Bypass, Valve Replacement, Other (See Below) Other Cardiovascular Surgeries/Procedures: pacemaker and porcine mitral valve Social & Family History - Family History Family Medical History: Noncontributory HEENT: Reports: None Cardiac: Reports: Afib, High Cholesterol, Hypertension Respiratory: Reports: None GI: Reports: None : Reports: None OBGYN: Reports: None Musculoskeletal: Reports: Arthritis, Osteoarthritis, Osteoporosis Neurological: Reports: None Psychiatric: Reports: None Endocrine/Metabolic: Reports: None Hematologic: Reports: None Immunologic: Reports: None Dermatologic: Reports: None Oncologic: Reports: None - Tobacco Use Smoking Status *Q: Never Smoker Second Hand Smoke Exposure: No - Caffeine Use Caffeine Use: Reports: Coffee Other Caffeine Use: Cup a day Caffeine Use Comment: 1 drink/day - Alcohol Use Days Per Week of Alcohol Use: 7 Number of Drinks Per Day: 2 Total Drinks Per Week: 14 - Recreational Drug Use Recreational Drug Use: No - Living Situation & Occupation Living situation: Reports: with Significant Other Occupation: Employed Review of Systems - Review of Systems Review Of Systems: ROS reveals no pertinent complaints other than HPI. ED EXAM, GENERAL - Physical Exam Exam: See Below (See dictation) Course - Vital Signs Last Recorded V/S: Last Vital Signs Temp 36.2 C 10/16/18 08:29 Pulse 81 10/16/18 08:29 Resp 18 10/16/18 08:29 BP 124/56 L 10/16/18 08:29 Pulse Ox 96 10/16/18 08:29 - Orders/Labs/Meds Meds: Medications Discontinued Medications Generic Name Dose Route Start Last Admin Trade Name Freq PRN Reason Stop Dose Admin Bacitracin 1 dose 10/16/18 08:45 10/16/18 08:50 Bacitracin Oint 1 Gm TOP 10/16/18 08:46 1 dose ONETIME ONE Administration Departure - Departure Time of Disposition: 08:54 Disposition: Home, Self-Care 01 Condition: Good Clinical Impression: Encounter for wound re-check, Encounter for medical screening examination - Discharge Information Referrals: Yevgeniy Murguia MD [Primary Care Provider] - Additional Instructions: The following information is given to patients seen in the emergency department who are being discharged to home. This information is to outline your options for follow-up care. We provide all patients seen in our emergency department with a follow-up referral. The need for follow-up, as well as the timing and circumstances, are variable depending upon the specifics of your emergency department visit. If you don't have a primary care physician on staff, we will provide you with a referral. We always advise you to contact your personal physician following an emergency department visit to inform them of the circumstance of the visit and for follow-up with them and/or the need for any referrals to a consulting specialist. The emergency department will also refer you to a specialist when appropriate. This referral assures that you have the opportunity for followup care with a specialist. All of these measure are taken in an effort to provide you with optimal care, which includes your followup. Under all circumstances we always encourage you to contact your private physician who remains a resource for coordinating your care. When calling for followup care, please make the office aware that this follow-up is from your recent emergency room visit. If for any reason you are refused follow-up, please contact the [facility] emergency department at and asked to speak to the emergency department charge nurse. Continue dressing changes discuss follow-up with private medical doctor as discussed suture removal 10-14 days
== END 2018-10-16 09:08 | disposition home or self-care (01) ==
LOC: MW.ED 08:20
DX: S91.012D Laceration without foreign body, left ankle, subsequent encounter (principal); I10 Essential (primary) hypertension; I48.91 Unspecified atrial fibrillation; I25.10 Atherosclerotic heart disease of native coronary artery without angina pectoris; C43.4 Malignant melanoma of scalp and neck; Z95.0 Presence of cardiac pacemaker; Z79.899 Other long term (current) drug therapy; Z79.82 Long term (current) use of aspirin; Z86.73 Personal history of transient ischemic attack (TIA), and cerebral infarction without residual deficits; Z98.49 Cataract extraction status, unspecified eye; Z95.1 Presence of aortocoronary bypass graft; X58.XXXD Exposure to other specified factors, subsequent encounter
CPT/HCPCS: 99282

== ENCOUNTER 2018-10-25 09:55 | Emergency (ER) | payer MEDICARE, OTHER ==
[2018-10-25 10:12] VITALS: BP 108/68
--- NOTE | 2018-10-25 10:23 | EDM.PDOC ---
ED HPI GENERAL MEDICAL PROBLEM - General Chief Complaint: Gastrointestinal Problem Stated Complaint: BLACK STOOLS Time Seen by Provider: 10/25/18 10:15 - History of Present Illness INITIAL COMMENTS - FREE TEXT/NARRATIVE: HISTORY AND PHYSICAL: History of present illness: Patient needs 83-year-old white male was seen recently for evaluation of injury to his left ankle and possible infection he has had some small oozing from the wound of the left foot was referred to podiatry input on clindamycin from the prior visit he returns now frustrated due to his inability to secure podiatry follow-up and states he's also had some gastroesophageal reflux and dark stools. No chest pain otherwise shortness of breath nausea vomiting dizziness or other complaints Review of systems: As per history of present illness and below otherwise all systems reviewed and negative. Past medical history: As per history of present illness and as reviewed below otherwise noncontributory. Surgical history: As per history of present illness and as reviewed below otherwise noncontributory. Social history: No reported history of drug or alcohol abuse. Family history: As per history of present illness and as reviewed below otherwise noncontributory. Physical exam: HEENT: Atraumatic, normocephalic, pupils reactive, negative for conjunctival pallor or scleral icterus, mucous membranes moist, throat clear, neck supple, nontender, trachea midline. Lungs: Clear to auscultation, breath sounds equal bilaterally, chest nontender. Heart: S1S2, regular, negative for clicks, rubs, or JVD. Abdomen: Soft, nondistended, nontender. Negative for masses or hepatosplenomegaly. Negative for costovertebral tenderness. Pelvis: Stable nontender. Genitourinary: Deferred. Rectal: Deferred. Extremities: Left foot has sutures in place minimal erythema no bleeding CMS neurovascular exam is unremarkable Neuro: Awake, alert, oriented. Cranial nerves II through XII unremarkable. Cerebellum unremarkable. Motor and sensory unremarkable throughout. Exam nonfocal. Diagnostics: CBC CMP PT/INR stool for Hemoccult Therapeutics: None Impression: # 1 medical screening exam #2 esophagitis #3 wound check Definitive disposition and diagnosis as appropriate pending reevaluation and review of above. Epigastric Pain Score (Numeric/FACES): 4 - Related Data Allergies Allergy/AdvReac Type Severity Reaction Status Date / Time No Known Allergies Allergy Verified 10/25/18 10:12 Home Meds: Home Meds Metoprolol Succinate [Toprol XL] 25 mg PO DAILY 12/01/15 [History] Cyanocobalamin (Vitamin B-12) [Cyanocobalamin Injection] 1 ml IM ASDIRECTED 01/18 [History] predniSONE [Prednisone] 5 mg PO DAILY 05/11/17 [History] atorvaSTATin [Lipitor] 40 mg PO BEDTIME 05/06/18 [History] levETIRAcetam [Keppra] 500 mg PO BID 08/14/18 [History] Aspirin 325 mg PO DAILY 10/13/18 [History] Lisinopril 20 mg PO DAILY 10/13/18 [History] Apixaban [Eliquis] 5 mg PO BID 10/25/18 [History] Past Medical History - Past Health History Medical/Surgical History: Denies Medical/Surgical History HEENT History: Reports: Cataract, Impaired Vision Cardiovascular History: Reports: Afib, CAD, Heart Valve Replacement, Hypertension, Pacemaker Respiratory History: Reports: None Gastrointestinal History: Reports: Chronic Constipation Genitourinary History: Reports: BPH Musculoskeletal History: Reports: Fracture Neurological History: Reports: CVA, TIA Psychiatric History: Reports: Addiction Other Psychiatric History: Alcohol abuse Endocrine/Metabolic History: Reports: None Hematologic History: Reports: Blood Transfusion(s) Immunologic History: Reports: None Oncologic (Cancer) History: Reports: None Other Oncologic History: skin cancer on top of head and face Dermatologic History: Reports: Melanoma Other Dermatologic History: has radiation treatment for cancer. Melanoma to top of head. - Infectious Disease History Infectious Disease History: Reports: Chicken Pox, Measles, Mumps - Past Surgical History HEENT Surgical History: Reports: Cataract Surgery Cardiovascular Surgical History: Reports: Carotid Endarterectomy, Coronary Artery Bypass, Valve Replacement, Other (See Below) Other Cardiovascular Surgeries/Procedures: pacemaker and porcine mitral valve Social & Family History - Family History Family Medical History: Noncontributory HEENT: Reports: None Cardiac: Reports: Afib, High Cholesterol, Hypertension Respiratory: Reports: None GI: Reports: None : Reports: None OBGYN: Reports: None Musculoskeletal: Reports: Arthritis, Osteoarthritis, Osteoporosis Neurological: Reports: None Psychiatric: Reports: None Endocrine/Metabolic: Reports: None Hematologic: Reports: None Immunologic: Reports: None Dermatologic: Reports: None Oncologic: Reports: None - Tobacco Use Smoking Status *Q: Never Smoker - Caffeine Use Caffeine Use: Reports: Coffee Other Caffeine Use: Cup a day Caffeine Use Comment: 1 drink/day - Alcohol Use Days Per Week of Alcohol Use: 7 Number of Drinks Per Day: 2 Total Drinks Per Week: 14 - Recreational Drug Use Recreational Drug Use: No - Living Situation & Occupation Living situation: Reports: with Significant Other Occupation: Employed ED ROS GENERAL - Review of Systems Review Of Systems: ROS reveals no pertinent complaints other than HPI. ED EXAM, GENERAL - Physical Exam Exam: See Below (See dictation) Course - Vital Signs Last Recorded V/S: Last Vital Signs Temp 36.1 C 10/25/18 10:10 Pulse 87 10/25/18 10:10 Resp 18 10/25/18 10:10 BP 108/68 10/25/18 10:10 Pulse Ox 94 L 10/25/18 10:10 - Orders/Labs/Meds Labs: Laboratory Tests 10/25/18 10/25/18 10/25/18 Range/Units 10:34 10:34 10:34 WBC 8.93 (4.0-11.0) K/uL RBC 4.21 L (4.50-5.90) M/uL Hgb 13.6 (13.0-17.0) g/dL Hct 40.6 (38.0-50.0) % MCV 96.4 (80.0-98.0) fL MCH 32.3 H (27.0-32.0) pg MCHC 33.5 (31.0-37.0) g/dL RDW Std Deviation 51.9 (28.0-62.0) fl RDW Coeff of Ryan 15 (11.0-15.0) % Plt Count 265 (150-400) K/uL MPV 9.80 (7.40-12.00) fL Neut % (Auto) 68.9 (48.0-80.0) % Lymph % (Auto) 18.5 (16.0-40.0) % [place] % (Auto) 9.7 (0.0-15.0) % Eos % (Auto) 2.2 (0.0-7.0) % Baso % (Auto) 0.7 (0.0-1.5) % Neut # (Auto) 6.2 H (1.4-5.7) K/uL Lymph # (Auto) 1.7 (0.6-2.4) K/uL [place] # (Auto) 0.9 H (0.0-0.8) K/uL Eos # (Auto) 0.2 (0.0-0.7) K/uL Baso # (Auto) 0.1 (0.0-0.1) K/uL Nucleated RBC % 0.0 /100WBC Nucleated RBCs # 0 K/uL INR 1.07 Sodium 142 (136-148) mmol/L Potassium 4.6 (3.5-5.1) mmol/L Chloride 107 (98-107) mmol/L Carbon Dioxide 25.6 (21.0-32.0) mmol/L BUN 12 (7.0-18.0) mg/dL Creatinine 0.8 (0.8-1.3) mg/dL Est Cr Clr Drug Dosing 75.82 mL/min Estimated GFR (MDRD) > 60.0 ml/min Glucose 98 (74-106) mg/dL Calcium 9.3 (8.5-10.1) mg/dL Total Bilirubin 1.1 H (0.2-1.0) mg/dL AST 17 (15-37) IU/L ALT 16 (14-63) IU/L Alkaline Phosphatase 53 (46-116) U/L Total Protein 7.3 (6.4-8.2) g/dL Albumin 3.5 (3.4-5.0) g/dL Globulin 3.8 (2.6-4.0) g/dL Albumin/Globulin Ratio 0.9 (0.9-1.6) Departure - Departure Time of Disposition: 11:35 Disposition: Home, Self-Care 01 Condition: Good Clinical Impression: Encounter for medical screening examination, Visit for wound check - Discharge Information Referrals: Yevgeniy Murguia MD [Primary Care Provider] - 11/15/18 2:00 pm Forms: ED Department Discharge Additional Instructions: The following information is given to patients seen in the emergency department who are being discharged to home. This information is to outline your options for follow-up care. We provide all patients seen in our emergency department with a follow-up referral. The need for follow-up, as well as the timing and circumstances, are variable depending upon the specifics of your emergency department visit. If you don't have a primary care physician on staff, we will provide you with a referral. We always advise you to contact your personal physician following an emergency department visit to inform them of the circumstance of the visit and for follow-up with them and/or the need for any referrals to a consulting specialist. The emergency department will also refer you to a specialist when appropriate. This referral assures that you have the opportunity for followup care with a specialist. All of these measure are taken in an effort to provide you with optimal care, which includes your followup. Under all circumstances we always encourage you to contact your private physician who remains a resource for coordinating your care. When calling for followup care, please make the office aware that this follow-up is from your recent emergency room visit. If for any reason you are refused follow-up, please contact the [facility] emergency department at and asked to speak to the emergency department charge nurse. Continue current neurovascular schedule appointments with podiatry for medical doctors discussed return as needed as discussed
[2018-10-25 11:23] LABS: CHLORIDE,CL 107 mmol/L (98-107); SODIUM,NA 142 mmol/L (136-148)
== END 2018-10-25 11:45 | disposition home or self-care (01) ==
LOC: MW.ED 09:55
DX: K20.9 Esophagitis, unspecified (principal); S91.012D Laceration without foreign body, left ankle, subsequent encounter; I48.91 Unspecified atrial fibrillation; Z79.01 Long term (current) use of anticoagulants; Z95.4 Presence of other heart-valve replacement; I10 Essential (primary) hypertension; Z79.899 Other long term (current) drug therapy; Z79.82 Long term (current) use of aspirin; Z95.0 Presence of cardiac pacemaker; X58.XXXD Exposure to other specified factors, subsequent encounter
CPT/HCPCS: 36415; 80053; 85025; 85610; 93005; 99283-25

== ENCOUNTER 2018-11-08 13:15 | Observation (INO) | payer MEDICARE, OTHER ==
[2018-11-08] MEDS ORDERED: Sodium Chloride 0.9% 2.5 ML Syringe FLUSH PRN (13:17)
[2018-11-08] MEDS ORDERED: Sodium Chloride 0.9% 10 ML Syringe FLUSH PRN (13:17)
[2018-11-08] MEDS ORDERED: Sodium Chloride 0.9% 10 ML SDV IV PRN (13:17)
--- NOTE | 2018-11-08 13:45 | CT ---
EXAMINATION: Non contrast CT head. Coronal and sagittal reformats. HISTORY: Stroke code FINDINGS: No evidence of intra or extra axial hemorrhage, mass, midline shift, hydrocephalus or edema. Moderate periventricular and subcortical white matter hypodensities. Moderate generalized atrophy. No hypoattenuation changes in the major vascular territories to suggest acute infarct. No abnormal intracranial calcifications are detected. No evidence of substantial vascular calcifications. Advanced degenerative changes within the right TMJ joint and moderately within the left. Paranasal sinuses and mastoid air cells are well aerated without substantial findings. Pituitary fossa appears unremarkable. Orbits and globes are symmetric. Calvarium is intact. No evidence of skull fracture. IMPRESSION: 1. No acute intracranial findings. 2. Moderate generalized atrophy and small vessel ischemic changes.
[2018-11-08 14:12] LABS: CHLORIDE,CL 107 mmol/L (98-107); SODIUM,NA 143 mmol/L (136-148)
--- NOTE | 2018-11-08 14:26 | CR ---
EXAMINATION: Portable chest radiograph. HISTORY: Episodic confusion. Comparison: Radiographs dated 10/13/2018, CT cervical spine dated 09/25/2017. FINDINGS: The trachea is midline. The cardiomediastinal silhouette is within normal limits. Left-sided pacemaker is noted. Again noted is a 2.4 cm nodular opacity projecting over the left apex, mildly increased in comparison to the previous examination. There is a 1.3 cm spiculated nodule within this region on a CT cervical spine dated 09/25/2017. Bullous emphysema within the apices. Mild chronic interstitial prominence. Median sternotomy wires are noted. Osseous structures appear unremarkable. IMPRESSION: 1. No definite acute cardiopulmonary finding. 2. Bullous emphysema. 3. Enlarging left apical nodule worrisome for a malignant process.
--- NOTE | 2018-11-08 14:34 | EDM.PDOC ---
ED HPI GENERAL MEDICAL PROBLEM - General Chief Complaint: Neuro Symptoms/Deficits Stated Complaint: TIA Time Seen by Provider: 11/08/18 13:17 Source of Information: Reports: Patient, Family History Limitations: Reports: No Limitations - History of Present Illness INITIAL COMMENTS - FREE TEXT/NARRATIVE: HISTORY AND PHYSICAL: History of present illness: Patient is an 83-year-old male with a history of a prior TIAs presents to the ED today for confusion. Last known time well was 1 hour prior to arrival to the ED. states that patient had laid down for a nap and when he woke up was confused about he was, who she was, and where he was at. states that she brought him immediately to the ED. states that she has noticed he is continually getting better but is still somewhat confused. states he's had a similar symptoms that happened in the past with prior TIA's. According to patient, he states that he feels a little bit confused still. Patient denies any symptoms at this time. Patient does take daily aspirin full dose and took his dose today. Patient denies fever, chills, chest pain, shortness of breath, or cough. Denies headache, neck stiff ness, change in vision, syncope, or near syncope. Denies nausea, vomiting, abdominal pain, diarrhea, constipation, or dysuria. Has not noted any blood in urine or stool. Patient has been eating and drinking appropriately. Review of systems: As per history of present illness and below otherwise all systems reviewed and negative. Past medical history: As per history of present illness and as reviewed below otherwise noncontributory. Surgical history: As per history of present illness and as reviewed below otherwise noncontributory. Social history: See social history for further information Family history: As per history of present illness and as reviewed below otherwise noncontributory. Physical exam: General: Patient is alert, oriented, and in no acute distress. Patient does express confusion about how he got to the ED and why. Patient sitting comfortably on exam table. HEENT: Atraumatic, normocephalic, pupils equal and reactive bilaterally, negative for conjunctival pallor or scleral icterus, mucous membranes moist, TMs normal bilaterally, throat clear, neck supple, nontender, trachea midline. No drooling or trismus noted. No meningeal signs. No hot potato voice noted. Lungs: Clear to auscultation, breath sounds equal bilaterally, chest nontender. Heart: S1S2, regular rate and rhythm without overt murmur Abdomen: Soft, nondistended, nontender. Negative for masses or hepatosplenomegaly. Negative for costovertebral tenderness. Pelvis: Stable nontender. Genitourinary: Deferred. Rectal: Deferred. Skin: Intact, warm, dry. No lesions or rashes noted. Extremities: Atraumatic, negative for cords or calf pain. Neurovascular unremarkable. Neuro: Awake, alert, oriented. Cranial nerves II through XII unremarkable. Cerebellum unremarkable. Motor and sensory unremarkable throughout. Exam nonfocal. Notes: Stroke code called upon arrival to the ED. Dr. Nevarez verbally involved in patient care. Head CT negative. NIH score 0. GCS 15. Did discuss findings a chest x-ray with patient and the need to have this followed up. Dr. Masterson consult on patient and will admit to observation. Voices understanding and is agreeable to plan of care. Denies any further questions or concerns at this time. Diagnostics: Head CT, CBC, CMP, UA, troponin, bedside glucose, EKG, Therapeutics: Saline lock Impression: TIA Bullous emphysema per CXR Enlarging nodule per CXR Plan: 1. Admit to observation to Dr. Masterson. Definitive disposition and diagnosis as appropriate pending reevaluation and review of above. - Related Data Allergies Allergy/AdvReac Type Severity Reaction Status Date / Time No Known Allergies Allergy Verified 11/08/18 13:44 Home Meds: Home Meds Metoprolol Succinate [Toprol XL] 25 mg PO DAILY 12/01/15 [History] Cyanocobalamin (Vitamin B-12) [Cyanocobalamin Injection] 1 ml IM ASDIRECTED 01/18 [History] predniSONE [Prednisone] 5 mg PO DAILY 05/11/17 [History] atorvaSTATin [Lipitor] 40 mg PO BEDTIME 05/06/18 [History] levETIRAcetam [Keppra] 500 mg PO BID 08/14/18 [History] Aspirin 325 mg PO DAILY 10/13/18 [History] Lisinopril 20 mg PO DAILY 10/13/18 [History] Apixaban [Eliquis] 5 mg PO BID 10/25/18 [History] Past Medical History - Past Health History Medical/Surgical History: Denies Medical/Surgical History HEENT History: Reports: Cataract, Impaired Vision Cardiovascular History: Reports: Afib, CAD, Heart Valve Replacement, Hypertension, Pacemaker Respiratory History: Reports: None Gastrointestinal History: Reports: Chronic Constipation Genitourinary History: Reports: BPH Musculoskeletal History: Reports: Fracture Neurological History: Reports: CVA, TIA Psychiatric History: Reports: Addiction Other Psychiatric History: Alcohol abuse Endocrine/Metabolic History: Reports: None Hematologic History: Reports: Blood Transfusion(s) Immunologic History: Reports: None Oncologic (Cancer) History: Reports: None Other Oncologic History: skin cancer on top of head and face Dermatologic History: Reports: Melanoma Other Dermatologic History: has radiation treatment for cancer. Melanoma to top of head. - Infectious Disease History Infectious Disease History: Reports: Chicken Pox, Measles, Mumps - Past Surgical History HEENT Surgical History: Reports: Cataract Surgery Cardiovascular Surgical History: Reports: Carotid Endarterectomy, Coronary Artery Bypass, Valve Replacement, Other (See Below) Other Cardiovascular Surgeries/Procedures: pacemaker and porcine mitral valve Social & Family History - Family History Family Medical History: Noncontributory HEENT: Reports: None Cardiac: Reports: Afib, High Cholesterol, Hypertension Respiratory: Reports: None GI: Reports: None : Reports: None OBGYN: Reports: None Musculoskeletal: Reports: Arthritis, Osteoarthritis, Osteoporosis Neurological: Reports: None Psychiatric: Reports: None Endocrine/Metabolic: Reports: None Hematologic: Reports: None Immunologic: Reports: None Dermatologic: Reports: None Oncologic: Reports: None - Tobacco Use Smoking Status *Q: Former Smoker Used Tobacco, but Quit: Yes Month/Year Tobacco Last Used: 1993 - Caffeine Use Caffeine Use: Reports: Coffee Other Caffeine Use: Cup a day Caffeine Use Comment: 1 drink/day - Recreational Drug Use Recreational Drug Use: No - Living Situation & Occupation Living situation: Reports: with Significant Other Occupation: Employed ED ROS GENERAL - Review of Systems Review Of Systems: ROS reveals no pertinent complaints other than HPI. ED EXAM, GENERAL - Physical Exam Exam: See Below (See dictation) Course - Vital Signs Last Recorded V/S: Last Vital Signs Temp 36.2 C 11/08/18 13:44 Pulse 80 11/08/18 14:02 Resp 18 11/08/18 14:02 BP 137/72 11/08/18 14:02 Pulse Ox 98 11/08/18 14:02 - Orders/Labs/Meds Orders: Active Orders 24 hr Category Date Time Status Admission Status [Patient Status] [ADT] Stat ADT 11/08/18 14:25 Ordered Assess Neurological Status [RC] ASDIRECTED Care 11/08/18 13:17 Active Bedrest [RC] ASDIRECTED Care 11/08/18 13:17 Active Blood Glucose Check, Bedside [RC] ONETIME Care 11/08/18 13:17 Active Cardiac Monitoring [RC] . DIRECTED Care 11/08/18 13:17 Active EKG Documentation Completion [RC] STAT Care 11/08/18 13:17 Active Height and Weight [RC] UPON Care 11/08/18 13:17 Active Initiate Acute Stroke Protocol [RC] STAT Care 11/08/18 13:17 Active NIH Stroke Scale [RC] ASDIRECTED Care 11/08/18 13:17 Active Nursing Bedside Swallow Screen [RC] ASDIRECTED Care 11/08/18 13:17 Active Oxygen Therapy [RC] ASDIRECTED Care 11/08/18 13:17 Active Vital Signs [RC] Q15M Care 11/08/18 13:17 Active UA RFX JADEN AND CULT IF INDIC [URIN] Stat Lab 11/08/18 14:15 Received Sodium Chloride 0.9% [Normal Saline] Med 11/08/18 13:17 Active 10 ml IV ASDIRECTED PRN Sodium Chloride 0.9% [Saline Flush] Med 11/08/18 13:17 Active 10 ml FLUSH ASDIRECTED PRN Sodium Chloride 0.9% [Saline Flush] Med 11/08/18 13:17 Active 2.5 ml FLUSH ASDIRECTED PRN Peripheral IV Insertion Adult [OM.PC] Stat Oth 11/08/18 13:17 Ordered Medication Orders Sodium Chloride (Saline Flush) 10 ml FLUSH ASDIRECTED PRN PRN Reason: Keep Vein Open Sodium Chloride (Saline Flush) 2.5 ml FLUSH ASDIRECTED PRN PRN Reason: Keep Vein Open Sodium Chloride (Normal Saline) 10 ml IV ASDIRECTED PRN PRN Reason: IV Use Labs: Laboratory Tests 11/08/18 11/08/18 11/08/18 Range/Units 13:34 13:34 13:34 WBC 10.25 (4.0-11.0) K/uL RBC 4.13 L (4.50-5.90) M/uL Hgb 13.2 (13.0-17.0) g/dL Hct 39.9 (38.0-50.0) % MCV 96.6 (80.0-98.0) fL MCH 32.0 (27.0-32.0) pg MCHC 33.1 (31.0-37.0) g/dL RDW Std Deviation 51.4 (28.0-62.0) fl RDW Coeff of Ryan 14 (11.0-15.0) % Plt Count 242 (150-400) K/uL MPV 10.00 (7.40-12.00) fL Neut % (Auto) 80.7 H (48.0-80.0) % Lymph % (Auto) 11.3 L (16.0-40.0) % [place] % (Auto) 6.9 (0.0-15.0) % Eos % (Auto) 0.8 (0.0-7.0) % Baso % (Auto) 0.3 (0.0-1.5) % Neut # (Auto) 8.3 H (1.4-5.7) K/uL Lymph # (Auto) 1.2 (0.6-2.4) K/uL [place] # (Auto) 0.7 (0.0-0.8) K/uL Eos # (Auto) 0.1 (0.0-0.7) K/uL Baso # (Auto) 0.0 (0.0-0.1) K/uL Nucleated RBC % 0.0 /100WBC Nucleated RBCs # 0 K/uL INR 1.09 APTT 25.9 (18.6-31.3) SEC Sodium 143 (136-148) mmol/L Potassium 3.8 (3.5-5.1) mmol/L Chloride 107 (98-107) mmol/L Carbon Dioxide 28.3 (21.0-32.0) mmol/L BUN 11 (7.0-18.0) mg/dL Creatinine 0.8 (0.8-1.3) mg/dL Est Cr Clr Drug Dosing 75.82 mL/min Estimated GFR (MDRD) > 60.0 ml/min Glucose 109 H (74-106) mg/dL Calcium 8.8 (8.5-10.1) mg/dL Total Bilirubin 1.0 (0.2-1.0) mg/dL AST 26 (15-37) IU/L ALT 28 (14-63) IU/L Alkaline Phosphatase 53 (46-116) U/L Troponin I < 0.050 (0.000-0.056) ng/mL Total Protein 7.2 (6.4-8.2) g/dL Albumin 3.5 (3.4-5.0) g/dL Globulin 3.7 (2.6-4.0) g/dL Albumin/Globulin Ratio 0.9 (0.9-1.6) TSH 3rd Generation 3.76 H (0.36-3.74) uIU/mL Meds: Medications Generic Name Dose Route Start Last Admin Trade Name Freq PRN Reason Stop Dose Admin Sodium Chloride 10 ml 11/08/18 13:17 Saline Flush FLUSH ASDIRECTED PRN Keep Vein Open Sodium Chloride 2.5 ml 11/08/18 13:17 Saline Flush FLUSH ASDIRECTED PRN Keep Vein Open Sodium Chloride 10 ml 11/08/18 13:17 Normal Saline IV ASDIRECTED PRN IV Use Departure - Departure Time of Disposition: 14:35 Disposition: Refer to Observation Clinical Impression: TIA (transient ischemic attack), Bullous emphysema, Lung nodule - Discharge Information - My Orders Last 24 Hours: My Active Orders 11/08/18 13:17 Assess Neurological Status [RC] ASDIRECTED Bedrest [RC] ASDIRECTED Blood Glucose Check, Bedside [RC] ONETIME Cardiac Monitoring [RC] . DIRECTED EKG Documentation Completion [RC] STAT Height and Weight [RC] UPON Initiate Acute Stroke Protocol [RC] STAT NIH Stroke Scale [RC] ASDIRECTED Nursing Bedside Swallow Screen [RC] ASDIRECTED Oxygen Therapy [RC] ASDIRECTED Vital Signs [RC] Q15M Sodium Chloride 0.9% [Normal Saline] 10 ml IV ASDIRECTED PRN Sodium Chloride 0.9% [Saline Flush] 10 ml FLUSH ASDIRECTED PRN Sodium Chloride 0.9% [Saline Flush] 2.5 ml FLUSH ASDIRECTED PRN Peripheral IV Insertion Adult [OM.PC] Stat 11/08/18 14:15 UA RFX JADEN AND CULT IF INDIC [URIN] Stat 11/08/18 14:25 Admission Status [Patient Status] [ADT] Stat - Assessment/Plan Last 24 Hours: My Active Orders 11/08/18 13:17 Assess Neurological Status [RC] ASDIRECTED Bedrest [RC] ASDIRECTED Blood Glucose Check, Bedside [RC] ONETIME Cardiac Monitoring [RC] . DIRECTED EKG Documentation Completion [RC] STAT Height and Weight [RC] UPON Initiate Acute Stroke Protocol [RC] STAT NIH Stroke Scale [RC] ASDIRECTED Nursing Bedside Swallow Screen [RC] ASDIRECTED Oxygen Therapy [RC] ASDIRECTED Vital Signs [RC] Q15M Sodium Chloride 0.9% [Normal Saline] 10 ml IV ASDIRECTED PRN Sodium Chloride 0.9% [Saline Flush] 10 ml FLUSH ASDIRECTED PRN Sodium Chloride 0.9% [Saline Flush] 2.5 ml FLUSH ASDIRECTED PRN Peripheral IV Insertion Adult [OM.PC] Stat 11/08/18 14:15 UA RFX JADEN AND CULT IF INDIC [URIN] Stat 11/08/18 14:25 Admission Status [Patient Status] [ADT] Stat
[2018-11-08] MEDS ORDERED: Acetaminophen 325 MG Tab PO PRN (15:53)
[2018-11-08] MEDS ORDERED: Ondansetron 4 MG/2 ML SDV IVPUSH PRN (15:53)
--- NOTE | 2018-11-08 16:00 | PCM.HP ---
H&P History of Present Illness - General Date of Service: 11/08/18 Admit Problem/Dx: Admission Diagnosis/Problem Admission Diagnosis/Problem TIA, Transient ischemic attack Source of Information: Patient, Old Records History Limitations: Reports: No Limitations - History of Present Illness Initial Comments - Free Text/Narative: THis 83 year old male with pmh of chronic afib, pacemaker, porcine mitral valve , carotide artery stenosis, and multiple TIAs presented to the ED today with concerns of confusion from his . She reports he took a nap and when he woke up he was confused, she was concerned so she brought him to the ED. He showed mild confusion in the ED, but then became alert and oriented again. He reports he has been feeling fine up until this event. He denies headaches, fevers, chills, palpitations. No chest pain or SOB. No abdominal pain or urinary concerns. He reports seeing Dr Campbell for a L foot wound that is slowly healing, sees him daily for dressing changes. No smoking or recreational drug use, but reports 1-3 alcoholic beverages daily. In the ED, lab work WNL. CXR negative for aute cardiopulonary concerns. Enlarging spiculated apical nodule noted. Head CT negative, generalized small vessel ischemic disease. He will be monitored overnight for TIA PCP, Dr Murguia. - Related Data Allergies/Adverse Reactions: Allergies Allergy/AdvReac Type Severity Reaction Status Date / Time No Known Allergies Allergy Verified 11/08/18 13:44 Home Medications: Home Meds Metoprolol Succinate [Toprol XL] 25 mg PO DAILY 12/01/15 [History] Cyanocobalamin (Vitamin B-12) [Cyanocobalamin Injection] 1 ml IM ASDIRECTED 01/18 [History] predniSONE [Prednisone] 5 mg PO DAILY 05/11/17 [History] atorvaSTATin [Lipitor] 40 mg PO BEDTIME 05/06/18 [History] levETIRAcetam [Keppra] 500 mg PO BID 08/14/18 [History] Aspirin 325 mg PO DAILY 10/13/18 [History] Lisinopril 20 mg PO DAILY 10/13/18 [History] Apixaban [Eliquis] 5 mg PO BID 10/25/18 [History] Past Medical History - Past Health History Medical/Surgical History: Denies Medical/Surgical History HEENT History: Reports: Cataract, Impaired Vision Cardiovascular History: Reports: Afib, CAD, Heart Valve Replacement, Hypertension, Pacemaker Respiratory History: Reports: None Gastrointestinal History: Reports: Chronic Constipation Genitourinary History: Reports: BPH Musculoskeletal History: Reports: Fracture Neurological History: Reports: CVA, TIA Psychiatric History: Reports: Addiction Other Psychiatric History: Alcohol abuse Endocrine/Metabolic History: Reports: None Hematologic History: Reports: Anticoagulation Therapy, Blood Transfusion(s) Immunologic History: Reports: None Oncologic (Cancer) History: Reports: None Other Oncologic History: skin cancer on top of head and face Dermatologic History: Reports: Melanoma Other Dermatologic History: has radiation treatment for cancer. Melanoma to top of head. - Infectious Disease History Infectious Disease History: Reports: Chicken Pox, Measles, Mumps - Past Surgical History HEENT Surgical History: Reports: Cataract Surgery Cardiovascular Surgical History: Reports: Carotid Endarterectomy, Coronary Artery Bypass, Valve Replacement, Other (See Below) Other Cardiovascular Surgeries/Procedures: pacemaker and porcine mitral valve Social & Family History - Family History Family Medical History: Noncontributory HEENT: Reports: None Cardiac: Reports: Afib, High Cholesterol, Hypertension Respiratory: Reports: None GI: Reports: None : Reports: None OBGYN: Reports: None Musculoskeletal: Reports: Arthritis, Osteoarthritis, Osteoporosis Neurological: Reports: None Psychiatric: Reports: None Endocrine/Metabolic: Reports: None Hematologic: Reports: None Immunologic: Reports: None Dermatologic: Reports: None Oncologic: Reports: None - Tobacco Use Smoking Status *Q: Former Smoker Used Tobacco, but Quit: Yes Month/Year Tobacco Last Used: 1993 - Caffeine Use Caffeine Use: Reports: Coffee Other Caffeine Use: Cup a day Caffeine Use Comment: 1 drink/day - Alcohol Use Alcohol Use History: Yes Days Per Week of Alcohol Use: 7 Number of Drinks Per Day: 3 Total Drinks Per Week: 21 Alcohol Use Frequency: Daily - Recreational Drug Use Recreational Drug Use: No - Living Situation & Occupation Living situation: Reports: with Significant Other Occupation: Employed H&P Review of Systems - Review of Systems: Review Of Systems: See Below General: Reports: No Symptoms. Denies: Fever, Chills, Malaise, Weakness HEENT: Reports: No Symptoms. Denies: Headaches, Sinus Congestion, Sore Throat, Vertigo, Visual Changes Pulmonary: Reports: No Symptoms. Denies: Shortness of Breath Cardiovascular: Reports: No Symptoms. Denies: Chest Pain Gastrointestinal: Reports: No Symptoms. Denies: Abdominal Pain, Black Stool, Bloody Stool, Constipation, Diarrhea, Distension, Nausea Genitourinary: Reports: No Symptoms. Denies: Dysuria, Frequency, Burning Skin: Reports: No Symptoms Psychiatric: Reports: Confusion. Denies: Anxiety, Hallucinations Neurological: Reports: Confusion. Denies: Dizziness, Headache, Numbness, Difficulty Walking, Weakness Exam - Exam Exam: See Below - Vital Signs Vital Signs: Last Vital Signs Temp 96.8 F 11/08/18 15:33 Pulse 81 11/08/18 15:33 Resp 18 11/08/18 15:33 BP 162/90 H 11/08/18 15:33 Pulse Ox 92 L 11/08/18 15:33 Weight: 77.111 kg - Exam General: Alert, Oriented, Cooperative Neck: Supple, Trachea Midline Lungs: Clear to Auscultation, Normal Respiratory Effort Cardiovascular: Regular Rate, Irregular Rhythm GI/Abdominal Exam: Normal Bowel Sounds, Soft, Non-Tender Extremities: Normal Inspection, Normal Range of Motion, Non-Tender, Pedal Edema (L lower extremity, +1 edema) Skin: Wound (L foot, dressing just changed today by Dr Campbell) Neuro Extensive - Mental Status: Alert, Oriented x3 Neuro Extensive - Motor, Sensory, Reflexes: CN II-XII Intact, Normal Gait. No: Tongue Deviation (L), Tongue Deviation (R) Psychiatric: Alert, Normal Affect, Normal Mood - Patient Data Lab Results Last 24 hrs: Laboratory Results - last 24 hr 11/08/18 11/08/18 11/08/18 Range/Units 13:34 13:34 13:34 WBC 10.25 (4.0-11.0) K/uL RBC 4.13 L (4.50-5.90) M/uL Hgb 13.2 (13.0-17.0) g/dL Hct 39.9 (38.0-50.0) % MCV 96.6 (80.0-98.0) fL MCH 32.0 (27.0-32.0) pg MCHC 33.1 (31.0-37.0) g/dL RDW Std Deviation 51.4 (28.0-62.0) fl RDW Coeff of Ryan 14 (11.0-15.0) % Plt Count 242 (150-400) K/uL MPV 10.00 (7.40-12.00) fL Neut % (Auto) 80.7 H (48.0-80.0) % Lymph % (Auto) 11.3 L (16.0-40.0) % Coleman % (Auto) 6.9 (0.0-15.0) % Eos % (Auto) 0.8 (0.0-7.0) % Baso % (Auto) 0.3 (0.0-1.5) % Neut # (Auto) 8.3 H (1.4-5.7) K/uL Lymph # (Auto) 1.2 (0.6-2.4) K/uL Coleman # (Auto) 0.7 (0.0-0.8) K/uL Eos # (Auto) 0.1 (0.0-0.7) K/uL Baso # (Auto) 0.0 (0.0-0.1) K/uL Nucleated RBC % 0.0 /100WBC Nucleated RBCs # 0 K/uL INR 1.09 APTT 25.9 (18.6-31.3) SEC Sodium 143 (136-148) mmol/L Potassium 3.8 (3.5-5.1) mmol/L Chloride 107 (98-107) mmol/L Carbon Dioxide 28.3 (21.0-32.0) mmol/L BUN 11 (7.0-18.0) mg/dL Creatinine 0.8 (0.8-1.3) mg/dL Est Cr Clr Drug Dosing 75.82 mL/min Estimated GFR (MDRD) > 60.0 ml/min Glucose 109 H (74-106) mg/dL Calcium 8.8 (8.5-10.1) mg/dL Total Bilirubin 1.0 (0.2-1.0) mg/dL AST 26 (15-37) IU/L ALT 28 (14-63) IU/L Alkaline Phosphatase 53 (46-116) U/L Troponin I < 0.050 (0.000-0.056) ng/mL Total Protein 7.2 (6.4-8.2) g/dL Albumin 3.5 (3.4-5.0) g/dL Globulin 3.7 (2.6-4.0) g/dL Albumin/Globulin Ratio 0.9 (0.9-1.6) TSH 3rd Generation 3.76 H (0.36-3.74) uIU/mL Urine Color Urine Appearance Urine pH (5.0-8.0) Ur Specific [place] (1.001-1.035) Urine Protein (NEGATIVE) mg/dL Urine Glucose (UA) (NEGATIVE) mg/dL Urine Ketones (NEGATIVE) mg/dL Urine Occult Blood (NEGATIVE) Urine Nitrite (NEGATIVE) Urine Bilirubin (NEGATIVE) Urine Urobilinogen (<2.0) EU/dL Ur Leukocyte Esterase (NEGATIVE) 11/08/18 Range/Units 14:15 WBC (4.0-11.0) K/uL RBC (4.50-5.90) M/uL Hgb (13.0-17.0) g/dL Hct (38.0-50.0) % MCV (80.0-98.0) fL MCH (27.0-32.0) pg MCHC (31.0-37.0) g/dL RDW Std Deviation (28.0-62.0) fl RDW Coeff of Ryan (11.0-15.0) % Plt Count (150-400) K/uL MPV (7.40-12.00) fL Neut % (Auto) (48.0-80.0) % Lymph % (Auto) (16.0-40.0) % Coleman % (Auto) (0.0-15.0) % Eos % (Auto) (0.0-7.0) % Baso % (Auto) (0.0-1.5) % Neut # (Auto) (1.4-5.7) K/uL Lymph # (Auto) (0.6-2.4) K/uL Coleman # (Auto) (0.0-0.8) K/uL Eos # (Auto) (0.0-0.7) K/uL Baso # (Auto) (0.0-0.1) K/uL Nucleated RBC % /100WBC Nucleated RBCs # K/uL INR APTT (18.6-31.3) SEC Sodium (136-148) mmol/L Potassium (3.5-5.1) mmol/L Chloride (98-107) mmol/L Carbon Dioxide (21.0-32.0) mmol/L BUN (7.0-18.0) mg/dL Creatinine (0.8-1.3) mg/dL Est Cr Clr Drug Dosing mL/min Estimated GFR (MDRD) ml/min Glucose (74-106) mg/dL Calcium (8.5-10.1) mg/dL Total Bilirubin (0.2-1.0) mg/dL AST (15-37) IU/L ALT (14-63) IU/L Alkaline Phosphatase (46-116) U/L Troponin I (0.000-0.056) ng/mL Total Protein (6.4-8.2) g/dL Albumin (3.4-5.0) g/dL Globulin (2.6-4.0) g/dL Albumin/Globulin Ratio (0.9-1.6) TSH 3rd Generation (0.36-3.74) uIU/mL Urine Color YELLOW Urine Appearance CLEAR Urine pH 7.0 (5.0-8.0) Ur Specific [place] 1.010 (1.001-1.035) Urine Protein NEGATIVE (NEGATIVE) mg/dL Urine Glucose (UA) NEGATIVE (NEGATIVE) mg/dL Urine Ketones NEGATIVE (NEGATIVE) mg/dL Urine Occult Blood NEGATIVE (NEGATIVE) Urine Nitrite NEGATIVE (NEGATIVE) Urine Bilirubin NEGATIVE (NEGATIVE) Urine Urobilinogen 1.0 (<2.0) EU/dL Ur Leukocyte Esterase NEGATIVE (NEGATIVE) Result Diagrams: 11/08/18 13:34 11/08/18 13:34 - Problem List (1) TIA (transient ischemic attack) SNOMED Code(s): 813922006 ICD Code: G45.9 - TRANSIENT CEREBRAL ISCHEMIC ATTACK, UNSPECIFIED Status: Acute Current Visit: Yes (2) Lung nodule SNOMED Code(s): 458174964 ICD Code: R91.1 - SOLITARY PULMONARY NODULE Status: Acute Current Visit: Yes (3) History of TIA (transient ischemic attack) SNOMED Code(s): 709641457 ICD Code: Z86.73 - PRSNL HX OF TIA (TIA), AND CEREB INFRC W/O RESID DEFICITS Status: Chronic Current Visit: No (4) A-fib SNOMED Code(s): 96317574 ICD Code: I48.91 - UNSPECIFIED ATRIAL FIBRILLATION Status: Chronic Priority: Medium Current Visit: No Qualifiers: Atrial fibrillation type: chronic Qualified Code(s): I48.2 - Chronic atrial fibrillation (5) Alcohol abuse SNOMED Code(s): 94494295 ICD Code: F10.10 - ALCOHOL ABUSE, UNCOMPLICATED Status: Chronic Priority : High Current Visit: No (6) BPH (benign prostatic hyperplasia) SNOMED Code(s): 789205949 ICD Code: N40.0 - BENIGN PROSTATIC HYPERPLASIA WITHOUT LOWER URINRY TRACT SYMP Status: Chronic Current Visit: No (7) CAD (coronary artery disease) SNOMED Code(s): 98285000 ICD Code: I25.10 - ATHSCL HEART DISEASE OF [place] CORONARY ARTERY W/O ANG PCTRS Status: Chronic Priority: High Current Visit: No Qualifiers: Coronary Disease-Associated Artery/Lesion type: unspecified vessel or lesion type [place] vs. transplanted heart: [place] heart Associated angina: without angina Qualified Code(s): I25.10 - Atherosclerotic heart disease of [place] coronary artery without angina pectoris (8) Carotid stenosis Status: Chronic Current Visit: No Qualifiers: Laterality: unspecified laterality Qualified Code(s): I65.29 - Occlusion and stenosis of unspecified carotid artery (9) HTN (hypertension) SNOMED Code(s): 74852887 ICD Code: I10 - ESSENTIAL (PRIMARY) HYPERTENSION Status: Chronic Priority : High Current Visit: No Qualifiers: Hypertension type: essential hypertension Qualified Code(s): I10 - Essential (primary) hypertension (10) History of CVA (cerebrovascular accident) SNOMED Code(s): 809147191 ICD Code: Z86.73 - PRSNL HX OF TIA (TIA), AND CEREB INFRC W/O RESID DEFICITS Status: Chronic Current Visit: No (11) History of mitral valve replacement with porcine valve SNOMED Code(s): 65236199475801 ICD Code: Z95.3 - PRESENCE OF XENOGENIC HEART VALVE Status: Chronic Current Visit: No (12) Mild cognitive impairment SNOMED Code(s): 939669013 ICD Code: G31.84 - MILD COGNITIVE IMPAIRMENT, SO STATED Status: Chronic Priority: High Current Visit: No (13) PVD (peripheral vascular disease) SNOMED Code(s): 541723209 ICD Code: I73.9 - PERIPHERAL VASCULAR DISEASE, UNSPECIFIED Status: Chronic Current Visit: No (14) Pacemaker SNOMED Code(s): 833368784 ICD Code: Z95.0 - PRESENCE OF CARDIAC PACEMAKER Status: Chronic Priority : Medium Current Visit: No Problem List Initiated/Reviewed/Updated: Yes Orders Last 24hrs: Active Orders 24 hr Category Date Time Status Admission Status [Patient Status] [ADT] Stat ADT 11/08/18 14:25 Active Assess Neurological Status [RC] ASDIRECTED Care 11/08/18 13:17 Active Bedrest [RC] ASDIRECTED Care 11/08/18 13:17 Active Cardiac Monitoring [RC] . DIRECTED Care 11/08/18 13:17 Active Height and Weight [RC] UPON Care 11/08/18 13:17 Active Initiate Acute Stroke Protocol [RC] STAT Care 11/08/18 13:17 Active Intake and Output [RC] QSHIFT Care 11/08/18 15:53 Ordered NIH Stroke Scale [RC] ASDIRECTED Care 11/08/18 13:17 Active Neuro Check [RC] Q4H Care 11/08/18 15:54 Ordered Oxygen Therapy [RC] PRN Care 11/08/18 15:53 Ordered Telemetry Monitoring [Cardiac Monitoring] [RC] . Care 11/08/18 15:52 Ordered DIRECTED Up With Assistance [RC] ASDIRECTED Care 11/08/18 15:53 Ordered VTE/DVT Education [RC] PER UNIT ROUTINE Care 11/08/18 15:53 Ordered Vital Signs [RC] Q15M Care 11/08/18 13:17 Active Vital Signs [RC] Q4H Care 11/08/18 15:53 Ordered Heart Healthy Diet [DIET] Diet 11/08/18 Lunch Ordered Acetaminophen [Tylenol] Med 11/08/18 15:53 Ordered 650 mg PO Q4H PRN Ondansetron [Zofran] Med 11/08/18 15:53 Ordered 4 mg IVPUSH Q4H PRN Sodium Chloride 0.9% [Normal Saline] Med 11/08/18 13:17 Active 10 ml IV ASDIRECTED PRN Sodium Chloride 0.9% [Saline Flush] Med 11/08/18 13:17 Active 10 ml FLUSH ASDIRECTED PRN Sodium Chloride 0.9% [Saline Flush] Med 11/08/18 13:17 Active 2.5 ml FLUSH ASDIRECTED PRN Peripheral IV Insertion Adult [OM.PC] Stat Oth 11/08/18 13:17 Ordered Resuscitation Status Routine Resus Stat 11/08/18 15:53 Ordered Medication Orders Sodium Chloride (Saline Flush) 10 ml FLUSH ASDIRECTED PRN PRN Reason: Keep Vein Open Sodium Chloride (Saline Flush) 2.5 ml FLUSH ASDIRECTED PRN PRN Reason: Keep Vein Open Sodium Chloride (Normal Saline) 10 ml IV ASDIRECTED PRN PRN Reason: IV Use Assessment/Plan Comment:: This 83 year old male admitted with suspected TIA 1. TIA: Back to baseline now. Unable to obtain MRI imaging due to pacemaker. Will monitor with Neuro checks. Monitor on telemetry. Recent carotid US 05/2018, reveals scattered atheromatous disease without increased velocities. Continue ASA and statin 2. HTN: Stable. Continue home medications. Continue Lisinopril 3. CAD: Continue ASA and statin 4. Afib: Continue Eliquis and metoprolol VTE prophylaxis: Eliquis Dispo: 1 day
[2018-11-08] MEDS: Apixaban 5 MG Tab PO SCH (20:16)
[2018-11-08] MEDS: levETIRAcetam 500 MG Tab PO SCH (20:17)
[2018-11-08] MEDS ORDERED: atorvaSTATin 40 MG Tab PO SCH (21:00)
[2018-11-09] MEDS ORDERED: Metoprolol Succinate 25 MG Tab.ER PO SCH (09:00)
[2018-11-09] MEDS ORDERED: Aspirin 325 MG Tab PO SCH (09:00)
[2018-11-09] MEDS ORDERED: Cholecalciferol (Vitamin D3) 25 MCG Tab PO SCH (09:00)
[2018-11-09] MEDS ORDERED: predniSONE 5 MG Tab PO SCH (09:00)
[2018-11-09] MEDS ORDERED: Beta-Carotene (Vitamin A) w/Vitamin C & E plus Minerals Tab PO SCH (09:00)
[2018-11-09] MEDS: Apixaban 5 MG Tab PO SCH (09:03)
[2018-11-09] MEDS: levETIRAcetam 500 MG Tab PO SCH (09:05)
--- NOTE | 2018-11-09 10:32 | PCM.DCSUM1 ---
Discharge Summary - Hospital Course Brief History: THis 83 year old male with pmh of chronic afib, pacemaker, porcine mitral valve, carotide artery stenosis, and multiple TIAs presented to the ED today with concerns of confusion from his . She reports he took a nap and when he woke up he was confused, she was concerned so she brought him to the ED. He showed mild confusion in the ED, but then became alert and oriented again. He reports he has been feeling fine up until this event. He denies headaches, fevers, chills, palpitations. No chest pain or SOB. No abdominal pain or urinary concerns. He reports seeing Dr Campbell for a L foot wound that is slowly healing, sees him daily for dressing changes. No smoking or recreational drug use, but reports 1-3 alcoholic beverages daily. In the ED , lab work WNL. CXR negative for aute cardiopulonary concerns. Enlarging spiculated apical nodule noted. Head CT negative, generalized small vessel ischemic disease. He will be monitored overnight for TIA. PCP, Dr Murguia. Diagnosis: Stroke: No - Discharge Data Discharge Date: 11/09/18 Discharge Disposition: Home, Self-Care 01 Condition: Good - Discharge Diagnosis/Problem(s) (1) TIA (transient ischemic attack) SNOMED Code(s): 349648149 ICD Code: G45.9 - TRANSIENT CEREBRAL ISCHEMIC ATTACK, UNSPECIFIED Status: Acute Current Visit: Yes (2) Lung nodule SNOMED Code(s): 505866953 ICD Code: R91.1 - SOLITARY PULMONARY NODULE Status: Acute Current Visit: Yes (3) History of TIA (transient ischemic attack) SNOMED Code(s): 345678705 ICD Code: Z86.73 - PRSNL HX OF TIA (TIA), AND CEREB INFRC W/O RESID DEFICITS Status: Chronic Current Visit: No (4) A-fib SNOMED Code(s): 59809686 ICD Code: I48.91 - UNSPECIFIED ATRIAL FIBRILLATION Status: Chronic Priority: Medium Current Visit: No Qualifiers: Atrial fibrillation type: chronic Qualified Code(s): I48.2 - Chronic atrial fibrillation (5) Alcohol abuse SNOMED Code(s): 33822708 ICD Code: F10.10 - ALCOHOL ABUSE, UNCOMPLICATED Status: Chronic Priority : High Current Visit: No (6) BPH (benign prostatic hyperplasia) SNOMED Code(s): 375108260 ICD Code: N40.0 - BENIGN PROSTATIC HYPERPLASIA WITHOUT LOWER URINRY TRACT SYMP Status: Chronic Current Visit: No (7) CAD (coronary artery disease) SNOMED Code(s): 10282680 ICD Code: I25.10 - ATHSCL HEART DISEASE OF [place] CORONARY ARTERY W/O ANG PCTRS Status: Chronic Priority: High Current Visit: No Qualifiers: Coronary Disease-Associated Artery/Lesion type: unspecified vessel or lesion type [place] vs. transplanted heart: [place] heart Associated angina: without angina Qualified Code(s): I25.10 - Atherosclerotic heart disease of [place] coronary artery without angina pectoris (8) Carotid stenosis Status: Chronic Current Visit: No Qualifiers: Laterality: unspecified laterality Qualified Code(s): I65.29 - Occlusion and stenosis of unspecified carotid artery (9) HTN (hypertension) SNOMED Code(s): 25764752 ICD Code: I10 - ESSENTIAL (PRIMARY) HYPERTENSION Status: Chronic Priority : High Current Visit: No Qualifiers: Hypertension type: essential hypertension Qualified Code(s): I10 - Essential (primary) hypertension (10) History of CVA (cerebrovascular accident) SNOMED Code(s): 366276542 ICD Code: Z86.73 - PRSNL HX OF TIA (TIA), AND CEREB INFRC W/O RESID DEFICITS Status: Chronic Current Visit: No (11) History of mitral valve replacement with porcine valve SNOMED Code(s): 27581623764250 ICD Code: Z95.3 - PRESENCE OF XENOGENIC HEART VALVE Status: Chronic Current Visit: No (12) Mild cognitive impairment SNOMED Code(s): 184132033 ICD Code: G31.84 - MILD COGNITIVE IMPAIRMENT, SO STATED Status: Chronic Priority: High Current Visit: No (13) PVD (peripheral vascular disease) SNOMED Code(s): 120715620 ICD Code: I73.9 - PERIPHERAL VASCULAR DISEASE, UNSPECIFIED Status: Chronic Current Visit: No (14) Pacemaker SNOMED Code(s): 484909655 ICD Code: Z95.0 - PRESENCE OF CARDIAC PACEMAKER Status: Chronic Priority : Medium Current Visit: No - Patient Instructions Diet: Heart Healthy Diet Activity: As Tolerated Driving: Do Not Drive Showering/Bathing: May Shower Notify Provider of: Fever, Increased Pain, Swelling and Redness, Drainage, Nausea and/or Vomiting - Discharge Plan Home Medications: Home Meds Metoprolol Succinate [Toprol XL] 25 mg PO DAILY 12/01/15 [History] predniSONE [Prednisone] 5 mg PO DAILY 05/11/17 [History] atorvaSTATin [Lipitor] 40 mg PO BEDTIME 05/06/18 [History] levETIRAcetam [Keppra] 750 mg PO BID 08/14/18 [History] Aspirin 325 mg PO DAILY 10/13/18 [History] Apixaban [Eliquis] 5 mg PO BID 10/25/18 [History] Cholecalciferol (Vitamin D3) [Vitamin D3] 1,000 unit PO DAILY 11/08/18 [History] Vit A/Vit C/Vit E/Zinc/Copper [Preservision Areds Softgel] 2 each PO DAILY 11/08 [History] Patient Handouts: Transient Ischemic Attack, [id number] Referrals: [facility] [Outside] Yevgeniy Murguia MD [Physician] - 11/15/18 2:00 pm (Dexa Scan scheduled on at 1:00 pm) Brent Campbell DPM [Physician] - 11/09/18 4:30 pm - Discharge Summary/Plan Comment DC Time >30 min.: No Discharge Summary/Plan Comment: Admitting diagnoses: Confusion Suspected TIA Discharge Diagnoses: Suspected TIA vs mild cognitive impairment Other PMH: HTN CAD Carotid stenosis Anticoagulation Pacemaker Afib Jay Jay was admitted for confusion with suspected TIA. When he was admitted he was near baseline without confusion. reports he has some confusion upon waking up more and more recently. MRI unable to be obtained due to pacemaker in place. Most recent carotid US 05/2018, reveals scattered atheromatous disease without increased velocities. We discussed the possibility of TIA or due to him just waking up and possible mild cognitive impairment. He continues to drink daily and I again encouraged him to stop as that does not help confusion. He and verbalized understanding. Jay Jay is alert and oriented today. He will be discharged home to continue home medications, ASA, Statin and Metoprolol. CXR findings of enlarged spiculated nodule in left apical lung. Patient and notified of this and will recommend CT of chest as outpatient to further evaluate. Discharge home today. Follow up with PCP next week. Return to ED or clinic if concerns should arise. - General Info Date of Service: 11/09/18 Admission Dx/Problem (Free Text: Admission Diagnosis/Problem Admission Diagnosis/Problem Suspected TIA, Transient ischemic attack, confusion Subjective Update: Alert and oriented today. No complaints of pain. No confusion. No chest pain. Requesting discharge home. Functional Status: Reports: Pain Controlled, Tolerating Diet, Ambulating, Urinating - Review of Systems General: Reports: No Symptoms. Denies: Weakness, Fatigue HEENT: Reports: No Symptoms. Denies: Headaches, Sore Throat, Visual Changes Pulmonary: Reports: No Symptoms. Denies: Shortness of Breath, Cough, Sputum Cardiovascular: Reports: No Symptoms. Denies: Chest Pain, Orthopnea, Edema Gastrointestinal: Reports: No Symptoms. Denies: Abdominal Pain, Nausea, Vomiting Musculoskeletal: Reports: No Symptoms Skin: Reports: No Symptoms Neurological: Reports: No Symptoms. Denies: Confusion, Numbness, Paresthesia, Weakness, Change in Speech Psychiatric: Reports: No Symptoms. Denies: Confusion - Patient Data Vitals - Most Recent: Last Vital Signs Temp 97.5 F 11/09/18 08:46 Pulse 93 11/09/18 09:03 Resp 16 11/09/18 08:46 BP 107/60 11/09/18 09:03 Pulse Ox 96 11/09/18 08:46 Weight - Most Recent: 77.111 kg I&O - Last 24 hours: Intake & Output 11/08/18 11/09/18 11/09/18 22:59 06:59 14:59 Intake Total 200 200 480 Output Total 300 700 Balance -100 -500 480 Lab Results - Last 24 hrs: Laboratory Results - last 24 hr 11/08/18 11/08/18 11/08/18 Range/Units 13:34 13:34 13:34 WBC 10.25 (4.0-11.0) K/uL RBC 4.13 L (4.50-5.90) M/uL Hgb 13.2 (13.0-17.0) g/dL Hct 39.9 (38.0-50.0) % MCV 96.6 (80.0-98.0) fL MCH 32.0 (27.0-32.0) pg MCHC 33.1 (31.0-37.0) g/dL RDW Std Deviation 51.4 (28.0-62.0) fl RDW Coeff of Ryan 14 (11.0-15.0) % Plt Count 242 (150-400) K/uL MPV 10.00 (7.40-12.00) fL Neut % (Auto) 80.7 H (48.0-80.0) % Lymph % (Auto) 11.3 L (16.0-40.0) % Caroline % (Auto) 6.9 (0.0-15.0) % Eos % (Auto) 0.8 (0.0-7.0) % Baso % (Auto) 0.3 (0.0-1.5) % Neut # (Auto) 8.3 H (1.4-5.7) K/uL Lymph # (Auto) 1.2 (0.6-2.4) K/uL Caroline # (Auto) 0.7 (0.0-0.8) K/uL Eos # (Auto) 0.1 (0.0-0.7) K/uL Baso # (Auto) 0.0 (0.0-0.1) K/uL Nucleated RBC % 0.0 /100WBC Nucleated RBCs # 0 K/uL INR 1.09 APTT 25.9 (18.6-31.3) SEC Sodium 143 (136-148) mmol/L Potassium 3.8 (3.5-5.1) mmol/L Chloride 107 (98-107) mmol/L Carbon Dioxide 28.3 (21.0-32.0) mmol/L BUN 11 (7.0-18.0) mg/dL Creatinine 0.8 (0.8-1.3) mg/dL Est Cr Clr Drug Dosing 75.82 mL/min Estimated GFR (MDRD) > 60.0 ml/min Glucose 109 H (74-106) mg/dL Calcium 8.8 (8.5-10.1) mg/dL Total Bilirubin 1.0 (0.2-1.0) mg/dL AST 26 (15-37) IU/L ALT 28 (14-63) IU/L Alkaline Phosphatase 53 (46-116) U/L Troponin I < 0.050 (0.000-0.056) ng/mL Total Protein 7.2 (6.4-8.2) g/dL Albumin 3.5 (3.4-5.0) g/dL Globulin 3.7 (2.6-4.0) g/dL Albumin/Globulin Ratio 0.9 (0.9-1.6) TSH 3rd Generation 3.76 H (0.36-3.74) uIU/mL Urine Color Urine Appearance Urine pH (5.0-8.0) Ur Specific [place] (1.001-1.035) Urine Protein (NEGATIVE) mg/dL Urine Glucose (UA) (NEGATIVE) mg/dL Urine Ketones (NEGATIVE) mg/dL Urine Occult Blood (NEGATIVE) Urine Nitrite (NEGATIVE) Urine Bilirubin (NEGATIVE) Urine Urobilinogen (<2.0) EU/dL Ur Leukocyte Esterase (NEGATIVE) 11/08/18 Range/Units 14:15 WBC (4.0-11.0) K/uL RBC (4.50-5.90) M/uL Hgb (13.0-17.0) g/dL Hct (38.0-50.0) % MCV (80.0-98.0) fL MCH (27.0-32.0) pg MCHC (31.0-37.0) g/dL RDW Std Deviation (28.0-62.0) fl RDW Coeff of Ryan (11.0-15.0) % Plt Count (150-400) K/uL MPV (7.40-12.00) fL Neut % (Auto) (48.0-80.0) % Lymph % (Auto) (16.0-40.0) % Caroline % (Auto) (0.0-15.0) % Eos % (Auto) (0.0-7.0) % Baso % (Auto) (0.0-1.5) % Neut # (Auto) (1.4-5.7) K/uL Lymph # (Auto) (0.6-2.4) K/uL [place] # (Auto) (0.0-0.8) K/uL Eos # (Auto) (0.0-0.7) K/uL Baso # (Auto) (0.0-0.1) K/uL Nucleated RBC % /100WBC Nucleated RBCs # K/uL INR APTT (18.6-31.3) SEC Sodium (136-148) mmol/L Potassium (3.5-5.1) mmol/L Chloride (98-107) mmol/L Carbon Dioxide (21.0-32.0) mmol/L BUN (7.0-18.0) mg/dL Creatinine (0.8-1.3) mg/dL Est Cr Clr Drug Dosing mL/min Estimated GFR (MDRD) ml/min Glucose (74-106) mg/dL Calcium (8.5-10.1) mg/dL Total Bilirubin (0.2-1.0) mg/dL AST (15-37) IU/L ALT (14-63) IU/L Alkaline Phosphatase (46-116) U/L Troponin I (0.000-0.056) ng/mL Total Protein (6.4-8.2) g/dL Albumin (3.4-5.0) g/dL Globulin (2.6-4.0) g/dL Albumin/Globulin Ratio (0.9-1.6) TSH 3rd Generation (0.36-3.74) uIU/mL Urine Color YELLOW Urine Appearance CLEAR Urine pH 7.0 (5.0-8.0) Ur Specific [place] 1.010 (1.001-1.035) Urine Protein NEGATIVE (NEGATIVE) mg/dL Urine Glucose (UA) NEGATIVE (NEGATIVE) mg/dL Urine Ketones NEGATIVE (NEGATIVE) mg/dL Urine Occult Blood NEGATIVE (NEGATIVE) Urine Nitrite NEGATIVE (NEGATIVE) Urine Bilirubin NEGATIVE (NEGATIVE) Urine Urobilinogen 1.0 (<2.0) EU/dL Ur Leukocyte Esterase NEGATIVE (NEGATIVE) Med Orders - Current: Current Medications Acetaminophen (Tylenol) 650 mg PO Q4H PRN PRN Reason: Pain Apixaban (Eliquis) 5 mg PO BID [facility] Last Admin: 11/09/18 09:03 Dose: 5 mg Aspirin (Aspirin) 325 mg PO DAILY [facility] Last Admin: 11/09/18 09:03 Dose: 325 mg Atorvastatin Calcium (Lipitor) 40 mg PO BEDTIME [facility] Last Admin: 11/08/18 20:16 Dose: 40 mg Cholecalciferol (Vitamin D3) 25 mcg PO DAILY [facility] Last Admin: 11/09/18 09:03 Dose: 25 mcg Levetiracetam (Keppra) 750 mg PO BID [facility] Last Admin: 11/09/18 09:05 Dose: 750 mg Metoprolol Succinate (Toprol Xl) 25 mg PO DAILY [facility] Last Admin: 11/09/18 09:03 Dose: 25 mg Multivitamins/Minerals (Prosight) 2 tab PO DAILY [facility] Last Admin: 11/09/18 09:05 Dose: 2 tab Ondansetron HCl (Zofran) 4 mg IVPUSH Q4H PRN PRN Reason: Nausea Prednisone (Prednisone) 5 mg PO DAILY [facility] Last Admin: 11/09/18 09:04 Dose: 5 mg Sodium Chloride (Saline Flush) 10 ml FLUSH ASDIRECTED PRN PRN Reason: Keep Vein Open Sodium Chloride (Saline Flush) 2.5 ml FLUSH ASDIRECTED PRN PRN Reason: Keep Vein Open Sodium Chloride (Normal Saline) 10 ml IV ASDIRECTED PRN PRN Reason: IV Use - Exam General: Reports: Alert, Oriented, Cooperative, No Acute Distress Lungs: Reports: Clear to Auscultation, Normal Respiratory Effort Cardiovascular: Reports: Regular Rate, Regular Rhythm GI/Abdominal Exam: Normal Bowel Sounds, Soft, Non-Tender Extremities: Normal Inspection, Normal Range of Motion, Non-Tender, No Pedal Edema Wound/Incisions: Reports: Healing Well, Dressing Dry and Intact (to L foot.) Neurological: Reports: No New Focal Deficit Psy/Mental Status: Reports: Alert, Normal Affect, Normal Mood
[2018-11-09 16:04] VITALS: BP 102/55
== END 2018-11-09 11:05 | disposition home or self-care (01) ==
LOC: MW.ED 13:15 → MW.MS 14:25 → UNDOADMOB 14:55
PROVIDERS: ADMIT Internal Medicine; ATTEND Internal Medicine
DX: G45.9 Transient cerebral ischemic attack, unspecified (principal); G31.84 Mild cognitive impairment of uncertain or unknown etiology; I48.2 Chronic atrial fibrillation; R91.1 Solitary pulmonary nodule; F10.10 Alcohol abuse, uncomplicated; N40.0 Benign prostatic hyperplasia without lower urinary tract symptoms; I25.10 Atherosclerotic heart disease of native coronary artery without angina pectoris; I10 Essential (primary) hypertension; I73.9 Peripheral vascular disease, unspecified; Z86.73 Personal history of transient ischemic attack (TIA), and cerebral infarction without residual deficits; Z95.0 Presence of cardiac pacemaker; Z79.82 Long term (current) use of aspirin; Z79.899 Other long term (current) drug therapy; Z95.3 Presence of xenogenic heart valve; Z87.891 Personal history of nicotine dependence
CPT/HCPCS: 36415; 70450; 70450-26; 71045; 71045-26; 80053; 81003; 84443; 84484; 85025; 85610; 85730; 93005; 99284; 99285-25; A9270-GY; G0378; J7512

== ENCOUNTER 2019-02-04 08:08 | Observation (INO) | payer MEDICARE, OTHER ==
[2019-02-04] MEDS ORDERED: Sodium Chloride 0.9% 10 ML Syringe FLUSH PRN (08:13)
[2019-02-04] MEDS ORDERED: Sodium Chloride 0.9% 10 ML SDV IV PRN (08:13)
[2019-02-04] MEDS ORDERED: Sodium Chloride 0.9% 2.5 ML Syringe FLUSH PRN (08:13)
--- NOTE | 2019-02-04 08:38 | CT ---
INDICATION: Confusion. TECHNIQUE: Noncontrast axial images. Sagittal and coronal reconstructions. COMPARISON: 11/08/2018. FINDINGS: There is no abnormal intracranial mass effect or midline shift. No intracranial hemorrhage. Diffuse cerebral atrophy is again noted. Periventricular white matter changes are redemonstrated, consistent with chronic small vessel disease. Remote lacunar infarct is again noted in the right basal ganglia. No appreciable new areas of abnormal attenuation seen within the brain. No acute osseous abnormality. The visualized portions of the paranasal sinuses and mastoids are clear. IMPRESSION: 1. No CT evidence of an acute intracranial abnormality. 2. Other findings as described above. Results were called to Dr. Nevarez at 8:30 a.m. on 02/04/2019. Dictated by Levon Herrera MD @ 02/04/2019 8:35:34 AM Please note that all CT scans at this facility use dose modulation, iterative reconstruction, and/or weight-based dosing when appropriate to reduce radiation dose to as low as reasonably achievable. Dictated by: Levon Herrera MD @ 02/04/2019 08:35:47 (Electronically Signed)
--- NOTE | 2019-02-04 08:40 | EDM.PDOC ---
ED HPI GENERAL MEDICAL PROBLEM - General Chief Complaint: Neuro Symptoms/Deficits Stated Complaint: POSSIBLE STROKE Time Seen by Provider: 02/04/19 08:14 Source of Information: Reports: Family History Limitations: Reports: No Limitations - History of Present Illness INITIAL COMMENTS - FREE TEXT/NARRATIVE: History of present illness: []Patient was brought in by his after she found him sleeping in later than usual this morning. She will come up and he said "hi" and then slept for another half hour. Patient around 7:30 this morning got up to use the bathroom and his went in to make the bed so he would go back to sleep. She found him to be confused and have no memory of the previous night when their daughter came for dinner for her birthday. She also noted his speech was slightly slurred. On arrival here he was ambulatory with clear speech with no complaints but was confused itch is abnormal for him. Patient did not know the date but did recognize and know his 's name. Review of systems: As per history of present illness and below otherwise all systems reviewed and negative. Past medical history: As per history of present illness and as reviewed below otherwise noncontributory. Surgical history: As per history of present illness and as reviewed below otherwise noncontributory. Social history: No reported history of drug or alcohol abuse. Family history: As per history of present illness and as reviewed below otherwise noncontributory. Physical exam: General: Well developed, well nourished in NAD HEENT: Atraumatic, normocephalic, pupils reactive, negative for conjunctival pallor or scleral icterus, mucous membranes moist, throat clear, neck supple, nontender, trachea midline. Lungs: Clear to auscultation, breath sounds equal bilaterally, chest nontender. Heart: S1S2, regular, negative for clicks, rubs, or JVD. Abdomen: NABS, Soft, nondistended, nontender. Negative for masses or hepatosplenomegaly. Negative for costovertebral tenderness. Pelvis: Stable nontender. Genitourinary: Deferred. Rectal: Deferred. Extremities: Atraumatic, negative for cords or calf pain. Neurovascular unremarkable. Neuro: Awake, alert, confused Cranial nerves II through XII unremarkable. Cerebellum unremarkable. Motor and sensory unremarkable throughout. Exam nonfocal. Skin:warm and dry NIH =2 Diagnostics: CT head negative, EKG, CBC, chemistry, troponin, TSH Therapeutics: None ED Course: Stable Impression: TIA Prescriptions: None Plan: Mid for observation Definitive disposition and diagnosis as appropriate pending reevaluation and review of above. - Related Data Allergies Allergy/AdvReac Type Severity Reaction Status Date / Time No Known Allergies Allergy Verified 02/04/19 10:37 Home Meds: Home Meds Metoprolol Succinate [Toprol XL] 25 mg PO DAILY 12/01/15 [History] predniSONE [Prednisone] 5 mg PO DAILY 05/11/17 [History] atorvaSTATin [Lipitor] 40 mg PO BEDTIME 05/06/18 [History] levETIRAcetam [Keppra] 750 mg PO BID 08/14/18 [History] Aspirin 325 mg PO DAILY 10/13/18 [History] Apixaban [Eliquis] 5 mg PO BID 10/25/18 [History] Cholecalciferol (Vitamin D3) [Vitamin D3] 1,000 unit PO DAILY 11/08/18 [History] Past Medical History - Past Health History Medical/Surgical History: Denies Medical/Surgical History HEENT History: Reports: Cataract, Impaired Vision Cardiovascular History: Reports: Afib, CAD, Heart Valve Replacement, Hypertension, Pacemaker Respiratory History: Reports: None Gastrointestinal History: Reports: Chronic Constipation Genitourinary History: Reports: BPH Musculoskeletal History: Reports: Fracture Neurological History: Reports: CVA, TIA Psychiatric History: Reports: Addiction Other Psychiatric History: Alcohol abuse Endocrine/Metabolic History: Reports: None Hematologic History: Reports: Anticoagulation Therapy, Blood Transfusion(s) Immunologic History: Reports: None Oncologic (Cancer) History: Reports: None Other Oncologic History: skin cancer on top of head and face Dermatologic History: Reports: Melanoma Other Dermatologic History: has radiation treatment for cancer. Melanoma to top of head. - Infectious Disease History Infectious Disease History: Reports: Chicken Pox, Measles, Mumps - Past Surgical History HEENT Surgical History: Reports: Cataract Surgery Cardiovascular Surgical History: Reports: Carotid Endarterectomy, Coronary Artery Bypass, Valve Replacement, Other (See Below) Other Cardiovascular Surgeries/Procedures: pacemaker and porcine mitral valve Respiratory Surgical History: Reports: None GI Surgical History: Reports: None Male Surgical History: Reports: None Endocrine Surgical History: Reports: None Neurological Surgical History: Reports: None Musculoskeletal Surgical History: Reports: None Social & Family History - Family History Family Medical History: Noncontributory HEENT: Reports: None Cardiac: Reports: Afib, High Cholesterol, Hypertension Respiratory: Reports: None GI: Reports: None : Reports: None OBGYN: Reports: None Musculoskeletal: Reports: Arthritis, Osteoarthritis, Osteoporosis Neurological: Reports: None Psychiatric: Reports: None Endocrine/Metabolic: Reports: None Hematologic: Reports: None Immunologic: Reports: None Dermatologic: Reports: None Oncologic: Reports: None - Tobacco Use Smoking Status *Q: Former Smoker Used Tobacco, but Quit: Yes Month/Year Tobacco Last Used: 20 years - Caffeine Use Caffeine Use: Reports: None Other Caffeine Use: Cup a day Caffeine Use Comment: 1 drink/day - Recreational Drug Use Recreational Drug Use: No - Living Situation & Occupation Living situation: Reports: with Significant Other Occupation: Employed ED ROS GENERAL - Review of Systems Review Of Systems: See Below ED EXAM, NEURO - Physical Exam Exam: See Below Course - Vital Signs Last Recorded V/S: Last Vital Signs Temp 97.1 F 02/04/19 10:10 Pulse 89 02/04/19 10:10 Resp 16 02/04/19 10:10 BP 132/96 H 02/04/19 10:10 Pulse Ox 100 02/04/19 10:10 - Orders/Labs/Meds Orders: Active Orders 24 hr Category Date Time Status Bedrest [RC] ASDIRECTED Care 02/04/19 08:13 Active Cardiac Monitoring [RC] . DIRECTED Care 02/04/19 08:13 Active Height and Weight [RC] UPON Care 02/04/19 08:13 Active Initiate Acute Stroke Protocol [RC] STAT Care 02/04/19 08:13 Active NIH Stroke Scale [RC] ASDIRECTED Care 02/04/19 08:13 Active Nursing Bedside Swallow Screen [RC] ASDIRECTED Care 02/04/19 08:13 Active Oxygen Therapy [RC] ASDIRECTED Care 02/04/19 08:13 Active Stroke Education, General [RC] Click to Edit Care 02/04/19 08:13 Active Vital Signs [RC] Q15M Care 02/04/19 08:13 Active Sodium Chloride 0.9% [Normal Saline] Med 02/04/19 08:13 Active 10 ml IV ASDIRECTED PRN Sodium Chloride 0.9% [Saline Flush] Med 02/04/19 08:13 Active 10 ml FLUSH ASDIRECTED PRN Sodium Chloride 0.9% [Saline Flush] Med 02/04/19 08:13 Active 2.5 ml FLUSH ASDIRECTED PRN Peripheral IV Insertion Adult [OM.PC] Stat Oth 02/04/19 08:13 Ordered Peripheral IV Insertion Adult [OM.PC] Stat Ot 02/04/19 08:13 Ordered Medication Orders Apixaban (Eliquis) 5 mg PO BID MARCELINO Atorvastatin Calcium (Lipitor) 40 mg PO BEDTIME MARCELINO Folic Acid (Folic Acid) 1 mg SUBCUT DAILY MARCELINO Last Admin: 02/04/19 12:31 Dose: 1 mg Thiamine HCl 100 mg/ Sodium (Chloride) 101 mls @ 202 mls/hr IV DAILY [facility] Levetiracetam (Keppra) 750 mg PO BID [facility] Metoprolol Succinate (Toprol Xl) 25 mg PO DAILY [facility] Prednisone (Prednisone) 5 mg PO DAILY MARCELINO Sodium Chloride (Saline Flush) 10 ml FLUSH ASDIRECTED PRN PRN Reason: Keep Vein Open Sodium Chloride (Saline Flush) 2.5 ml FLUSH ASDIRECTED PRN PRN Reason: Keep Vein Open Sodium Chloride (Normal Saline) 10 ml IV ASDIRECTED PRN PRN Reason: IV Use Labs: Laboratory Tests 02/04/19 02/04/19 02/04/19 Range/Units 08:30 08:30 08:30 WBC 8.73 (4.0-11.0) K/uL RBC 4.45 L (4.50-5.90) M/uL Hgb 14.1 (13.0-17.0) g/dL Hct 42.3 (38.0-50.0) % MCV 95.1 (80.0-98.0) fL MCH 31.7 (27.0-32.0) pg MCHC 33.3 (31.0-37.0) g/dL RDW Std Deviation 50.4 (28.0-62.0) fl RDW Coeff of Ryan 14 (11.0-15.0) % Plt Count 191 (150-400) K/uL MPV 10.00 (7.40-12.00) fL Neut % (Auto) 77.7 (48.0-80.0) % Lymph % (Auto) 13.9 L (16.0-40.0) % [place] % (Auto) 6.6 (0.0-15.0) % Eos % (Auto) 1.5 (0.0-7.0) % Baso % (Auto) 0.3 (0.0-1.5) % Neut # (Auto) 6.8 H (1.4-5.7) K/uL Lymph # (Auto) 1.2 (0.6-2.4) K/uL [place] # (Auto) 0.6 (0.0-0.8) K/uL Eos # (Auto) 0.1 (0.0-0.7) K/uL Baso # (Auto) 0.0 (0.0-0.1) K/uL Nucleated RBC % 0.0 /100WBC Nucleated RBCs # 0 K/uL INR 1.06 APTT 22.9 (18.6-31.3) SEC Sodium 141 (136-148) mmol/L Potassium 3.7 (3.5-5.1) mmol/L Chloride 106 (98-107) mmol/L Carbon Dioxide 24.2 (21.0-32.0) mmol/L BUN 10 (7.0-18.0) mg/dL Creatinine 0.7 L (0.8-1.3) mg/dL Est Cr Clr Drug Dosing TNP Estimated GFR (MDRD) > 60.0 ml/min Glucose 99 (74-106) mg/dL Calcium 8.6 (8.5-10.1) mg/dL Total Bilirubin 0.7 (0.2-1.0) mg/dL AST 28 (15-37) IU/L ALT 25 (14-63) IU/L Alkaline Phosphatase 59 (46-116) U/L Troponin I < 0.050 (0.000-0.056) ng/mL Total Protein 7.4 (6.4-8.2) g/dL Albumin 3.5 (3.4-5.0) g/dL Globulin 3.9 (2.6-4.0) g/dL Albumin/Globulin Ratio 0.9 (0.9-1.6) TSH 3rd Generation 3.17 (0.36-3.74) uIU/mL Meds: Medications Generic Name Dose Route Start Last Admin Trade Name Freq PRN Reason Stop Dose Admin Apixaban 5 mg 02/04/19 21:00 Eliquis PO BID [facility] Atorvastatin Calcium 40 mg 02/04/19 21:00 Lipitor PO BEDTIME MARCELINO Folic Acid 1 mg 02/04/19 11:45 02/04/19 12:31 Folic Acid SUBCUT 1 mg DAILY [facility] Administration Thiamine HCl 100 mg/ Sodium 101 mls @ 202 mls/hr 02/04/19 13:00 Chloride IV DAILY [facility] Levetiracetam 750 mg 02/04/19 21:00 Keppra PO BID [facility] Metoprolol Succinate 25 mg 02/05/19 09:00 Toprol Xl PO DAILY MARCELINO Prednisone 5 mg 02/05/19 09:00 Prednisone PO DAILY MARCELINO Sodium Chloride 10 ml 02/04/19 08:13 Saline Flush FLUSH ASDIRECTED PRN Keep Vein Open Sodium Chloride 2.5 ml 02/04/19 08:13 Saline Flush FLUSH ASDIRECTED PRN Keep Vein Open Sodium Chloride 10 ml 02/04/19 08:13 Normal Saline IV ASDIRECTED PRN IV Use Departure - Departure Time of Disposition: 09:30 Disposition: Refer to Observation Condition: Good Clinical Impression: TIA (transient ischemic attack) - Discharge Information *PRESCRIPTION DRUG MONITORING PROGRAM REVIEWED*: Not Applicable *COPY OF PRESCRIPTION DRUG MONITORING REPORT IN PATIENT ROSA: Not Applicable - My Orders Last 24 Hours: My Active Orders 02/04/19 08:13 Bedrest [RC] ASDIRECTED Cardiac Monitoring [RC] . DIRECTED Height and Weight [RC] UPON Initiate Acute Stroke Protocol [RC] STAT NIH Stroke Scale [RC] ASDIRECTED Nursing Bedside Swallow Screen [RC] ASDIRECTED Oxygen Therapy [RC] ASDIRECTED Stroke Education, General [RC] Click to Edit Vital Signs [RC] Q15M Sodium Chloride 0.9% [Normal Saline] 10 ml IV ASDIRECTED PRN Sodium Chloride 0.9% [Saline Flush] 10 ml FLUSH ASDIRECTED PRN Sodium Chloride 0.9% [Saline Flush] 2.5 ml FLUSH ASDIRECTED PRN Peripheral IV Insertion Adult [OM.PC] Stat Peripheral IV Insertion Adult [OM.PC] Stat - Assessment/Plan Last 24 Hours: My Active Orders 02/04/19 08:13 Bedrest [RC] ASDIRECTED Cardiac Monitoring [RC] . DIRECTED Height and Weight [RC] UPON Initiate Acute Stroke Protocol [RC] STAT NIH Stroke Scale [RC] ASDIRECTED Nursing Bedside Swallow Screen [RC] ASDIRECTED Oxygen Therapy [RC] ASDIRECTED Stroke Education, General [RC] Click to Edit Vital Signs [RC] Q15M Sodium Chloride 0.9% [Normal Saline] 10 ml IV ASDIRECTED PRN Sodium Chloride 0.9% [Saline Flush] 10 ml FLUSH ASDIRECTED PRN Sodium Chloride 0.9% [Saline Flush] 2.5 ml FLUSH ASDIRECTED PRN Peripheral IV Insertion Adult [OM.PC] Stat Peripheral IV Insertion Adult [OM.PC] Stat
[2019-02-04 09:09] LABS: BLOOD UREA NITROGEN,BUN 10 mg/dL (7.0-18.0); CARBON DIOXIDE,CO2 24.2 mmol/L (21.0-32.0); CHLORIDE,CL 106 mmol/L (98-107); GLUCOSE RANDOM 99 mg/dL (74-106); POTASSIUM,K 3.7 mmol/L (3.5-5.1); SODIUM,NA 141 mmol/L (136-148)
--- NOTE | 2019-02-04 11:46 | PCM.HP.2 ---
H&P History of Present Illness - General Date of Service: 02/04/19 Admit Problem/Dx: Admission Diagnosis/Problem Admission Diagnosis/Problem TIA, Transient ischemic attack - History of Present Illness Initial Comments - Free Text/Narative: 83 year old male with pmh of chronic afib, pacemaker, porcine mitral valve, carotid artery stenosis, with multiple admissions this year for brief episodes of confusion and TIAs. Patient was brought to the ED after her noted him to be confused when he woke up. He did not remember celebrating her daughters birthday. CT scan of the Head was negative. His confusion appeared to be improving but on the medical floor during nursing intake questions patient's mental status acutely changed and was no longer answering questions appropriately. - Related Data Allergies/Adverse Reactions: Allergies Allergy/AdvReac Type Severity Reaction Status Date / Time No Known Allergies Allergy Verified 02/04/19 10:37 Home Medications: Home Meds Metoprolol Succinate [Toprol XL] 25 mg PO DAILY 12/01/15 [History] predniSONE [Prednisone] 5 mg PO DAILY 05/11/17 [History] atorvaSTATin [Lipitor] 40 mg PO BEDTIME 05/06/18 [History] levETIRAcetam [Keppra] 750 mg PO BID 08/14/18 [History] Aspirin 325 mg PO DAILY 10/13/18 [History] Apixaban [Eliquis] 5 mg PO BID 10/25/18 [History] Cholecalciferol (Vitamin D3) [Vitamin D3] 1,000 unit PO DAILY 11/08/18 [History] Past Medical History - Past Health History Medical/Surgical History: Denies Medical/Surgical History HEENT History: Reports: Cataract, Impaired Vision Cardiovascular History: Reports: Afib, CAD, Heart Valve Replacement, Hypertension, Pacemaker Respiratory History: Reports: None Gastrointestinal History: Reports: Chronic Constipation Genitourinary History: Reports: BPH Musculoskeletal History: Reports: Fracture Neurological History: Reports: CVA, TIA Psychiatric History: Reports: Addiction Other Psychiatric History: Alcohol abuse Endocrine/Metabolic History: Reports: None Hematologic History: Reports: Anticoagulation Therapy, Blood Transfusion(s) Immunologic History: Reports: None Oncologic (Cancer) History: Reports: None Other Oncologic History: skin cancer on top of head and face Dermatologic History: Reports: Melanoma Other Dermatologic History: has radiation treatment for cancer. Melanoma to top of head. - Infectious Disease History Infectious Disease History: Reports: Chicken Pox, Measles, Mumps - Past Surgical History HEENT Surgical History: Reports: Cataract Surgery Cardiovascular Surgical History: Reports: Carotid Endarterectomy, Coronary Artery Bypass, Valve Replacement, Other (See Below) Other Cardiovascular Surgeries/Procedures: pacemaker and porcine mitral valve Respiratory Surgical History: Reports: None GI Surgical History: Reports: None Male Surgical History: Reports: None Endocrine Surgical History: Reports: None Neurological Surgical History: Reports: None Musculoskeletal Surgical History: Reports: None Social & Family History - Family History Family Medical History: Noncontributory HEENT: Reports: None Cardiac: Reports: Afib, High Cholesterol, Hypertension Respiratory: Reports: None GI: Reports: None : Reports: None OBGYN: Reports: None Musculoskeletal: Reports: Arthritis, Osteoarthritis, Osteoporosis Neurological: Reports: None Psychiatric: Reports: None Endocrine/Metabolic: Reports: None Hematologic: Reports: None Immunologic: Reports: None Dermatologic: Reports: None Oncologic: Reports: None - Tobacco Use Smoking Status *Q: Former Smoker Used Tobacco, but Quit: Yes Month/Year Tobacco Last Used: 20 years - Caffeine Use Caffeine Use: Reports: None Other Caffeine Use: Cup a day Caffeine Use Comment: 1 drink/day - Recreational Drug Use Recreational Drug Use: No - Living Situation & Occupation Living situation: Reports: with Significant Other Occupation: Employed H&P Review of Systems - Review of Systems: Review Of Systems: ROS reveals no pertinent complaints other than HPI. Exam - Exam Exam: See Below - Vital Signs Vital Signs: Last Vital Signs Temp 36.2 C 02/04/19 10:10 Pulse 89 02/04/19 10:10 Resp 16 02/04/19 10:10 BP 132/96 H 02/04/19 10:10 Pulse Ox 100 02/04/19 10:10 - Exam General: No: Oriented, Mild Distress HEENT: Mucosa Moist & [place] Neck: Supple Lungs: Clear to Auscultation, Normal Respiratory Effort Cardiovascular: Regular Rate, Regular Rhythm GI/Abdominal Exam: Normal Bowel Sounds, Soft, Non-Tender Extremities: Non-Tender, No Pedal Edema Neurological: Cranial Nerves Intact, Reflexes Equal Bilateral, Strength Equal Bilateral, Normal Speech, Normal Tone, Sensation Intact. No: Focal Deficit - Patient Data Lab Results Last 24 hrs: Laboratory Results - last 24 hr 02/04/19 02/04/19 02/04/19 Range/Units 08:30 08:30 08:30 WBC 8.73 (4.0-11.0) K/uL RBC 4.45 L (4.50-5.90) M/uL Hgb 14.1 (13.0-17.0) g/dL Hct 42.3 (38.0-50.0) % MCV 95.1 (80.0-98.0) fL MCH 31.7 (27.0-32.0) pg MCHC 33.3 (31.0-37.0) g/dL RDW Std Deviation 50.4 (28.0-62.0) fl RDW Coeff of Ryan 14 (11.0-15.0) % Plt Count 191 (150-400) K/uL MPV 10.00 (7.40-12.00) fL Neut % (Auto) 77.7 (48.0-80.0) % Lymph % (Auto) 13.9 L (16.0-40.0) % [place] % (Auto) 6.6 (0.0-15.0) % Eos % (Auto) 1.5 (0.0-7.0) % Baso % (Auto) 0.3 (0.0-1.5) % Neut # (Auto) 6.8 H (1.4-5.7) K/uL Lymph # (Auto) 1.2 (0.6-2.4) K/uL [place] # (Auto) 0.6 (0.0-0.8) K/uL Eos # (Auto) 0.1 (0.0-0.7) K/uL Baso # (Auto) 0.0 (0.0-0.1) K/uL Nucleated RBC % 0.0 /100WBC Nucleated RBCs # 0 K/uL INR 1.06 APTT 22.9 (18.6-31.3) SEC Sodium 141 (136-148) mmol/L Potassium 3.7 (3.5-5.1) mmol/L Chloride 106 (98-107) mmol/L Carbon Dioxide 24.2 (21.0-32.0) mmol/L BUN 10 (7.0-18.0) mg/dL Creatinine 0.7 L (0.8-1.3) mg/dL Est Cr Clr Drug Dosing TNP Estimated GFR (MDRD) > 60.0 ml/min Glucose 99 (74-106) mg/dL Calcium 8.6 (8.5-10.1) mg/dL Total Bilirubin 0.7 (0.2-1.0) mg/dL AST 28 (15-37) IU/L ALT 25 (14-63) IU/L Alkaline Phosphatase 59 (46-116) U/L Troponin I < 0.050 (0.000-0.056) ng/mL Total Protein 7.4 (6.4-8.2) g/dL Albumin 3.5 (3.4-5.0) g/dL Globulin 3.9 (2.6-4.0) g/dL Albumin/Globulin Ratio 0.9 (0.9-1.6) TSH 3rd Generation 3.17 (0.36-3.74) uIU/mL Result Diagrams: 02/04/19 08:30 02/04/19 08:30 Problem List Initiated/Reviewed/Updated: Yes Orders Last 24hrs: Active Orders 24 hr Category Date Time Status Patient Status [ADT] Stat ADT 02/04/19 09:10 Active Bedrest [RC] ASDIRECTED Care 02/04/19 08:13 Active Cardiac Monitoring [RC] . DIRECTED Care 02/04/19 08:13 Active Height and Weight [RC] UPON Care 02/04/19 08:13 Active Initiate Acute Stroke Protocol [RC] STAT Care 02/04/19 08:13 Active NIH Stroke Scale [RC] ASDIRECTED Care 02/04/19 08:13 Active Nursing Bedside Swallow Screen [RC] ASDIRECTED Care 02/04/19 08:13 Active Oxygen Therapy [RC] ASDIRECTED Care 02/04/19 08:13 Active Stroke Education, General [RC] Click to Edit Care 02/04/19 08:13 Active Vital Signs [RC] Q15M Care 02/04/19 08:13 Active Head w Cont [CT] Routine Exams 02/04/19 11:37 Ordered UA RFX JADEN AND CULT IF INDIC [URIN] Routine Lab 02/04/19 11:28 Ordered Apixaban [Eliquis] Med 02/04/19 21:00 Ordered 5 mg PO BID Metoprolol Succinate [Toprol XL] Med 02/05/19 09:00 Ordered 25 mg PO DAILY Sodium Chloride 0.9% [Normal Saline] Med 02/04/19 08:13 Active 10 ml IV ASDIRECTED PRN Sodium Chloride 0.9% [Saline Flush] Med 02/04/19 08:13 Active 10 ml FLUSH ASDIRECTED PRN Sodium Chloride 0.9% [Saline Flush] Med 02/04/19 08:13 Active 2.5 ml FLUSH ASDIRECTED PRN atorvaSTATin [Lipitor] Med 02/04/19 21:00 Ordered 40 mg PO BEDTIME levETIRAcetam [Keppra] Med 02/04/19 21:00 Ordered 750 mg PO BID predniSONE Med 02/05/19 09:00 Ordered 5 mg PO DAILY Peripheral IV Insertion Adult [OM.PC] Stat Oth 02/04/19 08:13 Ordered Peripheral IV Insertion Adult [OM.PC] Stat Oth 02/04/19 08:13 Ordered Medication Orders Apixaban (Eliquis) 5 mg PO BID MARCELINO Atorvastatin Calcium (Lipitor) 40 mg PO BEDTIME MARCELINO Levetiracetam (Keppra) 750 mg PO BID MARCELINO Metoprolol Succinate (Toprol Xl) 25 mg PO DAILY MARCELINO Sodium Chloride (Saline Flush) 10 ml FLUSH ASDIRECTED PRN PRN Reason: Keep Vein Open Sodium Chloride (Saline Flush) 2.5 ml FLUSH ASDIRECTED PRN PRN Reason: Keep Vein Open Sodium Chloride (Normal Saline) 10 ml IV ASDIRECTED PRN PRN Reason: IV Use Assessment/Plan Comment:: 83 yo male who presents with confusion. He has had mutliple admmisions for this and they are usually breif episodes. We will continue to watch. Differential diagnosis includes TIA, delirium or metabolic encephalopathy. UA has been ordered.
--- NOTE | 2019-02-04 12:30 | CT ---
INDICATION: Increased confusion. TECHNIQUE: CT of the head without contrast. Coronal and sagittal reformats are included. COMPARISON: CT head from 02/04/2019. FINDINGS: No acute intracranial hemorrhage or extra-axial collection. No evidence of acute cortical infarction. No mass effect or midline shift. Chronic appearing lacunar infarcts within the right caudate, putamen, thalamus as well as the left subinsular white matter. Mild generalized cerebral/cerebellar parenchymal volume loss. Ventricles normal in size and contour given the degree of volume loss. Patchy moderate regions of decreased attenuation within the periventricular and subcortical white matter of both cerebral hemispheres most likely reflects chronic microvascular ischemic disease and age related change in this patient. Vascular calcifications within the carotid siphons and intradural vertebral arteries. Several small subarachnoid calcifications along the right parietal convexity, also seen on the exam from October of 2018 and may reflect atheromatous microemboli or dystrophic changes. Orbital contents are normal. Paranasal sinuses are well aerated. Mastoid air cells are clear. Lucent lesion within the right occipital calvarium likely reflects a large arachnoid granulation. Bilateral TMJ arthropathy. Scalp and other imaged soft tissue structures are normal. IMPRESSION: 1. No acute intracranial hemorrhage or acute cortical infarct. 2. Several right parietal subarachnoid microcalcifications are re-demonstrated, which could reflect atheromatous microemboli or dystrophic change. If there is suspicion for acute infarction, consider MRI for further evaluation. 3. Stable chronic lacunar infarcts within the right sided basal ganglia and thalamus as well as the left subinsular white matter. Stable moderate chronic small vessel ischemic changes within the supratentorial white matter. 4. Mild generalized parenchymal volume loss. Please note that all CT scans at this facility use dose modulation, iterative reconstruction, and/or weight-based dosing when appropriate to reduce radiation dose to as low as reasonably achievable. Dictated by Malick Guerra MD @ Feb 04 2019 12:16PM Signed by Dr. Malick Guerra @ Feb 04 2019 12:28PM
[2019-02-04] MEDS: Folic Acid 50 MG/10 ML MDV SUBCUT SCH (12:31)
[2019-02-04] MEDS: Thiamine 100 MG in Sodium Chloride 0.9% 100 ML IV SCH (13:39)
[2019-02-04] MEDS: Apixaban 5 MG Tab PO SCH (20:09)
[2019-02-04] MEDS: levETIRAcetam 500 MG Tab PO SCH (20:10)
[2019-02-04] MEDS ORDERED: atorvaSTATin 40 MG Tab PO SCH (21:00)
[2019-02-04] MEDS ORDERED: Magnesium Sulfate/Water 2 GM in Premix Bag 1 BAG IV ONE (21:32)
[2019-02-05 06:23] LABS: BLOOD UREA NITROGEN,BUN 9 mg/dL (7.0-18.0); CARBON DIOXIDE,CO2 23.4 mmol/L (21.0-32.0); CHLORIDE,CL 102 mmol/L (98-107); GLUCOSE RANDOM 98 mg/dL (74-106); POTASSIUM,K 3.4 mmol/L (3.5-5.1); SODIUM,NA 136 mmol/L (136-148)
[2019-02-05 07:29] VITALS: BP 151/70
[2019-02-05] MEDS: Folic Acid 50 MG/10 ML MDV SUBCUT SCH (08:22)
[2019-02-05] MEDS: Apixaban 5 MG Tab PO SCH (08:22)
[2019-02-05] MEDS: levETIRAcetam 500 MG Tab PO SCH (08:22)
[2019-02-05] MEDS: Thiamine 100 MG in Sodium Chloride 0.9% 100 ML IV SCH (08:23)
[2019-02-05 08:24] VITALS: PULSE 80
[2019-02-05] MEDS ORDERED: predniSONE 5 MG Tab PO SCH (09:00)
[2019-02-05] MEDS ORDERED: Metoprolol Succinate 25 MG Tab.ER PO SCH (09:00)
--- NOTE | 2019-02-05 11:21 | PCM.DCSUM1 ---
Discharge Summary - Hospital Course HPI Initial Comments: Admitted secondary to confusion. Diagnosis: Stroke: No - Discharge Data Discharge Date: 02/05/19 Discharge Disposition: Home, Self-Care 01 Condition: Fair - Referral to Home Health Primary Care Physician: PCP None Skilled Need: Hospice care - Discharge Diagnosis/Problem(s) (1) Abdominal pain SNOMED Code(s): 70146456 ICD Code: R10.9 - UNSPECIFIED ABDOMINAL PAIN Status: Acute Qualifiers: Abdominal location: lower abdomen, unspecified Qualified Code(s): R10.30 - Lower abdominal pain, unspecified (2) Liver cancer, primary, with metastasis from liver to other site SNOMED Code(s): 67498908, 761528450 ICD Code: C22.8 - MALIGNANT NEOPLASM OF LIVER, PRIMARY, UNSPECIFIED TO TYPE Status: Chronic Priority: High (3) History of TIA (transient ischemic attack) SNOMED Code(s): 477919495 ICD Code: Z86.73 - PRSNL HX OF TIA (TIA), AND CEREB INFRC W/O RESID DEFICITS Status: Chronic - Patient Summary/Data Hospital Course: The patient is a chronically ill 83-year-old gentleman who had been admitted February 04, 2019 out of concern for tracheal ischemic attack along with confusion. The patient had been brought into the ER by his after reportedly was very confused when he woke up. The patient does have a history of chronic atrial fibrillation, pacemaker, carotid artery stenosis and multiple admissions. Also recently he had been diagnosed with metastatic cancer to his liver and lung and he has declined any further chemotherapy or radiation. The patient had a CT scan of his head which was found to be negative and it should be noted that the patient cannot have an MRI secondary to pacemaker placement. The patient was fluid hydrated. He continued to improve through the short course of hospitalization. By day of discharge the patient's sensorium had cleared significantly and he advised physician about his cancer and is planned to not take any chemotherapy or radiation therapy. The patient had been advised of the concept of hospice and hospice care had been arranged for the patient to follow in contact patient at home. The patient has been doing well otherwise and he feels like he can go home. He is to have his regular diet as tolerated. He is also to have activity as tolerated. The patient has been discharged from acute hospitalization with a recommendation to follow up with home hospice. - Patient Instructions Diet: Heart Healthy Diet Activity: As Tolerated Notify Provider of: Increased Pain, Swelling and Redness - Discharge Plan *PRESCRIPTION DRUG MONITORING PROGRAM REVIEWED*: Not Applicable *COPY OF PRESCRIPTION DRUG MONITORING REPORT IN PATIENT ROSA: Not Applicable Home Medications: Home Meds Metoprolol Succinate [Toprol XL] 25 mg PO DAILY 12/01/15 [History] predniSONE [Prednisone] 5 mg PO DAILY 05/11/17 [History] atorvaSTATin [Lipitor] 40 mg PO BEDTIME 05/06/18 [History] levETIRAcetam [Keppra] 750 mg PO BID 08/14/18 [History] Apixaban [Eliquis] 5 mg PO BID 10/25/18 [History] Cholecalciferol (Vitamin D3) [Vitamin D3] 1,000 unit PO DAILY 11/08/18 [History] Oxygen Therapy Mode: Room Air Patient Handouts: Transient Ischemic Attack, [id number] Referrals: Yevgeniy Murguia MD [Physician] - (Please call the clinic on Wednesday for appointment, we are unable to do due to today is weekend) - Discharge Summary/Plan Comment DC Time >30 min.: Yes - General Info Date of Service: 02/05/19 Admission Dx/Problem (Free Text: Admission Diagnosis/Problem Admission Diagnosis/Problem TIA, Transient ischemic attack, acute confusional state, lung cancer primary with liver metastases, patient does not want treatment. Subjective Update: The patient is doing well and he feels like he can go home safely. Functional Status: Reports: Pain Controlled - Review of Systems General: Reports: No Symptoms HEENT: Reports: No Symptoms Pulmonary: Reports: No Symptoms Cardiovascular: Reports: No Symptoms Gastrointestinal: Reports: No Symptoms Genitourinary: Reports: No Symptoms Musculoskeletal: Reports: No Symptoms Skin: Reports: No Symptoms Neurological: Reports: No Symptoms Psychiatric: Reports: No Symptoms - Patient Data Vitals - Most Recent: Last Vital Signs Temp 36.1 C 02/05/19 07:28 Pulse 80 02/05/19 08:21 Resp 18 02/05/19 07:28 BP 151/70 H 02/05/19 08:21 Pulse Ox 96 02/05/19 08:39 Weight - Most Recent: 74.026 kg I&O - Last 24 hours: Intake & Output 02/04/19 02/05/19 02/05/19 22:59 06:59 14:59 Intake Total 60 550 Output Total 775 600 Balance -715 -50 Lab Results - Last 24 hrs: Laboratory Results - last 24 hr 02/04/19 02/04/19 02/04/19 Range/Units 08:30 12:20 12:28 WBC (4.0-11.0) K/uL RBC (4.50-5.90) M/uL Hgb (13.0-17.0) g/dL Hct (38.0-50.0) % MCV (80.0-98.0) fL MCH (27.0-32.0) pg MCHC (31.0-37.0) g/dL RDW Std Deviation (28.0-62.0) fl RDW Coeff of Ryan (11.0-15.0) % Plt Count (150-400) K/uL MPV (7.40-12.00) fL Neut % (Auto) (48.0-80.0) % Lymph % (Auto) (16.0-40.0) % [place] % (Auto) (0.0-15.0) % Eos % (Auto) (0.0-7.0) % Baso % (Auto) (0.0-1.5) % Neut # (Auto) (1.4-5.7) K/uL Lymph # (Auto) (0.6-2.4) K/uL [place] # (Auto) (0.0-0.8) K/uL Eos # (Auto) (0.0-0.7) K/uL Baso # (Auto) (0.0-0.1) K/uL Nucleated RBC % /100WBC Nucleated RBCs # K/uL Sodium (136-148) mmol/L Potassium (3.5-5.1) mmol/L Chloride (98-107) mmol/L Carbon Dioxide (21.0-32.0) mmol/L BUN (7.0-18.0) mg/dL Creatinine (0.8-1.3) mg/dL Est Cr Clr Drug Dosing mL/min Estimated GFR (MDRD) ml/min Glucose (74-106) mg/dL POC Glucose 91 (60-110) mg/dL Calcium (8.5-10.1) mg/dL Magnesium 1.7 L (1.8-2.4) mg/dL Urine Color YELLOW Urine Appearance CLEAR Urine pH 8.5 H (5.0-8.0) Ur Specific [place] 1.015 (1.001-1.035) Urine Protein NEGATIVE (NEGATIVE) mg/dL Urine Glucose (UA) NEGATIVE (NEGATIVE) mg/dL Urine Ketones NEGATIVE (NEGATIVE) mg/dL Urine Occult Blood NEGATIVE (NEGATIVE) Urine Nitrite NEGATIVE (NEGATIVE) Urine Bilirubin NEGATIVE (NEGATIVE) Urine Urobilinogen 0.2 (<2.0) EU/dL Ur Leukocyte Esterase NEGATIVE (NEGATIVE) 02/05/19 02/05/19 Range/Units 05:15 05:15 WBC 9.54 (4.0-11.0) K/uL RBC 4.40 L (4.50-5.90) M/uL Hgb 14.0 (13.0-17.0) g/dL Hct 41.5 (38.0-50.0) % MCV 94.3 (80.0-98.0) fL MCH 31.8 (27.0-32.0) pg MCHC 33.7 (31.0-37.0) g/dL RDW Std Deviation 48.8 (28.0-62.0) fl RDW Coeff of Ryan 14 (11.0-15.0) % Plt Count 193 (150-400) K/uL MPV 10.30 (7.40-12.00) fL Neut % (Auto) 75.0 (48.0-80.0) % Lymph % (Auto) 12.6 L (16.0-40.0) % [place] % (Auto) 11.7 (0.0-15.0) % Eos % (Auto) 0.4 (0.0-7.0) % Baso % (Auto) 0.3 (0.0-1.5) % Neut # (Auto) 7.2 H (1.4-5.7) K/uL Lymph # (Auto) 1.2 (0.6-2.4) K/uL [place] # (Auto) 1.1 H (0.0-0.8) K/uL Eos # (Auto) 0.0 (0.0-0.7) K/uL Baso # (Auto) 0.0 (0.0-0.1) K/uL Nucleated RBC % 0.0 /100WBC Nucleated RBCs # 0 K/uL Sodium 136 (136-148) mmol/L Potassium 3.4 L (3.5-5.1) mmol/L Chloride 102 (98-107) mmol/L Carbon Dioxide 23.4 (21.0-32.0) mmol/L BUN 9 (7.0-18.0) mg/dL Creatinine 0.7 L (0.8-1.3) mg/dL Est Cr Clr Drug Dosing 85.19 mL/min Estimated GFR (MDRD) > 60.0 ml/min Glucose 98 (74-106) mg/dL POC Glucose (60-110) mg/dL Calcium 8.3 L (8.5-10.1) mg/dL Magnesium 2.2 (1.8-2.4) mg/dL Urine Color Urine Appearance Urine pH (5.0-8.0) Ur Specific [place] (1.001-1.035) Urine Protein (NEGATIVE) mg/dL Urine Glucose (UA) (NEGATIVE) mg/dL Urine Ketones (NEGATIVE) mg/dL Urine Occult Blood (NEGATIVE) Urine Nitrite (NEGATIVE) Urine Bilirubin (NEGATIVE) Urine Urobilinogen (<2.0) EU/dL Ur Leukocyte Esterase (NEGATIVE) Med Orders - Current: Current Medications Apixaban (Eliquis) 5 mg PO BID [facility] Last Admin: 02/05/19 08:22 Dose: 5 mg Atorvastatin Calcium (Lipitor) 40 mg PO BEDTIME [facility] Last Admin: 02/04/19 20:10 Dose: 40 mg Folic Acid (Folic Acid) 1 mg SUBCUT DAILY [facility] Last Admin: 02/05/19 08:22 Dose: 1 mg Thiamine HCl 100 mg/ Sodium (Chloride) 101 mls @ 202 mls/hr IV DAILY [facility] Last Admin: 02/05/19 08:23 Dose: 202 mls/hr Levetiracetam (Keppra) 750 mg PO BID [facility] Last Admin: 02/05/19 08:22 Dose: 750 mg Metoprolol Succinate (Toprol Xl) 25 mg PO DAILY [facility] Last Admin: 02/05/19 08:21 Dose: 25 mg Prednisone (Prednisone) 5 mg PO DAILY [facility] Last Admin: 02/05/19 08:22 Dose: 5 mg Sodium Chloride (Saline Flush) 10 ml FLUSH ASDIRECTED PRN PRN Reason: Keep Vein Open Sodium Chloride (Saline Flush) 2.5 ml FLUSH ASDIRECTED PRN PRN Reason: Keep Vein Open Sodium Chloride (Normal Saline) 10 ml IV ASDIRECTED PRN PRN Reason: IV Use Discontinued Medications Magnesium Sulfate 2 gm/ Premix 50 mls @ 50 mls/hr IV ONETIME ONE Stop: 02/04/19 22:31 Last Admin: 02/04/19 21:57 Dose: 50 mls/hr - Exam Quality Assessment: Denies: Supplemental Oxygen General: Reports: Alert, Oriented, Cooperative, No Acute Distress HEENT: Reports: Pupils Equal, Pupils Reactive, EOMI, Mucous Membr. Moist/[place] Neck: Reports: Supple, Trachea Midline Lungs: Reports: Clear to Auscultation, Normal Respiratory Effort Cardiovascular: Reports: Regular Rate, Regular Rhythm GI/Abdominal Exam: Normal Bowel Sounds, Soft, No Distention Back Exam: Reports: Normal Inspection, Full Range of Motion Extremities: Normal Inspection, No Pedal Edema Skin: Reports: Warm, Dry Neurological: Reports: No New Focal Deficit Psy/Mental Status: Reports: Alert, Normal Affect, Normal Mood
== END 2019-02-05 12:30 | disposition home or self-care (01) ==
LOC: MW.ED 08:08 → MW.MS 09:10
PROVIDERS: ADMIT Internal Medicine; ATTEND Internal Medicine
DX: R41.0 Disorientation, unspecified (principal); C34.90 Malignant neoplasm of unspecified part of unspecified bronchus or lung; C78.7 Secondary malignant neoplasm of liver and intrahepatic bile duct; R10.30 Lower abdominal pain, unspecified; I25.10 Atherosclerotic heart disease of native coronary artery without angina pectoris; I10 Essential (primary) hypertension; Z86.73 Personal history of transient ischemic attack (TIA), and cerebral infarction without residual deficits; Z79.899 Other long term (current) drug therapy; Z79.52 Long term (current) use of systemic steroids; Z79.01 Long term (current) use of anticoagulants; Z79.82 Long term (current) use of aspirin; Z87.891 Personal history of nicotine dependence
CPT/HCPCS: 36415; 70450; 80048; 80053; 81003; 82962; 83735; 84443; 84484; 85025; 85610; 85730; 93005; 99285; A9270; J3411; J3475; J7030; J7512; 96365; 96372; 96375; 96376; 99284; G0378

== ENCOUNTER 2019-02-06 11:44 | Emergency (ER) | payer MEDICARE, OTHER | END 2019-02-06 12:20 | disposition left against medical advice (07) | LOC: MW.ED 11:44 | DX: Z53.21 Procedure and treatment not carried out due to patient leaving prior to being seen by health care provider (principal) ==

== ENCOUNTER 2019-05-22 15:32 | Observation (INO) | payer MEDICARE, OTHER ==
--- NOTE | 2019-05-22 16:07 | CT ---
INDICATION: STROKE CODE - PT STATES NOT FEELING WELL/NORMAL CT HEAD WITHOUT CONTRAST TECHNIQUE: Multiple axial CT images were performed through the head without intravenous contrast administration. COMPARISON: 04/03/[address] FINDINGS: No acute intracranial hemorrhage is identified. No extra-axial collections are evident and there is no mass effect or midline shift. There is unchanged mild diffuse age-related brain atrophy. Ventricular size and configuration are within normal limits for the patient`s age. Juarez-white differentiation is within normal limits. There is stable patchy hypodensity in the periventricular white matter, a nonspecific finding which most likely reflects chronic small vessel ischemic change. Chronic lacunar infarcts are again seen in the right basal ganglia. Intracranial atherosclerotic vascular calcifications are noted. Osseous structures are within normal limits and no fractures are seen. Included portions of the paranasal sinuses and mastoid air cells are normally aerated. IMPRESSION: 1. No acute intracranial abnormality identified. 2. Mild age-related brain atrophy, white matter hypodensity consistent with chronic small vessel ischemic change, chronic right basal ganglia lacunar infarcts, and intracranial atherosclerotic vascular calcifications. Results called to David PHELAN at 4 p.m. on 05/22/2019. LUCIANO YEUNG MD [facility] Dictated by Sushil Yeung MD @ 05/22/2019 4:04:57 PM Dictated by: Sushil Yeung MD @ 05/22/2019 16:06:01 (Electronically Signed)
[2019-05-22 16:28] LABS: BLOOD UREA NITROGEN,BUN 12 mg/dL (7.0-18.0); CARBON DIOXIDE,CO2 27.6 mmol/L (21.0-32.0); CHLORIDE,CL 108 mmol/L (98-107); GLUCOSE RANDOM 108 mg/dL (74-106); POTASSIUM,K 4.5 mmol/L (3.5-5.1); SODIUM,NA 144 mmol/L (136-148)
--- NOTE | 2019-05-22 17:17 | EDM.PDOC ---
ED HPI GENERAL MEDICAL PROBLEM - General Chief Complaint: Neuro Symptoms/Deficits Stated Complaint: STROKE CODE Time Seen by Provider: 05/22/19 17:12 Source of Information: Reports: Patient, Family History Limitations: Reports: No Limitations - History of Present Illness INITIAL COMMENTS - FREE TEXT/NARRATIVE: Patient is a 84-year-old male with a past medical history of lung cancer with metastasis to the liver as well as numerous TIAs. Patient became acutely confused around 1 to 1:30 PM this afternoon. Patient did not know where he was or what the date was or who the president was. Patient was present with significant other, Shelia, when the symptom started. Patient did not exhibit any evidence of weakness but these symptoms persisted so she called 911. Patient is confused and unable to provide much history. I also spoke with the patient's son Hakan, who is the patient's power of manager economic (Phone number: [phone]). Patient's son states that these are similar to prior episodes and generally he has confusion which lasts for about 24 hours and resolve spontaneously. Patient has no lasting effects from these prior episodes. Review of systems unable to be obtained secondary to patient's mental status. I have reviewed the triage vital signs Const: Well nourished, well developed, appears stated age Eyes: PERRL, no conjunctival injection HENT: NCAT, Neck supple without meningismus CV: RRR, Warm, well-perfused extremities RESP: CTAB, Unlabored respiratory effort GI: soft, non-tender, non-distended, no masses MSK: No gross deformities appreciated Skin: Warm, dry. No rashes Neuro: Alert but only oriented to self, office machine mechanic II-XII grossly intact. Sensation and motor function of extremities intact. Follows commands appropriately. [id number] normal. Psych: Appropriate mood and affect Assessment and plan: Patient 84-year-old male with past history of cancer as well as numerous TIAs. Presenting with strokelike symptoms. CT scan of the brain was within normal limits and did not demonstrate any evidence of acute intracranial hemorrhage. The patient's symptoms did not improve while in the emergency department however while the patient was within the window for TPA he is not eligible due to his cancer history. Patient's fingerstick and other lab work were unremarkable. Given the patient's confusion and uncertain etiology of these episodes, the patient will be placed in observation under the hospitalist service for further evaluation and monitoring. The patient's son Hakan, agrees with this plan and wishes to be updated with any further news. - Related Data Allergies Allergy/AdvReac Type Severity Reaction Status Date / Time No Known Allergies Allergy Verified 05/22/19 15:34 Home Meds: Home Meds Metoprolol Succinate [Toprol XL] 25 mg PO DAILY 12/01/15 [History] predniSONE [Prednisone] 5 mg PO DAILY 05/11/17 [History] atorvaSTATin [Lipitor] 40 mg PO BEDTIME 05/06/18 [History] levETIRAcetam [Keppra] 750 mg PO BID 08/14/18 [History] Apixaban [Eliquis] 5 mg PO BID 10/25/18 [History] Cholecalciferol (Vitamin D3) [Vitamin D3] 1,000 unit PO DAILY 11/08/18 [History] Past Medical History - Past Health History Medical/Surgical History: Denies Medical/Surgical History HEENT History: Reports: Cataract, Impaired Vision Cardiovascular History: Reports: Afib, CAD, Heart Valve Replacement, Hypertension, Pacemaker Respiratory History: Reports: None Gastrointestinal History: Reports: Chronic Constipation Genitourinary History: Reports: BPH Musculoskeletal History: Reports: Fracture Neurological History: Reports: CVA, TIA Psychiatric History: Reports: Addiction Other Psychiatric History: Alcohol abuse Endocrine/Metabolic History: Reports: None Hematologic History: Reports: Anticoagulation Therapy, Blood Transfusion(s) Immunologic History: Reports: None Oncologic (Cancer) History: Reports: None Other Oncologic History: skin cancer on top of head and face Dermatologic History: Reports: Melanoma Other Dermatologic History: has radiation treatment for cancer. Melanoma to top of head. - Infectious Disease History Infectious Disease History: Reports: None - Past Surgical History HEENT Surgical History: Reports: Cataract Surgery Cardiovascular Surgical History: Reports: Carotid Endarterectomy, Coronary Artery Bypass, Valve Replacement, Other (See Below) Other Cardiovascular Surgeries/Procedures: pacemaker and porcine mitral valve Respiratory Surgical History: Reports: None GI Surgical History: Reports: None Male Surgical History: Reports: None Endocrine Surgical History: Reports: None Neurological Surgical History: Reports: None Musculoskeletal Surgical History: Reports: None Social & Family History - Family History Family Medical History: Noncontributory HEENT: Reports: None Cardiac: Reports: Afib, High Cholesterol, Hypertension Respiratory: Reports: None GI: Reports: None : Reports: None OBGYN: Reports: None Musculoskeletal: Reports: Arthritis, Osteoarthritis, Osteoporosis Neurological: Reports: None Psychiatric: Reports: None Endocrine/Metabolic: Reports: None Hematologic: Reports: None Immunologic: Reports: None Dermatologic: Reports: None Oncologic: Reports: None - Tobacco Use Smoking Status *Q: Unknown Ever Smoked - Caffeine Use Caffeine Use: Reports: None Other Caffeine Use: Cup a day Caffeine Use Comment: 1 drink/day - Recreational Drug Use Recreational Drug Use: No - Living Situation & Occupation Living situation: Reports: with Significant Other Occupation: Employed ED ROS GENERAL - Review of Systems Review Of Systems: See Below ED EXAM, NEURO - Physical Exam Exam: See Below Course - Vital Signs Last Recorded V/S: Last Vital Signs Temp 36.6 C 05/22/19 15:48 Pulse 95 05/22/19 15:48 Resp 17 05/22/19 15:48 BP 172/88 H 05/22/19 15:48 Pulse Ox 95 05/22/19 15:48 - Orders/Labs/Meds Orders: Active Orders 24 hr Category Date Time Status Admission Status [Patient Status] [ADT] Stat ADT 05/22/19 17:09 Active Labs: Laboratory Tests 05/22/19 05/22/19 05/22/19 Range/Units 15:47 15:47 15:47 WBC 8.44 (4.0-11.0) K/uL RBC 4.26 L (4.50-5.90) M/uL Hgb 14.0 (13.0-17.0) g/dL Hct 41.4 (38.0-50.0) % MCV 97.2 (80.0-98.0) fL MCH 32.9 H (27.0-32.0) pg MCHC 33.8 (31.0-37.0) g/dL RDW Std Deviation 53.5 (28.0-62.0) fl RDW Coeff of Ryan 15 (11.0-15.0) % Plt Count 187 (150-400) K/uL MPV 10.00 (7.40-12.00) fL Neut % (Auto) 78.3 (48.0-80.0) % Lymph % (Auto) 12.3 L (16.0-40.0) % [place] % (Auto) 9.0 (0.0-15.0) % Eos % (Auto) 0.2 (0.0-7.0) % Baso % (Auto) 0.2 (0.0-1.5) % Neut # (Auto) 6.6 H (1.4-5.7) K/uL Lymph # (Auto) 1.0 (0.6-2.4) K/uL [place] # (Auto) 0.8 (0.0-0.8) K/uL Eos # (Auto) 0.0 (0.0-0.7) K/uL Baso # (Auto) 0.0 (0.0-0.1) K/uL Nucleated RBC % 0.0 /100WBC Nucleated RBCs # 0 K/uL INR 1.07 Sodium 144 (136-148) mmol/L Potassium 4.5 (3.5-5.1) mmol/L Chloride 108 H (98-107) mmol/L Carbon Dioxide 27.6 (21.0-32.0) mmol/L BUN 12 (7.0-18.0) mg/dL Creatinine 0.8 (0.8-1.3) mg/dL Est Cr Clr Drug Dosing 65.09 mL/min Estimated GFR (MDRD) > 60.0 ml/min Glucose 108 H (74-106) mg/dL Calcium 9.1 (8.5-10.1) mg/dL Total Bilirubin 0.8 (0.2-1.0) mg/dL AST 66 H (15-37) IU/L ALT 56 (14-63) IU/L Alkaline Phosphatase 62 (46-116) U/L Total Protein 7.1 (6.4-8.2) g/dL Albumin 3.4 (3.4-5.0) g/dL Globulin 3.7 (2.6-4.0) g/dL Albumin/Globulin Ratio 0.9 (0.9-1.6) Departure - Departure Time of Disposition: 17:16 Disposition: Refer to Observation Clinical Impression: TIA (transient ischemic attack) Altered mental status Qualifiers: Altered mental status type: disorientation Qualified Code(s): R41.0 - Disorientation, unspecified - Discharge Information Referrals: Yevgeniy Murguia MD [Primary Care Provider] - Sepsis Event Note - Evaluation Sepsis Screening Result: No Definite Risk - Focused Exam Vital Signs: Vital Signs Temp Pulse Resp BP Pulse Ox 05/22/19 15:48 36.6 C 95 17 172/88 H 95 Date Exam was Performed: 05/22/19 Time Exam was Performed: 17:12 - My Orders Last 24 Hours: My Active Orders 05/22/19 17:09 Admission Status [Patient Status] [ADT] Stat - Assessment/Plan Last 24 Hours: My Active Orders 05/22/19 17:09 Admission Status [Patient Status] [ADT] Stat
[2019-05-22] MEDS ORDERED: LORazepam 2 MG/ML SDV IVPUSH PRN (17:56)
[2019-05-22] MEDS ORDERED: LORazepam 1 MG Tab PO PRN (17:57)
--- NOTE | 2019-05-22 18:05 | PCM.HP.2 ---
H&P History of Present Illness - General Date of Service: 05/22/19 Admit Problem/Dx: Admission Diagnosis/Problem Admission Diagnosis/Problem Stroke-like symptoms - History of Present Illness Initial Comments - Free Text/Narative: The patient is a 84 year old male with past medical history of lung/liver cancer , CAD, Afib, pacemaker, seizure and numerous TIAs who presented today with confusion and slurred speech. His girlfriend stated taht he got up and was normal until about 1 pm. He then became confused, didn't know where he was, and had slurred speech. They state that he gets a TIA about every 3 months and symptoms resolve on their own within 24 hours. Used to follow with Dr. Jewell but stopped. Last echo was May 2017 with EF of 60-65%, no wall motion abn. Last US carotids was May 2018 without any significant stenosis. Denies fever/chills, chest pain, shortness of breath, abdominal pain, nausea/ vomiting, constipation/diarrhea, headache, vision changes, facial droop, weakness, or trouble ambulating. Not undergoing treatment for his cancer. Drinks 5-6 glasses of hard liquor daily, denies hx of withdrawal symptoms. Last seizure he thinks was in Jan 2019. Denies seizure today, no LOC, no bowel/ bladder incontinence. In the ER, workup did not show a leukocytosis, anemia, electrolyte imbalance, AST was elevated at 66. Head CT did not show any acute events. EKG showed Afib, rate controlled with pacing. PCP- Dr. Murguia - Related Data Allergies/Adverse Reactions: Allergies Allergy/AdvReac Type Severity Reaction Status Date / Time No Known Allergies Allergy Verified 05/22/19 15:34 Home Medications: Home Meds Metoprolol Succinate [Toprol XL] 25 mg PO DAILY 12/01/15 [History] predniSONE [Prednisone] 5 mg PO DAILY 05/11/17 [History] atorvaSTATin [Lipitor] 40 mg PO BEDTIME 05/06/18 [History] levETIRAcetam [Keppra] 750 mg PO BID 08/14/18 [History] Apixaban [Eliquis] 5 mg PO BID 10/25/18 [History] Cholecalciferol (Vitamin D3) [Vitamin D3] 1,000 unit PO DAILY 11/08/18 [History] Past Medical History - Past Health History Medical/Surgical History: Denies Medical/Surgical History HEENT History: Reports: Cataract, Impaired Vision Cardiovascular History: Reports: Afib, CAD, Heart Valve Replacement, Hypertension, Pacemaker Respiratory History: Reports: None Gastrointestinal History: Reports: Chronic Constipation Genitourinary History: Reports: BPH Musculoskeletal History: Reports: Fracture Neurological History: Reports: CVA, TIA Psychiatric History: Reports: Addiction Other Psychiatric History: Alcohol abuse Endocrine/Metabolic History: Reports: None Hematologic History: Reports: Anticoagulation Therapy, Blood Transfusion(s) Immunologic History: Reports: None Oncologic (Cancer) History: Reports: None Other Oncologic History: skin cancer on top of head and face Dermatologic History: Reports: Melanoma Other Dermatologic History: has radiation treatment for cancer. Melanoma to top of head. - Infectious Disease History Infectious Disease History: Reports: None - Past Surgical History HEENT Surgical History: Reports: Cataract Surgery Cardiovascular Surgical History: Reports: Carotid Endarterectomy, Coronary Artery Bypass, Valve Replacement, Other (See Below) Other Cardiovascular Surgeries/Procedures: pacemaker and porcine mitral valve Respiratory Surgical History: Reports: None GI Surgical History: Reports: None Male Surgical History: Reports: None Endocrine Surgical History: Reports: None Neurological Surgical History: Reports: None Musculoskeletal Surgical History: Reports: None Social & Family History - Family History Family Medical History: Noncontributory HEENT: Reports: None Cardiac: Reports: Afib, High Cholesterol, Hypertension Respiratory: Reports: None GI: Reports: None : Reports: None OBGYN: Reports: None Musculoskeletal: Reports: Arthritis, Osteoarthritis, Osteoporosis Neurological: Reports: None Psychiatric: Reports: None Endocrine/Metabolic: Reports: None Hematologic: Reports: None Immunologic: Reports: None Dermatologic: Reports: None Oncologic: Reports: None - Tobacco Use Smoking Status *Q: Unknown Ever Smoked - Caffeine Use Caffeine Use: Reports: None Other Caffeine Use: Cup a day Caffeine Use Comment: 1 drink/day - Recreational Drug Use Recreational Drug Use: No - Living Situation & Occupation Living situation: Reports: with Significant Other Occupation: Employed H&P Review of Systems - Review of Systems: Review Of Systems: See Below General: Reports: No Symptoms HEENT: Reports: No Symptoms Pulmonary: Reports: No Symptoms Cardiovascular: Reports: No Symptoms Gastrointestinal: Reports: No Symptoms Genitourinary: Reports: No Symptoms Musculoskeletal: Reports: No Symptoms Skin: Reports: No Symptoms Psychiatric: Reports: No Symptoms, Confusion Neurological: Reports: Confusion, Trouble Speaking. Denies: Weakness Hematologic/Lymphatic: Reports: No Symptoms Immunologic: Reports: No Symptoms Exam - Exam Exam: See Below - Vital Signs Vital Signs: Last Vital Signs Temp 98.9 F 05/22/19 17: Pulse 84 05/22/19 17:29 Resp 17 05/22/19 17: BP 169/97 H 05/22/19 17: Pulse Ox 99 05/22/19 17:29 Weight: 65.771 kg - Exam General: Alert, Oriented, Cooperative HEENT: Conjunctiva Clear, EOMI, Mucosa Moist & [place], Posterior Pharynx Clear, Pupils Equal, Pupils Reactive Neck: Supple, Trachea Midline Lungs: Clear to Auscultation, Normal Respiratory Effort Cardiovascular: Regular Rate, Irregular Rhythm GI/Abdominal Exam: Normal Bowel Sounds, Soft, Non-Tender, No Distention Extremities: No Pedal Edema Skin: Warm, Dry, Intact Neurological: Cranial Nerves Intact, Strength Equal Bilateral Neuro Extensive - Motor, Sensory, Reflexes: CN II-XII Intact, Normal Reflexes. No: Tongue Deviation (L), Tongue Deviation (R), Dysarthria, Facial palsy (L), Facial Palsy (R), Abnormal Finger to Nose Psychiatric: Alert, Normal Affect, Normal Mood - Patient Data Lab Results Last 24 hrs: Laboratory Results - last 24 hr 05/22/19 05/22/19 05/22/19 Range/Units 15:47 15:47 15:47 WBC 8.44 (4.0-11.0) K/uL RBC 4.26 L (4.50-5.90) M/uL Hgb 14.0 (13.0-17.0) g/dL Hct 41.4 (38.0-50.0) % MCV 97.2 (80.0-98.0) fL MCH 32.9 H (27.0-32.0) pg MCHC 33.8 (31.0-37.0) g/dL RDW Std Deviation 53.5 (28.0-62.0) fl RDW Coeff of Ryan 15 (11.0-15.0) % Plt Count 187 (150-400) K/uL MPV 10.00 (7.40-12.00) fL Neut % (Auto) 78.3 (48.0-80.0) % Lymph % (Auto) 12.3 L (16.0-40.0) % [place] % (Auto) 9.0 (0.0-15.0) % Eos % (Auto) 0.2 (0.0-7.0) % Baso % (Auto) 0.2 (0.0-1.5) % Neut # (Auto) 6.6 H (1.4-5.7) K/uL Lymph # (Auto) 1.0 (0.6-2.4) K/uL [place] # (Auto) 0.8 (0.0-0.8) K/uL Eos # (Auto) 0.0 (0.0-0.7) K/uL Baso # (Auto) 0.0 (0.0-0.1) K/uL Nucleated RBC % 0.0 /100WBC Nucleated RBCs # 0 K/uL INR 1.07 Sodium 144 (136-148) mmol/L Potassium 4.5 (3.5-5.1) mmol/L Chloride 108 H (98-107) mmol/L Carbon Dioxide 27.6 (21.0-32.0) mmol/L BUN 12 (7.0-18.0) mg/dL Creatinine 0.8 (0.8-1.3) mg/dL Est Cr Clr Drug Dosing 65.09 mL/min Estimated GFR (MDRD) > 60.0 ml/min Glucose 108 H (74-106) mg/dL Calcium 9.1 (8.5-10.1) mg/dL Total Bilirubin 0.8 (0.2-1.0) mg/dL AST 66 H (15-37) IU/L ALT 56 (14-63) IU/L Alkaline Phosphatase 62 (46-116) U/L Total Protein 7.1 (6.4-8.2) g/dL Albumin 3.4 (3.4-5.0) g/dL Globulin 3.7 (2.6-4.0) g/dL Albumin/Globulin Ratio 0.9 (0.9-1.6) Result Diagrams: 05/22/19 15:47 05/22/19 15:47 Sepsis Event Note - Evaluation Sepsis Screening Result: No Definite Risk - Focused Exam Vital Signs: Vital Signs Temp Pulse Resp BP Pulse Ox 05/22/19 17:29 98.9 F 84 17 169/97 H 99 05/22/19 16:45 96 16 160/95 H 99 05/22/19 15:59 87 17 145/88 H 99 05/22/19 15:48 97.9 F 95 17 172/88 H 95 Date Exam was Performed: 05/22/19 Time Exam was Performed: 17:59 Problem List Initiated/Reviewed/Updated: Yes Orders Last 24hrs: Active Orders 24 hr Category Date Time Status Admission Status [Patient Status] [ADT] Stat ADT 05/22/19 17:09 Active CIWAA Assessment [RC] ASDIRECTED Care 05/22/19 17:56 Ordered Cardiac Monitoring [RC] . DIRECTED Care 05/22/19 17:52 Ordered Intake and Output [RC] ASDIRECTED Care 05/22/19 17:52 Ordered NIH Stroke Scale [RC] ASDIRECTED Care 05/22/19 17:52 Ordered Vital Signs [RC] PER UNIT ROUTINE Care 05/22/19 17:52 Ordered Heart Healthy Diet [DIET] Diet 05/23/19 Breakfast Ordered Ang Head wo Cont [MR] Stat Exams 05/22/19 17:55 Ordered Brain w wo Cont [MR] Routine Exams 05/22/19 17:52 Ordered Echo Comp wo Cont [US] Stat Exams 05/22/19 17:56 Ordered MRA Neck Without Contrast [Ang Neck wo Cont] [MR] Stat Exams 05/22/19 17:55 Ordered CBC WITH AUTO DIFF [HEME] AM Lab 05/23/19 05:11 Ordered COMPREHENSIVE METABOLIC PN,CMP [CHEM] AM Lab 05/23/19 05:11 Ordered GLYCOSYLATED HEMOGLOBIN,HGBA1C [CHEM] AM Lab 05/23/19 05:11 Ordered LIPID PANEL [CHEM] AM Lab 05/24/19 05:11 Ordered Folic Acid Med 05/22/19 21:00 Ordered 1 mg PO BEDTIME LORazepam [Ativan] Med 05/22/19 17:56 Ordered See Protocol IVPUSH Q4H PRN LORazepam [Ativan] Med 05/22/19 17:57 Ordered See Protocol PO Q4H PRN Thiamine [Vitamin B-1] Med 05/22/19 21:00 Ordered 100 mg PO BEDTIME Resuscitation Status Routine Resus Stat 05/22/19 17:52 Ordered Medication Orders Folic Acid (Folic Acid) 1 mg PO BEDTIME MARCELINO Lorazepam (Ativan) 0 mg IVPUSH Q4H PRN; Protocol PRN Reason: Withdrawal Symptoms Lorazepam (Ativan) 0 mg PO Q4H PRN; Protocol PRN Reason: Withdrawal Symptoms Thiamine HCl (Vitamin B-1) 100 mg PO BEDTIME MARCELINO Assessment/Plan Comment:: 1. Admit for observation 2. Code status- DNR/DNI 3. Vitals per routine 4. I/Os per routine 5. Diet- heart healthy 6. DVT prophylaxis- on Eliquis 7. Slurred speech and confusion- resolved, likely TIA- Patient seems to have a TIA every 3 months and hasn't had a full work up in years. Will get MRI brain, MRA head/neck, and echo. Will monitor on telemetry. In the AM with get lipid panel and Ha1c with labs. No need for PT/OT at this time as he has no weakness and is ambulating without difficulty. 8. Chronic conditions- HTN, CAD, hyperlipidemia, seizure- continue home meds, monitor on telemetry 9. Hx of alcohol use- CIWA/Ativan protocol. Start on thiamine and folic acid.
[2019-05-22] MEDS: Apixaban 5 MG Tab PO SCH (20:34)
[2019-05-22] MEDS: levETIRAcetam 500 MG Tab PO SCH (20:34)
[2019-05-22] MEDS ORDERED: atorvaSTATin 40 MG Tab PO SCH (21:00)
[2019-05-22] MEDS ORDERED: Folic Acid 1 MG Tab PO SCH (21:00)
[2019-05-22] MEDS ORDERED: Thiamine 100 MG Tab PO SCH (21:00)
[2019-05-23 05:24] LABS: HEMOGLOBIN A1C 5.6 % (4.5-6.2)
[2019-05-23 05:37] LABS: BLOOD UREA NITROGEN,BUN 13 mg/dL (7.0-18.0); CARBON DIOXIDE,CO2 24.2 mmol/L (21.0-32.0); CHLORIDE,CL 105 mmol/L (98-107); GLUCOSE RANDOM 106 mg/dL (74-106); POTASSIUM,K 3.7 mmol/L (3.5-5.1); SODIUM,NA 140 mmol/L (136-148)
[2019-05-23] MEDS ORDERED: Metoprolol Succinate 25 MG Tab.ER PO SCH (09:00)
[2019-05-23] MEDS ORDERED: Cholecalciferol (Vitamin D3) 25 MCG Tab PO SCH (09:00)
[2019-05-23] MEDS ORDERED: predniSONE 5 MG Tab PO SCH (09:00)
[2019-05-23] MEDS: levETIRAcetam 500 MG Tab PO SCH (09:51)
[2019-05-23] MEDS: Apixaban 5 MG Tab PO SCH (09:52)
[2019-05-23] MEDS ORDERED: Iopamidol 755 MG/ML 200 ML Multipack Bottle IVPUSH ONE (10:26)
--- NOTE | 2019-05-23 11:00 | CT ---
CT angiogram of neck Technique: Multiple axial sections through the neck were obtained. Intravenous contrast was utilized. Study obtained during the arterial phase. Findings: Atherosclerotic calcification is seen within the aorta and within the branch vessels. Common carotid arteries show no focal stenosis. Internal carotid arteries appear patent without focal stenosis. Atherosclerotic change is noted within the carotid siphon. Visualized anterior cerebral arteries and posterior cerebral arteries show no focal stenosis. Both vertebral arteries are patent. No focal stenosis is seen. Atherosclerotic calcification is noted within the proximal vertebral vessels. There is a patent basilar artery. Posterior cerebral arteries that are seen also appear to be patent. Impression: 1. Atherosclerotic calcification within the neck vessels. 2. No hemodynamic significant stenosis is seen. Diagnostic code #2 This report was dictated in [place] Standard Time
--- NOTE | 2019-05-23 11:00 | CT ---
MR angiogram of brain Technique: Multiple axial sections through the brain were obtained. Intravenous contrast was utilized. Study obtained during the arterial phase as a CT angiogram protocol. Multiple MIP images were obtained. Findings: Distal vertebral arteries are patent into the basilar artery. Posterior cerebral arteries are patent. Internal carotid arteries shows atherosclerotic change within the carotid siphon but are otherwise patent. There is normal flow into the middle cerebral arteries and anterior cerebral arteries. No focal stenosis is appreciated. No discrete aneurysm is appreciated. Impression: 1. Atherosclerotic change within the carotid siphon. 2. No definite stenosis or occlusion is seen within the anterior, middle or posterior cerebral arteries. Diagnostic code #2 This report was dictated in [place] Standard Time
--- NOTE | 2019-05-23 11:00 | US ---
Carotid ultrasound: Duplex and color flow imaging was obtained of the carotid arteries. No previous carotid imaging. Scattered hard plaque noted within both carotid bulbs and within the proximal internal carotid arteries on both sides. Right side: CCA has a peak systolic velocity of 0.80 m/sec. ICA has a peak systolic velocity of 0.69 m/sec and peak end-diastolic velocity of 0.14 m/sec. ECA has a peak systolic velocity of 1.44 m/sec. Vertebral artery has a peak systolic velocity of 0.78 m/sec. ICA/CCA ratio is 1.12. Left side: CCA has a peak systolic velocity of 0.73 m/sec. ICA has a peak systolic velocity of 1.01 m/sec and peak end-diastolic velocity of 0.26 m/sec. ECA has a peak systolic velocity of 2.31 m/sec. Vertebral artery has a peak systolic velocity of 0.91 m/sec. ICA/CCA ratio is 1.65. Impression: 1. Scattered plaque. 2. High resistant waveforms within the left common carotid artery and within both vertebral arteries with normal velocity measurements. Difficult to exclude distal intracranial stenosis. MR angiogram would be helpful to further evaluate. 3. Velocity measurements within both internal carotid arteries correspond to stenosis in the range of 1-49%. 4. Elevated velocity measurement within the left external carotid artery corresponding to stenosis greater than 50%. Diagnostic code #3 This report was dictated in [place] Standard Time
[2019-05-23 12:21] VITALS: BP 147/63; PULSE 70
--- NOTE | 2019-05-23 12:29 | PCM.DCSUM1 ---
Discharge Summary - Hospital Course Brief History: The patient is a 84 year old male with past medical history of lung/liver cancer, CAD, Afib, pacemaker, seizure and numerous TIAs who presented today with confusion and slurred speech. His girlfriend stated taht he got up and was normal until about 1 pm. He then became confused, didn't know where he was, and had slurred speech. They state that he gets a TIA about every 3 months and symptoms resolve on their own within 24 hours. Used to follow with Dr. Jewell but stopped. Last echo was May 2017 with EF of 60-65% , no wall motion abn. Last US carotids was May 2018 without any significant stenosis. Denies fever/chills, chest pain, shortness of breath, abdominal pain , nausea/vomiting, constipation/diarrhea, headache, vision changes, facial droop , weakness, or trouble ambulating. Not undergoing treatment for his cancer. Drinks 5-6 glasses of hard liquor daily, denies hx of withdrawal symptoms. Last seizure he thinks was in Jan 2019. Denies seizure today, no LOC, no bowel/ bladder incontinence. In the ER, workup did not show a leukocytosis, anemia, electrolyte imbalance, AST was elevated at 66. Head CT did not show any acute events. EKG showed Afib, rate controlled with pacing. PCP- Dr. Murguia Diagnosis: Stroke: No - Discharge Data Discharge Date: 05/23/19 Discharge Disposition: Home, Self-Care 01 Condition: Good - Referral to Home Health Primary Care Physician: Yevgeniy Murguia MD - Patient Instructions Diet: Heart Healthy Diet Activity: As Tolerated, No Strenuous Activities Driving: Do Not Drive Notify Provider of: Fever, Increased Pain, Swelling and Redness, Drainage, Nausea and/or Vomiting - Discharge Plan *PRESCRIPTION DRUG MONITORING PROGRAM REVIEWED*: Not Applicable *COPY OF PRESCRIPTION DRUG MONITORING REPORT IN PATIENT ROSA: Not Applicable Home Medications: Home Meds Metoprolol Succinate [Toprol XL] 25 mg PO DAILY 12/01/15 [History] predniSONE [Prednisone] 5 mg PO DAILY 05/11/17 [History] atorvaSTATin [Lipitor] 40 mg PO BEDTIME 05/06/18 [History] levETIRAcetam [Keppra] 750 mg PO BID 08/14/18 [History] Apixaban [Eliquis] 5 mg PO BID 10/25/18 [History] Cholecalciferol (Vitamin D3) [Vitamin D3] 1,000 unit PO DAILY 11/08/18 [History] Aspirin [Halfprin] 81 mg PO DAILY 05/22/19 [History] Vit C/Vit E AC/Lut/Copper/Zinc [Preservision Lutein Softgel] 1 cap PO DAILY [History] predniSONE [Prednisone] 0.5 tab PO QPM 05/22/19 [History] Folic Acid 1 mg PO BEDTIME tablet 05/23/19 [Rx] Thiamine [Vitamin B-1] 100 mg PO BEDTIME tablet 05/23/19 [Rx] Oxygen Therapy Mode: Room Air Patient Handouts: Transient Ischemic Attack, [id number] Referrals: Yevgeniy Murguia MD [Primary Care Provider] - 06/07/19 12:45 pm - Discharge Summary/Plan Comment DC Time >30 min.: No Discharge Summary/Plan Comment: Admitting Diagnoses: TIA Discharge Diagnoses: TIA Other PMH: Dyslipidemia CAD Afib Seizure disorder Lung/liver cancer Del was admitted with concerns of confusion, which resolved by the time he was admitted. Head CT in ED showed no acute CVA, unable to obtain MRI due to pacemaker in place. ECHO obtained and is pending. Carotid US obtained as well as Neck and Head CTA, which showed some carotid atherosclerosis, but flow was maintained,cerebral blood flow maintained as well. He was eager to be discharged today, which is appropriate. He will be discharged home today, continue all home medications including Eliquis and statin. He has follow up this week for pacemaker check and next week with Dr Samuels for PET scan and oncology appointments. He is to return to ED or clinic if concerns should arise. Also, encouraged to refrain from alcohol use. - Patient Data Vitals - Most Recent: Last Vital Signs Temp 96.6 F 05/23/19 12:00 Pulse 70 05/23/19 12:00 Resp 20 05/23/19 12:00 BP 147/63 H 05/23/19 12:00 Pulse Ox 98 05/23/19 12:00 Weight - Most Recent: 65.771 kg I&O - Last 24 hours: Intake & Output 05/22/19 05/23/19 05/23/19 22:59 06:59 14:59 Intake Total 650 Output Total 150 Balance 500 Lab Results - Last 24 hrs: Laboratory Results - last 24 hr 05/22/19 05/22/19 05/22/19 Range/Units 15:47 15:47 15:47 WBC 8.44 (4.0-11.0) K/uL RBC 4.26 L (4.50-5.90) M/uL Hgb 14.0 (13.0-17.0) g/dL Hct 41.4 (38.0-50.0) % MCV 97.2 (80.0-98.0) fL MCH 32.9 H (27.0-32.0) pg MCHC 33.8 (31.0-37.0) g/dL RDW Std Deviation 53.5 (28.0-62.0) fl RDW Coeff of Ryan 15 (11.0-15.0) % Plt Count 187 (150-400) K/uL MPV 10.00 (7.40-12.00) fL Neut % (Auto) 78.3 (48.0-80.0) % Lymph % (Auto) 12.3 L (16.0-40.0) % [place] % (Auto) 9.0 (0.0-15.0) % Eos % (Auto) 0.2 (0.0-7.0) % Baso % (Auto) 0.2 (0.0-1.5) % Neut # (Auto) 6.6 H (1.4-5.7) K/uL Lymph # (Auto) 1.0 (0.6-2.4) K/uL [place] # (Auto) 0.8 (0.0-0.8) K/uL Eos # (Auto) 0.0 (0.0-0.7) K/uL Baso # (Auto) 0.0 (0.0-0.1) K/uL Nucleated RBC % 0.0 /100WBC Nucleated RBCs # 0 K/uL INR 1.07 Sodium 144 (136-148) mmol/L Potassium 4.5 (3.5-5.1) mmol/L Chloride 108 H (98-107) mmol/L Carbon Dioxide 27.6 (21.0-32.0) mmol/L BUN 12 (7.0-18.0) mg/dL Creatinine 0.8 (0.8-1.3) mg/dL Est Cr Clr Drug Dosing 65.09 mL/min Estimated GFR (MDRD) > 60.0 ml/min Glucose 108 H (74-106) mg/dL Hemoglobin A1c (4.5-6.2) % Calcium 9.1 (8.5-10.1) mg/dL Total Bilirubin 0.8 (0.2-1.0) mg/dL AST 66 H (15-37) IU/L ALT 56 (14-63) IU/L Alkaline Phosphatase 62 (46-116) U/L Total Protein 7.1 (6.4-8.2) g/dL Albumin 3.4 (3.4-5.0) g/dL Globulin 3.7 (2.6-4.0) g/dL Albumin/Globulin Ratio 0.9 (0.9-1.6) Triglycerides (0-200) mg/dL Cholesterol (50-200) mg/dL LDL Cholesterol, Calc (60-180) mg/dL VLDL Cholesterol (5-55) mg/dL HDL Cholesterol (40-60) mg/dL Cholesterol/HDL Ratio (3.3-6.0) 05/23/19 05/23/19 05/23/19 Range/Units 04:56 04:56 04:56 WBC 10.15 (4.0-11.0) K/uL RBC 4.16 L (4.50-5.90) M/uL Hgb 13.4 (13.0-17.0) g/dL Hct 40.2 (38.0-50.0) % MCV 96.6 (80.0-98.0) fL MCH 32.2 H (27.0-32.0) pg MCHC 33.3 (31.0-37.0) g/dL RDW Std Deviation 52.8 (28.0-62.0) fl RDW Coeff of [place] 15 (11.0-15.0) % Plt Count 181 (150-400) K/uL MPV 10.00 (7.40-12.00) fL Neut % (Auto) 71.2 (48.0-80.0) % Lymph % (Auto) 19.5 (16.0-40.0) % [place] % (Auto) 8.2 (0.0-15.0) % Eos % (Auto) 0.7 (0.0-7.0) % Baso % (Auto) 0.4 (0.0-1.5) % Neut # (Auto) 7.2 H (1.4-5.7) K/uL Lymph # (Auto) 2.0 (0.6-2.4) K/uL [place] # (Auto) 0.8 (0.0-0.8) K/uL Eos # (Auto) 0.1 (0.0-0.7) K/uL Baso # (Auto) 0.0 (0.0-0.1) K/uL Nucleated RBC % 0.0 /100WBC Nucleated RBCs # 0 K/uL INR Sodium 140 (136-148) mmol/L Potassium 3.7 (3.5-5.1) mmol/L Chloride 105 (98-107) mmol/L Carbon Dioxide 24.2 (21.0-32.0) mmol/L BUN 13 (7.0-18.0) mg/dL Creatinine 0.8 (0.8-1.3) mg/dL Est Cr Clr Drug Dosing 65.09 mL/min Estimated GFR (MDRD) > 60.0 ml/min Glucose 106 (74-106) mg/dL Hemoglobin A1c 5.6 (4.5-6.2) % Calcium 9.1 (8.5-10.1) mg/dL Total Bilirubin 1.1 H (0.2-1.0) mg/dL AST 39 H (15-37) IU/L ALT 55 (14-63) IU/L Alkaline Phosphatase 64 (46-116) U/L Total Protein 7.2 (6.4-8.2) g/dL Albumin 3.6 (3.4-5.0) g/dL Globulin 3.6 (2.6-4.0) g/dL Albumin/Globulin Ratio 1.0 (0.9-1.6) Triglycerides (0-200) mg/dL Cholesterol (50-200) mg/dL LDL Cholesterol, Calc (60-180) mg/dL VLDL Cholesterol (5-55) mg/dL HDL Cholesterol (40-60) mg/dL Cholesterol/HDL Ratio (3.3-6.0) 05/23/19 Range/Units 04:56 WBC (4.0-11.0) K/uL RBC (4.50-5.90) M/uL Hgb (13.0-17.0) g/dL Hct (38.0-50.0) % MCV (80.0-98.0) fL MCH (27.0-32.0) pg MCHC (31.0-37.0) g/dL RDW Std Deviation (28.0-62.0) fl RDW Coeff of Ryan (11.0-15.0) % Plt Count (150-400) K/uL MPV (7.40-12.00) fL Neut % (Auto) (48.0-80.0) % Lymph % (Auto) (16.0-40.0) % [place] % (Auto) (0.0-15.0) % Eos % (Auto) (0.0-7.0) % Baso % (Auto) (0.0-1.5) % Neut # (Auto) (1.4-5.7) K/uL Lymph # (Auto) (0.6-2.4) K/uL [place] # (Auto) (0.0-0.8) K/uL Eos # (Auto) (0.0-0.7) K/uL Baso # (Auto) (0.0-0.1) K/uL Nucleated RBC % /100WBC Nucleated RBCs # K/uL INR Sodium (136-148) mmol/L Potassium (3.5-5.1) mmol/L Chloride (98-107) mmol/L Carbon Dioxide (21.0-32.0) mmol/L BUN (7.0-18.0) mg/dL Creatinine (0.8-1.3) mg/dL Est Cr Clr Drug Dosing mL/min Estimated GFR (MDRD) ml/min Glucose (74-106) mg/dL Hemoglobin A1c (4.5-6.2) % Calcium (8.5-10.1) mg/dL Total Bilirubin (0.2-1.0) mg/dL AST (15-37) IU/L ALT (14-63) IU/L Alkaline Phosphatase (46-116) U/L Total Protein (6.4-8.2) g/dL Albumin (3.4-5.0) g/dL Globulin (2.6-4.0) g/dL Albumin/Globulin Ratio (0.9-1.6) Triglycerides 71 (0-200) mg/dL Cholesterol 141 (50-200) mg/dL LDL Cholesterol, Calc 62 (60-180) mg/dL VLDL Cholesterol 14 (5-55) mg/dL HDL Cholesterol 65 H (40-60) mg/dL Cholesterol/HDL Ratio 2.2 L (3.3-6.0) Med Orders - Current: Current Medications Apixaban (Eliquis) 5 mg PO BID [facility] Last Admin: 05/23/19 09:52 Dose: 5 mg Atorvastatin Calcium (Lipitor) 40 mg PO BEDTIME [facility] Last Admin: 05/22/19 20:34 Dose: 40 mg Cholecalciferol (Vitamin D3) 25 mcg PO DAILY [facility] Last Admin: 05/23/19 09:52 Dose: 25 mcg Folic Acid (Folic Acid) 1 mg PO BEDTIME [facility] Last Admin: 05/22/19 20:34 Dose: 1 mg Levetiracetam (Keppra) 750 mg PO BID [facility] Last Admin: 05/23/19 09:51 Dose: 750 mg Lorazepam (Ativan) 0 mg IVPUSH Q4H PRN; Protocol PRN Reason: Withdrawal Symptoms Lorazepam (Ativan) 0 mg PO Q4H PRN; Protocol PRN Reason: Withdrawal Symptoms Metoprolol Succinate (Toprol Xl) 25 mg PO DAILY [facility] Last Admin: 05/23/19 09:53 Dose: 25 mg Prednisone (Prednisone) 5 mg PO DAILY [facility] Last Admin: 05/23/19 09:52 Dose: 5 mg Thiamine HCl (Vitamin B-1) 100 mg PO BEDTIME [facility] Last Admin: 05/22/19 20:34 Dose: 100 mg Discontinued Medications Iopamidol (Isovue Multipack-370 (76%)) 100 ml IVPUSH ONETIME ONE Stop: 05/23/19 10:27 Last Admin: 05/23/19 10:27 Dose: 100 ml
--- NOTE | 2019-05-24 14:09 | ECHO ---
EXAM DATE: 05/22/19 PATIENT'S AGE: 84 The echocardiogram report can be seen in this patient's EMR (Electronic Medical Record) in the Reports section. The report has also been scanned into PACs. [place]
== END 2019-05-23 13:30 | disposition home or self-care (01) ==
LOC: MW.ED 15:32 → MW.MS 17:17
PROVIDERS: ADMIT Internal Medicine; ATTEND Internal Medicine
DX: G45.9 Transient cerebral ischemic attack, unspecified (principal); I10 Essential (primary) hypertension; E78.00 Pure hypercholesterolemia, unspecified; E78.5 Hyperlipidemia, unspecified; I25.10 Atherosclerotic heart disease of native coronary artery without angina pectoris; I48.91 Unspecified atrial fibrillation; G40.909 Epilepsy, unspecified, not intractable, without status epilepticus; C34.90 Malignant neoplasm of unspecified part of unspecified bronchus or lung; C22.8 Malignant neoplasm of liver, primary, unspecified as to type; M19.90 Unspecified osteoarthritis, unspecified site; M81.0 Age-related osteoporosis without current pathological fracture; Z79.01 Long term (current) use of anticoagulants; Z79.899 Other long term (current) drug therapy; Z86.73 Personal history of transient ischemic attack (TIA), and cerebral infarction without residual deficits; Z95.0 Presence of cardiac pacemaker; Z95.1 Presence of aortocoronary bypass graft
CPT/HCPCS: 36415; 70450; 70496; 70498; 80053; 80061; 83036; 85025; 85610; 93005; 93306; 93880; 99285; A9270; J7512; Q9967; G0378

== ENCOUNTER 2020-05-04 12:42 | Emergency (ER) | payer MEDICARE, OTHER ==
[2020-05-04] MEDS ORDERED: Sodium Chloride 0.9% 10 ML Syringe FLUSH PRN (12:48)
[2020-05-04] MEDS ORDERED: Sodium Chloride 0.9% 2.5 ML Syringe FLUSH PRN (12:48)
--- NOTE | 2020-05-04 12:52 | EDM.PDOC ---
ED HPI GENERAL MEDICAL PROBLEM - General Stated Complaint: FELL, HURT BACK Time Seen by Provider: 05/04/20 12:47 - History of Present Illness INITIAL COMMENTS - FREE TEXT/NARRATIVE: 84-year-old male who was on Eliquis prior charting reports Coumadin but the patient states that is incorrect. He had a mechanical slip and fall on the ice he landed on his left side he is presenting with left hip pain. The patient states that he had a slip and fall outside he got up and initially did not feel too bad beyond some mild pain in his right elbow where he had a small skin tear. He states that his dressed that after he went back and sat in a recliner. However when he tried to stand up he had significant left hip and side pain. He did not strike his head he did not lose consciousness he denies any midline neck or back pain he denies any other extremity pain. Pain is minimal at this time the pain in the left hip worsens with attempted ambulation. Though he is able to ambulate with a cane. No radiation or other associated symptoms. He had no lightheadedness dizziness shortness of breath or chest pain either before or after the fall. Left back/right elbow Pain Score (Numeric/FACES): 8 - Related Data Allergies Allergy/AdvReac Type Severity Reaction Status Date / Time No Known Allergies Allergy Verified 05/04/20 13:08 Home Meds: Home Meds Metoprolol Succinate [Toprol XL] 25 mg PO DAILY 12/01/15 [History] predniSONE [Prednisone] 5 mg PO DAILY 05/11/17 [History] atorvaSTATin [Lipitor] 40 mg PO BEDTIME 05/06/18 [History] levETIRAcetam [Keppra] 750 mg PO BID 08/14/18 [History] Apixaban [Eliquis] 5 mg PO BID 10/25/18 [History] Cholecalciferol (Vitamin D3) [Vitamin D3] 1,000 unit PO DAILY 11/08/18 [History] Aspirin [Halfprin] 81 mg PO DAILY 05/22/19 [History] Vit C/Vit E AC/Lut/Copper/Zinc [Preservision Lutein Softgel] 1 cap PO DAILY 05/22/19 [History] Past Medical History - Past Health History Medical/Surgical History: Denies Medical/Surgical History HEENT History: Reports: Cataract, Impaired Vision Cardiovascular History: Reports: Afib, CAD, Heart Valve Replacement, Hypertension, Pacemaker Respiratory History: Reports: None Gastrointestinal History: Reports: Chronic Constipation Genitourinary History: Reports: BPH Musculoskeletal History: Reports: Fracture Neurological History: Reports: CVA, TIA Psychiatric History: Reports: Addiction Other Psychiatric History: Alcohol abuse Endocrine/Metabolic History: Reports: None Hematologic History: Reports: Anticoagulation Therapy, Blood Transfusion(s) Immunologic History: Reports: None Oncologic (Cancer) History: Reports: None Other Oncologic History: skin cancer on top of head and face Dermatologic History: Reports: Melanoma Other Dermatologic History: has radiation treatment for cancer. Melanoma to top of head. - Infectious Disease History Infectious Disease History: Reports: None - Past Surgical History HEENT Surgical History: Reports: Cataract Surgery Cardiovascular Surgical History: Reports: Carotid Endarterectomy, Coronary Artery Bypass, Valve Replacement, Other (See Below) Other Cardiovascular Surgeries/Procedures: pacemaker and porcine mitral valve Respiratory Surgical History: Reports: None GI Surgical History: Reports: None Male Surgical History: Reports: None Endocrine Surgical History: Reports: None Neurological Surgical History: Reports: None Musculoskeletal Surgical History: Reports: None Social & Family History - Family History Family Medical History: No Pertinent Family History HEENT: Reports: None Cardiac: Reports: Afib, High Cholesterol, Hypertension Respiratory: Reports: None GI: Reports: None : Reports: None OBGYN: Reports: None Musculoskeletal: Reports: Arthritis, Osteoarthritis, Osteoporosis Neurological: Reports: None Psychiatric: Reports: None Endocrine/Metabolic: Reports: None Hematologic: Reports: None Immunologic: Reports: None Dermatologic: Reports: None Oncologic: Reports: None - Caffeine Use Caffeine Use: Reports: None Other Caffeine Use: Cup a day Caffeine Use Comment: 1 drink/day - Living Situation & Occupation Living situation: Reports: with Significant Other Occupation: Employed ED ROS GENERAL - Review of Systems Review Of Systems: See Below Free Text/Narrative/Comment: General: No fever. Skin: No rash. Eyes: No vision problems. ENT: No sore throat. Neck: No neck stiffness. Respiratory: No shortness of breath. Cardiac: No chest pain. Gastrointestinal: No nausea, vomiting or abdominal pain. Urinary: No dysuria. Musculoskeletal: Per HPI. Neurologic: No headache. ED EXAM, GENERAL - Physical Exam Exam: See Below Free Text/Narrative:: General Appearance: No acute distress, appears comfortable Skin: Right elbow skin tear no underlying bony tenderness no swelling no limitation in range of motion HEENT: Normocephalic/atraumatic, sclera anicteric, mucous membranes moist Neck: Normal range of motion, no midline tenderness Chest and Lungs: Bilateral breath sounds, clear to auscultation Cardiovascular: Regular rate and rhythm, no murmur Abdomen: Soft, left lower quadrant tenderness without rebound or guarding Back: Normal, no flank ecchymosis no midline tenderness or step-off Musculoskeletal: Left lateral hip tenderness with some diminished range of motion bilateral ankles knees bilateral upper extremities without focal tenderness swelling deformity or significant limitation in range of motion. Neurologic: Awake, alert, no obvious deficits, moving all extremities Psychiatric: Appropriate, cooperative Course - Vital Signs Last Recorded V/S: Last Vital Signs Temp 97.3 F 05/04/20 12:42 Pulse 90 05/04/20 13:41 Resp 16 05/04/20 13:41 BP 160/87 H 05/04/20 13:41 Pulse Ox 97 05/04/20 13:41 - Orders/Labs/Meds Orders: Active Orders 24 hr Category Date Time Status Sodium Chloride 0.9% [Saline Flush] Med 05/04/20 12:48 Active 10 ml FLUSH ASDIRECTED PRN Sodium Chloride 0.9% [Saline Flush] Med 05/04/20 12:48 Active 2.5 ml FLUSH ASDIRECTED PRN Saline Lock Insert [OM.PC] Stat Oth 05/04/20 12:48 Ordered Medication Orders Sodium Chloride (Saline Flush) 10 ml FLUSH ASDIRECTED PRN PRN Reason: Keep Vein Open Last Admin: 05/04/20 13:15 Dose: 10 ml Documented by: TJ Sodium Chloride (Saline Flush) 2.5 ml FLUSH ASDIRECTED PRN PRN Reason: Keep Vein Open Last Admin: 05/04/20 13:14 Dose: 2.5 ml Documented by: TJ Labs: Laboratory Tests 05/04/20 05/04/20 05/04/20 Range/Units 12:54 12:54 12:54 WBC 10.58 (4.0-11.0) K/uL RBC 4.41 L (4.50-5.90) M/uL Hgb 14.6 (13.0-17.0) g/dL Hct 44.2 (38.0-50.0) % MCV 100.2 H (80.0-98.0) fL MCH 33.1 H (27.0-32.0) pg MCHC 33.0 (31.0-37.0) g/dL RDW Std Deviation 50.6 (28.0-62.0) fl RDW Coeff of Ryan 14 (11.0-15.0) % Plt Count 187 (150-400) K/uL MPV 9.80 (7.40-12.00) fL Neut % (Auto) 85.0 H (48.0-80.0) % Lymph % (Auto) 9.1 L (16.0-40.0) % [place] % (Auto) 5.5 (0.0-15.0) % Eos % (Auto) 0.2 (0.0-7.0) % Baso % (Auto) 0.2 (0.0-1.5) % Neut # (Auto) 9.0 H (1.4-5.7) K/uL Lymph # (Auto) 1.0 (0.6-2.4) K/uL [place] # (Auto) 0.6 (0.0-0.8) K/uL Eos # (Auto) 0.0 (0.0-0.7) K/uL Baso # (Auto) 0.0 (0.0-0.1) K/uL Nucleated RBC % 0.0 /100WBC Nucleated RBCs # 0 K/uL INR 1.17 Sodium 140 (136-148) mmol/L Potassium 3.6 (3.5-5.1) mmol/L Chloride 104 (98-107) mmol/L Carbon Dioxide 24.1 (21.0-32.0) mmol/L BUN 10 (7.0-18.0) mg/dL Creatinine 1.0 (0.8-1.3) mg/dL Est Cr Clr Drug Dosing 54.15 mL/min Estimated GFR (MDRD) > 60.0 ml/min Glucose 106 (74-106) mg/dL Calcium 9.1 (8.5-10.1) mg/dL Total Bilirubin 0.8 (0.2-1.0) mg/dL AST 33 (15-37) IU/L ALT 38 (14-63) IU/L Alkaline Phosphatase 70 (46-116) U/L Total Protein 7.8 (6.4-8.2) g/dL Albumin 3.8 (3.4-5.0) g/dL Globulin 4.0 (2.6-4.0) g/dL Albumin/Globulin Ratio 0.9 (0.9-1.6) Meds: Medications Generic Name Dose Route Start Last Admin Trade Name Freq PRN Reason Stop Dose Admin Sodium Chloride 10 ml 05/04/20 12:48 05/04/20 13:15 Saline Flush FLUSH 10 ml ASDIRECTED PRN Administration Keep Vein Open Sodium Chloride 2.5 ml 05/04/20 12:48 05/04/20 13:14 Saline Flush FLUSH 2.5 ml ASDIRECTED PRN Administration Keep Vein Open Discontinued Medications Generic Name Dose Route Start Last Admin Trade Name Freq PRN Reason Stop Dose Admin Iopamidol 100 ml 05/04/20 13:30 05/04/20 13:30 Isovue Multipack-370 (76%) IVPUSH 05/04/20 13:31 100 ml ONETIME ONE Administration Departure - Departure Time of Disposition: 14:39 Disposition: Home, Self-Care 01 Condition: Good Clinical Impression: Skin tear of elbow without complication, Contusion of left hip region - Discharge Information *PRESCRIPTION DRUG MONITORING PROGRAM REVIEWED*: Not Applicable *COPY OF PRESCRIPTION DRUG MONITORING REPORT IN PATIENT ROSA: Not Applicable Instructions: Skin Tear, [id number] Referrals: Yevgeniy Murguia MD [Primary Care Provider] - 1 Week Additional Instructions: Your skin tear will take several days to heal. Please be sure to keep it covered and change the dressing at least once a day or anytime it gets soiled. Please use a walker for the next few days and be extra careful every step. You can take Tylenol as you need to for any pain problems. Please follow-up with your primary care doctor. If your symptoms worsen or you have any other new symptoms or concern you please follow-up with your doctor or return to the ER. The following information is given to patients seen in the emergency department who are being discharged to home. This information is to outline your options for follow-up care. We provide all patients seen in our emergency department with a follow-up referral. The need for follow-up, as well as the timing and circumstances, are variable depending upon the specifics of your emergency department visit. If you don't have a primary care physician on staff, we will provide you with a referral. We always advise you to contact your personal physician following an emergency department visit to inform them of the circumstance of the visit and for follow-up with them and/or the need for any referrals to a consulting specialist. The emergency department will also refer you to a specialist when appropriate. This referral assures that you have the opportunity for follow-up care with a specialist. All of these measure are taken in an effort to provide you with optimal care, which includes your follow-up. Under all circumstances we always encourage you to contact your private physician who remains a resource for coordinating your care. When calling for follow-up care, please make the office aware that this follow-up is from your recent emergency room visit. If for any reason you are refused follow-up, please contact the [facility] Emergency Department at and asked to speak to the emergency department charge nurse. Sepsis Event Note (ED) - Focused Exam Vital Signs: Vital Signs Temp Pulse Resp BP Pulse Ox 05/04/20 13:41 90 16 160/87 H 97 05/04/20 13:11 88 16 170/83 H 95 05/04/20 12:42 97.3 F 93 17 158/129 H 98 - My Orders Last 24 Hours: My Active Orders 05/04/20 12:48 Sodium Chloride 0.9% [Saline Flush] 10 ml FLUSH ASDIRECTED PRN Sodium Chloride 0.9% [Saline Flush] 2.5 ml FLUSH ASDIRECTED PRN Saline Lock Insert [OM.PC] Stat - Assessment/Plan Last 24 Hours: My Active Orders 05/04/20 12:48 Sodium Chloride 0.9% [Saline Flush] 10 ml FLUSH ASDIRECTED PRN Sodium Chloride 0.9% [Saline Flush] 2.5 ml FLUSH ASDIRECTED PRN Saline Lock Insert [OM.PC] Stat Assessment:: 84-year-old male who was called as a trauma alert on presentation. He did not strike his head or lose consciousness. I believe you can clinically clear the head spine bilateral upper extremities in the bilateral lower extremities with t he exception of the left hip. Given his lower abdominal tenderness and his blood thinner CT abdomen pelvis with contrast ordered patient also has left hip films ordered. He has no history of head trauma with this he has no headache or neurologic complaints. He has no findings that suggest a nonmechanical fall. Patient's imaging is without acute traumatic finding. Patient states that he feels "pretty good." The right elbow skin tear has been redressed. We discussed the use of a walker for the next few days and being especially careful about his stability. He expresses understanding. Patient to follow-up with his primary care doctor.
[2020-05-04] MEDS ORDERED: Iopamidol 755 MG/ML 500 ML Multipack Bottle IVPUSH ONE (13:30)
[2020-05-04 13:33] LABS: BLOOD UREA NITROGEN,BUN 10 mg/dL (7.0-18.0); CARBON DIOXIDE,CO2 24.1 mmol/L (21.0-32.0); CHLORIDE,CL 104 mmol/L (98-107); GLUCOSE RANDOM 106 mg/dL (74-106); POTASSIUM,K 3.6 mmol/L (3.5-5.1); SODIUM,NA 140 mmol/L (136-148)
--- NOTE | 2020-05-04 13:55 | CR ---
TECHNIQUE: Left hip radiographs, 2 views with AP pelvis. INDICATION: Fall. COMPARISON: Same date pelvic CT. FINDINGS: No dislocation or displaced fracture. Residual contrast opacification of the urinary bladder and right greater than left ureters, from earlier same day CT. Contrast opacification partially obscures evaluation of the sacrum. Moderate bilateral hip arthrosis, right greater than left. Pubic symphysis and SI joints are intact. Spondylosis of the imaged inferior lumbar spine. IMPRESSION: No dislocation or displaced fracture. Dictated by Liang Haynes MD @ 05/04/2020 1:54:21 PM Dictated by: Liang Haynes MD @ 05/04/2020 13:54:27 (Electronically Signed)
--- NOTE | 2020-05-04 14:16 | CT ---
TECHNIQUE: CT abdomen and pelvis with intravenous contrast, 100 mL of Isovue-370. Coronal and sagittal formats. INDICATION: Fall. Abdominal pain. COMPARISON: CT 08/17/2018. FINDINGS: Imaged lower chest demonstrates heavy coronary artery calcifications, partially imaged post sternotomy changes, mild cardiomegaly, as well as mild paraseptal emphysema. - The liver demonstrates a heterogeneous mixed attenuation lesion involving the anterior pericholecystic region measuring 2.7 x 2.4 cm (series 201, image 52), newly apparent from prior. Portal and hepatic veins patent. No biliary dilatation. The gallbladder, pancreas, spleen, and adrenals are unremarkable. - Symmetric renal enhancement. Small left renal cyst as well as subcentimeter hypoattenuating renal lesions bilaterally, too small to accurately characterize. No hydronephrosis bilaterally. Small calculi layering dependently within the bladder, measuring up to 5 mm on the right (series 201, image 126). Mild prostatomegaly. - Colonic diverticulosis without wall thickening or inflammatory changes. Small bowel appears normal in caliber and enhancement. Normal appendix. Small hiatal hernia. - No free air, free fluid, or lymphadenopathy. Normal caliber abdominal aorta with severe atherosclerotic calcification. - Redemonstrated right gluteal intramuscular lipoma, measuring up to 8 cm in size laterally adjacent to the right hip. - Multiple chronic left rib deformities. No acute fracture. Mild deformity of the T10 superior and inferior endplates, unchanged from prior inferiorly, though the superior endplate is excluded from the field of view on prior. IMPRESSION: 1. No CT evidence of acute traumatic injury. 2. Heterogeneous 2.7 cm lesion in the pericholecystic liver is newly apparent from CT 08/17/2018, but reportedly corresponds with a hypermetabolic metastasis as characterized on PET-CT report from 11/14/2019, although these images are not available for review at this time. Dictated by Liang Haynes MD @ 05/04/2020 2:14:15 PM Please note that all CT scans at this facility use dose modulation, iterative reconstruction, and/or weight-based dosing when appropriate to reduce radiation dose to as low as reasonably achievable. Dictated by: Liang Haynes MD @ 05/04/2020 14:14:28 (Electronically Signed)
[2020-05-04 19:03] VITALS: BP 175/86; PULSE 92
== END 2020-05-04 15:12 | disposition home or self-care (01) ==
LOC: MW.ED 12:42
DX: S51.011A Laceration without foreign body of right elbow, initial encounter (principal); S70.02XA Contusion of left hip, initial encounter; I48.91 Unspecified atrial fibrillation; I25.10 Atherosclerotic heart disease of native coronary artery without angina pectoris; I10 Essential (primary) hypertension; Z79.82 Long term (current) use of aspirin; Z79.01 Long term (current) use of anticoagulants; Z86.73 Personal history of transient ischemic attack (TIA), and cerebral infarction without residual deficits; Z79.899 Other long term (current) drug therapy; W00.0XXA Fall on same level due to ice and snow, initial encounter
CPT/HCPCS: 36415; 73502; 74177; 80053; 85025; 85610; 99284; Q9967

== ENCOUNTER 2020-12-07 07:07 | Emergency (ER) | payer MEDICARE, OTHER ==
--- NOTE | 2020-12-07 07:10 | EDM.PDOC ---
ED HPI GENERAL MEDICAL PROBLEM - General Stated Complaint: PT FELL AND CUT HIS LEFT HAND Time Seen by Provider: 12/07/20 07:09 - History of Present Illness INITIAL COMMENTS - FREE TEXT/NARRATIVE: History of present illness: [] The patient fell from standing. He did not hit his head. He only injured his left upper extremity. He has is hematoma in the proximal left humerus area and a abrasion and skin tear in the left elbow and a skin tear on the hypothenar eminence of the left hand. Patient has no other significant evidence of trauma no neurologic complaint. He did not hit his head and his neck does not hurt. C-spine cleared on initial exam by Nexus criteria. Trauma alert canceled. Review of systems: As per history of present illness and below otherwise all systems reviewed and negative. Past medical history: As per history of present illness and as reviewed below otherwise noncontributory. Surgical history: As per history of present illness and as reviewed below otherwise noncontributory. Social history: No reported history of drug or alcohol abuse. Family history: As per history of present illness and as reviewed below otherwise noncontributory. Physical exam: Constitutional - well developed, well-nourished and in no acute distress HEENT - normocephalic, no evidence of trauma - external nose and mouth normal - no mass in neck and no JVD - mucosae moist EYES - full EOM, PERRL, no icterus - no evidence of inflammation, injection, or drainage Respiratory - no respiratory distress, equal bilateral expansion, lungs clear to auscultation and no abnormal lung sounds Cardiovascular - Regular Rhythm with S1 and S2 appreciated and no murmur, gallop or rub. GI - abdomen soft without distension or organomegaly - normal bowel sounds - no guard or rebound Musculoskeletal slight muscular tenderness in the triceps area of the left upper extremity. Otherwise no gross deformity of long bones or joints - no tenderness, swelling or edema Neurologic - Alert and oriented times four - CN II-XII grossly intact - motor sensory and coordination symmetrically normal Psychiatric - appropriate mood and affect with normal thought content Hematologic - No petechiae or purpura - mucosa appropriate color and sclera not pale - normal nail bed color and refill Integument -hematoma and skin tear in the left elbow with skin tear at the hypothenar eminence that is full-thickness. No rash or evidence of trauma - normal turgor Diagnostics: [] Therapeutics: [] Impression: [] Plan: [] Definitive disposition and diagnosis as appropriate pending reevaluation and review of above. - Related Data Allergies Allergy/AdvReac Type Severity Reaction Status Date / Time No Known Allergies Allergy Verified 05/04/20 13:08 Home Meds: Home Meds Metoprolol Succinate [Toprol XL] 25 mg PO DAILY 12/01/15 [History] predniSONE [Prednisone] 5 mg PO DAILY 05/11/17 [History] atorvaSTATin [Lipitor] 40 mg PO BEDTIME 05/06/18 [History] levETIRAcetam [Keppra] 750 mg PO BID 08/14/18 [History] Apixaban [Eliquis] 5 mg PO BID 10/25/18 [History] Cholecalciferol (Vitamin D3) [Vitamin D3] 1,000 unit PO DAILY 11/08/18 [History] Aspirin [Halfprin] 81 mg PO DAILY 05/22/19 [History] Vit C/Vit E AC/Lut/Copper/Zinc [Preservision Lutein Softgel] 1 cap PO DAILY 05/22/19 [History] Past Medical History - Past Health History Medical/Surgical History: Denies Medical/Surgical History HEENT History: Reports: Cataract, Impaired Vision Cardiovascular History: Reports: Afib, CAD, Heart Valve Replacement, Hypertension, Pacemaker Respiratory History: Reports: None Gastrointestinal History: Reports: Chronic Constipation Genitourinary History: Reports: BPH Musculoskeletal History: Reports: Fracture Neurological History: Reports: CVA, TIA Psychiatric History: Reports: Addiction Other Psychiatric History: Alcohol abuse Endocrine/Metabolic History: Reports: None Hematologic History: Reports: Anticoagulation Therapy, Blood Transfusion(s) Immunologic History: Reports: None Oncologic (Cancer) History: Reports: None Other Oncologic History: skin cancer on top of head and face Dermatologic History: Reports: Melanoma Other Dermatologic History: has radiation treatment for cancer. Melanoma to top of head. - Infectious Disease History Infectious Disease History: Reports: None - Past Surgical History HEENT Surgical History: Reports: Cataract Surgery Cardiovascular Surgical History: Reports: Carotid Endarterectomy, Coronary Artery Bypass, Valve Replacement, Other (See Below) Other Cardiovascular Surgeries/Procedures: pacemaker and porcine mitral valve Respiratory Surgical History: Reports: None GI Surgical History: Reports: None Male Surgical History: Reports: None Endocrine Surgical History: Reports: None Neurological Surgical History: Reports: None Musculoskeletal Surgical History: Reports: None Social & Family History - Family History Family Medical History: No Pertinent Family History HEENT: Reports: None Cardiac: Reports: Afib, High Cholesterol, Hypertension Respiratory: Reports: None GI: Reports: None : Reports: None OBGYN: Reports: None Musculoskeletal: Reports: Arthritis, Osteoarthritis, Osteoporosis Neurological: Reports: None Psychiatric: Reports: None Endocrine/Metabolic: Reports: None Hematologic: Reports: None Immunologic: Reports: None Dermatologic: Reports: None Oncologic: Reports: None - Caffeine Use Caffeine Use: Reports: None Other Caffeine Use: Cup a day Caffeine Use Comment: 1 drink/day - Living Situation & Occupation Living situation: Reports: with Significant Other Occupation: Employed ED ROS GENERAL - Review of Systems Review Of Systems: Comprehensive ROS is negative, except as noted in HPI. ED EXAM, GENERAL - Physical Exam Exam: See Below Free Text/Narrative:: My physical exam is in the [facility] ED GENERAL MEDICAL PROCEDURES - Laceration/Wound Repair Left Hand Lac/wound length in cm: 1.3 Appearance: Subcutaneous Distal NVT: No Tendon Injury Anesthetic Type: Other (No anesthesia) Saline irrigation (cc's): 150 Exploration/Debridement/Repair: Wound Explored Progress/Comments: Area was cleansed and the skin teased back to cover as much as possible of the skin avulsion over the hyperthenar eminence. A nonadherent dressing was applied. Departure - Departure Time of Disposition: 07:25 Disposition: Home, Self-Care 01 Condition: Good Clinical Impression: Skin tear of elbow without complication, Contusion of left upper arm, initial encounter, Contusion - Discharge Information Additional Instructions: By Telfa or Adaptic and when you wash the wound daily reapply an nonadherent dressing and then gauze. [facility] - Primary Care [address] [place] [id number] [address] [address] The following information is given to patients seen in the emergency department who are being discharged to home. This information is to outline your options for follow-up care. We provide all patients seen in our emergency department with a follow-up referral. The need for follow-up, as well as the timing and circumstances, are variable depending upon the specifics of your emergency department visit. If you don't have a primary care physician on staff, we will provide you with a referral. We always advise you to contact your personal physician following an emergency department visit to inform them of the circumstance of the visit and for follow-up with them and/or the need for any referrals to a consulting specialist. The emergency department will also refer you to a specialist when appropriate. This referral assures that you have the opportunity for follow-up care with a specialist. All of these measure are taken in an effort to provide you with optimal care, which includes your follow-up. Under all circumstances we always encourage you to contact your private physician who remains a resource for coordinating your care. When calling for follow-up care, please make the office aware that this follow-up is from your recent emergency room visit. If for any reason you are refused follow-up, please contact the [facility] Emergency Department at and asked to speak to the emergency department charge nurse.
[2020-12-07 08:52] VITALS: BP 119/73; PULSE 97
== END 2020-12-07 08:16 | disposition home or self-care (01) ==
LOC: MW.ED 07:07
DX: S51.012A Laceration without foreign body of left elbow, initial encounter (principal); S40.022A Contusion of left upper arm, initial encounter; I48.91 Unspecified atrial fibrillation; I25.10 Atherosclerotic heart disease of native coronary artery without angina pectoris; I10 Essential (primary) hypertension; Z95.0 Presence of cardiac pacemaker; Z86.73 Personal history of transient ischemic attack (TIA), and cerebral infarction without residual deficits; Z79.899 Other long term (current) drug therapy; W26.8XXA Contact with other sharp object(s), not elsewhere classified, initial encounter
CPT/HCPCS: 99282

== ENCOUNTER 2020-12-18 10:06 | Emergency (ER) | payer MEDICARE, OTHER ==
--- NOTE | 2020-12-18 10:48 | EDM.PDOC ---
ED HPI GENERAL MEDICAL PROBLEM - General Chief Complaint: Upper Extremity Injury/Pain Stated Complaint: LEFT ARM BRUISED AND PAINFUL Time Seen by Provider: 12/18/20 10:14 Source of Information: Reports: Patient History Limitations: Reports: No Limitations - History of Present Illness INITIAL COMMENTS - FREE TEXT/NARRATIVE: HISTORY AND PHYSICAL: History of present illness: Patient is an 85-year-old male who presents emergency room today with concern of left forearm and left arm pain that occurred after a fall that he was seen and evaluated for on 12/07/2020 in the emergency room. Patient denies any new fall or injury and states that he fell from standing height and was seen in the emergency room after he sustained an abrasion to his arm and had an arm injury. Patient states he did not receive any x-rays of his arm and was sent home. Patient states he has continued to have pain of his arm worse when he applies pressure to the elbow but states it otherwise does not bother him too much and he was concerned of a possible fracture. Patient denies any other symptoms or any new symptoms from prior evaluation on 12/07/2020. Patient denies fever, chills, chest pain, shortness of breath, or cough. Denies headache, neck stiff ness, change in vision, syncope, or near syncope. Denies nausea, vomiting, abdominal pain, diarrhea, constipation, or dysuria. Has not noted any blood in urine or stool. Patient has been eating and drinking appropriately. Review of systems: As per history of present illness and below otherwise all systems reviewed and negative. Past medical history: As per history of present illness and as reviewed below otherwise noncontributory. Surgical history: As per history of present illness and as reviewed below otherwise noncontributory. Social history: See social history for further information Family history: As per history of present illness and as reviewed below otherwise noncontributory. Physical exam: General: Patient is alert, oriented, and in no acute distress. Patient sitting comfortably on exam table. Vitals stable and reviewed by me. HEENT: Atraumatic, normocephalic, pupils equal and reactive bilaterally, negative for conjunctival pallor or scleral icterus, mucous membranes moist, TMs normal bilaterally, throat clear, neck supple, nontender, trachea midline. No drooling or trismus noted. No meningeal signs. No hot potato voice noted. Lungs: Clear to auscultation, breath sounds equal bilaterally, chest nontender. Heart: S1S2, regular rate and rhythm without overt murmur Abdomen: Soft, nondistended, nontender. Negative for masses or hepatosplenomegaly. Negative for costovertebral tenderness. Pelvis: Stable nontender. Genitourinary: Deferred. Rectal: Deferred. Skin: Intact, warm, dry. No lesions or rashes noted. Extremities: Eccymosis noted to left dorsal forearm with healing skin abrasion of the left elbow. Patient does have full range of motion of the complete left upper extremity but does have pain with palpation of the left elbow, distal humerus. Radial pulses grossly intact of the left upper extremity with capillary refill less than 2 seconds. Intact sensation to light and deep touch of the complete left upper extremity. Otherwise, atraumatic, negative for cords or calf pain. Neurovascular unremarkable. Neuro: Awake, alert, oriented. Cranial nerves II through XII unremarkable. Cerebellum unremarkable. Motor and sensory unremarkable throughout. Exam nonfocal. Notes: Upon chart review, patient was seen and evaluated on 12/07/2020 after sustaining a fall and abrasion of his left elbow. At that time, the abrasion was addressed and patient was discharged home. Patient did not receive any x-ray imaging on that date. Will obtain humerus and forearm x-ray of left upper extremity today. Sinus symptoms are prompt return to the ED thoroughly discussed with patient. Discussed importance for follow-up with a primary care provider. Voices understanding and is agreeable to plan of care. Denies any further questions or concerns at this time. Diagnostics: Left humerus and forearm x-ray Therapeutics: I did offer a shoulder immobilizer but patient declines. Prescription: None Impression: Left arm injury, subsequent encounter Plan: 1. You can take Tylenol as directed for pain and discomfort. 2. Follow-up with a primary care provider as discussed. Return to the ED as needed and as discussed. Definitive disposition and diagnosis as appropriate pending reevaluation and review of above. Left Upper Arm Pain Score (Numeric/FACES): 7 - Related Data Allergies Allergy/AdvReac Type Severity Reaction Status Date / Time No Known Allergies Allergy Verified 12/18/20 10:42 Home Meds: Home Meds Metoprolol Succinate [Toprol XL] 25 mg PO DAILY 12/01/15 [History] predniSONE [Prednisone] 5 mg PO DAILY 05/11/17 [History] atorvaSTATin [Lipitor] 40 mg PO BEDTIME 05/06/18 [History] levETIRAcetam [Keppra] 750 mg PO BID 08/14/18 [History] Apixaban [Eliquis] 5 mg PO BID 10/25/18 [History] Cholecalciferol (Vitamin D3) [Vitamin D3] 1,000 unit PO DAILY 11/08/18 [History] Aspirin [Halfprin] 81 mg PO DAILY 05/22/19 [History] Vit C/Vit E AC/Lut/Copper/Zinc [Preservision Lutein Softgel] 1 cap PO DAILY 05/22/19 [History] Acetaminophen [8 Hour Pain Relief] 650 mg PO Q6HR PRN 12/07/20 [History] Past Medical History - Past Health History Medical/Surgical History: Denies Medical/Surgical History HEENT History: Reports: Cataract, Impaired Vision Cardiovascular History: Reports: Afib, CAD, Heart Valve Replacement, Hypertension, NH, Pacemaker Respiratory History: Reports: None Gastrointestinal History: Reports: Chronic Constipation Genitourinary History: Reports: BPH Musculoskeletal History: Reports: Fracture Neurological History: Reports: CVA, TIA Psychiatric History: Reports: Addiction Other Psychiatric History: Alcohol abuse Endocrine/Metabolic History: Reports: None Hematologic History: Reports: Anticoagulation Therapy, Blood Transfusion(s) Immunologic History: Reports: None Oncologic (Cancer) History: Reports: Liver, Lung Other Oncologic History: skin cancer on top of head and face Dermatologic History: Reports: Melanoma Other Dermatologic History: has radiation treatment for cancer. Melanoma to top of head. - Infectious Disease History Infectious Disease History: Reports: Chicken Pox - Past Surgical History Head Surgeries/Procedures: Reports: None HEENT Surgical History: Reports: Cataract Surgery Cardiovascular Surgical History: Reports: Carotid Endarterectomy, Coronary Artery Bypass, Valve Replacement, Other (See Below) Other Cardiovascular Surgeries/Procedures: pacemaker and porcine mitral valve Respiratory Surgical History: Reports: None GI Surgical History: Reports: None Male Surgical History: Reports: None Endocrine Surgical History: Reports: None Neurological Surgical History: Reports: None Musculoskeletal Surgical History: Reports: None Social & Family History - Family History Family Medical History: No Pertinent Family History HEENT: Reports: None Cardiac: Reports: Afib, High Cholesterol, Hypertension Respiratory: Reports: None GI: Reports: None : Reports: None OBGYN: Reports: None Musculoskeletal: Reports: Arthritis, Osteoarthritis, Osteoporosis Neurological: Reports: None Psychiatric: Reports: None Endocrine/Metabolic: Reports: None Hematologic: Reports: None Immunologic: Reports: None Dermatologic: Reports: None Oncologic: Reports: None - Caffeine Use Caffeine Use: Reports: Coffee Other Caffeine Use: Cup a day Caffeine Use Comment: 1 drink/day - Living Situation & Occupation Living situation: Reports: with Significant Other Occupation: Employed Review of Systems - Review of Systems Review Of Systems: Comprehensive ROS is negative, except as noted in HPI. ED EXAM, GENERAL - Physical Exam Exam: See Below (see dictation) Course - Vital Signs Last Recorded V/S: Last Vital Signs Temp 96.8 F L 12/18/20 10:42 Pulse 93 12/18/20 10:42 Resp 16 12/18/20 10:42 BP Pulse Ox 98 12/18/20 10:42 Departure - Departure Time of Disposition: 11:49 Disposition: Home, Self-Care 01 Clinical Impression: Arm injury Qualifiers: Encounter type: subsequent encounter Laterality: left Qualified Code(s): S49.92XD - Unspecified injury of left shoulder and upper arm, subsequent encounter - Discharge Information Referrals: Yevgeniy Murguia MD [Primary Care Provider] - Forms: ED Department Discharge Additional Instructions: The following information is given to patients seen in the emergency department who are being discharged to home. This information is to outline your options for follow-up care. We provide all patients seen in our emergency department with a follow-up referral. The need for follow-up, as well as the timing and circumstances, are variable depending upon the specifics of your emergency department visit. If you don't have a primary care physician on staff, we will provide you with a referral. We always advise you to contact your personal physician following an emergency department visit to inform them of the circumstance of the visit and for follow-up with them and/or the need for any referrals to a consulting specialist. The emergency department will also refer you to a specialist when appropriate. This referral assures that you have the opportunity for follow-up care with a specialist. All of these measure are taken in an effort to provide you with optimal care, which includes your follow-up. Under all circumstances we always encourage you to contact your private physician who remains a resource for coordinating your care. When calling for follow-up care, please make the office aware that this follow-up is from your recent emergency room visit. If for any reason you are refused follow-up, please contact the [facility] at and asked to speak to the emergency department charge nurse. [facility] [address], [place] [address] [facility] [address] [place] [id number] 1. You can take Tylenol as directed for pain and discomfort. 2. Follow-up with a primary care provider as discussed. Return to the ED as needed and as discussed. Sepsis Event Note (ED) - Evaluation Sepsis Screening Result: No Definite Risk - Focused Exam Vital Signs: Vital Signs Temp Pulse Resp Pulse Ox 12/18/20 10:42 96.8 F L 93 16 98
--- NOTE | 2020-12-18 11:44 | CR ---
INDICATION: Trauma; pain left forearm. TECHNIQUE: Two-view study left forearm. FINDINGS: No evidence of acute fracture or dislocation. No bone or soft tissue abnormalities. IMPRESSION: Negative radiographic examination of the left forearm. Dictated by Ce Granger MD @ 12/18/2020 11:43:[address] Ce Granger @ Dec 18 2020 11:43AM
--- NOTE | 2020-12-18 11:46 | CR ---
INDICATION: Trauma; pain left arm. Technique: Two-view study left humerus. FINDINGS: No evidence of acute fracture or dislocation. No bone or soft tissue abnormalities. IMPRESSION: Negative radiographic examination of the left humerus. Dictated by Ce Granger MD @ 12/18/2020 11:45:[address] Ce Granger @ Dec 18 2020 11:45AM
[2020-12-18 11:58] VITALS: BP 137/72; PULSE 94
== END 2020-12-18 11:59 | disposition home or self-care (01) ==
LOC: MW.ED 10:06
DX: S50.12XA Contusion of left forearm, initial encounter (principal); S50.312A Abrasion of left elbow, initial encounter; I48.91 Unspecified atrial fibrillation; E78.00 Pure hypercholesterolemia, unspecified; I10 Essential (primary) hypertension; I25.2 Old myocardial infarction; Z95.0 Presence of cardiac pacemaker; Z86.73 Personal history of transient ischemic attack (TIA), and cerebral infarction without residual deficits; Z79.82 Long term (current) use of aspirin; Z79.01 Long term (current) use of anticoagulants; W17.89XA Other fall from one level to another, initial encounter
CPT/HCPCS: 73060-26-LT; 73060-LT; 73090-26-LT; 73090-LT; 99283-25

== ENCOUNTER 2021-02-26 14:39 | Emergency (ER) | payer MEDICARE, OTHER ==
[2021-02-26] MEDS ORDERED: Sodium Chloride 0.9% 10 ML Syringe FLUSH PRN (15:15)
[2021-02-26] MEDS ORDERED: Sodium Chloride 0.9% 2.5 ML Syringe FLUSH PRN (15:15)
--- NOTE | 2021-02-26 15:31 | EDM.PDOC ---
ED HPI GENERAL MEDICAL PROBLEM - General Chief Complaint: Cardiovascular Problem Stated Complaint: SOB Time Seen by Provider: 02/26/21 15:14 Source of Information: Reports: Patient History Limitations: Reports: No Limitations, Other (poor historian) - History of Present Illness INITIAL COMMENTS - FREE TEXT/NARRATIVE: HISTORY AND PHYSICAL: History of present illness: Patient is an 85-year-old male who presents emergency room today with concern of shortness of breath starting last night in the middle of the night. Patient states that he woke up with feeling like he cannot take deep breaths and. Patient states that his shortness of breath is not so bad at rest but is having a hard time walking from one room to the next without needing to stop and sit down. Patient does have an extensive cardiac history including atrial fibrillation on anticoagulation Eliquis, coronary artery disease, aortic valve replacement status post pacemaker, hypertension, and lung failure/lung cancer, last received chemo 6 months ago. Patient states that he is not having any pain or discomfort associated with it. Patient denies any other resuscitative symptoms. Patient denies fever, chills, chest pain, or cough. Denies headache, neck stiff ness, change in vision, syncope, or near syncope. Denies nausea, vomiting, abdominal pain, diarrhea, constipation, or dysuria. Has not noted any blood in urine or stool. Patient has been eating and drinking appropriately. Review of systems: As per history of present illness and below otherwise all systems reviewed and negative. Past medical history: As per history of present illness and as reviewed below otherwise noncontributory. Surgical history: As per history of present illness and as reviewed below otherwise noncontributory. Social history: See social history for further information Family history: As per history of present illness and as reviewed below otherwise noncontributory. Physical exam: General: Patient is alert, oriented, and in no acute distress. Patient laying comfortably on exam table. Vitals stable and reviewed by me. HEENT: Atraumatic, normocephalic, pupils equal and reactive bilaterally, negative for conjunctival pallor or scleral icterus, mucous membranes moist, throat clear, neck supple, nontender, trachea midline. No drooling or trismus noted. No meningeal signs. No hot potato voice noted. Lungs: Clear to auscultation, breath sounds equal bilaterally, chest nontender. Heart: S1S2, regular rate and rhythm with a high-pitched systolic murmur best heard over the left upper sternal border consistent with mechanical valve Abdomen: Soft, nondistended, nontender. Negative for masses or hepatosplenomegaly. Negative for costovertebral tenderness. Pelvis: Stable nontender. Genitourinary: Deferred. Rectal: Deferred. Skin: Intact, warm, dry. No lesions or rashes noted. Extremities: Atraumatic, negative for cords or calf pain. Neurovascular unremarkable. Neuro: Awake, alert, oriented. Cranial nerves II through XII unremarkable. Cerebellum unremarkable. Motor and sensory unremarkable throughout. Exam nonfocal. Notes: Patient is an 85-year-old male, with a significant past medical history for atrial fibrillation on Eliquis, coronary artery disease, aortic valve replacement with pacemaker, hypertension, liver and lung cancer, who presents emergency room today with concern of exertional dyspnea starting last night. Upon arrival to the ED, patient is vitally stable and well-appearing on exam. Exam is otherwise unremarkable. Will obtain cardiac evaluation See Dr. Gonzalez dictation for specific EKG interpretation. Otherwise, atrial fibrillation with a rate of 82 without STEMI. CBC does show a mild decrease in red blood cell count of 1.25. Otherwise mild derangements of CBC unremarkable. CMP does show a mild elevation of glucose at 144 and mild elevation of total bilirubin at 1.1 in isolation. Initial troponin negative. Otherwise mild derangements of CMP unremarkable. COVID-19 negative. Repeat troponin negative. Angiography of chest shows new soft tissue nodule along the medial right lung pleura with a significant interval increase in size of bilateral large pleural effusions. These findings are suspicious for recurrent or metastatic lung cancer. No pulmonary embolism. Upon reevaluation of patient, he remains vitally stable and comfortable throughout stay in ED. He is approximately 95% on room air and breathing comfortably. I did try to get a hold of patient's primary oncologist, Dr. Cortez at [facility], however, I was informed that he is out until the end of April. I then called [facility] and spoke to the on-call oncologist, Dr. Quiroz, as patient also does follow with Dr Samuels from [facility] oncology department. I did thoroughly discussed the patient's case with Dr. Quiroz. Dr. Quiroz did further explain that at this time, patient is on palliative treatment for his cancer and has a terminal diagnosis. He states that it does appear as if the cancer is progressing and becoming more advanced. He states however, at this time, getting a bilateral thoracentesis would be for therapeutic reasons and feels that patient should have this done by interventional radiology preferably closer to [place] due to traveling after holding Eliquis. I then called and spoke to Dr. Vargas, interventional radiology at [facility] in [place] and thoroughly discussed patient's case. He is excepting of performing this procedure for patient. He would like patient to hold tomorrow's dose of Eliquis and to either be seen tomorrow afternoon or Wednesday to get the procedure done. If patient is to get this done on Wednesday, also hold Wednesday's dose. In order to get this scheduled, I was informed by 1 call that our nursing staff has to call in the m orning at 8 AM when the radiology scheduling department opens up to get this set up for patient. I did discuss this with nursing staff. I also thoroughly discussed all of this with patient and voices understanding and is agreeable to plan of care. Denies any further questions or concerns at this time. Strict return precautions thoroughly discussed with patient. Discussed importance for follow-up with interventional radiologist and his oncologist/primary care provider. Diagnostics: EKG, CBC, CMP, Trop, COVID, Ang Chest Therapeutics: None Prescription: Outpatient bilateral thoracentesis Impression: Bilateral large pleural effusion with dyspnea Anticoagulation status Lung cancer, advanced Plan: 1. Dr. Vargas, interventional radiology, will see you tomorrow afternoon in order to drain the pleural effusions as discussed at [facility] in [place], [place]. 2. Do not take Eliquis tomorrow as discussed. Dr. Vargas will confirm when to restart this medication. 3. If you do not hear about an appointment time, call [facility] or back to our ER for further appointment time. 4. Follow-up with your primary care provider, the interventional radiologist tomorrow as discussed, and your oncologist as discussed. Return to the ED as needed and as discussed. Definitive disposition and diagnosis as appropriate pending reevaluation and review of above. - Related Data Allergies Allergy/AdvReac Type Severity Reaction Status Date / Time No Known Allergies Allergy Verified 12/18/20 10:42 Home Meds: Home Meds Metoprolol Succinate [Toprol XL] 25 mg PO DAILY 12/01/15 [History] atorvaSTATin [Lipitor] 40 mg PO BEDTIME 05/06/18 [History] levETIRAcetam [Keppra] 750 mg PO BID 08/14/18 [History] Apixaban [Eliquis] 5 mg PO BID 10/25/18 [History] Aspirin [Halfprin] 81 mg PO DAILY 05/22/19 [History] Vit C/Vit E AC/Lut/Copper/Zinc [Preservision Lutein Softgel] 1 cap PO DAILY 05/22/19 [History] Acetaminophen [8 Hour Pain Relief] 650 mg PO Q6HR PRN 12/07/20 [History] Past Medical History - Past Health History Medical/Surgical History: Denies Medical/Surgical History HEENT History: Reports: Cataract, Impaired Vision Cardiovascular History: Reports: Afib, CAD, Heart Valve Replacement, Hypertensi on, [place], Pacemaker Respiratory History: Reports: None Gastrointestinal History: Reports: Chronic Constipation Genitourinary History: Reports: BPH Musculoskeletal History: Reports: Fracture Neurological History: Reports: CVA, TIA Psychiatric History: Reports: Addiction Other Psychiatric History: Alcohol abuse Endocrine/Metabolic History: Reports: None Hematologic History: Reports: Anticoagulation Therapy, Blood Transfusion(s) Immunologic History: Reports: None Oncologic (Cancer) History: Reports: Liver, Lung Other Oncologic History: skin cancer on top of head and face Dermatologic History: Reports: Melanoma Other Dermatologic History: has radiation treatment for cancer. Melanoma to top of head. - Infectious Disease History Infectious Disease History: Reports: Chicken Pox - Past Surgical History Head Surgeries/Procedures: Reports: None HEENT Surgical History: Reports: Cataract Surgery Cardiovascular Surgical History: Reports: Carotid Endarterectomy, Coronary Artery Bypass, Valve Replacement, Other (See Below) Other Cardiovascular Surgeries/Procedures: pacemaker and porcine mitral valve Respiratory Surgical History: Reports: None GI Surgical History: Reports: None Male Surgical History: Reports: None Endocrine Surgical History: Reports: None Neurological Surgical History: Reports: None Musculoskeletal Surgical History: Reports: None Social & Family History - Family History Family Medical History: No Pertinent Family History HEENT: Reports: None Cardiac: Reports: Afib, High Cholesterol, Hypertension Respiratory: Reports: None GI: Reports: None : Reports: None OBGYN: Reports: None Musculoskeletal: Reports: Arthritis, Osteoarthritis, Osteoporosis Neurological: Reports: None Psychiatric: Reports: None Endocrine/Metabolic: Reports: None Hematologic: Reports: None Immunologic: Reports: None Dermatologic: Reports: None Oncologic: Reports: None - Tobacco Use Tobacco Use Status *Q: Former Tobacco User Years of Tobacco use: 30 Used Tobacco, but Quit: Yes Month/Year Tobacco Last Used: 30 - Caffeine Use Caffeine Use: Reports: None Other Caffeine Use: Cup a day Caffeine Use Comment: 1 drink/day - Recreational Drug Use Recreational Drug Use: No - Living Situation & Occupation Living situation: Reports: with Significant Other Occupation: Employed ED ROS GENERAL - Review of Systems Review Of Systems: Comprehensive ROS is negative, except as noted in HPI. ED EXAM, GENERAL - Physical Exam Exam: See Below (see dictation) Course - Vital Signs Last Recorded V/S: Last Vital Signs Temp 95.4 F L 02/26/21 14:58 Pulse 81 02/26/21 20:34 Resp 17 02/26/21 20:34 BP 127/72 02/26/21 20:34 Pulse Ox 94 L 02/26/21 20:34 - Orders/Labs/Meds Orders: Active Orders 24 hr Category Date Time Status Saline Lock Insert [OM.PC] Stat Oth 02/26/21 15:15 Ordered Labs: Laboratory Tests 02/26/21 02/26/21 02/26/21 Range/Units 15:30 15:30 15:39 WBC 7.64 (4.0-11.0) K/uL RBC 4.25 L (4.50-5.90) M/uL Hgb 14.3 (13.0-17.0) g/dL Hct 42.2 (38.0-50.0) % MCV 99.3 H (80.0-98.0) fL MCH 33.6 H (27.0-32.0) pg MCHC 33.9 (31.0-37.0) g/dL RDW Std Deviation 53.0 (28.0-62.0) fl RDW Coeff of Ryan 15 (11.0-15.0) % Plt Count 197 (150-400) K/uL MPV 10.20 (7.40-12.00) fL Neut % (Auto) 84.7 H (48.0-80.0) % Lymph % (Auto) 8.4 L (16.0-40.0) % [place] % (Auto) 6.4 (0.0-15.0) % Eos % (Auto) 0.1 (0.0-7.0) % Baso % (Auto) 0.4 (0.0-1.5) % Neut # (Auto) 6.5 H (1.4-5.7) K/uL Lymph # (Auto) 0.6 (0.6-2.4) K/uL [place] # (Auto) 0.5 (0.0-0.8) K/uL Eos # (Auto) 0.0 (0.0-0.7) K/uL Baso # (Auto) 0.0 (0.0-0.1) K/uL Nucleated RBC % 0.0 /100WBC Nucleated RBCs # 0 K/uL Sodium 142 (136-148) mmol/L Potassium 3.9 (3.5-5.1) mmol/L Chloride 105 (98-107) mmol/L Carbon Dioxide 23.8 (21.0-32.0) mmol/L BUN 11 (7.0-18.0) mg/dL Creatinine 1.0 (0.8-1.3) mg/dL Est Cr Clr Drug Dosing 56.45 mL/min Estimated GFR (MDRD) > 60.0 ml/min Glucose 144 H (74-106) mg/dL Calcium 9.1 (8.5-10.1) mg/dL Total Bilirubin 1.1 H (0.2-1.0) mg/dL AST 26 (15-37) IU/L ALT 31 (14-63) IU/L Alkaline Phosphatase 73 (46-116) U/L Troponin I < 0.050 (0.000-0.056) ng/mL Total Protein 7.0 (6.4-8.2) g/dL Albumin 2.9 L (3.4-5.0) g/dL Globulin 4.1 H (2.6-4.0) g/dL Albumin/Globulin Ratio 0.7 L (0.9-1.6) Lipase 142 (73-393) U/L SARS-CoV-2 RNA (KARYN) NEGATIVE (NEGATIVE) 02/26/21 Range/Units 19:46 WBC (4.0-11.0) K/uL RBC (4.50-5.90) M/uL Hgb (13.0-17.0) g/dL Hct (38.0-50.0) % MCV (80.0-98.0) fL MCH (27.0-32.0) pg MCHC (31.0-37.0) g/dL RDW Std Deviation (28.0-62.0) fl RDW Coeff of Ryan (11.0-15.0) % Plt Count (150-400) K/uL MPV (7.40-12.00) fL Neut % (Auto) (48.0-80.0) % Lymph % (Auto) (16.0-40.0) % [place] % (Auto) (0.0-15.0) % Eos % (Auto) (0.0-7.0) % Baso % (Auto) (0.0-1.5) % Neut # (Auto) (1.4-5.7) K/uL Lymph # (Auto) (0.6-2.4) K/uL [place] # (Auto) (0.0-0.8) K/uL Eos # (Auto) (0.0-0.7) K/uL Baso # (Auto) (0.0-0.1) K/uL Nucleated RBC % /100WBC Nucleated RBCs # K/uL Sodium (136-148) mmol/L Potassium (3.5-5.1) mmol/L Chloride (98-107) mmol/L Carbon Dioxide (21.0-32.0) mmol/L BUN (7.0-18.0) mg/dL Creatinine (0.8-1.3) mg/dL Est Cr Clr Drug Dosing mL/min Estimated GFR (MDRD) ml/min Glucose (74-106) mg/dL Calcium (8.5-10.1) mg/dL Total Bilirubin (0.2-1.0) mg/dL AST (15-37) IU/L ALT (14-63) IU/L Alkaline Phosphatase (46-116) U/L Troponin I < 0.050 (0.000-0.056) ng/mL Total Protein (6.4-8.2) g/dL Albumin (3.4-5.0) g/dL Globulin (2.6-4.0) g/dL Albumin/Globulin Ratio (0.9-1.6) Lipase (73-393) U/L SARS-CoV-2 RNA (KARYN) (NEGATIVE) Meds: Medications Discontinued Medications Generic Name Dose Route Start Last Admin Trade Name Clemencia PRN Reason Stop Dose Admin Iopamidol 100 ml 02/26/21 17:35 02/26/21 17:36 Iopamidol 755 Mg/Ml 500 Ml Multipack Bottle IVPUSH 02/26/21 17:36 100 ml ONETIME STA Administration Sodium Chloride 2.5 ml 02/26/21 15:15 02/26/21 15:30 Sodium Chloride 0.9% 2.5 Ml Syringe FLUSH 2.5 ml ASDIRECTED PRN Administration Keep Vein Open Sodium Chloride 10 ml 02/26/21 15:15 02/26/21 15:30 Sodium Chloride 0.9% 10 Ml Syringe FLUSH 10 ml ASDIRECTED PRN Administration Keep Vein Open Departure - Departure Time of Disposition: 20:16 Disposition: Home, Self-Care 01 Clinical Impression: Bilateral pleural effusion, Chronic anticoagulation, Lung cancer Instructions: Pleural Effusion Referrals: PCP,None [Primary Care Provider] - Forms: ED Department Discharge Additional Instructions: The following information is given to patients seen in the emergency department who are being discharged to home. This information is to outline your options for follow-up care. We provide all patients seen in our emergency department with a follow-up referral. The need for follow-up, as well as the timing and circumstances, are variable depending upon the specifics of your emergency department visit. If you don't have a primary care physician on staff, we will provide you with a referral. We always advise you to contact your personal physician following an emergency department visit to inform them of the circumstance of the visit and for follow-up with them and/or the need for any referrals to a consulting specialist. The emergency department will also refer you to a specialist when appropriate. This referral assures that you have the opportunity for follow-up care with a specialist. All of these measure are taken in an effort to provide you with optimal care, which includes your follow-up. Under all circumstances we always encourage you to contact your private physician who remains a resource for coordinating your care. When calling for follow-up care, please make the office aware that this follow-up is from your recent emergency room visit. If for any reason you are refused follow-up, please contact the [facility] Emergency Department at and asked to speak to the emergency department charge nurse. Eliu Vargas DO, Interventional Radiology [address] [facility] [address] Vargas, interventional radiology, will see you tomorrow afternoon in order to drain the pleural effusions as discussed at [facility] in [place], [place]. 2. Do not take Eliquis tomorrow as discussed. Dr. Vargas will confirm when to restart this medication. 3. If you do not hear about an appointment time, call [facility] or back to our ER for further appointment time. 4. Follow-up with your primary care provider, the interventional radiologist tomorrow as discussed, and your oncologist as discussed. Return to the ED as needed and as discussed. Sepsis Event Note (ED) - Evaluation Sepsis Screening Result: No Definite Risk - Focused Exam Vital Signs: Vital Signs Temp Pulse Resp BP Pulse Ox 02/26/21 20:34 81 17 127/72 94 L 02/26/21 19:30 78 18 131/74 95 02/26/21 14:58 95.4 F L 80 15 138/66 94 L - My Orders Last 24 Hours: My Active Orders 02/26/21 15:15 Saline Lock Insert [OM.PC] Stat - Assessment/Plan Last 24 Hours: My Active Orders 02/26/21 15:15 Saline Lock Insert [OM.PC] Stat
[2021-02-26 16:29] LABS: BLOOD UREA NITROGEN,BUN 11 mg/dL (7.0-18.0); CARBON DIOXIDE,CO2 23.8 mmol/L (21.0-32.0); CHLORIDE,CL 105 mmol/L (98-107); GLUCOSE RANDOM 144 mg/dL (74-106); LIPASE 142 U/L (73-393); POTASSIUM,K 3.9 mmol/L (3.5-5.1); SODIUM,NA 142 mmol/L (136-148)
[2021-02-26] MEDS ORDERED: Iopamidol 755 MG/ML 500 ML Multipack Bottle IVPUSH STA (17:35)
--- NOTE | 2021-02-26 17:58 | CT ---
INDICATION: Shortness of breath. Lung cancer. TECHNIQUE: CT chest PE was acquired with 100 cc Isovue 370 IV contrast. COMPARISON: PET-CT November 19, 2020. FINDINGS: Heart and vasculature: Contrast opacification of the pulmonary arterial tree is adequate. No sign of pulmonary embolism. Cardiomegaly present. Great vessels normal in caliber. Lungs and pleural: Significant interval increase in size of what are now large bilateral pleural effusions. There are new pleural-based soft tissue nodules along the medial aspect of the right upper lobe. Largest such nodule is on series 6, image 28 measuring 1.6 cm. Stable post treatment changes in the left upper lobe. No pneumothorax. Lymph nodes/mediastinum: No mediastinal, hilar, or axillary adenopathy. Chest wall: No masses. Upper abdomen: A known metastatic lesion in the liver is not well visualized on this exam. Bones: Chronic appearing compression fracture of the T3 vertebral body. No suspicious bone lesions. IMPRESSION: 1. New soft tissue nodules along the medial right lung pleura with a significant interval increase in size of bilateral large pleural effusions. These findings are suspicious for recurrent or metastatic lung cancer. 2. No pulmonary embolism. Please note that all CT scans at this facility use dose modulation, iterative reconstruction, and/or weight-based dosing when appropriate to reduce radiation dose to as low as reasonably achievable. Dictated by Jamey Valera MD @ 02/26/2021 5:56:57 PM (Electronically Signed)
[2021-02-26 20:35] VITALS: BP 127/72; PULSE 81
--- NOTE | 2021-02-27 11:43 | PCM.EKG ---
#1 Interpretation EKG Interpretation Comments: 82, RBBB, nonspecific st/t fidings
== END 2021-02-26 20:36 | disposition home or self-care (01) ==
LOC: MW.ED 14:39
DX: C34.90 Malignant neoplasm of unspecified part of unspecified bronchus or lung (principal); J90 Pleural effusion, not elsewhere classified; I48.91 Unspecified atrial fibrillation; I25.10 Atherosclerotic heart disease of native coronary artery without angina pectoris; I10 Essential (primary) hypertension; I25.2 Old myocardial infarction; Z87.891 Personal history of nicotine dependence; Z79.01 Long term (current) use of anticoagulants; Z79.82 Long term (current) use of aspirin; Z79.899 Other long term (current) drug therapy; Z20.822 Contact with and (suspected) exposure to COVID-19
CPT/HCPCS: 36415; 71275; 80053; 83690; 84484; 85025; 99285; Q9967; U0002

== ENCOUNTER 2021-04-02 10:03 | Emergency (ER) | payer MEDICARE, OTHER ==
[2021-04-02 10:24] VITALS: BP 124/56; PULSE 91
--- NOTE | 2021-04-02 10:28 | EDM.PDOC ---
ED HPI GENERAL MEDICAL PROBLEM - General Chief Complaint: Respiratory Problem Stated Complaint: SHORTNESS OF BREATH Time Seen by Provider: 04/02/21 10:10 Source of Information: Reports: Patient History Limitations: Reports: No Limitations - History of Present Illness INITIAL COMMENTS - FREE TEXT/NARRATIVE: Patient is 85-year-old male with a history of lung cancer who presents today for shortness of breath. Patient was seen yesterday and had a thoracentesis he went home and states that he felt better but when he woke up he states that he did feel worse but he felt at his baseline he thought he would feel better for a few days so he tried going to catch the interventional radiologist if he would drain a little bit more fluid off when he went there patient was directly here patient here satting well does not seem to be in distress denies any other complaints other than his chronic shortness of breath. He states that he does not want any chemo or radiation he made himself just comfort care. Again patient this time has no other complaints at this chest pain fever chills nausea vomiting. - Related Data Allergies Allergy/AdvReac Type Severity Reaction Status Date / Time No Known Allergies Allergy Verified 04/02/21 10:17 Home Meds: Home Meds Metoprolol Succinate [Toprol XL] 25 mg PO DAILY 12/01/15 [History] atorvaSTATin [Lipitor] 40 mg PO BEDTIME 05/06/18 [History] levETIRAcetam [Keppra] 750 mg PO BID 08/14/18 [History] Apixaban [Eliquis] 5 mg PO BID 10/25/18 [History] Aspirin [Halfprin] 81 mg PO DAILY 05/22/19 [History] Vit C/Vit E AC/Lut/Copper/Zinc [Preservision Lutein Softgel] 1 cap PO DAILY 05/22/19 [History] Acetaminophen [8 Hour Pain Relief] 650 mg PO Q6HR PRN 12/07/20 [History] Past Medical History - Past Health History Medical/Surgical History: Denies Medical/Surgical History HEENT History: Reports: Cataract, Impaired Vision Cardiovascular History: Reports: Afib, CAD, Heart Valve Replacement, Hypertension, VA, Pacemaker Respiratory History: Reports: None Gastrointestinal History: Reports: Chronic Constipation Genitourinary History: Reports: BPH Musculoskeletal History: Reports: Fracture Neurological History: Reports: CVA, TIA Psychiatric History: Reports: Addiction Other Psychiatric History: Alcohol abuse Endocrine/Metabolic History: Reports: None Hematologic History: Reports: Anticoagulation Therapy, Blood Transfusion(s) Immunologic History: Reports: None Oncologic (Cancer) History: Reports: Liver, Lung Other Oncologic History: skin cancer on top of head and face Dermatologic History: Reports: Melanoma Other Dermatologic History: has radiation treatment for cancer. Melanoma to top of head. - Infectious Disease History Infectious Disease History: Reports: Chicken Pox - Past Surgical History Head Surgeries/Procedures: Reports: None HEENT Surgical History: Reports: Cataract Surgery Cardiovascular Surgical History: Reports: Carotid Endarterectomy, Coronary Artery Bypass, Valve Replacement, Other (See Below) Other Cardiovascular Surgeries/Procedures: pacemaker and porcine mitral valve Respiratory Surgical History: Reports: None GI Surgical History: Reports: None Male Surgical History: Reports: None Endocrine Surgical History: Reports: None Neurological Surgical History: Reports: None Musculoskeletal Surgical History: Reports: None Social & Family History - Family History Family Medical History: No Pertinent Family History HEENT: Reports: None Cardiac: Reports: Afib, High Cholesterol, Hypertension Respiratory: Reports: None GI: Reports: None : Reports: None OBGYN: Reports: None Musculoskeletal: Reports: Arthritis, Osteoarthritis, Osteoporosis Neurological: Reports: None Psychiatric: Reports: None Endocrine/Metabolic: Reports: None Hematologic: Reports: None Immunologic: Reports: None Dermatologic: Reports: None Oncologic: Reports: None - Caffeine Use Caffeine Use: Reports: None Other Caffeine Use: Cup a day Caffeine Use Comment: 1 drink/day - Living Situation & Occupation Living situation: Reports: with Significant Other Occupation: Employed ED ROS GENERAL - Review of Systems Review Of Systems: See Below Constitutional: Reports: No Symptoms HEENT: Reports: No Symptoms Respiratory: Reports: Shortness of Breath Cardiovascular: Reports: No Symptoms Endocrine: Reports: No Symptoms GI/Abdominal: Reports: No Symptoms : Reports: No Symptoms Musculoskeletal: Reports: No Symptoms Skin: Reports: No Symptoms Neurological: Reports: No Symptoms Psychiatric: Reports: No Symptoms Hematologic/Lymphatic: Reports: No Symptoms Immunologic: Reports: No Symptoms ED EXAM, GENERAL - Physical Exam Exam: See Below Exam Limited By: No Limitations General Appearance: Alert, WD/WN, No Apparent Distress Eye Exam: Bilateral Eye: EOMI, PERRL Ears: Normal External Exam Head: Atraumatic Neck: Normal Inspection Respiratory/Chest: No Respiratory Distress, Lungs Clear, Normal Breath Sounds Cardiovascular: Normal Peripheral Pulses, Regular Rate, Rhythm GI/Abdominal: Normal Bowel Sounds, Soft, Non-Tender Extremities: Normal Inspection Neurological: Alert, Oriented, Normal Cognition, Normal Gait Psychiatric: Normal Affect #1 Interpretation EKG Date: 04/02/21 Time: 10:31 Rhythm: Other (v-paced) Rate (Beats/Min): 88 ST-T: Normal Course - Vital Signs Last Recorded V/S: Last Vital Signs Temp 96.9 F 04/02/21 10:19 Pulse 91 04/02/21 10:19 Resp 16 04/02/21 10:19 BP 124/56 L 04/02/21 10:19 Pulse Ox 96 04/02/21 10:19 - Orders/Labs/Meds Labs: Laboratory Tests 04/02/21 04/02/21 Range/Units 10:28 10:28 WBC 8.90 (4.0-11.0) K/uL RBC 4.39 L (4.50-5.90) M/uL Hgb 15.0 (13.0-17.0) g/dL Hct 44.1 (38.0-50.0) % MCV 100.5 H (80.0-98.0) fL MCH 34.2 H (27.0-32.0) pg MCHC 34.0 (31.0-37.0) g/dL RDW Std Deviation 54.5 (28.0-62.0) fl RDW Coeff of Ryan 15 (11.0-15.0) % Plt Count 120 L (150-400) K/uL MPV 11.30 (7.40-12.00) fL Neut % (Auto) 77.3 (48.0-80.0) % Lymph % (Auto) 10.9 L (16.0-40.0) % Weld % (Auto) 11.0 (0.0-15.0) % Eos % (Auto) 0.6 (0.0-7.0) % Baso % (Auto) 0.2 (0.0-1.5) % Neut # (Auto) 6.9 H (1.4-5.7) K/uL Lymph # (Auto) 1.0 (0.6-2.4) K/uL Weld # (Auto) 1.0 H (0.0-0.8) K/uL Eos # (Auto) 0.1 (0.0-0.7) K/uL Baso # (Auto) 0.0 (0.0-0.1) K/uL Nucleated RBC % 0.0 /100WBC Nucleated RBCs # 0 K/uL Sodium 139 (136-148) mmol/L Potassium 3.6 (3.5-5.1) mmol/L Chloride 103 (98-107) mmol/L Carbon Dioxide 23.7 (21.0-32.0) mmol/L BUN 24 H (7.0-18.0) mg/dL Creatinine 1.1 (0.8-1.3) mg/dL Est Cr Clr Drug Dosing 48.11 mL/min Estimated GFR (MDRD) > 60.0 ml/min Glucose 118 H (74-106) mg/dL Calcium 9.4 (8.5-10.1) mg/dL Total Bilirubin 1.8 H (0.2-1.0) mg/dL AST 46 H (15-37) IU/L ALT 31 (14-63) IU/L Alkaline Phosphatase 66 (46-116) U/L Troponin I < 0.050 (0.000-0.056) ng/mL Total Protein 7.0 (6.4-8.2) g/dL Albumin 3.0 L (3.4-5.0) g/dL Globulin 4.0 (2.6-4.0) g/dL Albumin/Globulin Ratio 0.8 L (0.9-1.6) - Re-Assessments/Exams Free Text/Narrative Re-Assessment/Exam: 04/02/21 11:31 Remains to be at his baseline still satting 95% on room air looks well no respiratory distress. Again patient wanted to have more fluid taken off but his x-ray shows that there is a decreased amount of fluid we also try to speak to the interventional radiology who is now gone for the day would not be returning for 2 weeks we have instructed patient to follow-up with PMD as patient has comfort care at this moment. Departure - Departure Time of Disposition: 11:31 Disposition: Home, Self-Care 01 Condition: Good Clinical Impression: Dyspnea - Discharge Information *PRESCRIPTION DRUG MONITORING PROGRAM REVIEWED*: Not Applicable *COPY OF PRESCRIPTION DRUG MONITORING REPORT IN PATIENT ROSA: Not Applicable Instructions: Shortness of Breath, Adult, [id number] Forms: ED Department Discharge Additional Instructions: You were seen today at the you had a thoracentesis to drain some the fluid of your lungs. The x-ray today showed that there is a decrease amount of fluid and your breathing seems to be at his baseline. We recommend he follow-up with her primary care physician if you have any other concerning signs or symptoms please feel free to return to the ED. The following information is given to patients seen in the emergency department who are being discharged to home. This information is to outline your options for follow-up care. We provide all patients seen in our emergency department with a follow-up referral. The need for follow-up, as well as the timing and circumstances, are variable depending upon the specifics of your emergency department visit. If you don't have a primary care physician on staff, we will provide you with a referral. We always advise you to contact your personal physician following an emergency department visit to inform them of the circumstance of the visit and for follow-up with them and/or the need for any referrals to a consulting specialist. The emergency department will also refer you to a specialist when appropriate. This referral assures that you have the opportunity for follow-up care with a specialist. All of these measure are taken in an effort to provide you with optimal care, which includes your follow-up. Under all circumstances we always encourage you to contact your private physician who remains a resource for coordinating your care. When calling for follow-up care, please make the office aware that this follow-up is from your recent emergency room visit. If for any reason you are refused follow-up, please contact the [facility] Emergency Department at and asked to speak to the emergency department charge nurse. Please follow up with your primary care physician. If you do not have a primary care physician, see below: [facility] [address] [place] [id number] [facility] [address] [place] [id number] Sepsis Event Note (ED) - Focused Exam Vital Signs: Vital Signs Temp Pulse Resp BP Pulse Ox 04/02/21 10:19 96.9 F 91 16 124/56 L 96 - Assessment/Plan Plan: Patient is a 85-year-old male history of lung cancer who was comfort care presents today for shortness of breath. Patient is a his baseline but did have a thoracentesis done yesterday. We will make sure patient have pneumothorax and if negative patient likely will be able to be discharged home to follow-up with his primary care physician.
--- NOTE | 2021-04-02 10:30 | CR ---
INDICATION: Dyspnea, status post left-sided thoracentesis performed 1 day prior TECHNIQUE: Chest 1 view. COMPARISON: One day prior FINDINGS: No pneumothorax is identified following ultrasound-guided left-sided thoracentesis. There has been no reaccumulation of left-sided pleural fluid. A small to moderate-sized right-sided pleural effusion persists. This is not appreciably changed. 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 Changes of previous midline sternotomy and coronary artery bypass grafting are present. A dual-chamber left subclavian transvenous cardiac pacer is again noted. The heart size and central vascular pattern remains stable and within the normal range. IMPRESSION: 1. No pneumothorax or re- accumulation of left-sided pleural fluid following ultrasound-guided left-sided thoracentesis performed 1 day prior. 2. Stable small to moderate size right-sided pleural effusion. 3. Pulmonary emphysematous and fibrotic changes are again noted. 4. Other findings are as discussed above. Dictated by Rome Haines MD @ 04/02/2021 10:29:37 AM (Electronically Signed)
[2021-04-02 11:16] LABS: BLOOD UREA NITROGEN,BUN 24 mg/dL (7.0-18.0); CARBON DIOXIDE,CO2 23.7 mmol/L (21.0-32.0); CHLORIDE,CL 103 mmol/L (98-107); GLUCOSE RANDOM 118 mg/dL (74-106); POTASSIUM,K 3.6 mmol/L (3.5-5.1); SODIUM,NA 139 mmol/L (136-148)
== END 2021-04-02 11:59 | disposition home or self-care (01) ==
LOC: MW.ED 10:03
DX: R06.00 Dyspnea, unspecified (principal); I48.91 Unspecified atrial fibrillation; I25.10 Atherosclerotic heart disease of native coronary artery without angina pectoris; I10 Essential (primary) hypertension; I25.2 Old myocardial infarction; Z79.01 Long term (current) use of anticoagulants; Z79.82 Long term (current) use of aspirin; Z79.899 Other long term (current) drug therapy
CPT/HCPCS: 36415; 71045; 71045-26; 80053; 84484; 85025; 93005; 99285-25